=== PATIENT | female | born 1995 | race Caucasian/White ===

== ENCOUNTER 2020-11-20 13:49 | Emergency (ER) | payer MEDICAID, SELFPAY ==
--- NOTE | 2020-11-20 14:00 | ED_ITS ---
HPI - Nausea/Vomiting/Diarrhea General Chief complaint: Nausea/Vomiting/Diarrhea Stated complaint: abd pain, n/v Time Seen by Provider: 11/20/20 13:58 Source: patient and EMS Mode of arrival: EMS Limitations: no limitations History of Present Illness MD elicited complaint: nausea, vomiting and abdominal pain Pertinent past history: cyclical vomiting and other Onset (ago): day(s) (2) Description of vomiting: food contents and watery Associated nausea: Yes Associated abdominal pain: Yes Location of pain: epigastric Radiation: diffuse Pain consistency: constant Severity: mild Quality: cramping and dull Exacerbating factors: eating Relieving factors: none Context: possible food poisoning (started after eating [employer]) Associated symptoms: loss of appetite, malaise and nausea/vomiting Related Data Previous Rx's Medication Instructions Recorded promethazine 25 mg OR Q6H PRN #12 ea 11/20/20 Allergies Allergy/AdvReac Type Severity Reaction Status Date / Time No Known Allergies Allergy Verified 11/20/20 14:50 [No Known Allergies*] Review of Systems Review of Systems: Constitutional : No Weight loss, No Fever, No Chills ENT/Mouth : No sore throat, No Rhinorrhea Eyes: No Swelling, No Redness Cardiovascular : No Chest Pain, No SOB, NoEdema Respiratory : No Cough, No Sputum, No Wheezing Gastrointestinal : Positive Nausea, Positive Vomiting, no Diarrhea, positive abdominal Pain, No Hematochezia, No Melena Genitourinary : No Dysuria, No Urinary Frequency, No Hematuria, No Urgency Musculoskeletal : No joint pain, No Myalgias, No Joint Swelling Skin : No Skin Lesions, No rash Neuro : No Weakness, No Numbness, No Dizziness, No Headache Psych : No Anxiety/Panic, No Depression Heme/Lymph: No Bruising, No Lymphadenopathy Endocrine : No Polyuria, No Polydipsia All other systems reviewed and are negative. Gastrointestinal: Gastrointestinal: Reports nausea PMFSH Past Medical History Attestation statement: The following information was validated with the patient. Medical History (Updated 11/20/20 @ 14:20 by Gissel Daniel DO) Cyclical vomiting Fallot tetralogy No known health problems Surgical History (Updated 11/20/20 @ 14:12 by Gissel Daniel DO) H/O tetralogy of Fallot repair Hx of section Social History Social History (Updated 11/20/20 @ 14:12 by Gissel Daniel DO) Patient Tobacco Use Status: Never used Tobacco Advance Directives: No Advance Directives Information Provided: Yes Patient : No Physical Exam Vital Signs: Vital Signs: Last Vital Signs Temp 99 F 11/20/20 14:06 Pulse 53 11/20/20 14:06 Resp 15 11/20/20 14:06 BP 136/67 11/20/20 14:06 Pulse Ox 97 11/20/20 14:06 Body Mass Index 28.3 Appearance: Alert. Oriented X3. No acute distress. Eyes: Pupils equal, round and reactive to light. ENT: Pharynx mild dry MM Neck: Normal inspection. Neck supple. CVS: Normal heart rate and rhythm. Pulses normal. Respiratory: No respiratory distress. Breath sounds normal. Abdomen: Soft and mild epigastric ttp Skin: Skin warm and dry. Normal skin color. Normal skin turgor. Extremities: No lower extremity edema. No calf ttp Neuro: Oriented X 3. No motor deficit. No sensory deficit. Course Course Course Narrative: signed out to Dr. Beck pending workup and PO challenge MDM - Nausea/Vomiting/Diarrhea MDM Narrative Medical decision making narrative: 25 yo female hx of cyclical vomiting here with n/v and some epigastric discomfort overall the patient's abdomen is benign will need labs, IVF, IV reglan/benadryl, doubt appendicitis or biliary colic at this time, dispo per results and findings as well as PO challenge Lab Data Result diagrams: 11/20/20 15:02 11/20/20 15:02 Labs: Lab Results 11/20/20 11/20/20 Range/Units 15:02 15:02 WBC 12.7 H (4.8-10.8) X10*3/uL RBC 5.39 (4.20-5.50) X10*6/uL Hgb 15.2 (12.0-16.0) g/dl Hct 45.8 (37-47) % MCV 85.0 (80-98) fL MCH 28.2 (27.0-33.0) pg MCHC 33.2 (31.0-35.0) g/dl RDW 13.2 (11.0-16.0) % Plt Count 343 (160-400) X10*3/uL MPV 10.6 (9.4-12.3) fL Immature Gran % (Auto) 0.3 (0.0-0.4) % Neut % (Auto) 86.0 H (45-73) % Lymph % (Auto) 6.7 L (20-40) % [place] % (Auto) 6.9 (2-11) % Eos % (Auto) 0.0 (0-4) % Baso % (Auto) 0.1 (0-2) % Lymph # (Auto) 0.9 L (1.2-4.9) X10*3/uL [place] # (Auto) 0.9 (0.1-1.2) X10*3/uL Eos # (Auto) 0.0 (0.0-0.4) X10*3/uL Baso # (Auto) 0.0 (0.0-0.2) X10*3/uL Abs Immat Gran (auto) 0.04 H (0.00-0.03) X10*3/uL Absolute Neuts (auto) 10.9 H (2.0-8.3) X10*3/uL Absolute Nucleated RBC 0.000 (0.0-0.012) X10*3/uL Nucleated RBC % (auto) 0.0 (0.0-0.2) /100WBC Sodium Cancelled Potassium Cancelled Chloride Cancelled Carbon Dioxide Cancelled Anion Gap Cancelled BUN Cancelled Creatinine Cancelled Estim Creat Clear Calc Cancelled Estimated GFR Cancelled Random Glucose Cancelled Calcium Cancelled Discharge Plan Discharge Clinical Impression: Vomiting Qualifiers: Vomiting type: unspecified Vomiting Intractability: non-intractable Nausea presence: with nausea Qualified Code(s): R11.2 - Nausea with vomiting, unspecified Instructions: Acute Nausea and Vomiting (ED) Additional Instructions: return to ED for any worsening symptoms or concerns Prescriptions: New promethazine 25 mg suppository 25 mg OR Q6H PRN (Reason: nausea and vomiting) Qty: 12 RF: 1 Stand Alone Forms: Work/School Release
[2020-11-20 14:06] VITALS: BP 136/67; PULSE 53; RESP 15; TEMP 37.2; O2SAT 97; BMI 28.3
[2020-11-20] MEDS: diphenhydrAMINE HCL 50 MG/ML VIAL 25 MG IVPUSH (14:57)
[2020-11-20] MEDS: Famotidine/PF 20 MG/2 ML VIAL IVPUSH (14:58)
[2020-11-20] MEDS: Metoclopramide HCl 10 MG/2 ML VIAL IVPUSH (14:58)
[2020-11-20 15:08] LABS: MANUAL DIFF FLAG NO
[2020-11-20 15:10] LABS: Basophils Percent Auto 0.1 % (0-2); Hematocrit 45.8 % (37-47); Hemoglobin 15.2 g/dl (12.0-16.0); Imm Gran Abs Auto 0.04 X10*3/uL (0.00-0.03); Imm Gran Pct Auto 0.3 % (0.0-0.4); Lymphocytes Absolute Auto 0.9 X10*3/uL (1.2-4.9); Lymphocytes Percent Auto 6.7 % (20-40); Mean Corpuscular HGB Conc 33.2 g/dl (31.0-35.0); Mean Corpuscular Hemoglobin 28.2 pg (27.0-33.0); Mean Platelet Volume 10.6 fL (9.4-12.3); Monocytes Absolute Auto 0.9 X10*3/uL (0.1-1.2); Monocytes Percent Auto 6.9 % (2-11); Neutrophils Absolute Auto 10.9 X10*3/uL (2.0-8.3); Platelet Count 343 X10*3/uL (160-400); Red Blood Count 5.39 X10*6/uL (4.20-5.50); Red Cell Distribution Width 13.2 % (11.0-16.0); White Blood Count 12.7 X10*3/uL (4.8-10.8)
[2020-11-20] MEDS: 0.9 % Sodium Chloride 1,000 ML 999 ML IVCONT (15:10)
--- NOTE | 2020-11-20 15:10 | PC.NURSE ---
IV placed, labs obtained, and pt medicated for nausea.
[2020-11-20 16:15] LABS: Alanine Aminotransferase 32 U/L (0-31); Alkaline Phosphatase 78 U/L (39-117); Anion Gap 15 (12-20); Aspartate Amino Transferase 22 U/L (5-31); Bilirubin Direct 0.3 mg/dL (0.0-0.5); Bilirubin Total 0.8 mg/dL (0.0-1.0); Blood Urea Nitrogen 9 mg/dL (9-16); Calcium 10.7 mg/dL (8.4-10.2); Carbon Dioxide 29 mmol/L (22-29); Chloride 101 mmol/L (96-108); Creatinine Clr Calc Pharmacy 92.1; Estimated Glomerular Filt Rate > 60; Glucose Random 106 mg/dL (60-115); Magnesium 2.1 mg/dL (1.6-2.6); Potassium 3.8 mmol/L (3.3-5.1); Sodium 141 mmol/L (135-145); Total Protein 8.6 g/dL (6.5-8.0)
[2020-11-20 16:20] LABS: HCG Quantitative < 2 mIU/mL
[2020-11-20 16:27] LABS: Lipase 229 U/L (8-78)
--- NOTE | 2020-11-20 16:46 | PC.NURSE ---
Pt asked to perform PO challenge and urinate for urine sample. Pt states that she does not have to urinate at this time. IVF continue infusing.
[2020-11-20 16:47] VITALS: BP 146/89; PULSE 60; RESP 16; O2SAT 98
[2020-11-20 19:03] LABS: Glucose Urine UA NEG (NEG); Leukocyte Esterase Urine NEG (NEG); Nitrite Urine NEG (NEG); PH 6.5 (5.0-8.0); Specific Gravity - Urine >= 1.030 (1.005-1.025); Urine Blood NEG (NEG); Urine Ketones 5 MG/DL (NEG); Urine Protein 3+ MG/DL (NEG-TRACE)
--- NOTE | 2020-11-20 19:06 | PC.NURSE ---
After first po challenge pt was nauseated with sips of gingerale and dryheaving. Pt asked for urine sample at that time. Delay in obtaining urine sample. Pt was finally able to provide a sample which was sent to lab. A second po challenge attempted with nausea resulting. aware. Compazine ordered.
[2020-11-20 19:07] LABS: Appearance Urine CLEAR; Color Urine DARK YELLOW
[2020-11-20 19:11] LABS: Bacteria Urine TRACE /LPF; Mucus Urine 2+ /LPF; RBC Urine 0-2 /HPF (0); Squamous Epithelial Cell Urine TRACE /LPF; WBC Urine 0-2 /HPF (0-4)
[2020-11-20] MEDS: Prochlorperazine Edisylate 10 MG/2 ML VIAL IVPUSH (19:19)
[2020-11-20 19:20] VITALS: BP 132/49; PULSE 53; RESP 16; TEMP 37.1; O2SAT 98
--- NOTE | 2020-11-20 19:59 | PC.NURSE ---
Pt tolerating po well.
== END 2020-11-20 20:10 | disposition home or self-care (01) ==
PROVIDERS: Emergency Medicine; Emergency Provider Emergency Medicine; PCP Family Medicine
DX: R11.2 Nausea with vomiting, unspecified (principal); R10.13 Epigastric pain; D72.829 Elevated white blood cell count, unspecified
CPT/HCPCS: 36415; 80048; 80076; 81001; 81003; 83690; 83735; 84702; 85025; 96361; 96374; 96375; 99284; J1200; J2765

== ENCOUNTER 2020-11-22 20:56 | Emergency (ER) | payer MEDICAID, SELFPAY ==
--- NOTE | 2020-11-22 | ECG_ITS ---
Test Reason : CHEST PAIN Blood Pressure : / mmHG Vent. Rate : 085 BPM Atrial Rate : 085 BPM P-R Int : 120 ms QRS Dur : 140 ms QT Int : 426 ms P-R-T Axes : 062 069 079 degrees QTc Int : 506 ms Sinus rhythm with Premature atrial complexes Possible Left atrial enlargement Right bundle branch block Abnormal ECG When compared with ECG of 02-FEB-2020 12:16, Premature atrial complexes are now Present Referred By: Shawn Mendez Electronically Signed By:KAYLAH CALDERON
[2020-11-22 21:01] VITALS: BP 123/91; PULSE 92; RESP 18; TEMP 37.1; O2SAT 93; BMI 28.7
[2020-11-22 21:38] VITALS: BP 135/91; PULSE 70; RESP 16; O2SAT 99
--- NOTE | 2020-11-22 21:51 | ED_ITS ---
HPI - General Adult General Chief complaint: General Medical Stated complaint: vomiting, fever Time Seen by Provider: 11/22/20 21:18 Source: patient Mode of arrival: ambulatory Limitations: no limitations History of Present Illness HPI narrative: patient's history of tetralogy of Fallot with vomiting for last 3 days after eating mac and cheese unable to eat or drink much denies any urinary complaints also noticed for last 24 hours sharp chest pain off and on without any significant shortness of breath. Patient denies any significant abdominal pain no diarrhea no other family member is sick patient just seen here on 11/20 does have a history of cyclical vomiting syndrome for discharge on Phenergan suppository Related Data Previous Rx's Medication Instructions Recorded promethazine 25 mg NE Q6H PRN #12 ea 11/20/20 lorazepam [Ativan] 1 mg PO BID PRN #14 tab 11/22/20 Allergies Allergy/AdvReac Type Severity Reaction Status Date / Time No Known Allergies Allergy Verified 11/22/20 21:01 [No Known Allergies*] Review of Systems Review of Systems: Yes all other systems are reviewed and are negative [facility] Past Medical History Medical History Cyclical vomiting Fallot tetralogy Surgical History H/O tetralogy of Fallot repair Hx of section Social History Social History Patient Tobacco Use Status: Never used Tobacco Advance Directives: No Advance Directives Information Provided: No Patient : No Physical Exam Vital Signs: Vital Signs: Last Vital Signs Temp 98.7 F 11/22/20 21:01 Pulse 70 11/22/20 23:10 Resp 17 11/22/20 23:10 BP 135/97 H 11/22/20 23:10 Pulse Ox 96 11/22/20 23:10 Body Mass Index 28.7 Appearance: Alert. Oriented X3. No acute distress. Eyes: PERRLA, No Nystagmus ENT: Pharynx normal. Oral Mucosa moist Neck: Normal inspection. Neck supple. CVS: Normal heart rate and rhythm. Pulses normal. Respiratory: No respiratory distress. Equal air entry bilateral, no wheezing/rales/rhonchi Abdomen: Soft and nontender. Bowel sounds are present, no mass palpable, no CVA tenderness Skin: Skin warm and dry. Normal skin color. Normal skin turgor. Extremities: No lower extremity edema. No calf tenderness Neuro: Oriented X 3. No motor deficit. No sensory deficit.No cerebellar signs , cranial nerves II-XII intact Medical Decision Making MDM Narrative Medical decision making narrative: patient has cyclic vomiting syndrome improved after Ativan will discharge patient home on Ativan advised to follow with PCP Lab Data Labs: Lab Results 11/22/20 Range/Units 23:13 Urine Color DARK YELLOW Urine Appearance CLEAR Urine pH 7.5 (5.0-8.0) Ur Specific [place] 1.010 (1.005-1.025) Urine Protein 2+ H (NEG-TRACE) MG/DL Urine Glucose (UA) NEG (NEG) MG/DL Urine Ketones 5 (NEG) MG/DL Urine Blood NEG (NEG) Urine Nitrite NEG (NEG) Ur Leukocyte Esterase NEG (NEG) Urine RBC 0 (0) /HPF Urine WBC 0-2 (0-4) /HPF Ur Squamous Epith Cells 2+ /LPF Amorphous Sediment 2+ /LPF Urine Bacteria 2+ /LPF Urine Mucus 3+ /LPF ECG Data Attestation: I personally reviewed and interpreted this ECG as follows: Interpretation: normal sinus rhythm heart rate 85 beats per minute right bundle-branch block no acute ST T wave changes premature atrial complex is present no acute ischemia Discharge Plan Discharge Clinical Impression: Cyclic vomiting syndrome Patient Disposition: Home, Self-Care Instructions: Cyclic Vomiting Syndrome (ED) Additional Instructions: continue medication for vomiting take Medication for anxiety as prescribed Prescriptions: New lorazepam [Ativan] 1 mg tablet 1 mg PO BID PRN (Reason: anxiety) Qty: 14 RF: 0 No Action promethazine 25 mg suppository 25 mg NE Q6H PRN (Reason: nausea and vomiting) Qty: 12 RF: 1 Interventions: ED Discharge Assessment Last Done: 11/22/20 23:53 Discharge Date/Time: 11/23/20 00:08
[2020-11-22] MEDS: Magnesium Hydrox/Alum Hydrox 30 ML ORAL.SUSP PO (22:31)
[2020-11-22] MEDS: LORazepam 1 MG TABLET PO (22:31)
[2020-11-22 23:10] VITALS: BP 135/97; PULSE 70; RESP 17; O2SAT 96
[2020-11-22 23:19] LABS: Glucose Urine UA NEG (NEG); Leukocyte Esterase Urine NEG (NEG); Nitrite Urine NEG (NEG); PH 7.5 (5.0-8.0); Urine Blood NEG (NEG); Urine Ketones 5 MG/DL (NEG); Urine Protein 2+ MG/DL (NEG-TRACE)
[2020-11-22 23:21] LABS: Appearance Urine CLEAR; Color Urine DARK YELLOW
[2020-11-22 23:27] LABS: Bacteria Urine 2+ /LPF; RBC Urine 0 /HPF (0); Squamous Epithelial Cell Urine 2+ /LPF; WBC Urine 0-2 /HPF (0-4)
[2020-11-22 23:28] LABS: Amorphous Sediment Urine 2+ /LPF; Mucus Urine 3+ /LPF
== END 2020-11-23 00:08 | disposition home or self-care (01) ==
PROVIDERS: Emergency Provider Internal Medicine
DX: R11.15 Cyclical vomiting syndrome unrelated to migraine (principal); R07.9 Chest pain, unspecified
CPT/HCPCS: 81001; 93005; 99283; 99284

== ENCOUNTER 2021-04-20 06:42 | Emergency (ER) | payer MEDICAID, SELFPAY ==
[2021-04-20 06:51] VITALS: BP 120/69; PULSE 110; RESP 20; O2SAT 99; BMI 33.2
--- NOTE | 2021-04-20 07:00 | ED.NAVMDI ---
HPI - Nausea/Vomiting/Diarrhea General Chief complaint: Nausea/Vomiting/Diarrhea Stated complaint: nausea and vomiting Time Seen by Provider: 04/20/21 07:00 Source: patient Mode of arrival: ambulatory Limitations: no limitations History of Present Illness HPI Narrative: patient has been vomiting for 3 days, 2 months with no period. Her urine test 2 weeks ago was negative. patient also having diarrhea. Patient has a history of pancreatitis. MD elicited complaint: nausea, vomiting and diarrhea Pertinent past history: pacreatitis Onset (ago): day(s) Associated nausea: Yes Associated abdominal pain: Yes Location of pain: diffuse Severity: mild Associated symptoms: nausea/vomiting and fatigue Related Data Previous Rx's Medication Instructions Recorded promethazine 25 mg rectal 25 mg ID Q6H PRN #12 ea 11/20/20 suppository lorazepam 1 mg tablet (Ativan) 1 mg PO BID PRN #14 tab 11/22/20 prochlorperazine maleate 10 mg 10 mg PO TID PRN #20 tab 04/20/21 tablet (Compazine) Allergies Allergy/AdvReac Type Severity Reaction Status Date / Time No Known Allergies Allergy Verified 11/22/20 21:01 [No Known Allergies*] Review of Systems Constitutional: Constitutional: Reports no additional constitutional complaints Eyes: Eyes: Reports no additional eye complaints ENT: Denies dizziness Cardiovascular: Cardiovascular: Reports no additional cardiovascular complaints Respiratory: Respiratory: Reports as per HPI Gastrointestinal: Gastrointestinal: Reports nausea Genitourinary: Genitourinary: Reports no additional female genitourinary complaints Musculoskeletal: Musculoskeletal: Reports no additional musculoskeletal complaints Integumentary/Breasts: Skin/Breast: Denies rash Neurologic: Reports system reviewed and no additional complaints, except as documented, Denies dizziness and Denies Sensory deficit (Neuro) Psychiatric: Psychiatric: Denies anxiety [facility] Past Medical History Medical History Cyclical vomiting Fallot tetralogy Surgical History H/O tetralogy of Fallot repair Hx of section Social History Social History Patient Tobacco Use Status: Never used Tobacco Advance Directives: No Advance Directives Information Provided: No Physical Exam Vital Signs: Vital Signs: Last Vital Signs Pulse 110 H 04/20/21 06:51 Resp 20 04/20/21 06:51 BP 120/69 04/20/21 06:51 Pulse Ox 99 04/20/21 06:51 BMI result Body Mass Index 33.2 Const: General: healthy appearing Nutritional Appearance: average body habitus Orientation/consciousness: oriented to person and patient oriented x3 Limitations: no limitations HENMT: Head: Yes normal to inspection Ears: external ears normal General nose exam: Normal external nose present Mouth: Normal oral and palatal mucosa present and oropharynx normal Throat: Yes posterior oropharynx normal Eyes: General: appearance normal, both eyes and all related structures Neck: Other: supple Neck: Yes normal visual inspection Chest: Chest palpation & inspection: normal inspection of the chest Resp: Auscultation: clear to auscultation bilaterally Cardio: Other: 3/6 MARK Jugular venous distension: no JVD Rate: regular rate Rhythm: regular rhythm GI: Inspection: Yes normal to inspection Palpation (GI): Soft to palpation, nontender and No hepatosplenomegaly present Auscultation: normal bowel sounds : General: Yes no CVA tenderness Back/Spine/Pelvis: Back: no CVA tenderness Skin: General skin exam: no rashes or lesions noted Neuro: General: oriented to person and patient oriented x3 Cranial nerves: Yes CN's II-XII intact bilaterally Motor exam (neuro): 5/5 motor strength present throughout Sensory Exam: No Sensory deficit (Neuro) Extrem: General: Yes normal to inspection Psych: Appearance: grossly normal Course Reevaluation(s) Reevaluation #1: bedside ultrasound shows IUP with FH. will dc on phenergan Time: 09:24 MDM - Nausea/Vomiting/Diarrhea Lab Data Result diagrams: 04/20/21 07:40 04/20/21 07:40 Labs: Lab Results 04/20/21 04/20/21 Range/Units 07:40 07:40 WBC 18.8 H (4.8-10.8) X10*3/uL RBC 4.54 (4.20-5.50) X10*6/uL Hgb 13.8 (12.0-16.0) g/dl Hct 38.8 (37.0-47.0) % MCV 85.5 (80.0-98.0) fL MCH 30.4 (27.0-33.0) pg MCHC 35.6 H (31.0-35.0) g/dl RDW 11.8 (11.0-16.0) % Plt Count 374 (160-400) X10*3/uL MPV 10.3 (9.4-12.3) fL Immature Gran % (Auto) 0.3 (0.0-0.4) % Neut % (Auto) 88.6 H (45-73) % Lymph % (Auto) 4.8 L (20-40) % [place] % (Auto) 6.2 (2-11) % Eos % (Auto) 0.0 (0-4) % Baso % (Auto) 0.1 (0-2) % Lymph # (Auto) 0.9 L (1.2-4.9) X10*3/uL [place] # (Auto) 1.2 (0.1-1.2) X10*3/uL Eos # (Auto) 0.0 (0.0-0.4) X10*3/uL Baso # (Auto) 0.0 (0.0-0.2) X10*3/uL Abs Immat Gran (auto) 0.06 H (0.00-0.03) X10*3/uL Absolute Neuts (auto) 16.6 H (2.0-8.3) x10*3/uL Absolute Nucleated RBC 0.000 (0.0-0.012) X10*3/uL Nucleated RBC % (auto) 0.0 (0.0-0.2) /100WBC Sodium 138 (135-145) mmol/L Potassium 3.2 L (3.3-5.1) mmol/L Chloride 103 (96-108) mmol/L Carbon Dioxide 20 L (22-29) mmol/L Anion Gap 18 (12-20) BUN 10 (9-16) mg/dL Creatinine 0.71 (0.5-1.4) mg/dL Estim Creat Clear Calc 115.8 Estimated GFR > 60 Random Glucose 128 H (60-115) mg/dL Calcium 10.4 H (8.4-10.2) mg/dL Total Bilirubin 0.5 (0.0-1.0) mg/dL Direct Bilirubin 0.2 (0.0-0.5) mg/dL AST 15 (5-31) U/L ALT 15 (0-31) U/L Alkaline Phosphatase 66 (39-117) U/L Total Protein 8.2 H (6.5-8.0) g/dL Albumin 4.8 (3.5-5.0) g/dL Lipase 215 H (8-78) U/L Beta HCG, Quant [id number] mIU/mL Discharge Plan Discharge Clinical Impression: Qualifiers: Weeks of gestation: 10 weeks Qualified Code(s): Z3A.10 - 10 weeks gestation of Patient Disposition: Home, Self-Care Instructions: (ED) Prescriptions: New prochlorperazine maleate [Compazine] 10 mg tablet 10 mg PO TID PRN (Reason: nausea and vomiting) Qty: 20 RF: 0 No Action promethazine 25 mg suppository 25 mg ID Q6H PRN (Reason: nausea and vomiting) Qty: 12 RF: 1 lorazepam [Ativan] 1 mg tablet 1 mg PO BID PRN (Reason: anxiety) Qty: 14 RF: 0 Referrals: Jamel Livingston MD [Physician] - 1 week
[2021-04-20 07:54] LABS: MANUAL DIFF FLAG NO
[2021-04-20 07:55] LABS: Basophils Percent Auto 0.1 % (0-2); Hematocrit 38.8 % (37.0-47.0); Hemoglobin 13.8 g/dl (12.0-16.0); Imm Gran Abs Auto 0.06 X10*3/uL (0.00-0.03); Imm Gran Pct Auto 0.3 % (0.0-0.4); Lymphocytes Absolute Auto 0.9 X10*3/uL (1.2-4.9); Lymphocytes Percent Auto 4.8 % (20-40); Mean Corpuscular HGB Conc 35.6 g/dl (31.0-35.0); Mean Corpuscular Hemoglobin 30.4 pg (27.0-33.0); Mean Corpuscular Volume 85.5 fL (80.0-98.0); Mean Platelet Volume 10.3 fL (9.4-12.3); Monocytes Absolute Auto 1.2 X10*3/uL (0.1-1.2); Monocytes Percent Auto 6.2 % (2-11); Neutrophils Absolute Auto 16.6 x10*3/uL (2.0-8.3); Neutrophils Percent Auto 88.6 % (45-73); Platelet Count 374 X10*3/uL (160-400); Red Blood Count 4.54 X10*6/uL (4.20-5.50); Red Cell Distribution Width 11.8 % (11.0-16.0); White Blood Count 18.8 X10*3/uL (4.8-10.8)
[2021-04-20 08:10] LABS: Alanine Aminotransferase 15 U/L (0-31); Albumin Level 4.8 g/dL (3.5-5.0); Alkaline Phosphatase 66 U/L (39-117); Anion Gap 18 (12-20); Aspartate Amino Transferase 15 U/L (5-31); Bilirubin Direct 0.2 mg/dL (0.0-0.5); Bilirubin Total 0.5 mg/dL (0.0-1.0); Blood Urea Nitrogen 10 mg/dL (9-16); Calcium 10.4 mg/dL (8.4-10.2); Carbon Dioxide 20 mmol/L (22-29); Chloride 103 mmol/L (96-108); Creatinine Clr Calc Pharmacy 115.8; Estimated Glomerular Filt Rate > 60; Glucose Random 128 mg/dL (60-115); Lipase 215 U/L (8-78); Potassium 3.2 mmol/L (3.3-5.1); Sodium 138 mmol/L (135-145); Total Protein 8.2 g/dL (6.5-8.0)
[2021-04-20] MEDS: 0.9 % Sodium Chloride 1,000 ML 999 ML IVCONT ×2 (09:11)
[2021-04-20] MEDS: Pantoprazole Sodium 40 MG/10 ML VIAL IVPUSH (09:12)
[2021-04-20] MEDS: ondansetron HCL 4 MG/2 ML VIAL IVPUSH (09:12)
[2021-04-20 09:28] VITALS: BP 116/71; PULSE 80; TEMP 37; O2SAT 96
[2021-04-20 10:10] LABS: Appearance Urine HAZY; Color Urine YELLOW; Glucose Urine UA NEG (NEG); Leukocyte Esterase Urine NEG (NEG); Nitrite Urine NEG (NEG); Specific Gravity - Urine >= 1.030 (1.005-1.025); UACC Culture Trigger NO; Urine Blood 1+ (NEG); Urine Ketones >=80 MG/DL (NEG); Urine Protein 2+ MG/DL (NEG-TRACE)
[2021-04-20 10:31] LABS: RBC Urine 0-2 /HPF (0); WBC Urine 0 /HPF (0-4)
[2021-04-20 10:32] LABS: Amorphous Sediment Urine TRACE /LPF; Squamous Epithelial Cell Urine TRACE /LPF
[2021-04-20 13:01] VITALS: BP 140/85; PULSE 88; RESP 17; TEMP 37.1; O2SAT 98
== END 2021-04-20 13:18 | disposition home or self-care (01) ==
PROVIDERS: Emergency Provider Emergency Medicine
DX: O21.9 Vomiting of pregnancy, unspecified (principal); Z3A.10 10 weeks gestation of pregnancy
CPT/HCPCS: 36415; 80048; 80076; 81001; 83690; 84702; 85025; 96361; 96374; 96375; 99284; J2405

== ENCOUNTER 2021-05-15 11:51 | Emergency (ER) | payer MEDICAID, SELFPAY ==
--- NOTE | ~2021-05-15 | US_ITS ---
EXAMINATION: US OBSTETRICAL ULTRASOUND CLINICAL INFORMATION: Fall, trauma. Early . COMPARISON: None. LMP: 02/23/2021. Gestational age by maternal dates is 11 weeks 4 days. Estimated date of delivery by maternal dates is 11/30/2021. TECHNIQUE: Ultrasound of the maternal pelvis is performed using transabdominal transducer. M-mode Doppler is also performed. FINDINGS: There is single intrauterine gestational sac with embryo. No subchorionic hemorrhage or hematoma. HR: 156 beats per minute. CRL (crown rump length): 4.78 cm (11 weeks 4 days +/- 4 days). ROSALIA (estimated date of delivery): 11/30/2021 +/- 4 days. MATERNAL ADNEXA: The right maternal ovary measures 3.5 x 1.8 x 2.8 cm. The left maternal ovary measures 2.3 x 1.7 x 2.6 cm. No maternal adnexal mass. No maternal pelvic ascites. Normal color flow to the adnexa. No adnexal mass. US/US OB <= 14 weeks fetus IMPRESSION: 1. Single intrauterine gestation with ultrasound gestational age of 11 weeks 4 days +/- 4 days. 2. Estimated date of delivery is 11/30/2021 +/- 4 days. 3. No subchorionic hemorrhage or hematoma. No maternal pelvic ascites.
[2021-05-15 12:10] VITALS: BP 132/70; PULSE 72; O2SAT 100
[2021-05-15 13:26] VITALS: BP 124/64; PULSE 79; RESP 18; TEMP 36.6; O2SAT 99; BMI 28.3
== END 2021-05-15 18:19 | disposition left against medical advice (07) ==
PROVIDERS: Emergency Provider Emergency Medicine
DX: O99.891 Other specified diseases and conditions complicating pregnancy (principal); M54.9 Dorsalgia, unspecified; Z3A.00 Weeks of gestation of pregnancy not specified
CPT/HCPCS: 76801; 99282; 99284

== ENCOUNTER 2021-07-05 13:35 | Emergency (ER) | payer MEDICAID, SELFPAY ==
--- NOTE | ~2021-07-05 | US_ITS ---
EXAMINATION: US OB LIMITED CLINICAL INFORMATION: with lower abdominal pain. COMPARISON: OB ultrasound 05/15/2021. TECHNIQUE: Limited transabdominal ultrasound was performed. FINDINGS: A single active fetus with a normal heart rate of 156 bpm is noted. Maxeys-rump length is 4.78 cm which would correspond to an ROSALIA of 11/30/2021, which is exactly the ROSALIA based upon the LMP. The right ovary measures 3.5 x 1.8 x 2.8 cm and appears normal. The left ovary measures 2.3 x 1.7 x 2.6 cm and appears normal. US/US OB limited IMPRESSION: Normal-appearing live fetus with ROSALIA of 11/30/2021.
[2021-07-05 14:04] VITALS: BP 111/59; PULSE 90; RESP 18; TEMP 36.6; O2SAT 98; BMI 34.0
[2021-07-05 15:09] LABS: MANUAL DIFF FLAG NO
[2021-07-05 15:12] LABS: Basophils Percent Auto 0.2 % (0-2); Eosinophils Percent Auto 0.3 % (0-4); Hematocrit 36.3 % (37.0-47.0); Hemoglobin 12.4 g/dl (12.0-16.0); Imm Gran Abs Auto 0.03 X10*3/uL (0.00-0.03); Imm Gran Pct Auto 0.3 % (0.0-0.4); Lymphocytes Absolute Auto 1.5 X10*3/uL (1.2-4.9); Lymphocytes Percent Auto 12.6 % (20-40); Mean Corpuscular HGB Conc 34.2 g/dl (31.0-35.0); Mean Corpuscular Hemoglobin 30.3 pg (27.0-33.0); Mean Corpuscular Volume 88.8 fL (80.0-98.0); Mean Platelet Volume 10.3 fL (9.4-12.3); Monocytes Absolute Auto 0.6 X10*3/uL (0.1-1.2); Monocytes Percent Auto 5.1 % (2-11); Neutrophils Absolute Auto 9.4 x10*3/uL (2.0-8.3); Neutrophils Percent Auto 81.5 % (45-73); Platelet Count 283 X10*3/uL (160-400); Red Blood Count 4.09 X10*6/uL (4.20-5.50); Red Cell Distribution Width 12.3 % (11.0-16.0); White Blood Count 11.5 X10*3/uL (4.8-10.8)
[2021-07-05 15:24] LABS: INTERNATIONAL NORM RATIO 1.1 (0.9-1.1); Prothrombin Time 12.5 SEC (9.9-13.0)
[2021-07-05 15:25] LABS: Alanine Aminotransferase 12 U/L (0-31); Alkaline Phosphatase 56 U/L (39-117); Anion Gap 11 (12-20); Aspartate Amino Transferase 14 U/L (5-31); Bilirubin Total 0.3 mg/dL (0.0-1.0); Blood Urea Nitrogen 8 mg/dL (9-16); Calcium 9.3 mg/dL (8.4-10.2); Carbon Dioxide 22 mmol/L (22-29); Chloride 107 mmol/L (96-108); Creatinine Clr Calc Pharmacy 138.7; Estimated Glomerular Filt Rate > 60; Glucose Random 82 mg/dL (60-115); Potassium 3.7 mmol/L (3.3-5.1); Sodium 136 mmol/L (135-145); Total Protein 7.1 g/dL (6.5-8.0)
[2021-07-05 15:26] LABS: Partial Thromboplastin Time 30.2 SEC (24.1-38.0)
[2021-07-05 15:30] LABS: HCG Quantitative 12762 mIU/mL
[2021-07-05 15:31] VITALS: BP 114/45; PULSE 89; RESP 17; O2SAT 99
--- NOTE | 2021-07-05 16:06 | ED_ITS ---
HPI - Abdominal Pain General Chief Complaint: Abdominal Pain Stated Complaint: Abd pain - 17 weeks preg Time Seen by Provider: 07/05/21 14:13 Source: patient Mode of arrival: ambulatory Limitations: no limitations History of Present Illness HPI narrative: 26-year-old female who presents emergency department for evaluation abdominal cramping. The patient is and she is approximately 17 weeks by madelin es with an ROSALIA of 11/30/2021. The patient states that since yesterday she has been having intermittent lower abdominal cramping sensation. She states that these cramping sensations will last 2-3 minutes and she will get 2-3 of them per day. She states that her [id number] child recently of COVID-19 ( February 2021 ( and she has continues to grieve the loss of her child. She believes that whenever she is sad and is crying, this triggers her abdominal pain /cramping. She denied any vaginal discharge or vaginal bleeding. She denied fever, chills, chest pain, shortness of breath, vomiting or diarrhea. She states she does have nausea. The patient states that her previous was complicated by pre term labor and the baby was delivered at 23 weeks by . Related Data Previous Rx's Medication Instructions Recorded promethazine 25 mg rectal 25 mg ME Q6H PRN #12 ea 11/20/20 suppository lorazepam 1 mg tablet (Ativan) 1 mg PO BID PRN #14 tab 11/22/20 prochlorperazine maleate 10 mg 10 mg PO TID PRN #20 tab 04/20/21 tablet (Compazine) Allergies Allergy/AdvReac Type Severity Reaction Status Date / Time No Known Allergies Allergy Verified 11/22/20 21:01 [No Known Allergies*] Review of Systems Review of Systems Yes all other systems are reviewed and are negative [facility] Past [facility] History [facility] Narrative: social history: She denies tobacco, alcohol and drug use. Medical History Cyclical vomiting Fallot tetralogy Surgical History H/O tetralogy of Fallot repair Hx of section Social History Social History Patient Tobacco Use Status: Never used Tobacco Advance Directives: No Advance Directives Information Provided: No Patient : Yes Physical Exam ED Vital Signs: Vital Signs - 24 hr 07/05/21 14:04 07/05/21 15:31 Temperature 98 F Pulse Rate 90 89 Respiratory Rate 18 17 Blood Pressure 111/59 L 114/45 L Pulse Oximetry 98 99 BMI result Body Mass Index 34.0 Const General: cooperative and no acute distress Orientation/consciousness: oriented to person and oriented to place Limitations: no limitations HENMT Head: Yes normal to inspection, Yes normocephalic and Yes atraumatic Ears: external ears normal General nose exam: Normal external nose present Face and sinus: Yes normal facial exam Mouth: Normal oral and palatal mucosa present Throat: Yes posterior oropharynx normal Eyes General: appearance normal, both eyes and all related structures Pupils: Equal, round and reactive pupils present Neck Neck: Yes normal visual inspection, Yes no lymphadenopathy, Yes trachea midline and Yes supple Chest Chest palpation & inspection: normal inspection of the chest and normal palpation of entire chest wall Resp Effort & Inspection: normal respiratory effort and able to speak in complete sentences Auscultation: clear to auscultation bilaterally Cardio Rate: regular rate Rhythm: regular rhythm Heart sounds: S1 normal heart sound present, S2 normal heart sound present and no murmurs GI Inspection: Yes other ( gravid appearing abdomen) Palpation (GI): Soft to palpation, Tenderness to palpation present (GI) ( Mild suprapubic, left lower and right lower quadrant tenderness) and no guarding Auscultation: normal bowel sounds General: Yes no CVA tenderness Back/Spine/Pelvis Back: no CVA tenderness Skin General skin exam: no rashes or lesions noted Neuro General: oriented to person and oriented to place Cranial nerves: Yes CN's II-XII intact bilaterally and Yes Equal, round and reactive pupils present Cognition (Neuro): normal cognition Motor exam (neuro): 5/5 motor strength present throughout Extrem General: Yes normal to inspection Psych Appearance: grossly normal Speech and movement: Normal speech and movement present Affect: normal affect Attitude: cooperative Thought process: Normal thought process present Thought content: Normal thought content present Course Course Course Narrative: 26-year-old female , 17 weeks with ROSALIA 12/01/2019 to presents emergency department for evaluation of 2 days lower abdominal, intermittent cramping, 2-3 episodes per day lasting 2-3 minutes each. The patient states that she is grieving the loss of her [id number] child who of COVID in of February of 2021. She believes that whenever she cries or feel sad, the seems to trigger her abdominal pain. Vital signs revealed a normal blood pressure of 115/59 otherwise unremarkable. Patient's abdomen is gravid and she did have some mild lower abdominal and suprapubic tenderness. Laboratory evaluation was unremarkable. Quantitative beta HCG was 12,762. ultrasound revealed no acute findings, the patient has a single intrauterine which correlates with her ROSALIA. I did discuss this with the patient. The patient is stable be discharged home. She was advised that contact her OBGYN for follow-up within the next 1-2 days and to return either to this emergency department or to [facility]'s emergency department if her symptoms get worse or if she does any symptoms that are concerning to her. MDM - Abdominal Pain Lab Data Result diagrams: 07/05/21 15:03 07/05/21 15:03 Labs: Lab Results 07/05/21 07/05/21 07/05/21 Range/Units 15:03 15:03 15:03 WBC 11.5 H (4.8-10.8) X10*3/uL RBC 4.09 L (4.20-5.50) X10*6/uL Hgb 12.4 (12.0-16.0) g/dl Hct 36.3 L (37.0-47.0) % MCV 88.8 (80.0-98.0) fL MCH 30.3 (27.0-33.0) pg MCHC 34.2 (31.0-35.0) g/dl RDW 12.3 (11.0-16.0) % Plt Count 283 (160-400) X10*3/uL MPV 10.3 (9.4-12.3) fL Immature Gran % (Auto) 0.3 (0.0-0.4) % Neut % (Auto) 81.5 H (45-73) % Lymph % (Auto) 12.6 L (20-40) % Hale % (Auto) 5.1 (2-11) % Eos % (Auto) 0.3 (0-4) % Baso % (Auto) 0.2 (0-2) % Lymph # (Auto) 1.5 (1.2-4.9) X10*3/uL Hale # (Auto) 0.6 (0.1-1.2) X10*3/uL Eos # (Auto) 0.0 (0.0-0.4) X10*3/uL Baso # (Auto) 0.0 (0.0-0.2) X10*3/uL Abs Immat Gran (auto) 0.03 (0.00-0.03) X10*3/uL Absolute Neuts (auto) 9.4 H (2.0-8.3) x10*3/uL Absolute Nucleated RBC 0.000 (0.0-0.012) X10*3/uL Nucleated RBC % (auto) 0.0 (0.0-0.2) /100WBC PT 12.5 (9.9-13.0) SEC INR 1.1 (0.9-1.1) APTT 30.2 (24.1-38.0) SEC Sodium 136 (135-145) mmol/L Potassium 3.7 (3.3-5.1) mmol/L Chloride 107 (96-108) mmol/L Carbon Dioxide 22 (22-29) mmol/L Anion Gap 11 L (12-20) BUN 8 L (9-16) mg/dL Creatinine 0.60 (0.5-1.4) mg/dL Estim Creat Clear Calc 138.7 Estimated GFR > 60 Random Glucose 82 (60-115) mg/dL Calcium 9.3 D (8.4-10.2) mg/dL Total Bilirubin 0.3 (0.0-1.0) mg/dL AST 14 (5-31) U/L ALT 12 (0-31) U/L Alkaline Phosphatase 56 (39-117) U/L Total Protein 7.1 (6.5-8.0) g/dL Albumin 4.0 (3.5-5.0) g/dL Beta HCG, Quant mIU/mL 07/05/21 Range/Units 15:03 WBC (4.8-10.8) X10*3/uL RBC (4.20-5.50) X10*6/uL Hgb (12.0-16.0) g/dl Hct (37.0-47.0) % MCV (80.0-98.0) fL MCH (27.0-33.0) pg MCHC (31.0-35.0) g/dl RDW (11.0-16.0) % Plt Count (160-400) X10*3/uL MPV (9.4-12.3) fL Immature Gran % (Auto) (0.0-0.4) % Neut % (Auto) (45-73) % Lymph % (Auto) (20-40) % Hale % (Auto) (2-11) % Eos % (Auto) (0-4) % Baso % (Auto) (0-2) % Lymph # (Auto) (1.2-4.9) X10*3/uL Hale # (Auto) (0.1-1.2) X10*3/uL Eos # (Auto) (0.0-0.4) X10*3/uL Baso # (Auto) (0.0-0.2) X10*3/uL Abs Immat Gran (auto) (0.00-0.03) X10*3/uL Absolute Neuts (auto) (2.0-8.3) x10*3/uL Absolute Nucleated RBC (0.0-0.012) X10*3/uL Nucleated RBC % (auto) (0.0-0.2) /100WBC PT (9.9-13.0) SEC INR (0.9-1.1) APTT (24.1-38.0) SEC Sodium (135-145) mmol/L Potassium (3.3-5.1) mmol/L Chloride (96-108) mmol/L Carbon Dioxide (22-29) mmol/L Anion Gap (12-20) BUN (9-16) mg/dL Creatinine (0.5-1.4) mg/dL Estim Creat Clear Calc Estimated GFR Random Glucose (60-115) mg/dL Calcium (8.4-10.2) mg/dL Total Bilirubin (0.0-1.0) mg/dL AST (5-31) U/L ALT (0-31) U/L Alkaline Phosphatase (39-117) U/L Total Protein (6.5-8.0) g/dL Albumin (3.5-5.0) g/dL Beta HCG, Quant 73206 mIU/mL Discharge Plan Discharge Clinical Impression: Abdominal pain affecting Patient Disposition: Home, Self-Care Instructions: Abdominal Pain in (ED) Additional Instructions: Your laboratory evaluation was normal. The ultrasound your abdomen did not reveal any abnormalities which is reassuring. The ultrasound showed that you have 1 baby in the uterus and based on the baby size the estimated delivery date is 11/30/2021. Please follow-up with your OBGYN to discuss the abdominal pain that your having and for further evaluation. If you continue to have these pains you should consider going to [facility] Emergency Department since we do not deliver baby here and if it is greater than 28 and we thought your were in pre term labor we with send you to [facility]. Follow-up with your OBGYN doctor in 2 days. Please return to the emergency department if your symptoms get worse or if you develop any symptoms that are concerning to you. Prescriptions: No Action promethazine 25 mg suppository 25 mg ME Q6H PRN (Reason: nausea and vomiting) Qty: 12 1RF lorazepam [Ativan] 1 mg tablet 1 mg PO BID PRN (Reason: anxiety) Qty: 14 0RF prochlorperazine maleate [Compazine] 10 mg tablet 10 mg PO TID PRN (Reason: nausea and vomiting) Qty: 20 0RF
== END 2021-07-05 18:37 | disposition home or self-care (01) ==
PROVIDERS: Physician Assistant; Emergency Provider Emergency Medicine Emergency Medical Services; PCP Family Medicine
DX: O26.892 Other specified pregnancy related conditions, second trimester (principal); R10.9 Unspecified abdominal pain; Z3A.17 17 weeks gestation of pregnancy
CPT/HCPCS: 36415; 76815; 80053; 84702; 85025; 85610; 85730; 99283; 99284

== ENCOUNTER 2021-09-17 19:13 | Emergency (ER) | payer MEDICAID, SELFPAY ==
--- NOTE | ~2021-09-17 | XR_ITS ---
EXAMINATION: XR ANKLE, RIGHT CLINICAL INFORMATION: Pain. COMPARISON: None TECHNIQUE: AP, lateral, and mortise views of the right ankle. FINDINGS: There is bimalleolar soft tissue swelling. No visible acute fracture, dislocation seen. The ankle mortise and subtalar joints are normal. Tiny calcaneal heel enthesophyte is seen. XR/XR ankle RT min 3V IMPRESSION: No acute fracture or dislocation. Tiny calcaneal heel enthesophyte is noted.
[2021-09-17 22:13] VITALS: BP 115/62; PULSE 92; RESP 16; TEMP 36.7; O2SAT 95; BMI 36.2
--- NOTE | 2021-09-17 23:54 | ED.LOWEXIN ---
HPI - Extremity Injury (Lower) General Chief Complaint: Extremity Injury, Lower Stated Complaint: ankle injury Time Seen by Provider: 09/17/21 23:54 Source: patient Mode of arrival: ambulatory Limitations: no limitations History of Present Illness HPI Narrative: 26 y/o female who is currently 6 months presents to the ER for evaluation of right ankle pain and swelling after she twisted her ankle earlier today. She states she was walking down the stairs when she lost her balance and felt like she was going to fall, she caught herself on the banister and twisted her right ankle to prevent herself from falling. She denies any cramping or vaginal bleeding. She is able to walk on the right foot but with some discomfort and a slight limp. complaint: ankle injury Onset (ago): hour(s) Injury: Right: ankle and foot Type of Injury: inversion Place: home Severity: moderate Severity scale (1-10): 5 Relieving factors: cold therapy, immobilization and rest Exacerbating factors: weight bearing, movement and palpation Context: walking Associated symptoms: swelling and ambulatory Other symptoms: none Related Data Previous Rx's Medication Instructions Recorded promethazine 25 mg rectal 25 mg MS Q6H PRN #12 ea 11/20/20 suppository lorazepam 1 mg tablet (Ativan) 1 mg PO BID PRN #14 tab 11/22/20 prochlorperazine maleate 10 mg 10 mg PO TID PRN #20 tab 04/20/21 tablet (Compazine) Allergies Allergy/AdvReac Type Severity Reaction Status Date / Time No Known Allergies Allergy Verified 11/22/20 21:01 [No Known Allergies*] Review of Systems Review of Systems: Constitutional: No Fever, No Chills Cardiovascular: No Chest Pain, No SOB Gastrointestinal: No Nausea, No Vomiting, No abdominal Pain Musculoskeletal: + joint pain, No Myalgias Skin: No Skin Lesions, No rash Neuro: No Weakness, No Numbness, No Dizziness, No Headache Psych: + Anxiety/Panic Heme/Lymph: No Bruising PMFSH Past Medical History Medical History Cyclical vomiting Fallot tetralogy Surgical History H/O tetralogy of Fallot repair Hx of section Social History Social History Patient Tobacco Use Status: Never used Tobacco Advance Directives: No Physical Exam Vital Signs: Vital Signs: Last Vital Signs Temp 98.1 F 09/17/21 22:13 Pulse 92 09/17/21 22:13 Resp 16 09/17/21 22:13 BP 115/62 09/17/21 22:13 Pulse Ox 95 09/17/21 22:13 BMI result Body Mass Index 36.2 Appearance: Alert. Oriented X3. No acute distress. HEENT: normal inspection CVS: Normal heart rate and rhythm. Pulses normal. Respiratory: No respiratory distress. Skin: Skin warm and dry. Normal skin color. Normal skin turgor. No rashes. Extremities: right lateral ankle with mild swelling distal to the lateral malleolus. normal ROM of the ankle. tenderness below the medial malleolus and proximal metatarsals, no point tenderness. 2+ pulses. Neuro: Oriented X 3. No motor deficit. No sensory deficit. Ambulates with a slight limp Course Course Course Narrative: 26 y/o female presenting with right ankle pain and swelling s/p twisting injury earlier today. Ambulatory with slight limp. XR is negative for acute fracture. LEO wrap applied for compression and support. Declining need for crutches. Stable for d/c home with supportive care. Discharge Plan Discharge Clinical Impression: Ankle sprain and strain Patient Disposition: Home, Self-Care Instructions: Ankle Sprain (DC) Additional Instructions: Your x-ray today was normal. Rest your ankle and elevate your foot when possible. Recommend LEO wrap for support and compression. Use ice several times per day for the next 48 hours. You may bear weight as tolerated. Take Tylenol as needed for pain. Follow up with your doctor as needed. Prescriptions: No Action promethazine 25 mg suppository 25 mg MS Q6H PRN (Reason: nausea and vomiting) Qty: 12 1RF lorazepam [Ativan] 1 mg tablet 1 mg PO BID PRN (Reason: anxiety) Qty: 14 0RF prochlorperazine maleate [Compazine] 10 mg tablet 10 mg PO TID PRN (Reason: nausea and vomiting) Qty: 20 0RF Stand Alone Forms: Work/School Release
== END 2021-09-18 00:50 | disposition home or self-care (01) ==
LOC: HO.ED 23:57
PROVIDERS: Emergency Provider Student in an Organized Health Care Education/Training Program; PCP Family Medicine
DX: O26.92 Pregnancy related conditions, unspecified, second trimester (principal); M25.571 Pain in right ankle and joints of right foot; Z3A.24 24 weeks gestation of pregnancy; Z79.899 Other long term (current) drug therapy
CPT/HCPCS: 73610; 99283

== ENCOUNTER 2022-07-18 08:48 | Emergency (ER) | payer MEDICAID, SELFPAY ==
--- NOTE | ~2022-07-18 | CT_ITS ---
EXAMINATION: CT ABDOMEN AND PELVIS WITH CONTRAST CLINICAL INFORMATION: Right quadrant and epigastric pain. COMPARISON: None TECHNIQUE: Multidetector volumetric images were obtained from the superior aspect of the liver through the pubic symphysis following administration 85 mL of Omnipaque 350 intravenous contrast. Sagittal and coronal reformatted images were obtained on the technologist's workstation. Oral contrast: No This CT examination was performed using dose optimization techniques as appropriate, variously including the following: *Automated exposure control *Adjustment of mA and/or kV according to patient size (this includes techniques or standardized protocols for targeted exams where dose is matched to indication/reason for exam; i.e. extremities or head) *Use of iterative reconstruction technique DLP: 650 mGy-cm FINDINGS: LUNG BASES: The visualized lung bases are unremarkable. LIVER, GALLBLADDER, AND BILIARY TREE: The liver is normal in size, shape, and attenuation. No focal hepatic lesion or biliary ductal dilatation is present. The gallbladder is unremarkable with no evidence of radiopaque gallstones, gallbladder wall thickening, or obvious pericholecystic inflammatory changes. PANCREAS: Unremarkable. SPLEEN: The spleen is unremarkable with an accessory splenule along the inferior posterior tip. ADRENAL GLANDS: Unremarkable. KIDNEYS AND URETERS: The kidneys are normal in size, shape, and attenuation. Evaluation of kidney stone or contrast enhanced CT is limited. However a 8 mm radiopaque calculi mid pole left kidney is suspected. There is no hydronephrosis seen BLADDER: Unremarkable. GASTROINTESTINAL TRACT: There is scattered stool and gas seen in colon without significant distention. The small bowel loops are normal caliber. Appendix is normal caliber. There is no free fluid or free air. ABDOMINAL WALL: There is a small umbilical hernia containing fat.. LYMPH NODES: Normal. VASCULAR: Unremarkable. PELVIC VISCERA: The uterus is anteverted with an IUD in place. No adnexal mass or free fluid seen. OSSEOUS STRUCTURES: No aggressive lytic or sclerotic process seen. CT/CT abdomen pelvis w IV con IMPRESSION: No acute intra-abdominal process seen. Evaluate for renal stone in a contrast-enhanced CT is limited. However there is small radiopaque calculi upper pole left kidney is suspected. No caliectasis or hydronephrosis seen. Fleischner guidelines were followed.
[2022-07-18 09:26] VITALS: BP 138/100; PULSE 98; O2SAT 99
[2022-07-18 09:28] VITALS: BP 130/106; PULSE 94; RESP 16; O2SAT 95; BMI 36.2
[2022-07-18 09:44] LABS: MANUAL DIFF FLAG NO
[2022-07-18 09:48] LABS: Basophils Percent Auto 0.3 % (0-2); Eosinophils Percent Auto 0.2 % (0-4); Hematocrit 51.9 % (37.0-47.0); Hemoglobin 17.9 g/dl (12.0-16.0); Imm Gran Abs Auto 0.04 X10*3/uL (0.00-0.03); Imm Gran Pct Auto 0.3 % (0.0-0.4); Lymphocytes Absolute Auto 1.8 X10*3/uL (1.2-4.9); Lymphocytes Percent Auto 14.5 % (20-40); Mean Corpuscular HGB Conc 34.5 g/dl (31.0-35.0); Mean Corpuscular Hemoglobin 28.9 pg (27.0-33.0); Mean Corpuscular Volume 83.8 fL (80.0-98.0); Mean Platelet Volume 10.4 fL (9.4-12.3); Monocytes Percent Auto 8.4 % (2-11); Neutrophils Absolute Auto 9.4 x10*3/uL (2.0-8.3); Neutrophils Percent Auto 76.3 % (45-73); Platelet Count 350 X10*3/uL (160-400); Red Blood Count 6.19 X10*6/uL (4.20-5.50); Red Cell Distribution Width 11.7 % (11.0-16.0); White Blood Count 12.3 X10*3/uL (4.8-10.8)
[2022-07-18 09:59] LABS: Anion Gap 17 (12-20); Blood Urea Nitrogen 21 mg/dL (9-16); Carbon Dioxide 33 mmol/L (22-29); Chloride 92 mmol/L (96-108); Creatinine Clr Calc Pharmacy 86.3; Estimated Glomerular Filt Rate > 60; Glucose Random 134 mg/dL (60-115); Potassium 3.1 mmol/L (3.3-5.1); Sodium 139 mmol/L (135-145)
[2022-07-18] MEDS: 0.9 % Sodium Chloride 1,000 ML 999 ML IV (16:14)
[2022-07-18] MEDS: ondansetron HCL 4 MG/2 ML VIAL IVPUSH (16:24)
--- NOTE | 2022-07-18 16:35 | PC.NURSE ---
IV inserted to left AC without issue, patient getting fluids and IV zofan through line. Patient denying pain at this time.
--- NOTE | 2022-07-18 16:46 | ED.NAVMDI ---
HPI - Nausea/Vomiting/Diarrhea General Chief complaint: Nausea/Vomiting/Diarrhea Stated complaint: NAUSEA/VOMITING W/ABD PAIN X4 DAYS Time Seen by Provider: 07/18/22 16:04 Source: patient and EMS Mode of arrival: EMS Limitations: no limitations History of Present Illness HPI Narrative: 27-year-old female presents via EMS for 4 days of nausea, vomiting, body aches, unable to tolerate p.o. fluids. She normally uses Phenergan suppositories however they and she discarded them. She is complaining of abdominal pain, that feels much different than her prior presentations for abdominal pain. MD elicited complaint: nausea, vomiting and abdominal pain Onset (ago): day(s) (4) Description of vomiting: watery Associated nausea: Yes Associated abdominal pain: Yes Location of pain: diffuse Pain consistency: constant Severity: moderate Quality: cramping Exacerbating factors: eating Relieving factors: none Context: possible food poisoning Associated symptoms: fever/chills and nausea/vomiting Related Data Previous Rx's Medication Instructions Recorded promethazine 25 mg rectal 25 mg GA Q6H PRN nausea and 11/20/20 suppository vomiting #12 ea lorazepam 1 mg tablet (Ativan) 1 mg PO BID PRN anxiety #14 tabs 11/22/20 prochlorperazine maleate 10 mg 10 mg PO TID PRN nausea and 04/20/21 tablet (Compazine) vomiting #20 tabs ibuprofen 600 mg tablet 600 mg PO Q6H PRN pain #60 tabs 07/18/22 promethazine 25 mg rectal 25 mg GA Q4-6H PRN nausea and 07/18/22 suppository vomiting #12 ea tamsulosin 0.4 mg capsule (Flomax) 0.4 mg PO DAILY 14 days #14 caps 07/18/22 Allergies Allergy/AdvReac Type Severity Reaction Status Date / Time No Known Allergies Allergy Verified 11/22/20 21:01 [No Known Allergies*] Review of Systems Review of Systems: Constitutional: No Fever, No Chills, positive myalgia Cardiovascular: No Chest Pain, No SOB Respiratory: No Cough, No Dyspnea Gastrointestinal: Positive Nausea, positive Vomiting, No Diarrhea, positive abdominal Pain Genitourinary: No Dysuria, No Hematuria Musculoskeletal: No joint pain, No Myalgias, No Joint Swelling Skin: No Skin lacerations, No rash Neuro: No Weakness, No Dizziness, No Headache Yes all other systems are reviewed and are negative Gastrointestinal: Gastrointestinal: Reports nausea PMFSH Past Medical History Attestation statement: The following information was validated with the patient. Source: old records reviewed Medical History Cyclical vomiting Fallot tetralogy Surgical History H/O tetralogy of Fallot repair Hx of section Social History Social History Alcohol intake: never Patient Tobacco Use Status: Never used Tobacco Smoked in Last 30 Days: Yes Use of substances other than those prescribed or required for medical reasons: Yes Substance Use Type: Marijuana Substance Use Frequency: Occasionally Last Used Substance: Weeks (ago) Any prior treatment program specific to substance use: No Advance Directives: No Advance Directives Information Provided: Yes Patient : No Physical Exam Vital Signs: Vital Signs: Last Vital Signs Temp 98.3 F 07/18/22 17:39 Pulse 92 07/18/22 17:39 Resp 18 07/18/22 17:39 BP 132/88 07/18/22 17:39 Pulse Ox 99 07/18/22 17:39 O2 Del Method 07/18/22 17:39 BMI result Body Mass Index 36.2 Appearance: Alert. Oriented X3. Mild distress. Eyes: Pupils equal, round and reactive to light. ENT: Pharynx normal. Dry mucous membranes. Neck: Normal inspection. Neck supple. CVS: Normal heart rate and rhythm. Pulses normal. Respiratory: No respiratory distress. Breath sounds normal. Abdomen: Soft and diffusely tender. No rigidity or rebound. Positive CVA tenderness. Skin: Skin warm and dry. Normal skin color. Normal skin turgor. Extremities: No lower extremity edema. Gait well-balanced well coordinated. Neuro: No motor deficit. No sensory deficit. Cranial nerves 2-12 intact Course Course Course Narrative: 27-year-old female presents via EMS for 4 days of abdominal pain, nausea, vomiting and body aches. Unable to tolerate p.o. fluids. States she normally has nausea and vomiting on a regular basis and uses Phenergan suppositories however she has been out of those medications because they . She used to have cyclic vomiting syndrome when she smoked marijuana but no longer uses. She states that 4 days ago she ate some spicy [place] food, and that she thinks that she could possibly have food poisoning. Patient's abdomen is diffusely tender, with CVA tenderness. Has dry mucous membranes. Will order 2 L of fluid and CT scan of abdomen and pelvis. White count is 12.3, H&H 17.9 or 51.9 consistent with dehydration. Chemistries indicate potassium of 3.1 and a BUN of 21, will replete potassium Klor-Con 40 mEq. Beta quant is 0, no risk for ectopic. COVID influenza RSV are negative. CT scan abdomen pelvis pending. 20:40 CT scan indicates 8 mm renal stone nonobstructing. No indication of hydro or pyelo. No other findings in the abdomen. Will treat with Flomax and ibuprofen. Symptoms are consistent with renal colic as well as dehydration. Patient had some anxiety about her diagnosis, has had significant negative experiences with emergency medicine in the past. All of patient's questions were answered, patient stated that she feels emotionally supported and feels comfortable with her discharge home. Patient verbalized understanding of and agrees to plan of care discharge home. Verbalized understanding of signs and symptoms indicating need for emergent intervention. Medications Administered Discontinued Medications Generic Name Dose Route Start Last Admin Trade Name Angy PRN Reason Stop Dose Admin Sodium Chloride 1,000 mls @ 999 mls/hr 07/18/22 16:00 07/18/22 17:55 Ns IV 07/18/22 17:00 Infused .Q1H1M CHARLEEN Infusion Sodium Chloride 1,000 mls @ 999 mls/hr 07/18/22 16:15 07/18/22 19:02 Ns IVCONT 07/18/22 17:15 Infused .Q1H1M CHARLEEN Infusion Iohexol 100 ml 07/18/22 18:34 07/18/22 18:34 Iohexol 350 Mg/Ml 100 Ml Infus..Btl IV 07/18/22 18:35 85 ml ONCE ONE Administration Morphine Sulfate 2 mg 07/18/22 18:34 07/18/22 18:45 Morphine Sulfate 2 Mg/Ml Cartridge IVPUSH 07/18/22 18:35 2 mg ONCE ONE Administration Protocol Ondansetron HCl 4 mg 07/18/22 15:54 07/18/22 16:24 Ondansetron Hcl 4 Mg/2 Ml Vial IVPUSH 07/18/22 15:55 4 mg ONCE ONE Administration Potassium Chloride 40 meq 07/18/22 18:58 07/18/22 19:33 Potassium Chloride Packet 20 Meq Packet PO 07/18/22 18:59 40 meq ONCE ONE Administration Promethazine HCl 25 mg 07/18/22 09:30 07/18/22 09:52 Promethazine Hcl 25 Mg Supp.Rect GA 07/18/22 09:31 25 mg ONCE ONE Administration Medical Decision Making Differential Diagnosis Differential Diagnoses: The differential diagnosis associated with the presentation includes Colitis, diverticulitis, abdominal abscess, ectopic, cholecystitis, pyelo, nephrolithiasis, dehydration, electrolyte imbalance Admission/Observation Consideration of admission/observation: Escalation of care including admission/observation considered If CT scan positive will consider admission Lab Data MDM Lab Attestation statement: I reviewed the patient's lab results. 07/18/22 09:38 07/18/22 09:38 Labs: Lab Results 07/18/22 07/18/22 07/18/22 Range/Units 09:38 09:38 17:48 WBC 12.3 H (4.8-10.8) X10*3/uL RBC 6.19 H D (4.20-5.50) X10*6/uL Hgb 17.9 H D (12.0-16.0) g/dl Hct 51.9 H D (37.0-47.0) % MCV 83.8 (80.0-98.0) fL MCH 28.9 (27.0-33.0) pg MCHC 34.5 (31.0-35.0) g/dl RDW 11.7 (11.0-16.0) % Plt Count 350 (160-400) X10*3/uL MPV 10.4 (9.4-12.3) fL Immature Gran % (Auto) 0.3 (0.0-0.4) % Neut % (Auto) 76.3 H (45-73) % Lymph % (Auto) 14.5 L (20-40) % [place] % (Auto) 8.4 (2-11) % Eos % (Auto) 0.2 (0-4) % Baso % (Auto) 0.3 (0-2) % Lymph # (Auto) 1.8 (1.2-4.9) X10*3/uL [place] # (Auto) 1.0 (0.1-1.2) X10*3/uL Eos # (Auto) 0.0 (0.0-0.4) X10*3/uL Baso # (Auto) 0.0 (0.0-0.2) X10*3/uL Abs Immat Gran (auto) 0.04 H (0.00-0.03) X10*3/uL Absolute Neuts (auto) 9.4 H (2.0-8.3) x10*3/uL Absolute Nucleated RBC 0.000 (0.0-0.012) X10*3/uL Nucleated RBC % (auto) 0.0 (0.0-0.2) /100WBC Sodium 139 (135-145) mmol/L Potassium 3.1 L (3.3-5.1) mmol/L Chloride 92 L (96-108) mmol/L Carbon Dioxide 33 H (22-29) mmol/L Anion Gap 17 (12-20) BUN 21 H (9-16) mg/dL Creatinine 0.99 (0.5-1.4) mg/dL Estim Creat Clear Calc 86.3 Estimated GFR > 60 Random Glucose 134 H (60-115) mg/dL Calcium 10.0 D (8.4-10.2) mg/dL Beta HCG, Quant < 2 mIU/mL Influenza Type A (PCR) NEGATIVE (Negative) Influenza Type B (PCR) NEGATIVE (Negative) RSV RNA Qual (PCR) NEGATIVE (Negative) SARS-CoV-2 RNA (RT-PCR) NEGATIVE (Negative) Independent Interpretation I performed an independent interpretation of an: CT Scan Radiology Impression Discussion of test interpretation with radiology: I have reviewed the radiologist's reading. Radiologist Impression: FINDINGS: LUNG BASES: The visualized lung bases are unremarkable.? LIVER, GALLBLADDER, AND BILIARY TREE: The liver is normal in size, shape, and attenuation. No focal hepatic lesion or biliary ductal dilatation is present. The gallbladder is unremarkable with no evidence of radiopaque gallstones, gallbladder wall thickening, or obvious pericholecystic inflammatory changes.? PANCREAS: Unremarkable.? SPLEEN: The spleen is unremarkable with an accessory splenule along the inferior posterior tip. ADRENAL GLANDS: Unremarkable.? KIDNEYS AND URETERS: The kidneys are normal in size, shape, and attenuation. Evaluation of kidney stone or contrast enhanced CT is limited. However a 8 mm radiopaque calculi mid pole left kidney is suspected. There is no hydronephrosis seen BLADDER: Unremarkable.? GASTROINTESTINAL TRACT: There is scattered stool and gas seen in colon without significant distention. The small bowel loops are normal caliber. Appendix is normal caliber. There is no free fluid or free air. ABDOMINAL WALL: There is a small umbilical hernia containing fat..? LYMPH NODES: Normal. VASCULAR: Unremarkable. PELVIC VISCERA: The uterus is anteverted with an IUD in place. No adnexal mass or free fluid seen. OSSEOUS STRUCTURES: No aggressive lytic or sclerotic process seen.? CT/CT abdomen pelvis w IV con IMPRESSION: No acute intra-abdominal process seen. ? Evaluate for renal stone in a contrast-enhanced CT is limited. However there is small radiopaque calculi upper pole left kidney is suspected. No caliectasis or hydronephrosis seen. ? Fleischner guidelines were followed. External Record Review External record reviewed: Outpatient record and Prior outpatient labs Discharge Plan Discharge Clinical Impression: Dehydration, Gastroenteritis, Kidney stone, Acute hypokalemia Patient Disposition: Home, Self-Care Instructions: Dehydration (ED), Kidney Stones (ED), Hypokalemia (ED), Gastroenteritis (ED), Acute Nausea and Vomiting (ED) Additional Instructions: You were evaluated for abdominal pain, nausea, and vomiting. CT scan of the abdomen and pelvis indicates a small kidney stone. Please take Flomax daily for the next 14 days. Drink plenty of fluids. If symptoms persist he may consider following up with primary care physician and/or Urology. I have referred you to Dr. Robert. Alternate Tylenol 650 mg every 6 hours and Motrin 600 mg every 6 hours as needed for pain and fever management. Consider taking these medications 3 hours apart so you have pain and fever management every 3 hours. Write down what time you take these medications to prevent accidental overdose. Motrin is the same medication as Advil and ibuprofen. Tylenol is the same medication as acetaminophen. You were dehydrated. We gave the 2 L of fluids. Your dehydration and vomiting caused mild it is hypokalemia, which is a low potassium. We gave you potassium while you were in the emergency department. Please take promethazine suppositories as directed. Thank you for choosing this emergency department for evaluation. Please follow-up with primary care physician as needed. Return to the emergency department for any new, concerning, or worsening symptoms. Prescriptions: New promethazine 25 mg suppository 25 mg GA Q4-6H PRN (Reason: nausea and vomiting) Qty: 12 3RF ibuprofen 600 mg tablet 600 mg PO Q6H PRN (Reason: pain) Qty: 60 0RF tamsulosin [Flomax] 0.4 mg capsule 0.4 mg PO DAILY 14 Days Qty: 14 0RF No Action promethazine 25 mg suppository 25 mg GA Q6H PRN (Reason: nausea and vomiting) Qty: 12 1RF lorazepam [Ativan] 1 mg tablet 1 mg PO BID PRN (Reason: anxiety) Qty: 14 0RF prochlorperazine maleate [Compazine] 10 mg tablet 10 mg PO TID PRN (Reason: nausea and vomiting) Qty: 20 0RF Referrals: Juliano Robert MD [Physician] - 2 weeks (Kidney stone) Stand Alone Forms: Work/School Release Interventions: ED Discharge Assessment Last Done: 07/18/22 21:31 Discharge Date/Time: 07/18/22 21:33
[2022-07-18 17:39] VITALS: BP 132/88; PULSE 92; RESP 18; TEMP 36.8; O2SAT 99
[2022-07-18] MEDS: 0.9 % Sodium Chloride 1,000 ML 999 ML IVCONT (17:54)
[2022-07-18 18:04] LABS: HCG Quantitative < 2 mIU/mL
--- NOTE | 2022-07-18 18:32 | PC.NURSE ---
IV infiltrated in CT, 22G IV placed right AC.
[2022-07-18] MEDS: iohexoL 350 MG/ML 100 ML INFUS..BTL IV (18:34)
[2022-07-18] MEDS: Morphine Sulfate 2 MG/ML CARTRIDGE IVPUSH (18:45)
[2022-07-18 18:56] LABS: Influenza A PCR NEGATIVE (Negative); Influenza B PCR NEGATIVE (Negative); Resp Syncy Virus RNA Qual PCR NEGATIVE (Negative); SARS COV2 PCR INHOUSE NEGATIVE (Negative)
[2022-07-18] MEDS: Potassium Chloride Packet 20 MEQ PACKET 40 MEQ PO (19:33)
--- NOTE | 2022-07-18 19:35 | PC.NURSE ---
pt medicated per provider order, reporting a reduction in pain, medicated per provider order, pt pending CT results.
== END 2022-07-18 21:33 | disposition home or self-care (01) ==
PROVIDERS: Student in an Organized Health Care Education/Training Program; Emergency Provider Emergency Medicine
DX: E86.0 Dehydration (principal); K52.9 Noninfective gastroenteritis and colitis, unspecified; N20.0 Calculus of kidney; E87.6 Hypokalemia; R11.2 Nausea with vomiting, unspecified; R50.9 Fever, unspecified; Z20.822 Contact with and (suspected) exposure to COVID-19; Z20.828 Contact with and (suspected) exposure to other viral communicable diseases; Z79.899 Other long term (current) drug therapy
CPT/HCPCS: 0241U; 36415; 74177; 80048; 84702; 85025; 96361; 96374; 96375; 99284; 99285; J2270; J2405; Q9967

== ENCOUNTER 2022-10-01 13:35 | Emergency (ER) | payer MEDICAID, SELFPAY ==
--- NOTE | ~2022-10-01 | CT_ITS ---
EXAMINATION: CT ABDOMEN AND PELVIS WITHOUT CONTRAST CLINICAL INFORMATION: Right flank pain COMPARISON: 07/18/2022 TECHNIQUE: Multidetector volumetric imaging was performed from the superior aspect of the liver through the pubic symphysis. Sagittal and coronal reformatted images were obtained on the technologist's workstation. This CT examination was performed using dose optimization techniques as appropriate, variously including the following: *Automated exposure control *Adjustment of mA and/or kV according to patient size (this includes techniques or standardized protocols for targeted exams where dose is matched to indication/reason for exam; i.e. extremities or head) *Use of iterative reconstruction technique DLP: 622 mGy-cm FINDINGS: LUNG BASES: The visualized lung bases are unremarkable. LIVER, GALLBLADDER, AND BILIARY TREE: The liver is normal in size, shape, and attenuation. No focal hepatic lesion or biliary ductal dilatation is present. The gallbladder is unremarkable with no evidence of radiopaque gallstones, gallbladder wall thickening, or obvious pericholecystic inflammatory changes. PANCREAS: Unremarkable. SPLEEN: Unremarkable. ADRENAL GLANDS: Unremarkable. KIDNEYS AND URETERS: The kidneys are normal in size, shape, and attenuation. No hydronephrosis, hydroureter, or calculi seen. No perinephric stranding. BLADDER: Unremarkable. GASTROINTESTINAL TRACT: The small and large bowel are unremarkable. The appendix is unremarkable. ABDOMINAL WALL: No significant hernia is appreciated. LYMPH NODES: Normal. VASCULAR: Unremarkable. PELVIC VISCERA: IUD in place without migration. OSSEOUS STRUCTURES: Unremarkable. CT/CT abdomen pelvis wo IV con IMPRESSION: No significant abnormality. Fleischner guidelines were followed.
[2022-10-01 13:49] VITALS: BP 100/67; PULSE 82; O2SAT 97
--- NOTE | 2022-10-01 14:07 | ED_ITS ---
HPI - General Adult General Chief complaint: Nausea/Vomiting/Diarrhea Stated complaint: VOMITING Time Seen by Provider: 10/01/22 16:29 Source: patient Mode of arrival: ambulatory Limitations: no limitations History of Present Illness HPI narrative: Patient comes to the emergency room complaining of nausea and vomiting for about a week. Patient states that initially she started getting better, vomiting. But 2 days ago she started vomiting again. Patient denies diarrhea. Patient admits to using marijuana, states that the vomiting that she has is not secondary to cyclic vomiting because the pain is different. Usually with 2nd vomiting she has upper abdominal pain, this time she has lower abdominal pain. Patient states that about a month ago she was here in the emergency room with similar presentation, CT scan showed a kidney stone 8 mm in the kidney. Related Data Previous Rx's Medication Instructions Recorded promethazine 25 mg rectal 25 mg MS Q6H PRN nausea and 11/20/20 suppository vomiting #12 ea lorazepam 1 mg tablet (Ativan) 1 mg PO BID PRN anxiety #14 tabs 11/22/20 prochlorperazine maleate 10 mg 10 mg PO TID PRN nausea and 04/20/21 tablet (Compazine) vomiting #20 tabs ibuprofen 600 mg tablet 600 mg PO Q6H PRN pain #60 tabs 07/18/22 promethazine 25 mg rectal 25 mg MS Q4-6H PRN nausea and 07/18/22 suppository vomiting #12 ea tamsulosin 0.4 mg capsule (Flomax) 0.4 mg PO DAILY 14 days #14 caps 07/18/22 metoclopramide HCl 5 mg tablet 5 mg PO .T.i.d. PRN nausea and 10/01/22 (Reglan) vomiting #10 tabs Allergies Allergy/AdvReac Type Severity Reaction Status Date / Time No Known Allergies Allergy Verified 11/22/20 21:01 [No Known Allergies*] [facility] Past Medical History Medical History Cyclical vomiting Fallot tetralogy Surgical History H/O tetralogy of Fallot repair Hx of section Social History Social History Alcohol intake: never Patient Tobacco Use Status: Never used Tobacco Substance Use Type: Marijuana Advance Directives: No Advance Directives Information Provided: Yes Physical Exam ED Vital Signs: Vital Signs - 24 hr 10/01/22 14:08 10/01/22 19:16 Temperature 97.8 F 99.7 F Pulse Rate 62 71 Respiratory Rate 20 15 Blood Pressure 107/70 152/85 H Pulse Oximetry 97 97 Oxygen Delivery Method Room Air Room Air BMI result Body Mass Index 35.9 Course Course Course Narrative: This is an RME: Additional HPI, ROS, PE not included below will be deferred to primary provider. 27 y/o F, hx of heart murmur and kidney stones, presenting to the ER via EMS, with complaints of vomiting since yesterday. Admits to having lower abdominal pain. No fevers or chills. No dysuria, ?hematuria unsure if this is her menses. Was seen on 07/18/22 found to have kidney stone, d/c on Flomax and referred to merrill Robert. Did not follow up or take tamsulosin. VSS, pt stable to return to the waiting room until treatment room becomes available. Plan: Labs, UA ordered. Medications Administered Discontinued Medications Generic Name Dose Route Start Last Admin Trade Name Freq PRN Reason Stop Dose Admin Diphenhydramine HCl 25 mg 10/01/22 18:39 10/01/22 19:01 Diphenhydramine Hcl 50 Mg/Ml Vial IVPUSH 10/01/22 18:40 25 mg ONCE ONE Administration Sodium Chloride 1,000 mls @ 999 mls/hr 10/01/22 16:37 10/01/22 19:23 Ns IVCONT 10/01/22 17:37 Infused .Q1H1M ONE Infusion Ketorolac Tromethamine 30 mg 10/01/22 16:37 10/01/22 17:35 Ketorolac Tromethamine 30 Mg/Ml Vial IVPUSH 10/01/22 16:38 30 mg ONCE ONE Administration Metoclopramide HCl 10 mg 10/01/22 18:39 10/01/22 19:01 Metoclopramide Hcl 10 Mg/2 Ml Vial IVPUSH 10/01/22 18:40 10 mg ONCE ONE Administration Ondansetron HCl 4 mg 10/01/22 16:37 10/01/22 17:35 Ondansetron Hcl 4 Mg/2 Ml Vial IVPUSH 10/01/22 16:38 4 mg ONCE ONE Administration Medical Decision Making Medical Decision Making [facility] Narrative: -patient was given IV fluids, ketorolac, IV Zofran, Compazine, Benadryl. Overall patient is feeling better. -white blood cell count elevation likely secondary to reactive leukocytosis -I discussed the CT scan findings with the patient, last time that she was here she had an 8 mm stone in the left kidney. When I reviewed the images, it looks like the last time, the CT scan was done with contrast and it was confused with a stone. Patient does not have any stones -patient ready for discharge -patient not very happy that we discussed cyclical vomiting as a possibility of her symptoms Differential Diagnosis Differential Diagnoses: The differential diagnosis associated with the presentation includes (Gastritis, viral syndrome, cyclical vomiting) Lab Data [facility] Lab Attestation statement: I reviewed the patient's lab results. 10/01/22 14:35 10/01/22 14:35 Labs: Lab Results 10/01/22 10/01/22 10/01/22 Range/Units 14:35 14:35 16:33 WBC 16.6 H (4.8-10.8) X10*3/uL RBC 5.52 H (4.20-5.50) X10*6/uL Hgb 16.4 H (12.0-16.0) g/dl Hct 47.3 H (37.0-47.0) % MCV 85.7 (80.0-98.0) fL MCH 29.7 (27.0-33.0) pg MCHC 34.7 (31.0-35.0) g/dl RDW 12.0 (11.0-16.0) % Plt Count TNP MPV 11.9 (9.4-12.3) fL Immature Gran % (Auto) 0.3 (0.0-0.4) % Neut % (Auto) 82.4 H (45-73) % Lymph % (Auto) 9.2 L (20-40) % [place] % (Auto) 7.9 (2-11) % Eos % (Auto) 0.1 (0-4) % Baso % (Auto) 0.1 (0-2) % Lymph # (Auto) 1.5 (1.2-4.9) X10*3/uL [place] # (Auto) 1.3 H (0.1-1.2) X10*3/uL Eos # (Auto) 0.0 (0.0-0.4) X10*3/uL Baso # (Auto) 0.0 (0.0-0.2) X10*3/uL Abs Immat Gran (auto) 0.05 H (0.00-0.03) X10*3/uL Absolute Neuts (auto) 13.6 H (2.0-8.3) x10*3/uL Absolute Nucleated RBC 0.000 (0.0-0.012) X10*3/uL Nucleated RBC % (auto) 0.0 (0.0-0.2) /100WBC Smear Tech's Comments VERIFIED Sodium 140 (135-145) mmol/L Potassium 3.4 (3.3-5.1) mmol/L Chloride 101 (96-108) mmol/L Carbon Dioxide 24 (22-29) mmol/L Anion Gap 18 (12-20) BUN 10 (9-16) mg/dL Creatinine 0.78 (0.5-1.4) mg/dL Estim Creat Clear Calc 108.9 Estimated GFR > 60 Random Glucose 108 (60-115) mg/dL Calcium 10.2 (8.4-10.2) mg/dL Magnesium 1.9 (1.6-2.6) mg/dL Total Bilirubin 0.6 (0.0-1.0) mg/dL Direct Bilirubin 0.1 (0.0-0.5) mg/dL AST 19 (5-31) U/L ALT 25 (0-31) U/L Alkaline Phosphatase 90 (39-117) U/L Total Protein 8.7 H (6.5-8.0) g/dL Albumin 5.2 H (3.5-5.0) g/dL Lipase 247 H (8-78) U/L Urine Color Dark Yellow Urine Appearance Cloudy Urine pH 6.0 (5.0-9.0) Ur Specific [place] >= 1.030 H (1.005-1.025) Urine Protein 300 (3+) H (Neg-Trace) mg/dL Urine Glucose (UA) Negative (Negative) mg/dL Urine Ketones 15 (Negative) mg/dL Urine Blood Trace H (Negative) Urine Nitrite Negative (Negative) Ur Leukocyte Esterase Negative (Negative) Urine RBC 0-2 (0-2) /HPF Urine WBC 0-5 (0-5) /HPF Ur Squamous Epith Cells 6-10 (0-2) /HPF Urine Bacteria Trace (None Seen) Hyaline Casts 0-2 (0-2) /LPF Urine Test (NEGATIVE) Urine Opiates Screen (Not Detect) Urine Fentanyl Screen (Not Detect) Ur Barbiturates Screen (Not Detect) Ur Phencyclidine Scrn (Not Detect) Ur Amphetamines Screen (Not Detect) U Benzodiazepines Scrn (Not Detect) Urine Cocaine Screen (Not Detect) U Marijuana (THC) Screen (Not Detect) 10/01/22 10/01/22 Range/Units 16:33 16:33 WBC (4.8-10.8) X10*3/uL RBC (4.20-5.50) X10*6/uL Hgb (12.0-16.0) g/dl Hct (37.0-47.0) % MCV (80.0-98.0) fL MCH (27.0-33.0) pg MCHC (31.0-35.0) g/dl RDW (11.0-16.0) % Plt Count MPV (9.4-12.3) fL Immature Gran % (Auto) (0.0-0.4) % Neut % (Auto) (45-73) % Lymph % (Auto) (20-40) % [place] % (Auto) (2-11) % Eos % (Auto) (0-4) % Baso % (Auto) (0-2) % Lymph # (Auto) (1.2-4.9) X10*3/uL [place] # (Auto) (0.1-1.2) X10*3/uL Eos # (Auto) (0.0-0.4) X10*3/uL Baso # (Auto) (0.0-0.2) X10*3/uL Abs Immat Gran (auto) (0.00-0.03) X10*3/uL Absolute Neuts (auto) (2.0-8.3) x10*3/uL Absolute Nucleated RBC (0.0-0.012) X10*3/uL Nucleated RBC % (auto) (0.0-0.2) /100WBC Smear Tech's Comments Sodium (135-145) mmol/L Potassium (3.3-5.1) mmol/L Chloride (96-108) mmol/L Carbon Dioxide (22-29) mmol/L Anion Gap (12-20) BUN (9-16) mg/dL Creatinine (0.5-1.4) mg/dL Estim Creat Clear Calc Estimated GFR Random Glucose (60-115) mg/dL Calcium (8.4-10.2) mg/dL Magnesium (1.6-2.6) mg/dL Total Bilirubin (0.0-1.0) mg/dL Direct Bilirubin (0.0-0.5) mg/dL AST (5-31) U/L ALT (0-31) U/L Alkaline Phosphatase (39-117) U/L Total Protein (6.5-8.0) g/dL Albumin (3.5-5.0) g/dL Lipase (8-78) U/L Urine Color Urine Appearance Urine pH (5.0-9.0) Ur Specific [place] (1.005-1.025) Urine Protein (Neg-Trace) mg/dL Urine Glucose (UA) (Negative) mg/dL Urine Ketones (Negative) mg/dL Urine Blood (Negative) Urine Nitrite (Negative) Ur Leukocyte Esterase (Negative) Urine RBC (0-2) /HPF Urine WBC (0-5) /HPF Ur Squamous Epith Cells (0-2) /HPF Urine Bacteria (None Seen) Hyaline Casts (0-2) /LPF Urine Test NEGATIVE (NEGATIVE) Urine Opiates Screen Not Detected (Not Detect) Urine Fentanyl Screen Not Detected (Not Detect) Ur Barbiturates Screen Not Detected (Not Detect) Ur Phencyclidine Scrn Not Detected (Not Detect) Ur Amphetamines Screen Not Detected (Not Detect) U Benzodiazepines Scrn Not Detected (Not Detect) Urine Cocaine Screen Not Detected (Not Detect) U Marijuana (THC) Screen POSITIVE H (Not Detect) Discharge Plan Discharge Clinical Impression: Nausea & vomiting Patient Disposition: Home, Self-Care Instructions: Acute Nausea and Vomiting (ED) Additional Instructions: Please follow-up with your primary care physician tomorrow. If you have any worsening or new symptoms, please return to the emergency room or call 911 Prescriptions: New metoclopramide HCl [Reglan] 5 mg tablet 5 mg PO .T.i.d. PRN (Reason: nausea and vomiting) Qty: 10 0RF No Action promethazine 25 mg suppository 25 mg MS Q6H PRN (Reason: nausea and vomiting) Qty: 12 1RF lorazepam [Ativan] 1 mg tablet 1 mg PO BID PRN (Reason: anxiety) Qty: 14 0RF prochlorperazine maleate [Compazine] 10 mg tablet 10 mg PO TID PRN (Reason: nausea and vomiting) Qty: 20 0RF promethazine 25 mg suppository 25 mg MS Q4-6H PRN (Reason: nausea and vomiting) Qty: 12 3RF ibuprofen 600 mg tablet 600 mg PO Q6H PRN (Reason: pain) Qty: 60 0RF tamsulosin [Flomax] 0.4 mg capsule 0.4 mg PO DAILY 14 Days Qty: 14 0RF
[2022-10-01 14:08] VITALS: BP 107/70; PULSE 62; RESP 20; TEMP 36.6; O2SAT 97; BMI 35.9
[2022-10-01 14:45] LABS: Basophils Percent Auto 0.1 % (0-2); PLT CLUMP 1; SCAN SMEAR FLAG 1
[2022-10-01 14:47] LABS: Eosinophils Percent Auto 0.1 % (0-4); Hematocrit 47.3 % (37.0-47.0); Hemoglobin 16.4 g/dl (12.0-16.0); Imm Gran Abs Auto 0.05 X10*3/uL (0.00-0.03); Imm Gran Pct Auto 0.3 % (0.0-0.4); Lymphocytes Absolute Auto 1.5 X10*3/uL (1.2-4.9); Lymphocytes Percent Auto 9.2 % (20-40); MANUAL DIFF FLAG SCAN; Mean Corpuscular HGB Conc 34.7 g/dl (31.0-35.0); Mean Corpuscular Hemoglobin 29.7 pg (27.0-33.0); Mean Corpuscular Volume 85.7 fL (80.0-98.0); Mean Platelet Volume 11.9 fL (9.4-12.3); Monocytes Absolute Auto 1.3 X10*3/uL (0.1-1.2); Monocytes Percent Auto 7.9 % (2-11); Neutrophils Absolute Auto 13.6 x10*3/uL (2.0-8.3); Neutrophils Percent Auto 82.4 % (45-73); Red Blood Count 5.52 X10*6/uL (4.20-5.50)
[2022-10-01 15:00] LABS: Alanine Aminotransferase 25 U/L (0-31); Albumin Level 5.2 g/dL (3.5-5.0); Alkaline Phosphatase 90 U/L (39-117); Anion Gap 18 (12-20); Aspartate Amino Transferase 19 U/L (5-31); Bilirubin Direct 0.1 mg/dL (0.0-0.5); Bilirubin Total 0.6 mg/dL (0.0-1.0); Blood Urea Nitrogen 10 mg/dL (9-16); Calcium 10.2 mg/dL (8.4-10.2); Carbon Dioxide 24 mmol/L (22-29); Chloride 101 mmol/L (96-108); Creatinine Clr Calc Pharmacy 108.9; Estimated Glomerular Filt Rate > 60; Glucose Random 108 mg/dL (60-115); Lipase 247 U/L (8-78); Magnesium 1.9 mg/dL (1.6-2.6); Potassium 3.4 mmol/L (3.3-5.1); Sodium 140 mmol/L (135-145); Total Protein 8.7 g/dL (6.5-8.0)
[2022-10-01 15:02] LABS: White Blood Count 16.6 X10*3/uL (4.8-10.8)
[2022-10-01 15:05] LABS: SLIDE REVIEW VERIFIED
[2022-10-01 16:44] LABS: Appearance Urine Cloudy; Color Urine Dark Yellow; Glucose Urine UA Negative (Negative); Leukocyte Esterase Urine Negative (Negative); Nitrite Urine Negative (Negative); Specific Gravity - Urine >= 1.030 (1.005-1.025); UMIC TRIGGER UACC YES; Urine Blood Trace (Negative); Urine Ketones 15 mg/dL (Negative); Urine Protein 300 (3+) mg/dL (Neg-Trace)
[2022-10-01 16:47] LABS: Bacteria Urine Trace (None Seen); Hyaline Casts Urine 0-2 /LPF (0-2); RBC Urine 0-2 /HPF (0-2); WBC Urine 0-5 /HPF (0-5)
[2022-10-01 16:49] LABS: UPreg QC Valid YES; Urine Pregnancy NEGATIVE (NEGATIVE)
[2022-10-01 17:24] LABS: Amphetamine Screen Urine Not Detected (Not Detect); Barbiturates, Urine Not Detected (Not Detect); Benzodiazepines Screen Urine Not Detected (Not Detect); Cannabinoid Screen Urine POSITIVE (Not Detect); Cocaine Screen Urine Not Detected (Not Detect); Fentanyl, urine Not Detected (Not Detect); Opiate Screen Urine Not Detected (Not Detect); Phencyclidine Screen Urine Not Detected (Not Detect)
[2022-10-01] MEDS: 0.9 % Sodium Chloride 1,000 ML 999 ML IVCONT (17:35)
[2022-10-01] MEDS: ondansetron HCL 4 MG/2 ML VIAL IVPUSH (17:35)
[2022-10-01] MEDS: Ketorolac Tromethamine 30 MG/ML VIAL IVPUSH (17:35)
--- OUTSIDE RECORDS SUMMARY | 2022-10-01 17:37 | XMS_ITS | Continuity of Care Document ---
Author Name Unknown Organization [facility] Address [address] [place] [id number]- Care Team Providers Care State Wildlife Officer Name Role Phone Tushar Diallo MD Primary Care Physician Encounter [facility] Date(s): 08/07/20 - 09/06/20 [facility] [address] [place] [id number] Attending Physician: AdmKonstantin galeano Admitting Physician: Admtr, [id number] Referring Physician: Admtr, [id number] Allergies, Adverse Reactions, Alerts Substance Reaction Severity Status NKA Active Immunizations Given and Recorded Vaccine Date Status Refusal Reason tetanus/diphtheria/pertussis, acel(Tdap) 07/11/20 Given tetanus/diphtheria/pertussis, acel(Tdap) 1 06/28/11 Given influenza virus vaccine, inactivated 2 04/12/20 Gi alta influenza virus vaccine, inactivated 05/23/15 Give n influenza virus vaccine, inactivated 03/29/13 Give n pneumococcal 23-valent vaccine 05/23/15 Given Boostrix (Tdap) (oldterm) 06/07/14 Given Fluarix (oldterm) 03/03/14 Given 1Admin Note: VIS 06/11/2011 2Early/Late Reason: Early/Late Reason: New Med Order Medications Colace sodium 100 mg oral capsule 100 mg, 1, capsule, By Mouth, 2 times a day, PRN, # 20 capsule, Refills 0, Tot. Refills 0, Maintenance, for constipation, 08/14/20 10:08:00 EDT, Route to Pharmacy Electronically, [facility]/pharmacy #[id number], Partial fill upon patient request if the prescriptio... Start Date: 08/14/20 Status: Ordered ibuprofen 800 mg oral tablet 800 mg, 1, tablet, By Mouth, Every 8 hours, # 60 tablet, Refills 0, Tot. Refills 0, Maintenance, 08/14/20 10:07:00 EDT, Route to Pharmacy Electronically, [facility]/pharmacy #[id number], Partial fill upon patientrequest if the prescription is for a schedule II op... Start Date: 08/14/20 Status: Ordered oxyCODONE 5 mg oral tablet 5 mg, 1, tablet, By Mouth, Every 6 hours, PRN, # 10 tablet, Refills 0, Tot. Refills 0, Maintenance,for pain, 08/14/20 10:07:00 EDT, Route to Pharmacy Electronically, [facility]/pharmacy #[id number], Partial fillupon patient request, 156, cm, 08/14/20 0:09:00 EDT... Start Date: 08/14/20 Status: Ordered Multivitamins By Mouth, Daily, 0 Refills, Maintenance, 02/18/20 10:15:00 EDT Start Date: 02/18/20 Status: Ordered simethicone 80 mg oral tablet 1 tablet = 80 mg, Chew, 3 times a day after meals and bedtime, PRN for gas, # 60 tablet, 0 Refills,Maintenance, 08/14/20 10:08:00 EDT, Tablet, [facility]/pharmacy #[id number], Partial fill upon patient request if the prescription is for a schedule II opioid drug.... Start Date: 08/14/20 Status: Ordered Tylenol 325 mg oral capsule 2 capsule = 650 mg, By Mouth, Every 6 hours, # 60 capsule, 0 Refills, Maintenance, 08/14/20 10:08:00 EDT, [facility]/pharmacy #[id number], Partial fill upon patient request if the prescription is for a schedule II opioid drug., 156, cm, 08/14/20 0:09:00 EDT, Heigh... Start Date: 08/14/20 Status: Ordered Problem List Condition Effective Dates Status Health Status Inform ant Adenoidal hypertrophy(Confirmed) Active ADHD - Attention deficit dis order with hyperactivity(Confirmed) Active Hepatitis B antibody positive(Confirmed) 1 Active BMI 24.5, pre- - normal(Confirmed) Active Developmental delay(Confirmed) 03/05/11 Active Micrognathia of fetus affect ing management of mother, antepartum(Confirmed) Active History of varicella as a child(Confirmed) Active History of prior w ith short cervix, currently (Confirmed) Active History of tetralogy of Fall ot repair(Confirmed) Active Scoliosis(Confirmed) Active 1per patient hx Social History Social History Type Response Smoking Status Never (less than 100 in lifetime) entered on: 02/18/20 Sex
--- OUTSIDE RECORDS SUMMARY | 2022-10-01 17:37 | XMS_ITS | Continuity of Care Document ---
Author Name Unknown Organization [facility] Address [address] [place] [id number]- Care Team Providers Care Cat Driver Name Role Phone Tushar Diallo MD Primary Care Physician [place] [facility] Date(s): 05/17/20 - 06/16/[facility] [address] [place] [id number] Allergies, Adverse Reactions, Alerts Substance Reaction Severity Status NKA Active Immunizations Given and Recorded Vaccine Date Status Refusal Reason influenza virus vaccine, inactivated 1 04/12/20 Gi alta influenza virus vaccine, inactivated 05/23/15 Give n influenza virus vaccine, inactivated 03/29/13 Give n pneumococcal 23-valent vaccine 05/23/15 Given Boostrix (Tdap) (oldterm) 06/07/14 Given Fluarix (oldterm) 03/03/14 Given tetanus/diphtheria/pertussis, acel(Tdap) 2 06/28/11 Given 1Early/Late Reason: Early/Late Reason: New Med Order 2Admin Note: VIS 06/11/2011 Medications Multivitamins By Mouth, Daily, 0 Refills, Maintenance, 02/18/20 10:15:00 EDT Start Date: 02/18/20 Status: Ordered Prometrium 200 mg oral capsule 1 capsule = 200 mg, Vaginally, Daily at bedtime, # 30 tablet, 6 Refills, Acute 09/13/20 14:53:00 EDT, 08/21/20 11:34:00 EDT, [id number], Partial fill upon patient request, 155.2, cm, 04/12/2010:49:00 EST, Height, 58.96, kg, 02/18/20 17:22:00... Start Date: 08/21/20 Stop Date: 09/13/20 Status: Ordered Problem List Condition Effective Dates [...]
--- OUTSIDE RECORDS SUMMARY | 2022-10-01 17:37 | XMS_ITS | Continuity of Care Document ---
Author Name Unknown Organization [facility] Address [address] [place] [address]- Care Team Providers Care Physical Geographer Name Role Phone Tushar Diallo MD [facility] Phys[id number] Date(s[facility] - 02[facility]11/20 [facility] [address] [place] [address]- [facility] Attending Physician: Myra Kirby CNM Allergies, Adverse Reactions, Alerts Substance Reaction Severity Status NKA Active Immunizations Given and Recorded Vaccine Date Status Refusal Reason pneumococcal 23-valent vaccine 05/23/15 Given influenza virus vaccine, inactivated 05/23/15 Give n influenza virus vaccine, inactivated 03/29/13 Give n Boostrix (Tdap) (oldterm) 06/07/14 Given Fluarix (oldterm) 03/03/14 Given tetanus/diphtheria/pertussis, acel(Tdap) 1 06/28/11 Given 1Admin Note: VIS 06/11/2011 Problem List Condition Effective Dates Status Health Status Inform ant Adenoidal hypertrophy(Confirmed) Active ADHD - Attention deficit dis order with hyperactivity(Confirmed) Active Hepatitis B antibody positive(Confirmed) 1 Active Developmental delay(Confirmed) 03/05/11 Active Scoliosis(Confirmed) Active TOF - Repair of tetralogy of Fallot(Confirmed) Active 1per patient hx Social History Social History Type Response Smoking Status Never smoker entered on: 06/25/14 Sex
--- OUTSIDE RECORDS SUMMARY | 2022-10-01 17:37 | XMS_ITS | Continuity of Care Document ---
Author Name Unknown Organization [facility] Address [address] [place] [phone]- Care Team Providers Care Grinder Tender Name Role Phone Tushar Diallo MD Primary Care Physician [place] [facility] [place]s): 10/09/21 - 11/08/21 [facility] [address] [place] [phone]- Attending Physician: Konstantin Osei Admitting Physician: AdmKonstantin galeano Referring Physician: Admtr, [id number] Allergies, Adverse Reactions, Alerts No Known Allergies Immunizations Given and Recorded Vaccine Date Status Refusal Reason tetanus/diphtheria/pertussis, acel(Tdap) 09/12/21 Recorded tetanus/diphtheria/pertussis, acel(Tdap) 07/11/20 Given tetanus/diphtheria/pertussis, acel(Tdap) 1 06/28/11 Given influenza virus vaccine, inactivated 05/30/21 Give n influenza virus vaccine, inactivated 2 04/12/20 Gi alta influenza virus vaccine, inactivated 05/23/15 Give n influenza virus vaccine, inactivated 03/29/13 Give n SARS-CoV-2 (COVID-19) mRNA-1273 vaccine 05/15/21 R ecorded pneumococcal 23-valent vaccine 05/23/15 Given Boostrix (Tdap) (oldterm) 06/07/14 Given Fluarix (oldterm) 03/03/14 Given 1Admin Note: VIS 06/11/2011 2Early/Late Reason: Early/Late Reason: New Med Order Medications Benadryl 25 mg oral capsule 1 capsule = 25 mg, By Mouth, 4 times a day, PRN Nausea & Vomiting, Take as needed for nausea and vomiting., # 30 capsule, 1 Refills, Maintenance, 05/30/21 15:24:00 EST, Capsule, [id number], Partial fill upon patient request if the prescription... Start Date: 05/30/21 Status: Ordered Colace sodium 100 mg oral capsule 100 mg, 1, capsule, By Mouth, 2 times a day, PRN, # 20 capsule, Refills 0, Tot. Refills 0, Maintenance, for constipation, 08/14/20 10:08:00 EDT, Route to Pharmacy Electronically, [facility]/pharmacy #[id number], Partial fill upon patient request if the prescriptio... Start Date: 08/14/20 Status: Ordered doxylamine 25 mg oral tablet 1 tablet = 25 mg, By Mouth, Daily, Take one tablet before bed., # 30 tablet, 2 Refills, Maintenance, 06/25/21 10:05:00 EST, [facility]/pharmacy #[id number], Partial fill upon patient request if the prescription is for a schedule II opioid drug., 155, cm, 06/25/21... Start Date: 06/25/21 Status: Ordered famotidine 20 mg oral tablet 20 mg, 1, tablet, By Mouth, 2 times a day, PRN, # 60 each, Refills 1, Tot. Refills 1, Maintenance, Nausea & Vomiting, 09/12/21 17:56:00 EDT, Route to Pharmacy Electronically, [facility]/pharmacy #[id number], Partial fill upon patient request if the prescription is... Start Date: 09/12/21 Status: Ordered ondansetron 4 mg oral tablet, disintegrating 1 tablet = 4 mg, By Mouth, Every 8 hours, PRN as needed for nausea/vomiting, Place under tongue andallow tablet to dissolve. Do not use at the same time as phenergan suppository., # 10 tablet, 1 Refills, Maintenance, 05/30/21 15:24:00 EST, DIS Tablet... Start Date: 05/30/21 Status: Ordered Multivitamins with Folic Acid 1 mg oral capsule 1 capsule, By Mouth, Daily, # 30 tablet, 6 Refills, Maintenance, 06/25/21 10:05:00 EST, Capsule, [facility]/pharmacy #[id number], Partial fill upon patient request if the prescription is for a schedule II opioid drug., 1 capsule By Mouth Daily, 155, cm, 06/25/21 9... Start Date: 06/25/21 Status: Ordered promethazine 25 mg rectal suppository 1 supp = 25 mg, Rectally, 2 times a day, Use as needed for nausea and vomiting. Do not take at the same time as ondansetron., # 12 supp, 1 Refills, Maintenance, 05/30/21 15:25:00 EST, Suppository, [facility]/pharmacy #[id number], Partial fill upon patient request... Start Date: 05/30/21 Status: Ordered Prometrium 200 mg oral capsule = 200 mg, Vaginally, Daily at bedtime, # 90 each, 2 Refills, Acute 11/29/21 17:37:00 EDT, 06/07/21 17:35:00 EST, [facility]/pharmacy #[id number], Partial fill upon patient request if the prescription is for a schedule II opioid drug., 155, cm, 06/05/21 13:13:00 ES... Start Date: 06/07/21 Stop Date: 11/29/21 Status: Ordered Vitamin B6 25 mg oral tablet 1 tablet = 25 mg, By Mouth, Daily, Take daily to prevent nausea in , # 100 tablet, 3 Refills, Maintenance, 05/30/21 15:24:00 EST, [facility]/pharmacy #[id number], Partial fill upon patient request if theprescription is for a schedule II opioid drug., 155... Start Date: 05/30/21 Status: Ordered Problem List Condition Effective Dates Status Health Status Inform ant Adenoidal hypertrophy(Confirmed) Active ADHD - Attention deficit dis order with hyperactivity(Confirmed) Active History of anomaly in prior , currently (Confirmed) Active Chronic hepatitis B(Confirmed) Active COVID-19 virus infection(Confirmed) Active Developmental delay(Confirmed) 03/05/11 Active Short interval between pregn ancies affecting , antepartum(Confirmed) Active History of section(Confirmed) Active History of delivery(Confirmed) Active History of tetralogy of Fall ot repair(Confirmed) Active Obese class II(Confirmed) Active Scoliosis(Confirmed) Active Social History Social History Type Response Smoking Status Never (less than 100 in lifetime) entered on: 02/18/20 Sex
--- OUTSIDE RECORDS SUMMARY | 2022-10-01 17:37 | XMS_ITS | Continuity of Care Document ---
Author Name Unknown Organization [facility] Address [address] [place] [address]- Care Team Providers Care Credit Control Manager Name Role Phone Tushar Diallo MD Primary Care Physician Encounter [facility] [place] Date(s): 06/12/21 - 07/18/21 [facility] [address] [place] [id number] Attending Physician: Vibha Guido NP Admitting Physician: Vibha Guido NP Referring Physician: Vibha Guido NP Allergies, Adverse Reactions, Alerts No Known Allergies Immunizations Given and Recorded Vaccine Date Status Refusal Reason influenza virus vaccine, inactivated 05/30/21 Give n influenza virus vaccine, inactivated 1 04/12/20 Gi alta influenza virus vaccine, inactivated 05/23/15 Give n influenza virus vaccine, inactivated 03/29/13 Give n SARS-CoV-2 (COVID-19) mRNA-1273 vaccine 05/15/21 R ecorded tetanus/diphtheria/pertussis, acel(Tdap) 07/11/20 Given tetanus/diphtheria/pertussis, acel(Tdap) 2 06/28/11 Given pneumococcal 23-valent vaccine 05/23/15 Given Boostrix (Tdap) (oldterm) 06/07/14 Given Fluarix (oldterm) 03/03/14 Given 1Early/Late Reason: Early/Late Reason: New Med Order 2Admin Note: VIS 06/11/2011 Medications Benadryl 25 mg oral capsule 1 capsule = 25 mg, By Mouth, 4 times a day, PRN Nausea & Vomiting, Take as needed for nausea and vomiting., # 30 capsule, 1 Refills, Maintenance, 05/30/21 15:24:00 EST, Caps[facility], [id number], Partial fill upon patient request if the prescription... Start Date: 05/30/21 Status: Ordered Colace sodium 100 mg oral capsule 100 mg, 1, capsule, By Mouth, 2 times a day, PRN, # 20 capsule, Refills 0, Tot. Refills 0, Maintenance, for constipation, 08/14/20 10:08:00 EDT, Route to Pharmacy Electronically, [facility]/pharmacy #[id number], Partial fill upon patient request if the prescriptio... Start Date: 08/14/20 Status: Ordered doxylamine 25 mg oral tablet 1 tablet = 25 mg, By Mouth, Daily, Take one tablet before bed., # 30 tablet, 2 Refills, Maintenance, 06/25/21 10:05:00 EST, [facility]/pharmacy #[id number], Partial fill upon patient request if the prescription is for a schedule II opioid drug., 155, cm, 06/25/21... Start Date: 06/25/21 Status: Ordered famotidine 20 mg oral tablet 20 mg, 1, tablet, By Mouth, 2 times a day, PRN, # 60 tablet, Refills 3, Tot. Refills 3, Maintenance, Nausea & Vomiting, 05/30/21 15:25:00 EST, Route to Pharmacy Electronically, [facility]/pharmacy #[id number], Partial fill upon patient request if the prescription... Start Date: 05/30/21 Status: Ordered ondansetron 4 mg oral tablet, [...] 6 Refills, Maintenance, 06/25/21 10:05:00 EST, Capsule, [facility]/pharmacy #[id number], Partial fill upon patient request if [...] 1 Refills, Maintenance, 05/30/21 15:25:00 EST, [facility]ository, [id number], Partial fill upon patient request... Start Date: 05/30/21 Status: Ordered Prometrium 200 mg oral capsule = 200 mg, Vaginally, Daily at bedtime, # 90 each, 2 Refills, Acute 11/29/21 17:37:00 EDT, 06/07/21 17:35:00 EST, [id number], Partial fill upon patient request if the prescription is for a schedule II opioid drug., 155, cm, 06/05/21 13:13:00 ES... Start Date: 06/07/21 Stop Date: 11/29/21 Status: Ordered Vitamin B6 25 mg oral tablet 1 tablet = 25 mg, By Mouth, Daily, Take daily to prevent nausea in , # 100 tablet, 3 Refills, Maintenance, 05/30/21 15:24:00 EST, [id number], Partial fill upon patient request if theprescription is for a schedule II opioid drug., 155... Start Date: 05/30/21 Status: Ordered Problem List Condition Effective Dates Status Health Status Inform ant Adenoidal hypertrophy(Confirmed) Active ADHD - Attention deficit dis order with hyperactivity(Confirmed) Active History of anomaly in prior , currently (Confirmed) Active Hepatitis B antibody positive(Confirmed) 1 Active BMI 24.5, pre- - normal(Confirmed) Active Chronic hepatitis B(Confirmed) Active COVID-19 virus infection(Confirmed) Active Developmental delay(Confirmed) 03/05/11 Active History of varicella as a child(Confirmed) Active History of delivery(Confirmed) Active History of prior w ith short cervix, currently (Confirmed) Active History of tetralogy of Fall ot repair(Confirmed) Active Obese class I(Confirmed) Active Scoliosis(Confirmed) Active 1per patient hx Social History Social History Type Response Smoking Status Never (less than 100 in lifetime) entered on: 02/18/20 Sex
--- OUTSIDE RECORDS SUMMARY | 2022-10-01 17:37 | XMS_ITS | Continuity of Care Document ---
Author Name Unknown Organization [facility] Address [address] [place] [address]- Care Team Providers Care Forming Fixer Name Role Phone Tushar Diallo MD Primary Care Physician [phone] Encounter [facility] [place] Date(s): 06/06/20 - 07/29/20 [facility] [address] [place] [id number] Attending Physician: Pasquale ALONZO, Tabatha Huntley Admitting Physician: Tabatha Giordano MD Referring Physician: Vibha Guido NP Allergies, Adverse Reactions, Alerts Substance Reaction Severity [...] Reason: Early/Late Reason: New Med Order Medications Multivitamins By Mouth, Daily, 0 Refills, Maintenance, 02/18/20 10:15:00 EDT Start Date: 02/18/20 Status: Ordered Prometrium 200 mg oral capsule 1 capsule = 200 mg, Vaginally, Daily at bedtime, # 30 tablet, 6 Refills, Acute 09/13/20 14:53:00 EDT, 08/21/20 11:34:00 EDT, [facility]/pharmacy #[id number], Partial fill upon patient request, 155.2, cm, [...]
--- OUTSIDE RECORDS SUMMARY | 2022-10-01 17:37 | XMS_ITS | Continuity of Care Document ---
Author Name Unknown Organization [facility] Address [address] [place] [phone]- Care Team Providers Care Manhole Stripper Name Role Phone Tushar Diallo MD Primary Care Physician Encounter [facility] [place] Date(s): 04/21/20 - 05/21/20 [facility] [address] [place] [id number] Allergies, Adverse Reactions, Alerts Substance Reaction Severity [...] 09/13/20 14:53:00 EDT, 08/21/20 11:34:00 EDT, [id number], Partial fill upon patient request, 155.2, cm, [...]
--- OUTSIDE RECORDS SUMMARY | 2022-10-01 17:37 | XMS_ITS | Continuity of Care Document ---
Author Name Unknown Organization [facility] Address [address] [place] [address]- Care Team Providers Care Transmission Inspector Name Role Phone Tushar Diallo MD Primary Care Physician [phone] Encounter [facility] [place] Date(s): 07/20/20 - 08/19/20 [facility] [address] [place] [id number] Allergies, Adverse Reactions, Alerts Substance [...] 08/14/20 10:08:00 EDT, Route to Pharmacy Electronically, [facility]/pharmacy #[id number], Partial fill upon patient request if the prescriptio... Start Date: 08/14/20 Status: Ordered ibuprofen 800 mg oral tablet 800 mg, 1, tablet, By Mouth, Every 8 hours, # 60 tablet, Refills 0, Tot. Refills 0, Maintenance, 08/14/20 10:07:00 EDT, Route to Pharmacy Electronically, [facility]/pharmacy #[id number], Partial fill upon patientrequest if the prescription is for a schedule II op... Start Date: 08/14/20 Status: Ordered oxyCODONE 5 mg oral tablet 5 mg, 1, tablet, By Mouth, Every 6 hours, PRN, # 10 tablet, Refills 0, Tot. Refills 0, Maintenance,for pain, 08/14/20 10:07:00 EDT, Route to Pharmacy Electronically, [facility]/pharmacy #[id number], Partial fillupon patient request, 156, daniela, 08/14/20 0:09:00 EDT... Start Date: 08/14/20 Status: Ordered Multivitamins By Mouth, Daily, 0 Refills, Maintenance, 02/18/20 10:15:00 EDT Start Date: 02/18/20 Status: Ordered simethicone 80 mg oral tablet 1 tablet = 80 mg, Chew, 3 times a day after meals and bedtime, PRN for gas, # 60 tablet, 0 Refills,Maintenance, 08/14/20 10:08:00 EDT, Tablet, [facility]/pharmacy #[id number], Partial fill upon patient request if the prescription is for a schedule II opioid drug.... Start Date: 08/14/20 Status: Ordered Tylenol 325 mg oral capsule 2 capsule = 650 mg, By Mouth, Every 6 hours, # 60 capsule, 0 Refills, Maintenance, 08/14/20 10:08:00 EDT, [facility]/pharmacy #[id number], Partial fill upon patient request if [...]
--- OUTSIDE RECORDS SUMMARY | 2022-10-01 17:37 | XMS_ITS | Continuity of Care Document ---
Author Name Unknown Organization [facility] Address [address] [place] [address]- Care Team Providers Care Cytology Teacher Name Role Phone Tushar Diallo MD Primary Care Physician Encounter [facility] Date(s): 05/08/20 - 06/07/20 [facility] [address] [place] [id number] Allergies, Adverse Reactions, Alerts Substance Reaction [...] 09/13/20 14:53:00 EDT, 08/21/20 11:34:00 EDT, [id number], Partial fill upon patient request, 155.2, cm, [...]
--- OUTSIDE RECORDS SUMMARY | 2022-10-01 17:37 | XMS_ITS | Continuity of Care Document ---
Author Name Unknown Organization [facility] Address [address] [place] [address]- Care Team Providers Care Chiseler Head Name Role Phone Tushar Diallo MD Primary Care Physician Encounter [facility] Date(s): 03/28/20 - 04/27/20 [facility] [address] [place] [address]- Allergies, Adverse Reactions, Alerts Substance Reaction Severity [...] capsule 1 capsule = 200 mg, Vaginally, Daily, # 30 tablet, 6 Refills, Acute 08/21/20 11:34:00 EDT, 04/03/2013:59:00 EST, [facility], Partial fill upon patient request, 155.2, cm, 02/18/20 10:14:00 EDT, Height, 58.96, kg, 02/18/20 17:22:00 EDT,... Start Date: 04/03/20 Stop Date: 08/21/20 Status: Ordered Problem List Condition Effective Dates Status Health Status Inform ant Adenoidal hypertrophy(Confirmed) Active ADHD - Attention deficit dis order with hyperactivity(Confirmed) Active Hepatitis B antibody positive(Confirmed) 1 Active BMI 24.5, pre- - normal(Confirmed) Active Developmental delay(Confirmed) 03/05/11 Active History of varicella as a child(Confirmed) Active History of prior w ith short cervix, currently (Confirmed) Active History of tetralogy of Fall ot repair(Confirmed) Active Scoliosis(Confirmed) Active 1per patient hx Social History Social History Type Response Smoking Status Never (less than 100 in lifetime) entered on: 02/18/20 Sex
--- OUTSIDE RECORDS SUMMARY | 2022-10-01 17:37 | XMS_ITS | Continuity of Care Document ---
Author Name Unknown Organization [facility] Address [address] [place] [phone]- Care Team Providers Care Screen Tender Helper Name Role Phone Tushar Diallo MD Primary Care Physician Encounter [facility] [place] Date(s): 12/05/20 - 01/04/21 [facility] [address] [place] [address]- [place] Allergies, Adverse Reactions, Alerts Substance Reaction Severity [...] 08/14/20 10:08:00 EDT, Route to Pharmacy Electronically, [facility]/pharmacy #[id number], Partial fill upon patient request if the prescriptio... Start Date: 08/14/20 Status: Ordered ibuprofen 800 mg oral tablet 800 mg, 1, tablet, By Mouth, Every 8 hours, PRN, # 30 tablet, Refills 1, Tot. Refills 1, Maintenance, Pain , Mild, 09/14/20 9:24:00 EDT, Route to Pharmacy Electronically, [facility]/pharmacy #[id number], Partial fill upon patient request if the prescription is for... Start Date: 09/14/20 Status: Ordered Liletta 52 mg intrauterine device 1 each = 52 mg, Once, Placed by Dr. Graves on 09/14/20, 0 Refills, Maintenance, 09/14/20 15:59:00 EDT, Partial fill upon patient request if the prescription is for a schedule II opioid drug. Start Date: 09/14/20 Status: Ordered oxyCODONE 5 mg oral tablet 5 mg, 1, tablet, By Mouth, Every 6 hours, PRN, # 10 tablet, Refills 0, Tot. Refills 0, Maintenance,for pain, 08/14/20 10:07:00 EDT, Route to Pharmacy Electronically, [facility]/pharmacy #[id number], Partial fillupon patient request, 156, daniela, 08/14/20 0:09:00 EDT... Start Date: 08/14/20 Status: Ordered Multivitamins By Mouth, Daily, 0 Refills, Maintenance, 02/18/20 10:15:00 EDT Start Date: 02/18/20 Status: Ordered simethicone 80 mg oral tablet 1 tablet = 80 mg, Chew, 3 times a day after meals and bedtime, PRN for gas, # 60 tablet, 0 Refills,Maintenance, 08/14/20 10:08:00 EDT, Tablet, [facility]/pharmacy #[id number], Partial fill upon patient request if the prescription is for a schedule II opioid drug.... Start Date: 08/14/20 Status: Ordered Tylenol 325 mg oral capsule 2 capsule = 650 mg, By Mouth, Every 6 hours, # 60 capsule, 0 Refills, Maintenance, 08/14/20 10:08:00 EDT, [facility]/pharmacy #[id number], Partial fill upon patient request if the prescription is for a schedule II opioid drug., 156, cm, 08/14/20 0:09:00 EDT, Khadijah... Start Date: 08/14/20 Status: Ordered Problem List [...]
--- OUTSIDE RECORDS SUMMARY | 2022-10-01 17:37 | XMS_ITS | Continuity of Care Document ---
Author Name Unknown Organization [facility] Address [address] [place] [address]- Care Team Providers Care Heel Seam Rubber Name Role Phone Tushar Diallo MD Primary Care Physician [phone] Encounter [facility] [place] Date(s): 09/01/20 - 10/26/20 [facility] [address] [place] [id number] Attending Physician: Varinder Valdez MD Admitting Physician: Varinder Valdez MD Referring Physician: Tushar Diallo MD Allergies, Adverse Reactions, Alerts Substance Reaction Severity [...] 08/14/20 10:08:00 EDT, Route to Pharmacy Electronically, [facility]/pharmacy #[id number], Partial fill upon patient request if the prescriptio... Start Date: 08/14/20 Status: Ordered ibuprofen 800 mg oral tablet 800 mg, 1, tablet, By Mouth, Every 8 hours, PRN, # 30 tablet, Refills 1, Tot. Refills 1, Maintenance, Pain , Mild, 09/14/20 9:24:00 EDT, Route to Pharmacy Electronically, [facility]/pharmacy #[id number], Partial fill upon patient request if [...] 08/14/20 10:07:00 EDT, Route to Pharmacy Electronically, [facility]/pharmacy #[id number], Partial fillupon patient request, 156daniela, 08/14/20 0:09:00 EDT... Start Date: 08/14/20 Status: Ordered Multivitamins By Mouth, Daily, 0 Refills, Maintenance, 02/18/20 10:15:00 EDT Start Date: 02/18/20 Status: Ordered simethicone 80 mg oral tablet 1 tablet = 80 mg, Chew, 3 times a day after meals and bedtime, PRN for gas, # 60 tablet, 0 Refills,Maintenance, 08/14/20 10:08:00 EDT, Tablet, [facility]/pharmacy #[id number], Partial fill upon patient request if the prescription is for a schedule II opioid drug.... Start Date: 08/14/20 Status: Ordered Tylenol 325 mg oral capsule 2 capsule = 650 mg, By Mouth, Every 6 hours, # 60 capsule, 0 Refills, Maintenance, 08/14/20 10:08:00 EDT, [id number], Partial fill upon patient request [...]
--- OUTSIDE RECORDS SUMMARY | 2022-10-01 17:37 | XMS_ITS | Continuity of Care Document ---
Author Name Unknown Organization [facility] Address [address] [address]- Care Team Providers Care Rig Superintendent Name Role Phone Yoel ALONZO, Tushar Primary Care Physician Encounter [facility] Date(s): 01/25/20 - 02/24/20 [facility] [address] [address]- [facility] Allergies, Adverse Reactions, Alerts Substance Reaction Severity Status NKA Active Immunizations Given and Recorded Vaccine Date Status Refusal Reason pneumococcal 23-valent vaccine 05/23/15 Given influenza virus vaccine, inactivated 05/23/15 Give n influenza virus vaccine, inactivated 03/29/13 Give n Boostrix (Tdap) (oldterm) 06/07/14 Given Fluarix (oldterm) 03/03/14 Given tetanus/diphtheria/pertussis, acel(Tdap) 1 06/28/11 Given 1Admin Note: VIS 06/11/2011 Medications Multivitamins By Mouth, Daily, 0 Refills, Maintenance, 02/18/20 10:15:00 EDT Start Date: 02/18/20 Status: Ordered Problem List Condition Effective Dates Status Health Status Inform ant Adenoidal hypertrophy(Confirmed) Active ADHD - Attention deficit dis order with hyperactivity(Confirmed) Active Hepatitis B antibody positive(Confirmed) 1 Active BMI 24.5, pre- - normal(Confirmed) Active Developmental delay(Confirmed) 03/05/11 Active History of varicella as a child(Confirmed) Active History of prior w ith short cervix, currently (Confirmed) Active Scoliosis(Confirmed) Active TOF - Repair of tetralogy of Fallot(Confirmed) Active 1per patient hx Social History Social History Type Response Smoking Status Never (less than 100 in lifetime) entered on: 02/18/20 Sex
--- OUTSIDE RECORDS SUMMARY | 2022-10-01 17:37 | XMS_ITS | Continuity of Care Document ---
Author Name Unknown Organization [facility] Address [address] [place] [address]- Care Team Providers Care Cardroom Hand Name Role Phone Tushar Diallo MD Primary Care Physician [phone] Encounter [facility] [place] Date(s): 05/23/21 - 06/28/21 [facility] [address] [place] [id number] Attending Physician: Nanci Karimi MD Admitting Physician: Nanci Karimi MD Referring Physician: Nanci Karimi MD Allergies, Adverse Reactions, Alerts No Known Allergies [...] Refills, Maintenance, 05/30/21 15:24:00 EST, [facility], [id number], Partial fill upon patient request if the prescription... Start Date: 05/30/21 Status: Ordered Colace sodium 100 mg oral capsule 100 mg, 1, capsule, By Mouth, 2 times a day, PRN, # 20 capsule, Refills 0, Tot. Refills 0, Maintenance, for constipation, 08/14/20 10:08:00 EDT, Route to Pharmacy Electronically, [facility]/pharmacy #[id number], Partial fill upon patient request if the prescriptio... Start Date: 08/14/20 Status: Ordered doxylamine 25 mg oral tablet 1 tablet = 25 mg, By Mouth, Daily, Take one tablet before bed., # 30 tablet, 2 Refills, Maintenance, 06/25/21 10:05:00 EST, [facility]/pharmacy #[id number], Partial fill upon patient request if the prescription is for a schedule II opioid drug., 155, cm, 06/25/21... Start Date: 06/25/21 Status: Ordered famotidine 20 mg oral tablet 20 mg, 1, tablet, By Mouth, 2 times a day, PRN, # 60 tablet, Refills 3, Tot. Refills 3, Maintenance, Nausea & Vomiting, 05/30/21 15:25:00 EST, Route to Pharmacy Electronically, [facility]/pharmacy #[id number], Partial fill upon patient request [...] 6 Refills, Maintenance, 06/25/21 10:05:00 EST, Capsule, [facility]/pharmacy #[id number], Partial fill upon patient request [...]
--- OUTSIDE RECORDS SUMMARY | 2022-10-01 17:37 | XMS_ITS | Continuity of Care Document ---
Author Name Unknown Organization [facility] Address [address] [address]- Care Team Providers Care City Collector Name Role Phone Yoel ALONZO, Tushar Primary Care Physician Encounter [facility] Date(s): 01/27/20 - 02/26/20 [facility] [address] [address]- [facility] Allergies, Adverse Reactions, Alerts Substance Reaction Severity [...]
--- OUTSIDE RECORDS SUMMARY | 2022-10-01 17:37 | XMS_ITS | Continuity of Care Document ---
Author Name Unknown Organization [facility] Address [address] [place] [address]- Care Team Providers Care Coil Taper Name Role Phone Tushar Diallo MD Primary Care Physician [phone] Encounter [facility] Date(s): 03/31/20 - 04/30/20 [facility] [address] [place] [id number] Allergies, Adverse Reactions, Alerts Substance Reaction [...] Refills, Acute 08/21/20 11:34:00 EDT, 04/03/2013:59:00 EST, [facility], Partial fill upon patient request, [...]
--- OUTSIDE RECORDS SUMMARY | 2022-10-01 17:37 | XMS_ITS | Continuity of Care Document ---
Author Name Unknown Organization [facility] Address [address] [place] [address]- Care Team Providers Care Quebracho Tanner Name Role Phone Tushar Diallo MD Primary Care Physician [phone] Encounter [facility] [place] Date(s): 07/11/20 - 08/19/20 [facility] [address] [place] [id number] Attending Physician: Nanci Karimi MD Admitting Physician: Nanci Karimi MD Referring Physician: Vibha Guido NP Allergies, [...] 10:08:00 EDT, Route to Pharmacy Electronically, [facility]/pharmacy #[id number], Partial fill upon patient request if the prescriptio... Start Date: 08/14/20 Status: Ordered ibuprofen 800 mg oral tablet 800 mg, 1, tablet, By Mouth, Every 8 hours, # 60 tablet, Refills 0, Tot. Refills 0, Maintenance, 08/14/20 10:07:00 EDT, Route to Pharmacy Electronically, [facility]/pharmacy #[id number], Partial fill upon patientrequest if the prescription is for a schedule II op... Start Date: 08/14/20 Status: Ordered oxyCODONE 5 mg oral tablet 5 mg, 1, tablet, By Mouth, Every 6 hours, PRN, # 10 tablet, Refills 0, Tot. Refills 0, Maintenance,for pain, 08/14/20 10:07:00 EDT, Route to Pharmacy Electronically, [facility]/pharmacy #[id number], Partial fillupon patient request, 156, cm, 08/14/20 0:09:00 EDT... Start Date: 08/14/20 Status: Ordered Multivitamins By Mouth, Daily, 0 Refills, Maintenance, 02/18/20 10:15:00 EDT Start Date: 02/18/20 Status: Ordered simethicone 80 mg oral tablet 1 tablet = 80 mg, Chew, 3 times a day after meals and bedtime, PRN for gas, # 60 tablet, 0 Refills,Maintenance, 08/14/20 10:08:00 EDT, Tablet, [facility]/pharmacy #[id number], Partial fill upon patient request if the prescription is for a schedule II opioid drug.... Start Date: 08/14/20 Status: Ordered Tylenol 325 mg oral capsule 2 capsule = 650 mg, By Mouth, Every 6 hours, # 60 capsule, 0 Refills, Maintenance, 08/14/20 10:08:00 EDT, [facility]/pharmacy #[id number], Partial fill upon patient request if [...]
--- OUTSIDE RECORDS SUMMARY | 2022-10-01 17:37 | XMS_ITS | Continuity of Care Document ---
Author Name Unknown Organization [facility] Address [address] [place] [address]- Care Team Providers Care Crystal Lapper Name Role Phone Tushar Diallo MD Primary Care Physician Encounter [id number] Date(s): 01/02/21 - 02/01/21 [facility] [address] [place] [address]- Attending Physician: Konstantin Osei Admitting Physician: Admtr, [id number] Referring Physician: Admtr, [...] 08/14/20 10:08:00 EDT, Route to Pharmacy Electronically, [facility]/pharmacy #[id number], Partial fill upon patient request if the prescriptio... Start Date: 08/14/20 Status: Ordered ibuprofen 800 mg oral tablet 800 mg, 1, tablet, By Mouth, Every 8 hours, PRN, # 30 tablet, Refills 1, Tot. Refills 1, Maintenance, Pain , Mild, 09/14/20 9:24:00 EDT, [facility], [id number], Partial fill upon patient request [...] 08/14/20 10:07:00 EDT, Route to Pharmacy Electronically, [facility]/pharmacy #[id number], Partial fillupon patient request, 156, cm, 08/14/20 0:09:00 EDT... Start Date: 08/14/20 Status: Ordered Multivitamins By Mouth, Daily, 0 Refills, Maintenance, 02/18/20 10:15:00 EDT Start Date: 02/18/20 Status: Ordered simethicone 80 mg oral tablet 1 tablet = 80 mg, Chew, 3 times a day after meals and bedtime, PRN for gas, # 60 tablet, 0 Refills,Maintenance, 08/14/20 10:08:00 EDT, Tablet, [facility]/pharmacy #[id number], Partial fill upon patient [...]
--- OUTSIDE RECORDS SUMMARY | 2022-10-01 17:37 | XMS_ITS | Continuity of Care Document ---
Author Name Unknown Organization [facility] Address [address] [facility] [address] [place] [address]- Care Team Providers Care Last Inserter Name Role Phone Tushar Diallo MD Primary Care Physician [facility] Date[facility]): 07[facility]20 - 08/10/20 [facility] [address] [place] [address]- Attending Physician: Konstantin Osei Admitting Physician: AdmtrKonstantin Referring Physician: Admtr, Ar8 Allergies, Adverse Reactions, [...] Acute 09/13/20 14:53:00 EDT, 08/21/20 11:34:00 EDT, [facility]/pharmacy #[id number], Partial fill upon patient request, 155.2, cm, [...]
--- OUTSIDE RECORDS SUMMARY | 2022-10-01 17:37 | XMS_ITS | Continuity of Care Document ---
Author Name Unknown Organization [facility] [place] [facility] Address [address] [place] [address]- Care Team Providers Care Cloth Finishing Range Back Tender Name Role Phone Yoel ALONZO, Tushar Primary Care Physician [phone] Encounter [facility] Date(s): 03/09/20 - 05/06/[address] [address]- Attending Physician: Shayy Carlton DO Admitting Physician: Shayy Carlton DO Referring Physician: Not on Staff, Referring MD Allergies, Adverse Reactions, Alerts Substance Reaction [...] Refills, Acute 08/21/20 11:34:00 EDT, 04/03/2013:59:00 EST, [facility], Partial fill upon patient [...]
--- OUTSIDE RECORDS SUMMARY | 2022-10-01 17:37 | XMS_ITS | Continuity of Care Document ---
Author Name Unknown Organization [facility] Address [address] [place] [address]- Care Team Providers Care J2Ee Android Developer Name Role Phone Tushar Diallo MD Primary Care Physician [phone] Encounter [facility] Date(s): 05/24/20 - 06/23/20 [facility] [address] [place] [address] Allergies, Adverse Reactions, Alerts Substance [...] 09/13/20 14:53:00 EDT, 08/21/20 11:34:00 EDT, [id number], Partial fill upon patient request, 155.2, cm, [...]
--- OUTSIDE RECORDS SUMMARY | 2022-10-01 17:37 | XMS_ITS | Continuity of Care Document ---
Author Name Unknown Organization [facility] Address [address] [place] [address]- Care Team Providers Care Elementary Summer School Teacher Name Role Phone Yoel ALONZO, Tushar Primary Care Physician Encounter [facility] Date(s): 10/22/21 - 11/21/[address] [address]- Allergies, Adverse Reactions, Alerts No Known Allergies Immunizations Given and Recorded Vaccine Date Status Refusal Reason SARS-CoV-2 (COVID-19) mRNA-1273 vaccine 11/21/21 G iven SARS-CoV-2 (COVID-19) mRNA-1273 vaccine 05/15/21 R ecorded tetanus/diphtheria/pertussis, acel(Tdap) 09/12/21 Recorded tetanus/diphtheria/pertussis, acel(Tdap) 07/11/20 Given tetanus/diphtheria/pertussis, acel(Tdap) 1 06/28/11 Given tetanus/diphtheria/pertussis, acel(Tdap) 01/18/09 Recorded influenza virus vaccine, inactivated 05/30/21 Give n influenza virus vaccine, inactivated 2 04/12/20 Gi alta influenza virus vaccine, inactivated 03/19/17 Alex rded influenza virus vaccine, inactivated 02/16/16 Alex rded influenza virus vaccine, inactivated 05/23/15 Give n influenza virus vaccine, inactivated 03/29/13 Give n influenza virus vaccine, inactivated 01/10/10 Alex rded tetanus-diphtheria toxoids (Td) 11/13/17 Recorded Hepatitis A Adult Vaccine 10/19/15 Recorded pneumococcal 23-valent vaccine 05/23/15 Given Boostrix (Tdap) (oldterm) 06/07/14 Given Fluarix (oldterm) 03/03/14 Given Meningococcal Conjugate Vaccine 01/18/09 Recorded Human Papillomavirus Vaccine 01/18/09 Recorded Measles/Mumps/Rubella Virus Vaccine 04/08/01 Recor ded Measles/Mumps/Rubella Virus Vaccine 06/14/97 Recor ded diphtheria/tetanus/pertussis, acel(DTaP) 04/08/01 Recorded Diphth/pertussis,acel/tetanus/polio 09/15/97 Recor ded Diphth/pertussis,acel/tetanus/polio 01/04/97 Recor ded Diphth/pertussis,acel/tetanus/polio 96 Recor ded Diphth/pertussis,acel/tetanus/polio 96 Recor ded hepatitis B adult vaccine 96 Recorded hepatitis B adult vaccine 96 Recorded haemophilus b conjugate (PRP-T) vaccine 96 R ecorded hepatitis B pediatric vaccine 96 Recorded 1Admin Note: VIS 06/11/2011 2Early/Late Reason: Early/Late Reason: New Med Order Medications Benadryl 25 mg oral capsule 1 capsule = 25 mg, By Mouth, 4 times a day, PRN Nausea & Vomiting, Take as needed for nausea and vomiting., # 30 capsule, 1 Refills, Maintenance, 05/30/21 15:24:00 EST, Capsule, [facility]/pharmacy #[id number], Partial fill upon patient request if the prescription... Start Date: 05/30/21 Status: Ordered Colace sodium 100 mg oral capsule 100 mg, 1, capsule, By Mouth, 2 times a day, PRN, # 20 capsule, Refills 0, Tot. Refills 0, Maintenance, for constipation, 08/14/20 10:08:00 EDT, Route to Pharmacy Electronically, [facility]/pharmacy #[id number], Partial fill upon patient request if the prescriptio... Start Date: 08/14/20 Status: Ordered doxylamine 25 mg oral tablet 1 tablet = 25 mg, By Mouth, Daily, Take one tablet before bed., # 30 tablet, 2 Refills, Maintenance, 06/25/21 10:05:00 EST, [facility]/pharmacy #[id number], Partial fill upon patient request if the prescription is for a schedule II opioid drug., 155, cm, 06/25/21... Start Date: 06/25/21 Status: Ordered famotidine 20 mg oral tablet 20 mg, 1, tablet, By Mouth, 2 times a day, PRN, # 60 each, Refills 1, Tot. Refills 1, Maintenance, Nausea & Vomiting, 09/12/21 17:56:00 EDT, [id number] Partial fill upon patient request if [...] 6 Refills, Maintenance, 06/25/21 10:05:00 EST, [id number] Partial fill upon patient request if [...] 1 Refills, Maintenance, 05/30/21 15:25:00 EST, Suppository, [facility]/pharmacy #[id number], Partial fill upon patient request... Start Date: 05/30/21 Status: Ordered Prometrium 200 mg oral capsule = 200 mg, Vaginally, Daily at bedtime, # 90 each, 2 Refills, Acute 11/29/21 17:37:00 EDT, 06/07/21 17:35:00 EST, [facility]/pharmacy #[id number], Partial fill upon patient request if the prescription is for a schedule II opioid drug., 155, cm, 06/05/21 13:13:00 ES... Start Date: 06/07/21 Stop Date: 11/29/21 Status: Ordered Vitamin B6 25 mg oral tablet 1 tablet = 25 mg, By Mouth, Daily, Take daily to prevent nausea in , # 100 tablet, 3 Refills, Maintenance, 05/30/21 15:24:00 EST, [facility]/pharmacy #[id number], Partial fill upon patient request if theprescription [...]
--- OUTSIDE RECORDS SUMMARY | 2022-10-01 17:38 | XMS_ITS | Continuity of Care Document ---
Author Name Unknown Organization [facility] Address [address] [place] [address]- Care Team Providers Care Loan Collector Name Role Phone Tushar Diallo MD Primary Care Physician [phone] [facility]counter [facility] Date[facility]s): 06/26/20 - 07/26/20 [facility] [address] [place] [address] Allergies, Adverse Reactions, Alerts Substance [...] 09/13/20 14:53:00 EDT, 08/21/20 11:34:00 EDT, [id number], Partial fill upon patient request, 155.2, cm, 04/12/2010:49:00 EST, Height, 58.96, kg, 10/02/20 17:22:00... Start Date: 08/21/20 Stop Date: 09/13/20 [...]
--- OUTSIDE RECORDS SUMMARY | 2022-10-01 17:38 | XMS_ITS | Continuity of Care Document ---
Author Name Unknown Organization [facility] [employer] Address [address] [facility], [address] [place] [address]- Care Team Providers Care Health Director Name Role Phone Yoel ALONZO, Tushar Primary Care Physician Encounter [facility] Date(s): 01/27/20 - 03/01/20 [facility] [address], [address] [place] [address]- [facility] Attending Physician: Myra Kirby CNM Allergies, Adverse [...]
--- OUTSIDE RECORDS SUMMARY | 2022-10-01 17:38 | XMS_ITS | Continuity of Care Document ---
Author Name Unknown Organization [facility] Address [address] [place] [address]- Care Team Providers Care Tow Operator Name Role Phone Tushar Diallo MD Primary Care Physician Encounter [facility] Date(s): 07/26/21 - 10/11/21 [facility] [address] [place] [address]- Attending Physician: Minda Amor Admitting Physician: Minda Amor Allergies, Adverse Reactions, Alerts No Known Allergies [...] Refills, Maintenance, 05/30/21 15:24:00 EST, [facility]aps[facility], [id number], Partial fill upon patient request if the prescription... Start Date: 05/30/21 Status: Ordered Colace sodium 100 mg oral capsule 100 mg, 1, capsule, By Mouth, 2 times a day, PRN, # 20 capsule, Refills 0, Tot. Refills 0, Maintenance, for constipation, 08/14/20 10:08:00 EDT, Route to Pharmacy Electronically, [facility]/pharmacy #[id number], Partial fill upon patient request if the prescriptio... Start Date: 08/14/20 Status: Ordered doxylamine 25 mg oral tablet 1 tablet = 25 mg, By Mouth, Daily, Take one tablet before bed., # 30 tablet, 2 Refills, Maintenance, 06/25/21 10:05:00 EST, [facility]/pharmacy #[id number], Partial fill upon patient request if the prescription is for a schedule II opioid drug., 155, cm, 06/25/21... Start Date: 06/25/21 Status: Ordered famotidine 20 mg oral tablet 20 mg, 1, tablet, By Mouth, 2 times a day, PRN, # 60 each, Refills 1, Tot. Refills 1, Maintenance, Nausea & Vomiting, 09/12/21 17:56:00 EDT, Route to Pharmacy Electronically, [facility]/pharmacy #[id number], Partial fill upon patient request [...] 6 Refills, Maintenance, 06/25/21 10:05:00 EST, Capsule, [facility]/pharmacy #[id number], Partial fill upon patient request [...] 1 Refills, Maintenance, 05/30/21 15:25:00 EST, Suppository, [facility]/pharmacy #[id number], Partial fill upon patient request... Start Date: 05/30/21 Status: Ordered Prometrium 200 mg oral capsule = 200 mg, Vaginally, Daily at bedtime, # 90 each, 2 Refills, Acute 11/29/21 17:37:00 EDT, 06/07/21 17:35:00 EST, [facility]/pharmacy #[id number], Partial fill upon patient request if the prescription is for a schedule II opioid drug., 155, cm, 06/05/21 13:13:00 ES... Start Date: 06/07/21 Stop Date: 11/29/21 Status: Ordered Vitamin B6 25 mg oral tablet 1 tablet = 25 mg, By Mouth, Daily, Take daily to prevent nausea in , # 100 tablet, 3 Refills, Maintenance, 05/30/21 15:24:00 EST, [facility]/pharmacy #[id number], Partial fill upon patient request [...] Active Developmental delay(Confirmed) 03/05/11 Active History of section(Confirmed) Active History of delivery(Confirmed) Active History of tetralogy of Fall ot repair(Confirmed) Active Obese class II(Confirmed) Active Scoliosis(Confirmed) Active Social History Social History Type Response Smoking Status Never (less than 100 in lifetime) entered on: 02/18/20 Sex
--- OUTSIDE RECORDS SUMMARY | 2022-10-01 17:38 | XMS_ITS | Continuity of Care Document ---
Author Name Unknown Organization [facility] Address [address] [place] [address]- Care Team Providers Care Accountant Supervisor Name Role Phone Yoel ALONZO, Tushar Primary Care Physician Encounter [facility] Date(s): 09/26/20 - 10/26/20 [facility] [address] [place] [id number] Attending Physician: AdmKonstantin galeano Admitting Physician: AdmtrKonstantin Referring Physician: Admtr, Ar8 [...] 08/14/20 10:08:00 EDT, Route to Pharmacy Electronically, [facility]/pharmacy #[id number], Partial fill upon patient request if the [...] 08/14/20 10:07:00 EDT, Route to Pharmacy Electronically, [facility]/pharmacy #[id number], Partial fillupon patient request, 156, daniela, 08/14/20 0:09:00 EDT... Start Date: 08/14/20 Status: Ordered Multivitamins By Mouth, Daily, 0 Refills, Maintenance, 02/18/20 10:15:00 EDT Start Date: 02/18/20 Status: Ordered simethicone 80 mg oral tablet 1 tablet = 80 mg, Chew, 3 times a day after meals and bedtime, PRN for gas, # 60 tablet, 0 Refills,Maintenance, 08/14/20 10:08:00 EDT, Tablet, [facility]/pharmacy #[id number], Partial fill upon patient request [...]
--- OUTSIDE RECORDS SUMMARY | 2022-10-01 17:38 | XMS_ITS | Continuity of Care Document ---
Author Name Unknown Organization [facility] Address [address] [place] [address]- Care Team Providers Care Geodetic Computator Name Role Phone Tushar Diallo MD Primary Care Physician Encounter [facility] Date(s): 03/01/20 - 04/27/20 [facility] [address] [place] [address]- Attending Physician: Varinder Valdez MD Admitting Physician: [...] Refills, Acute 08/21/20 11:34:00 EDT, 04/03/2013:59:00 EST, [facility], Partial fill upon patient request, [...]
--- OUTSIDE RECORDS SUMMARY | 2022-10-01 17:38 | XMS_ITS | Continuity of Care Document ---
Author Name Unknown Organization [facility] Address [address] [place] [address]- Care Team Providers Care Airplane Tester Name Role Phone Yoel ALONZO, Tushar Primary Care Physician [phone] Encounter [facility] Date(s): 08/20/21 - 09/19/21 [facility] [address] [place] [address]- Attending Physician: Konstantin Osei Admitting Physician: Konstantin Osei Referring Physician: AdmtrKonstantin Allergies, Adverse Reactions, Alerts No Known Allergies [...] Refills, Maintenance, 05/30/21 15:24:00 EST, [facility], [id number], Partial fill upon patient request if the prescription... Start Date: 05/30/21 Status: Ordered Colace sodium 100 mg oral capsule 100 mg, 1, capsule, By Mouth, 2 times a day, PRN, # 20 capsule, Refills 0, Tot. Refills 0, Maintenance, for constipation, 08/14/20 10:08:00 EDT, Route to Pharmacy Electronically, [facility]/pharmacy #[id number], Partial fill upon patient request if the prescriptio... Start Date: 08/14/20 Status: Ordered doxylamine 25 mg oral tablet 1 tablet = 25 mg, By Mouth, Daily, Take one tablet before bed., # 30 tablet, 2 Refills, Maintenance, 06/25/21 10:05:00 EST, [facility]/pharmacy #[id number], Partial fill upon patient request if the prescription is for a schedule II opioid drug., 155, cm, 06/25/21... Start Date: 06/25/21 Status: Ordered famotidine 20 mg oral tablet 20 mg, 1, tablet, By Mouth, 2 times a day, PRN, # 60 each, Refills 1, Tot. Refills 1, Maintenance, Nausea & Vomiting, 09/12/21 17:56:00 EDT, Route to Pharmacy Electronically, [facility]/pharmacy #[id number], Partial fill upon patient request [...] 6 Refills, Maintenance, 06/25/21 10:05:00 EST, Capsule, [facility]/pharmacy #[id number], Partial fill upon patient request [...] 1 Refills, Maintenance, 05/30/21 15:25:00 EST, Suppository, [facility]/pharmacy #[id number], Partial fill upon patient request... Start Date: 05/30/21 Status: Ordered Prometrium 200 mg oral capsule = 200 mg, Vaginally, Daily at bedtime, # 90 each, 2 Refills, Acute 11/29/21 17:37:00 EDT, 06/07/21 17:35:00 EST, [facility]/pharmacy #[id number], Partial fill upon patient request if the prescription is for a schedule II opioid drug., 155, cm, 06/05/21 13:13:00 ES... Start Date: 06/07/21 Stop Date: 11/29/21 Status: Ordered Vitamin B6 25 mg oral tablet 1 tablet = 25 mg, By Mouth, Daily, Take daily to prevent nausea in , # 100 tablet, 3 Refills, Maintenance, 05/30/21 15:24:00 EST, [facility]/pharmacy #[id number], Partial fill upon patient request [...]
--- OUTSIDE RECORDS SUMMARY | 2022-10-01 17:38 | XMS_ITS | Continuity of Care Document ---
Author Name Unknown Organization [facility] Address [address] [place] [address]- Care Team Providers Care Balloon Maker Name Role Phone Yoel ALONZO, Tushar Primary Care Physician Encounter [facility] Date(s): 10/24/21 - 12/14/21 [facility] [address] [place] [id number] Attending Physician: Jeronimo Luna MD Admitting Physician: Jeronimo Luna MD Referring Physician: Vibha Guido NP Allergies, [...] Reason: Early/Late Reason: New Med Order Medications acetaminophen 325 mg oral tablet 650 mg, By Mouth, Every 4 hours, (1-3), may give 325mg per patient preference and re-dose with 325mg within 4 hours if needed. Patient should only receive a total of 650mg of Acetaminophen every 4 hours., # 50 tablet, Refills 0, Tot. Refills 0, Main... Start Date: 11/24/21 Status: Ordered Colace sodium 100 mg oral capsule 100 mg, 1, capsule, By Mouth, 2 times a day, PRN, # 30 capsule, Refills 0, Tot. Refills 0, Maintenance, for constipation, 11/24/21 11:41:00 EDT, Route to Pharmacy Electronically, [facility]/pharmacy #[id number], Partial fill upon patient request if the prescriptio... Start Date: 11/24/21 Status: Ordered famotidine 20 mg oral tablet 20 mg, 1, tablet, By Mouth, 2 times a day, PRN, # 60 each, Refills 1, Tot. Refills 1, Maintenance, Nausea & Vomiting, 09/12/21 17:56:00 EDT, Route to Pharmacy Electronically, [facility]/pharmacy #[id number], Partial fill upon patient request if the prescription is... Start Date: 09/12/21 Status: Ordered ibuprofen 800 mg oral tablet 800 mg, 1, tablet, By Mouth, Every 8 hours, (4-6), may give 400mg per patient preference and re-dose with 400mg within 8 hours if needed. Patient should only receive a total of 800mg of Ibuprofen every 8 hours., # 30 tablet, Refills 0, Tot. Refills... Start Date: 11/24/21 Status: Ordered ondansetron 4 mg oral tablet, disintegrating 1 tablet = 4 mg, By Mouth, Every 8 hours, PRN as needed for nausea/vomiting, Place under tongue andallow tablet to dissolve. Do not use at the same time as phenergan suppository., # 10 tablet, 1 Refills, Maintenance, 05/30/21 15:24:00 EST, [facility] Tablet... Start Date: 05/30/21 Status: Ordered oxyCODONE 5 mg oral tablet 5 mg, 1, tablet, By Mouth, Every 3 hours, PRN, (7-10), # 10 tablet, Refills 0, Tot. Refills 0, Maintenance, Pain , Severe, 11/24/21 11:41:00 EDT, Route to Pharmacy Electronically, [facility]/pharmacy #[id number],Partial fill upon patient request if the prescripti... Start Date: 11/24/21 Status: Ordered Multivitamins with Folic Acid 1 mg oral capsule 1 capsule, By Mouth, Daily, # 30 tablet, 6 Refills, Maintenance, 06/25/21 10:05:00 EST, Capsule, [facility]/pharmacy #[id number], Partial fill upon patient request if the prescription is for a schedule II opioid drug., 1 capsule By Mouth Daily, 155, cm, 06/25/21 9... Start Date: 06/25/21 Status: Ordered simethicone 80 mg oral tablet, chewable 80 mg, Chew, 3 times a day, PRN, # 30 tablet, Refills 0, Tot. Refills 0, Maintenance, Gas, 11/24/2210:42:00 EDT, Route to Pharmacy Electronically, [facility]/pharmacy #[id number], Partial fill upon patient request if the prescription is for a schedule II opioid d... Start Date: 11/24/21 Status: Ordered Problem List Condition Effective Dates [...]
--- OUTSIDE RECORDS SUMMARY | 2022-10-01 17:38 | XMS_ITS | Continuity of Care Document ---
Author Name Unknown Organization [facility] Address [address] [place] [address]- Care Team Providers Care Duck Farmer Name Role Phone Tushar Diallo MD Primary Care Physician [phone] Encounter [facility] Date(s): 11/02/21 - 11/02/[address] [address]- Discharge Disposition: A-D/C Home Attending Physician: Jeronimo Luna MD Admitting Physician: Jeronimo Luna MD Referring Physician: Jeronimo Luna MD Allergies, Adverse Reactions, Alerts No Known [...] 1 Refills, Maintenance, 05/30/21 15:24:00 EST, Capsule, [facility]/pharmacy #[id number], Partial fill upon patient request if the prescription... Start Date: 05/30/21 Status: Ordered Colace sodium 100 mg oral capsule 100 mg, 1, capsule, By Mouth, 2 times a day, PRN, # 20 capsule, Refills 0, Tot. Refills 0, Maintenance, for constipation, 08/14/20 10:08:00 EDT, Route to Pharmacy Electronically, [facility]/pharmacy #[id number], Partial fill upon patient request if the prescriptio... Start Date: 08/14/20 Status: Ordered doxylamine 25 mg oral tablet 1 tablet = 25 mg, By Mouth, Daily, Take one tablet before bed., # 30 tablet, 2 Refills, Maintenance, 06/25/21 10:05:00 EST, [facility]/pharmacy #[id number], Partial fill upon patient request if the prescription is for a schedule II opioid drug., 155, cm, 06/25/21... Start Date: 06/25/21 Status: Ordered famotidine 20 mg oral tablet 20 mg, 1, tablet, By Mouth, 2 times a day, PRN, # 60 each, Refills 1, Tot. Refills 1, Maintenance, Nausea & Vomiting, 09/12/21 17:56:00 EDT, Route to Pharmacy Electronically, [facility]/pharmacy #[id number], Partial fill upon patient request [...] Maintenance, 06/25/21 10:05:00 EST, Capsule, [facility]/pharmacy #[id number], Partial fill upon patient request [...] Date: 06/07/21 Stop Date: 11/29/21 Status: Ordered Tylenol 325 mg oral tablet 975 mg, Tablet, By Mouth, Every 6 hours, PRN for Pain , Moderate, Routine, 11/02/21 13:41:00 EDT Start Date: 11/02/21 Stop Date: 11/03/21 Status: Discontinued Vitamin B6 25 mg oral tablet 1 [...] Active Obese class II(Confirmed) Active Scoliosis(Confirmed) Active Vital Signs Most recent to oldest [Reference Range]: 1 2 Weight 91.9 kg (11/02/21 11:17 AM) Oxygen Saturation [94-100 %] 96 % (11/02/21 11:39 AM) Blood Pressure [90-138/55-84 mm Hg] 116/ 69mm Hg (11/02/21 11:39 AM) Respiratory Rate [16-30 br/min] 18 br/mi n (11/02/21 3:08 PM) 18 br/min (11/02/21 11:39 AM) Temperature [96.8-100.4 DegF] 98.3 DegF (11/02/21 11:17 AM) Blood pressure sites Arm, left (11/02/21 11:39 AM) Temperature Route Oral (11/02/21 11:17 AM) Dry Weight 91.9 kg (11/02/21 11:17 AM) Social History Social History Type Response Smoking Status Never (less than 100 in lifetime) entered on: 02/18/20 Sex
--- OUTSIDE RECORDS SUMMARY | 2022-10-01 17:38 | XMS_ITS | Continuity of Care Document ---
Author Name Unknown Organization [facility] ter Address [address] [place] [address]- Care Team Providers Care Knotter Name Role Phone Tushar Diallo MD Primary Care Physician [phone] Encounter [facility] Date(s): 05/18/20 - 05/18/[address] [address] Discharge Disposition: A-D/C Home Attending Physician: Luiz Nolan MD Admitting Physician: Luiz Nolan MD Referring Physician: Luiz Nolan MD Allergies, Adverse Reactions, Alerts Substance Reaction [...] 09/13/20 14:53:00 EDT, 08/21/20 11:34:00 EDT, [id number], Partial fill upon patient request, 155.2, cm, [...] repair(Confirmed) Active Scoliosis(Confirmed) Active 1per patient hx Vital Signs Most recent to oldest [Reference Range]: 1 Height 156 cm (05/18/20 3:46 AM) Weight 71.2 kg (05/18/20 3:29 AM) Blood Pressure [90-138/55-84 mm Hg] 114/ 71mm Hg (05/18/20 3:46 AM) Respiratory Rate [16-30 br/min] 18 br/mi n (05/18/20 3:46 AM) Temperature [96.8-100.4 DegF] 97.9 DegF (05/18/20 3:46 AM) Mode of Delivery (Oxygen) Room air (05/18/20 3:46 AM) Blood pressure sites Arm, right (05/18/20 3:46 AM) Temperature Route Oral (05/18/20 3:46 AM) Dry Weight 71.2 kg (05/18/20 3:29 AM) Weight Obtained Via Standing scale (05/18/20 3:29 AM) Social History Social History Type Response Smoking Status Never (less than 100 in lifetime) entered on: 02/18/20 Sex
--- OUTSIDE RECORDS SUMMARY | 2022-10-01 17:38 | XMS_ITS | Continuity of Care Document ---
Author Name Unknown Organization [facility] Address [address] [place] [address]- Care Team Providers Care Cream Gatherer Name Role Phone Tushar Diallo MD Primary Care Physician Encounter [facility] Date(s): 06/07/21 - 07/18/[facility] [address] [place] [id number] Attending Physician: Luiz Nolan MD Admitting Physician: Luiz Nolan MD Referring Physician: Luiz Nolan MD Allergies, Adverse Reactions, Alerts No Known [...] Refills, Maintenance, 05/30/21 15:24:00 EST, C[facility], [id number], Partial fill upon patient request if the prescription... Start Date: 05/30/21 Status: Ordered Colace sodium 100 mg oral capsule 100 mg, 1, capsule, By Mouth, 2 times a day, PRN, # 20 capsule, Refills 0, Tot. Refills 0, Maintenance, for constipation, 08/14/20 10:08:00 EDT, Route to Pharmacy Electronically, [facility]/pharmacy #[id number], Partial fill upon patient request if the prescriptio... Start Date: 08/14/20 Status: Ordered doxylamine 25 mg oral tablet 1 tablet = 25 mg, By Mouth, Daily, Take one tablet before bed., # 30 tablet, 2 Refills, Maintenance, 06/25/21 10:05:00 EST, [facility]/pharmacy #[id number], Partial fill upon patient request if the prescription is for a schedule II opioid drug., 155, cm, 06/25/21... Start Date: 06/25/21 Status: Ordered famotidine 20 mg oral tablet 20 mg, 1, tablet, By Mouth, 2 times a day, PRN, # 60 tablet, Refills 3, Tot. Refills 3, Maintenance, Nausea & Vomiting, 05/30/21 15:25:00 EST, Route to Pharmacy Electronically, [facility]/pharmacy #[id number], Partial fill upon patient [...] 6 Refills, Maintenance, 06/25/21 10:05:00 EST, Capsule, [facility]/pharmacy #[id number], Partial fill upon patient [...]
--- OUTSIDE RECORDS SUMMARY | 2022-10-01 17:38 | XMS_ITS | Continuity of Care Document ---
Author Name Unknown Organization [facility] Address [address] [place] [address]- Care Team Providers Care Oil Burner Servicer And Installer Name Role Phone Tushar Diallo MD Primary Care Physician Encounter [facility] [place] Date(s): 06/28/20 - 08/03/20 [facility] [address] [place] [id number] Attending Physician: Vibha Guido NP Admitting Physician: [...] Acute 09/13/20 14:53:00 EDT, 08/21/20 11:34:00 EDT, [facility]/pharmacy #[id number], Partial fill upon patient request, 155.2, cm, [...]
--- OUTSIDE RECORDS SUMMARY | 2022-10-01 17:38 | XMS_ITS | Continuity of Care Document ---
Author Name Unknown Organization [facility] Address [address] [address]- Care Team Providers Care Single Spindle Screw Machine Operator Name Role Phone Yoel ALONZO, Tushar Primary Care Physician [place] [facility] Date(s): 02/18/20 - 03/19/20 [facility] [address] [address]- [facility] Attending Physician: Konstantin Osei Admitting Physician: Konstantin Osei Referring Physician: Konstantin Osei Allergies, Adverse Reactions, Alerts Substance Reaction Severity [...]
--- OUTSIDE RECORDS SUMMARY | 2022-10-01 17:38 | XMS_ITS | Continuity of Care Document ---
Author Name Unknown Organization [facility] Address [address] [place] [address]- Care Team Providers Care Music Theory Professor Name Role Phone Yoel ALONZO, Tushar Primary Care Physician [place] [facility] [place]s): 10/24/21 - 12/21/21 [facility] [address] [place] [address] Attending Physician: Jeronimo Luna MD Admitting Physician: [...] 2Early/Late Reason: Early/Late Reason: New Med Order Problem List Condition Effective Dates Status Health [...] Active Obese class I(Confirmed) Active Scoliosis(Confirmed) Active Social History Social History Type Response Smoking Status Never (less than 100 in lifetime) entered on: 02/18/20 Sex
--- OUTSIDE RECORDS SUMMARY | 2022-10-01 17:38 | XMS_ITS | Continuity of Care Document ---
Author Name Unknown Organization [facility] Address [address] [place] [address]- Care Team Providers Care Pattern Wheel Maker Name Role Phone Yoel ALONZO, Tushar Primary Care Physician [place] [facility] [place](s): 02/25/20 - 03/26/20 [facility] [address] [address] Allergies, Adverse Reactions, Alerts Substance [...]
--- OUTSIDE RECORDS SUMMARY | 2022-10-01 17:38 | XMS_ITS | Continuity of Care Document ---
Author Name Unknown Organization [facility] Address [address] [place] [address]- Care Team Providers Care Hydrographical Technical Officer Name Role Phone Yoel ALONZO, Tushar Primary Care Physician Encounter [facility] Date(s): 05/17/21 - 07/01/[address] [address]- Attending Physician: Not on Staff, Attending MD Allergies, Adverse Reactions, Alerts No Known Allergies Immunizations Given and Recorded Vaccine Date Status Refusal Reason influenza virus vaccine, inactivated 05/30/21 Give n influenza virus vaccine, inactivated 1 04/12/20 Gi alta influenza virus vaccine, inactivated 05/23/15 Give n influenza virus vaccine, inactivated 03/29/13 Give n SARS-CoV-2 (COVID-19) mRNA-0353 vaccine 05/15/21 R ecorded tetanus/diphtheria/pertussis, acel(Tdap) 07/11/20 [...] Refills, Maintenance, 05/30/21 15:24:00 EST, [facility], [id number], Partial fill upon patient request if the prescription... Start Date: 05/30/21 Status: Ordered Colace sodium 100 mg oral capsule 100 mg, 1, capsule, By Mouth, 2 times a day, PRN, # 20 capsule, Refills 0, Tot. Refills 0, Maintenance, for constipation, 08/14/20 10:08:00 EDT, Route to Pharmacy Electronically, [facility]/pharmacy #[id number], Partial fill upon patient request if the prescriptio... Start Date: 08/14/20 Status: Ordered doxylamine 25 mg oral tablet 1 tablet = 25 mg, By Mouth, Daily, Take one tablet before bed., # 30 tablet, 2 Refills, Maintenance, 06/25/21 10:05:00 EST, [facility]/pharmacy #[id number], Partial fill upon patient request if the prescription is for a schedule II opioid drug., 155, cm, 06/25/21... Start Date: 06/25/21 Status: Ordered famotidine 20 mg oral tablet 20 mg, 1, tablet, By Mouth, 2 times a day, PRN, # 60 tablet, Refills 3, Tot. Refills 3, Maintenance, Nausea & Vomiting, 05/30/21 15:25:00 EST, Route to Pharmacy Electronically, [facility]/pharmacy #[id number], Partial fill upon patient request if [...] 6 Refills, Maintenance, 06/25/21 10:05:00 EST, Capsule, [facility]/pharmacy #[id number], Partial fill upon patient request if [...] 1 Refills, Maintenance, 05/30/21 15:25:00 EST, Suppository, [facility]/pharmacy #[id number], Partial fill upon patient request... Start Date: 05/30/21 Status: Ordered Prometrium 200 mg oral capsule = 200 mg, Vaginally, Daily at bedtime, # 90 each, 2 Refills, Acute 11/29/21 17:37:00 EDT, 06/07/21 17:35:00 EST, [facility]/pharmacy #[id number], Partial fill upon patient request if the prescription is for a schedule II opioid drug., 155, cm, 06/05/21 13:13:00 ES... Start Date: 06/07/21 Stop Date: 11/29/21 Status: Ordered Vitamin B6 25 mg oral tablet 1 tablet = 25 mg, By Mouth, Daily, Take daily to prevent nausea in , # 100 tablet, 3 Refills, Maintenance, 05/30/21 15:24:00 EST, [facility]/pharmacy #[id number], Partial fill upon patient request if [...]
--- OUTSIDE RECORDS SUMMARY | 2022-10-01 17:38 | XMS_ITS | Continuity of Care Document ---
Author Name Unknown Organization [facility] Address [address] [place] [address]- Care Team Providers Care Fisher Mussel Name Role Phone Tushar Diallo MD Primary Care Physician [place] [facility] [place](s): 04/11/20 - 05/11/20 [facility] [address] [place] [address]- Attending Physician: Konstantin Osei Admitting Physician: Admtr, [id number] Referring Physician: Admtr, [id number] Allergies, Adverse Reactions, [...] 09/13/20 14:53:00 EDT, 08/21/20 11:34:00 EDT, [id number], Partial fill upon patient request, 155.2, cm, [...]
--- OUTSIDE RECORDS SUMMARY | 2022-10-01 17:38 | XMS_ITS | Continuity of Care Document ---
Author Name Unknown Organization [facility] Address [address] [place] [address]- Care Team Providers Care Field Service Technician Name Role Phone Tushar Diallo MD Primary Care Physician [phone] Encounter [facility] [place] Date(s): 05/27/21 - 05/28/[address] [address]- Discharge Disposition: Transferred [facility]term general hospit Attending Physician: Quang Harrell MD Admitting Physician: Quang Harrell MD Referring Physician: Not on Staff, Referring MD [...] 08/14/20 10:08:00 EDT, Route to Pharmacy Electronically, [facility]/pharmacy #[id number], Partial fill upon patient request if the prescriptio... Start Date: 08/14/20 Status: Ordered doxylamine 25 mg oral tablet 1 tablet = 25 mg, By Mouth, Daily, Take one tablet before bed. May take additional tablet in the morning if nausea still persistent, # 60 tablet, 8 Refills, Maintenance, 04/23/21 14:35:00 EST, [facility]/pharmacy #[id number], Partial fill upon patient request if t... Start Date: 04/23/21 Status: Ordered famotidine 20 mg oral tablet 20 mg, 1, tablet, By Mouth, 2 times a day, # 180 tablet, Refills 0, Tot. Refills 0, Maintenance, 04/23/21 14:35:00 EST, Route to Pharmacy Electronically, [facility]/pharmacy #[id number], Partial fill upon patientrequest if the prescription is for a schedule II op... Start Date: 04/23/21 Status: Ordered ibuprofen 800 mg oral tablet 800 mg, 1, tablet, By Mouth, Every 8 hours, PRN, # 30 tablet, Refills 1, Tot. Refills 1, Maintenance, Pain , Mild, 09/14/20 9:24:00 EDT, Route to Pharmacy Electronically, [facility]/pharmacy #[id number], Partial fill upon patient request [...] 08/14/20 10:07:00 EDT, Route to Pharmacy Electronically, [facility]/pharmacy #[id number], Partial fillupon patient request, 156, cm, 08/14/20 0:09:00 EDT... Start Date: 08/14/20 Status: Ordered Multivitamins By Mouth, Daily, 0 Refills, Maintenance, 02/18/20 10:15:00 EDT Start Date: 02/18/20 Status: Ordered Multivitamins with Folic Acid 1 mg oral capsule 1 capsule, By Mouth, Daily, # 100 capsule, 3 Refills, Maintenance, 05/21/21 12:40:00 EST, Capsule, [facility]/pharmacy #[id number], Partial fill upon patient request if the prescription is for a schedule II opioid drug., 1 capsule By Mouth Daily, [id number], 01/02/21... Start Date: 05/21/21 Status: Ordered progesterone 25 mg vaginal suppository 1 supp = 25 mg, Vaginally, Daily, 0 Refills, Maintenance, 04/23/21 8:09:00 EST, Partial fill upon patient request if the prescription is for a schedule II opioid drug. Start Date: 04/23/21 Status: Ordered promethazine 12.5 mg rectal suppository 1 supp = 12.5 mg, Rectally, Every 4 hours, PRN for nausea/vomiting, # 12 supp, 0 Refills, Maintenance, 04/23/21 14:35:00 EST, Suppository, [facility]/pharmacy #[id number], Partial fill upon patient request if theprescription is for a schedule II opioid drug., 156... Start Date: 04/23/21 Status: Ordered pyridoxine 25 mg oral tablet 1 tablet = 25 mg, By Mouth, 3 times a day, PRN Nausea & Vomiting, # 100 tablet, 8 Refills, Maintenance, 04/23/21 14:35:00 EST, [facility]/pharmacy #[id number], Partial fill upon patient request if the prescription is for a schedule II opioid drug., [id number], ... Start Date: 04/23/21 Status: Ordered simethicone 80 mg oral tablet 1 tablet = 80 mg, Chew, 3 times a day after meals and bedtime, PRN for gas, # 60 tablet, 0 Refills,Maintenance, 08/14/20 10:08:00 EDT, Tablet, [id number], Partial fill upon patient request if the prescription is for a schedule II opioid drug.... Start Date: 08/14/20 Status: Ordered Tylenol 325 mg oral capsule 2 capsule = 650 mg, By Mouth, Every 6 hours, # 60 capsule, 0 Refills, Maintenance, 08/14/20 10:08:00 EDT, [facility]/pharmacy #[id number], Partial fill upon patient request if the prescription is for a schedule II opioid drug., [id number], 08/14/20 0:09:00 Mary SAHU Start Date: 08/14/20 Status: Ordered Problem List [...] I(Confirmed) Active Scoliosis(Confirmed) Active 1per patient hx Vital Signs Most recent to oldest [Reference Range]: 1 2 Oxygen Saturation [94-100 %] 98 % (05/28/21 1:59 AM) 99 % (05/28/21 12:03 AM) Pulse Rate [55-90 bpm] 94 bpm *H* (05/28/21 1:59 AM) 79 bpm (05/28/21 12:03 AM) Blood Pressure [90-138/55-84 mm Hg] 125/ 82mm Hg (05/28/21 1:59 AM) 130/88mm Hg (05/28/21 12:03 AM) Respiratory Rate [16-30 br/min] 16 br/mi n (05/28/21 12:03 AM) Temperature [96.8-100.4 DegF] 97.4 DegF (05/28/21 1:59 AM) 97.5 DegF (05/28/21 12:03 AM) Mode of Delivery (Oxygen) Room air (05/28/21 1:59 AM) Room air (05/28/21 12:03 AM) Blood pressure sites Arm, left (05/28/21 1:59 AM) Arm, left (05/28/21 12:03 AM) Temperature Route Oral (05/28/21 1:59 AM) Oral (05/28/21 12:03 AM) Social History Social History Type Response Smoking Status Never (less than 100 in lifetime) entered on: 02/18/20 Sex
--- OUTSIDE RECORDS SUMMARY | 2022-10-01 17:38 | XMS_ITS | Continuity of Care Document ---
Author Name Unknown Organization [facility] Address [address] [place] [address]- Care Team Providers Care Paper And Pulp Mill Operator Name Role Phone Tushar Diallo MD Primary Care Physician Encounter [facility] [place] Date(s): 08/09/20 - 08/14/[address] [address] Discharge Disposition: A-D/C Home Attending Physician: Carmen Barber MD Admitting Physician: Carmen Barber MD Referring Physician: Carmen Barber MD Allergies, Adverse Reactions, Alerts Substance Reaction [...] Reason: Early/Late Reason: New Med Order Medications Acetaminophen Tablet 650 mg, Tablet, By Mouth, (1-3), may give 325mg per patient preference and re- dose with 325mg within 4 hours if needed. Patient should only receive a total of 650mg of Acetaminophen every 4 hours., 08/14/20 6:00:00 EDT Start Date: 08/14/20 Stop Date: 08/14/20 Status: Completed Colace sodium 100 mg oral capsule 100 mg, 1, capsule, By Mouth, 2 times a day, PRN, # 20 capsule, Refills 0, Tot. Refills 0, Maintenance, for constipation, 08/14/20 10:08:00 EDT, Route to Pharmacy Electronically, [facility]/pharmacy #[id number], Partial fill upon patient request if the prescriptio... Start Date: 08/14/20 Status: Ordered ibuprofen 800 mg oral tablet 800 mg, 1, tablet, By Mouth, Every 8 hours, # 60 tablet, Refills 0, Tot. Refills 0, Maintenance, 08/14/20 10:07:00 EDT, Route to Pharmacy Electronically, [facility]/pharmacy #[id number], Partial fill upon patientrequest if the prescription is for a schedule II op... Start Date: 08/14/20 Status: Ordered Ibuprofen Tablet 800 mg, Tablet, By Mouth, (4-6), may give 400mg per patient preference and re- dose with 400mg within 8 hours if needed. Patient should only receive a total of 800mg of Ibuprofen every 8 hours., 08/12/20 8:00:00 EDT Start Date: 08/12/20 Stop Date: 08/12/20 Status: Completed oxyCODONE 5 mg oral tablet 5 mg, 1, tablet, By Mouth, Every 6 hours, PRN, # 10 tablet, Refills 0, Tot. Refills 0, Maintenance,for pain, 08/14/20 10:07:00 EDT, Route to Pharmacy Electronically, [facility]/pharmacy #[id number], Partial fillupon patient request, 156, cm, 08/14/20 0:09:00 EDT... Start Date: 08/14/20 Status: Ordered OxyCODONE IR Tablet 5 mg, Tablet, By Mouth, Every 3 hours, PRN for Pain , Severe, (7-10), Routine, 08/11/20 9:50:00 EDT Start Date: 08/11/20 Stop Date: 08/18/20 Status: Ordered Multivitamins By Mouth, Daily, 0 [...] repair(Confirmed) Active Scoliosis(Confirmed) Active 1per patient hx Procedures Procedure Date Related Diagnosis Body Site Status delivery only; 08/10/20 C ompleted Vital Signs Most recent to oldest [Reference Range]: 1 2 3 Height 156 cm (08/14/20 8:45 AM) 156 cm (08/14/20 12:09 AM) 156 cm (08/13/20 5:04 PM) Weight 82 kg (08/10/20 6:42 AM) 82 kg (08/09/20 9:45 PM) Oxygen Saturation [94-100 %] 99 % (08/14/20 8:45 AM) 100 % (08/14/20 12:09 AM) 97 % (08/13/20 5:00 PM) Pulse Rate [55-90 bpm] 96 bpm *H* (08/14/20 8:45 AM) 74 bpm (08/14/20 12:09 AM) 83 bpm (08/13/20 5:04 PM) Body Mass Index [18.5-24.99] 33.69 *>HHI* (08/10/20 6:42 AM) 33.69 *>HHI* (08/09/20 9:45 PM) Blood Pressure [90-138/55-84 mm Hg] 125/75mm Hg (08/14/20 8:45 AM) 118/62mm Hg (08/14/20 12:09 AM) 111/66mm Hg (08/13/20 5:04 PM) Respiratory Rate [16-30 br/min] 18 br/min (08/14/20 2:46 PM) 18 br/min (08/14/20 10:00 AM) 18 br/min (08/14/20 10:00 AM) Temperature [96.8-100.4 DegF] 98.3 DegF (08/14/20 8:45 AM) 98.1 DegF (08/14/20 12:09 AM) 98 DegF (08/13/20 5:04 PM) Liters per Minute 3 L/min (08/10/20 10:30 AM) 3 L/min (08/10/20 10:15 AM) Mode of Delivery (Oxygen) Room air (08/14/20 8:45 AM) Room air (08/14/20 12:09 AM) Room air (08/13/20 12:00 AM) Blood pressure sites Arm, right (08/14/20 8:45 AM) Arm, right (08/14/20 12:09 AM) Arm, right (08/13/20 12:00 AM) Temperature Route Oral (08/14/20 8:45 AM) Oral (08/14/20 12:09 AM) Oral (08/13/20 5:04 PM) Dry Weight 82 kg (08/09/20 9:45 PM) Social History Social History Type Response Smoking Status Never (less than 100 in lifetime) entered on: 02/18/20 Sex
--- OUTSIDE RECORDS SUMMARY | 2022-10-01 17:38 | XMS_ITS | Continuity of Care Document ---
Author Name Unknown Organization [facility] Address [address] [place] [address]- Care Team Providers Care Western Tack Assembly Line Worker Name Role Phone Yoel ALONZO, Tushar Primary Care Physician Encounter [facility] [place] Date(s): 04/06/20 - 05/06/[address] [address] Attending Physician: Konstantin Osei Admitting Physician: AdmKonstantin galeano Referring Physician: AdmtrKonstantin Allergies, Adverse Reactions, Alerts Substance Reaction Severity [...] Refills, Acute 08/21/20 11:34:00 EDT, 04/03/2013:59:00 EST, [facility], Partial fill upon [...]
--- OUTSIDE RECORDS SUMMARY | 2022-10-01 17:38 | XMS_ITS | Continuity of Care Document ---
Author Name Unknown Organization [facility] Address [address] [place] [address]- Care Team Providers Care Press Tender Incendiary Grenade Name Role Phone Tushar Diallo MD Primary Care Physician Encounter [facility] Date(s): 11/14/21 - 12/14/21 [facility] [address] [place] [id number] Allergies, Adverse Reactions, Alerts No Known Allergies [...] 11/24/21 11:41:00 EDT, Route to Pharmacy Electronically, [facility]/pharmacy #[id number], Partial fill upon patient request if the prescriptio... Start Date: 11/24/21 Status: Ordered famotidine 20 mg oral tablet 20 mg, 1, tablet, By Mouth, 2 times a day, PRN, # 60 each, Refills 1, Tot. Refills 1, Maintenance, Nausea & Vomiting, 09/12/21 17:56:00 EDT, Route to Pharmacy Electronically, [facility]/pharmacy #[id number], Partial fill upon patient request [...] 11/24/21 11:41:00 EDT, Route to Pharmacy Electronically, [facility]/pharmacy #[id number],Partial fill upon patient request if the prescripti... Start Date: 11/24/21 Status: Ordered Multivitamins with Folic Acid 1 mg oral capsule 1 capsule, By Mouth, Daily, # 30 tablet, 6 Refills, Maintenance, 06/25/21 10:05:00 EST, Capsule, [facility]/pharmacy #[id number], Partial fill upon patient request if the prescription is for a schedule II opioid drug., 1 capsule By Mouth Daily, 155, cm, 06/25/21 9... Start Date: 06/25/21 Status: Ordered simethicone 80 mg oral tablet, chewable 80 mg, Chew, 3 times a day, PRN, # 30 tablet, Refills 0, Tot. Refills 0, Maintenance, Gas, 11/24/2210:42:00 EDT, Route to Pharmacy Electronically, [facility]/pharmacy #[id number], Partial fill upon patient request [...]
--- OUTSIDE RECORDS SUMMARY | 2022-10-01 17:39 | XMS_ITS | Continuity of Care Document ---
Author Name Unknown Organization [facility] Address [address] [place] [address]- Care Team Providers Care Line Cook Name Role Phone Yoel ALONZO, Tushar Primary Care Physician Encounter [facility] [place] Date(s): 08/28/20 - 10/25/20 [facility] [address] [place] [id number] Attending Physician: Jeronimo Luna MD Admitting Physician: Jeremy ALONZO, Jeronimo Referring Physician: Keyona Porter MD Allergies, Adverse Reactions, Alerts Substance Reaction [...] 08/14/20 10:08:00 EDT, Route to Pharmacy Electronically, [facility]/pharmacy #[id number], Partial fill upon patient request if the [...] 08/14/20 10:07:00 EDT, Route to Pharmacy Electronically, [facility]/pharmacy #[id number], Partial fillupon patient request, 156, cm, 08/14/20 0:09:00 EDT... Start Date: 08/14/20 Status: Ordered Multivitamins By Mouth, Daily, 0 Refills, Maintenance, 02/18/20 10:15:00 EDT Start Date: 02/18/20 Status: Ordered simethicone 80 mg oral tablet 1 tablet = 80 mg, Chew, 3 times a day after meals and bedtime, PRN for gas, # 60 tablet, 0 Refills,Maintenance, 08/14/20 10:08:00 EDT, Tablet, [facility]/pharmacy #[id number], Partial fill upon patient request [...]
--- OUTSIDE RECORDS SUMMARY | 2022-10-01 17:39 | XMS_ITS | Continuity of Care Document ---
Author Name Unknown Organization [facility] Address [address] [place] [address]- Care Team Providers Care Field Pipelines Supervisor Name Role Phone Tushar Diallo MD Primary Care Physician Encounter [facility] Date(s): 06/21/20 - 07/21/20 [facility] [address] [place] [id number] Allergies, Adverse Reactions, Alerts Substance Reaction Severity [...] 09/13/20 14:53:00 EDT, 08/21/20 11:34:00 EDT, [id number], Partial fill upon patient request, 155.2, cm, [...]
--- OUTSIDE RECORDS SUMMARY | 2022-10-01 17:39 | XMS_ITS | Continuity of Care Document ---
Author Name Unknown Organization [facility] Address [address] [place] [address]- Care Team Providers Care Traffic Chief Name Role Phone Tushar Diallo MD Primary Care Physician [phone] Encounter [facility] Date(s): 09/27/21 - 10/27/21 [facility] [address] [place] [address] Allergies, Adverse Reactions, Alerts No Known Allergies [...] Refills, Maintenance, 05/30/21 15:24:00 EST, Capsule, [id number], Partial fill upon patient request if the prescription... Start Date: 05/30/21 Status: Ordered Colace sodium 100 mg oral capsule 100 mg, 1, capsule, By Mouth, 2 times a day, PRN, # 20 capsule, Refills 0, Tot. Refills 0, Maintenance, for constipation, 08/14/20 10:08:00 EDT, Route to Pharmacy Electronically, [facility]/pharmacy #[id number], Partial fill upon patient request if the prescriptio... Start Date: 08/14/20 Status: Ordered doxylamine 25 mg oral tablet 1 tablet = 25 mg, By Mouth, Daily, Take one tablet before bed., # 30 tablet, 2 Refills, Maintenance, 06/25/21 10:05:00 EST, [facility]/pharmacy #[id number], Partial fill upon patient request if the prescription is for a schedule II opioid drug., 155, cm, 06/25/21... Start Date: 06/25/21 Status: Ordered famotidine 20 mg oral tablet 20 mg, 1, tablet, By Mouth, 2 times a day, PRN, # 60 each, Refills 1, Tot. Refills 1, Maintenance, Nausea & Vomiting, 09/12/21 17:56:00 EDT, Route to Pharmacy Electronically, [facility]/pharmacy #[id number], Partial fill upon patient request [...] 6 Refills, Maintenance, 06/25/21 10:05:00 EST, Capsule, [facility]/pharmacy #[id number], Partial fill upon patient request [...] 1 Refills, Maintenance, 05/30/21 15:25:00 EST, Suppository, [facility]/pharmacy #[id number], Partial fill upon patient request... Start Date: 05/30/21 Status: Ordered Prometrium 200 mg oral capsule = 200 mg, Vaginally, Daily at bedtime, # 90 each, 2 Refills, Acute 11/29/21 17:37:00 EDT, 06/07/21 17:35:00 EST, [facility]/pharmacy #[id number], Partial fill upon patient request if the prescription is for a schedule II opioid drug., 155, cm, 06/05/21 13:13:00 ES... Start Date: 06/07/21 Stop Date: 11/29/21 Status: Ordered Vitamin B6 25 mg oral tablet 1 tablet = 25 mg, By Mouth, Daily, Take daily to prevent nausea in , # 100 tablet, 3 Refills, Maintenance, 05/30/21 15:24:00 EST, [facility]/pharmacy #[id number], Partial fill upon patient request [...]
--- OUTSIDE RECORDS SUMMARY | 2022-10-01 17:39 | XMS_ITS | Continuity of Care Document ---
Author Name Unknown Organization [facility] ter Address [address] [place] [address]- Care Team Providers Care Light Rail Train Operator Name Role Phone Tushar Diallo MD Primary Care Physician [phone] Encounter [facility] [place] Date(s): 07/14/20 - 07/14/[address] [address] Discharge Disposition: A-D/C Home Attending Physician: Carmen [...] Acute 09/13/20 14:53:00 EDT, 08/21/20 11:34:00 EDT, [facility]/pharmacy #[id number], Partial fill upon patient request, 155.2, cm, [...] recent to oldest [Reference Range]: 1 2 Height 156 cm (07/14/20 11:57 AM) Oxygen Saturation [94-100 %] 100 % (07/14/20 3:00 PM) Pulse Rate [55-90 bpm] 86 bpm (07/14/20 3:00 PM) 92 bpm *H* (07/14/20 11:57 AM) Blood Pressure [90-138/55-84 mm Hg] 103/ 54mm Hg (07/14/20 3:00 PM) 114/66mm Hg (07/14/20 11:57 AM) Respiratory Rate [16-30 br/min] 18 br/mi n (07/14/20 3:00 PM) 16 br/min (07/14/20 11:57 AM) Temperature [96.8-100.4 DegF] 98 DegF (07/14/20 3:00 PM) 98.7 DegF (07/14/20 11:57 AM) Blood pressure sites Arm, right (07/14/20 11:57 AM) Temperature Route Oral (07/14/20 11:57 AM) Social History Social History Type Response Smoking Status Never (less than 100 in lifetime) entered on: 02/18/20 Sex
--- OUTSIDE RECORDS SUMMARY | 2022-10-01 17:39 | XMS_ITS | Continuity of Care Document ---
Author Name Unknown Organization [facility] ter Address [address] [place] [address]- Care Team Providers Care Php Mysql Web Developer Name Role Phone Tushar Diallo MD Primary Care Physician [phone] [place] [facility] [place] - 11/24/[address] [id number] Discharge Disposition: A-D/C Home Attending Physician: Jeronimo [...] 11/24/21 11:41:00 EDT, Route to Pharmacy Electronically, [facility]/pharmacy #[id number], Partial fill upon patient request if the prescriptio... Start Date: 11/24/21 Status: Ordered famotidine 20 mg oral tablet 20 mg, 1, tablet, By Mouth, 2 times a day, PRN, # 60 each, Refills 1, Tot. Refills 1, Maintenance, Nausea & Vomiting, 09/12/21 17:56:00 EDT, Route to Pharmacy Electronically, [facility]/pharmacy #[id number], Partial fill upon patient request [...] 11/24/21 11:41:00 EDT, Route to Pharmacy Electronically, [facility]/pharmacy #[id number],Partial fill upon patient request if the prescripti... Start Date: 11/24/21 Status: Ordered OxyCODONE IR Tablet 5 mg, Tablet, By Mouth, Every 3 hours, PRN for Pain , Severe, (7-10), Routine, 11/22/21 9:51:00 EDT Start Date: 11/22/21 Stop Date: 11/25/21 Status: Discontinued Multivitamins with Folic Acid 1 mg oral capsule 1 capsule, By Mouth, Daily, # 30 tablet, 6 Refills, Maintenance, 06/25/21 10:05:00 EST, Capsule, [facility]/pharmacy #[id number], Partial fill upon patient request if the prescription is for a schedule II opioid drug., 1 capsule By Mouth Daily, 155, cm, 06/25/21 9... Start Date: 06/25/21 Status: Ordered simethicone 80 mg oral tablet, chewable 80 mg, Chew, 3 times a day, PRN, # 30 tablet, Refills 0, Tot. Refills 0, Maintenance, Gas, 11/24/2210:42:00 EDT, Route to Pharmacy Electronically, [facility]/pharmacy #[id number], Partial fill upon patient request if the [...] Active Obese class II(Confirmed) Active Scoliosis(Confirmed) Active Procedures Procedure Date Related Diagnosis Body Site Status delivery only; 11/21/21 C ompleted Vital Signs Most recent to oldest [Reference Range]: 1 2 3 Height 156 cm (11/24/21 8:00 AM) 156 cm (11/24/21 12:00 AM) 156 cm (11/23/21 5:00 PM) Weight 87 kg (11/21/21 6:35 AM) Oxygen Saturation [94-100 %] 96 % (11/24/21 8:00 AM) 97 % (11/24/21 12:00 AM) 95 % (11/23/21 5:00 PM) Pulse Rate [55-90 bpm] 83 bpm (11/24/21 8:00 AM) 75 bpm (11/24/21 12:00 AM) 20 bpm *L* (11/23/21 5:00 PM) Body Mass Index [18.5-24.99] 35.75 *>HHI* (11/21/21 6:35 AM) Blood Pressure [90-138/55-84 mm Hg] 116/61mm Hg (11/24/21 8:00 AM) 127/51mm Hg (11/24/21 12:00 AM) 123/71mm Hg (11/23/21 5:00 PM) Respiratory Rate [16-30 br/min] 18 br/min (11/24/21 9:19 AM) 18 br/min (11/24/21 8:00 AM) 18 br/min (11/24/21 7:31 AM) Temperature [96.8-100.4 DegF] 98.6 DegF (11/24/21 8:00 AM) 98.5 DegF (11/24/21 12:00 AM) 98 DegF (11/23/21 5:00 PM) Mode of Delivery (Oxygen) Room air (11/24/21 8:00 AM) Room air (11/24/21 12:00 AM) Room air (11/23/21 12:00 AM) Blood pressure sites Arm, right (11/24/21 8:00 AM) Arm, right (11/24/21 12:00 AM) Arm, right (11/23/21 12:00 AM) Temperature Route Oral (11/24/21 8:00 AM) Oral (11/24/21 12:00 AM) Oral (11/23/21 5:00 PM) Dry Weight 87 kg (11/21/21 6:35 AM) Weight Obtained Via Standing scale (11/21/21 6:35 AM) Dry Weight Obtained Via Standing scale (11/21/21 6:35 AM) Social History Social History Type Response Smoking Status Never (less than 100 in lifetime) entered on: 02/18/20 Sex
--- OUTSIDE RECORDS SUMMARY | 2022-10-01 17:39 | XMS_ITS | Continuity of Care Document ---
Author Name Unknown Organization [facility] Address [address] [place] [address]- Care Team Providers Care Fast Food Shift Supervisor Name Role Phone Tushar Diallo MD Primary Care Physician [phone] Encounter [facility] Date(s): 11/21/21 - 01/10/22 [facility] [address] [place] [id number] Attending Physician: Carmen Barber MD Admitting Physician: Carmen Barber MD Referring Physician: Carmen Barber MD Allergies, Adverse Reactions, Alerts No Known [...] 100 in lifetime) entered on: 02/18/20 Sex Care Team Personnel Name: Tushar Diallo MD Address: [address] [place] [address]
--- OUTSIDE RECORDS SUMMARY | 2022-10-01 17:39 | XMS_ITS | Continuity of Care Document ---
Author Name Unknown Organization [facility] Address [address] [place] [address]- Care Team Providers Care Carpet Installation Specialist Name Role Phone Tushar Diallo MD Primary Care Physician Encounter [facility] Date(s): 07/07/20 - 08/06/20 [facility] [address] [place] [id number] Allergies, Adverse Reactions, Alerts Substance Reaction [...] 09/13/20 14:53:00 EDT, 08/21/20 11:34:00 EDT, [id number], Partial fill upon patient request, 155.2, cm, [...]
--- OUTSIDE RECORDS SUMMARY | 2022-10-01 17:39 | XMS_ITS | Continuity of Care Document ---
Author Name Unknown Organization [facility] ter Address [address] [place] [address]- Care Team Providers Care Dragline Operator Name Role Phone Tushar Diallo MD Primary Care Physician [place] [facility] [place] Date(s): 05/28/21 - 05/30/[address] [address]- Discharge Disposition: A-D/C Home Attending Physician: Yamilet Tolbert MD Admitting Physician: Yamilet Tolbert MD Referring Physician: Yamilet Tolbert MD Allergies, Adverse Reactions, Alerts Substance Reaction [...] 08/14/20 10:08:00 EDT, Route to Pharmacy Electronically, [facility]/pharmacy #[id number], Partial fill upon patient request if the prescriptio... Start Date: 08/14/20 Status: Ordered doxylamine 25 mg oral tablet 1 tablet = 25 mg, By Mouth, Daily, Take one tablet before bed. May take additional tablet in the morning if nausea still persistent, # 60 tablet, 8 Refills, Maintenance, 04/23/21 14:35:00 EST, [facility]/pharmacy #[id number], Partial fill upon patient request if t... Start Date: 04/23/21 Status: Ordered famotidine 20 mg oral tablet 20 mg, 1, tablet, By Mouth, 2 times a day, PRN, # 60 tablet, Refills 3, Tot. Refills 3, Maintenance, Nausea & Vomiting, 05/30/21 15:25:00 EST, Route to Pharmacy Electronically, [facility]/pharmacy #[id number], Partial fill upon patient request if [...] 3 Refills, Maintenance, 05/21/21 12:40:00 EST, Capsule, [facility]/pharmacy #[id number], Partial fill upon patient request if the prescription is for a schedule II opioid drug., 1 capsule By Mouth Daily, 156, cm, 01/02/21... Start Date: 05/21/21 Status: Ordered promethazine 25 mg rectal suppository 1 supp = 25 mg, Rectally, 2 times a day, Use as needed for nausea and vomiting. Do not take at the same time as ondansetron., # 12 supp, 1 Refills, Maintenance, 05/30/21 15:25:00 EST, Suppository, [facility]/pharmacy #[id number], Partial fill upon patient request... Start Date: 05/30/21 Status: Ordered Tylenol 325 mg oral tablet 975 mg, Tablet, By Mouth, Every 6 hours, PRN for Pain , Moderate, Routine, 05/28/21 9:49:00 EST Start Date: 05/28/21 Stop Date: 05/31/21 Status: Discontinued Vitamin B6 25 mg oral tablet 1 tablet = 25 mg, By Mouth, Daily, Take daily to prevent nausea in , # 100 tablet, 3 Refills, Maintenance, 05/30/21 15:24:00 EST, [facility]/pharmacy #[id number], Partial fill upon patient request if [...] oldest [Reference Range]: 1 2 3 Height 155 cm (05/30/21 2:09 AM) 155 cm (05/29/21 8:02 PM) 155 cm (05/29/21 4:00 PM) Weight 68 kg (05/30/21 9:00 AM) 76.34 kg (05/29/21 2:10 PM) 76.34 kg (05/29/21 12:00 PM) Oxygen Saturation [94-100 %] 100 % (05/30/21 2:09 AM) 100 % (05/29/21 8:02 PM) 99 % (05/29/21 4:00 PM) Pulse Rate [55-90 bpm] 72 bpm (05/30/21 2:09 AM) 78 bpm (05/29/21 8:02 PM) 92 bpm *H* (05/29/21 4:00 PM) Body Mass Index [18.5-24.99] 31.78 *>HHI* (05/29/21 12:00 PM) 30.34 *>HHI* (05/28/21 10:03 PM) Blood Pressure [90-138/55-84 mm Hg] 118/81mm Hg (05/30/21 2:09 AM) 130/87mm Hg (05/29/21 8:02 PM) 136/84mm Hg (05/29/21 4:00 PM) Respiratory Rate [16-30 br/min] 20 br/min (05/30/21 9:00 AM) 20 br/min (05/30/21 2:09 AM) 20 br/min (05/29/21 8:02 PM) Temperature [96.8-100.4 DegF] 98.1 DegF (05/30/21 2:09 AM) 99.3 DegF (05/29/21 8:02 PM) 98 DegF (05/29/21 4:00 PM) Mode of Delivery (Oxygen) Room air (05/30/21 2:09 AM) Room air (05/29/21 8:02 PM) Room air (05/29/21 4:00 PM) Blood pressure sites Arm, left (05/29/21 4:00 AM) Arm, right (05/28/21 10:03 PM) Arm, right (05/28/21 5:00 PM) Temperature Route Axillary (05/30/21 2:09 AM) Oral (05/29/21 8:02 PM) Oral (05/29/21 4:00 PM) Dry Weight 72.9 kg (05/28/21 10:03 PM) Weight Obtained Via Bed scale (05/28/21 10:03 PM) Bed scale (05/28/21 10:00 PM) Dry Weight Obtained Via Bed scale (05/28/21 10:03 PM) Social History Social History Type Response Smoking Status Never (less than 100 in lifetime) entered on: 02/18/20 Sex
--- OUTSIDE RECORDS SUMMARY | 2022-10-01 17:39 | XMS_ITS | Continuity of Care Document ---
Author Name Unknown Organization [facility] Address [address] [place] [address]- Care Team Providers Care Help Desk Supervisor Name Role Phone Yoel ALONZO, Tushar Primary Care Physician Encounter [facility] Date(s): 10/24/21 - 12/28/21 [facility] [address] [place] [id number] Attending Physician: Vibha Guido NP Admitting [...]
--- OUTSIDE RECORDS SUMMARY | 2022-10-01 17:39 | XMS_ITS | Continuity of Care Document ---
Author Name Unknown Organization [facility] ter Address [address] [place] [address]- Care Team Providers Care Senior Director Marketing Name Role Phone Yoel ALONZO, Tushar Primary Care Physician Encounter [place] Date(s): 07/21/20 - 09/10/[address] [address] Attending Physician: Geovani Gracia MD Admitting Physician: Basil ALONZO, Geovani Corbin Allergies, Adverse Reactions, Alerts Substance Reaction Severity [...] Route to Pharmacy Electronically, [facility]/pharmacy #[id number], Partial fill upon patient request if the prescriptio... Start Date: 08/14/20 Status: Ordered ibuprofen 800 mg oral tablet 800 mg, 1, tablet, By Mouth, Every 8 hours, # 60 tablet, Refills 0, Tot. Refills 0, Maintenance, 08/14/20 10:07:00 EDT, Route to Pharmacy Electronically, [facility]/pharmacy #[id number], Partial fill upon patientrequest if [...] capsule, 0 Refills, Maintenance, 08/14/20 10:08:00 EDT, [facility]/pharmacy #[id number], Partial fill upon [...]
--- OUTSIDE RECORDS SUMMARY | 2022-10-01 17:39 | XMS_ITS | Continuity of Care Document ---
Author Name Unknown Organization [facility] Address [address] [place] [address]- Care Team Providers Care Recorder Helper Seismograph Name Role Phone Tushar Diallo MD Primary Care Physician Encounter [facility] [place] Date(s): 10/08/21 - 11/08/21 [facility] [address] [place] [address]- Attending Physician: Minda Amor Admitting Physician: Minda [...] Refills, Maintenance, 05/30/21 15:24:00 EST, [id number], Partial fill upon patient request if the [...] tablet, 2 Refills, Maintenance, 06/25/21 10:05:00 EST, [facility]/pharmacy #[id number], [...] 09/12/21 17:56:00 EDT, Route to Pharmacy Electronically, [facility] [...] 6 Refills, Maintenance, 06/25/21 10:05:00 EST, Capsule, [facility]/pharmacy #[id number], [...] 1 Refills, Maintenance, 05/30/21 15:25:00 EST, Suppository, [facility]/pharmacy #[id number], Partial fill upon patient request... Start Date: 05/30/21 Status: Ordered Prometrium 200 mg oral capsule = 200 mg, Vaginally, Daily at bedtime, # 90 each, 2 Refills, Acute 11/29/21 17:37:00 EDT, 06/07/21 17:35:00 EST, [facility]/pharmacy #[id number], [...] tablet, 3 Refills, Maintenance, 05/30/21 15:24:00 EST, [facility]/pharmacy #[id number], [...]
--- OUTSIDE RECORDS SUMMARY | 2022-10-01 17:39 | XMS_ITS | Continuity of Care Document ---
Author Name Unknown Organization [facility] Address [address] [place] [address]- Care Team Providers Care Head Of Product Name Role Phone Yoel ALONZO, Tushar Primary Care Physician [phone] Encounter [facility] [place] Date(s): 05/15/20 - 07/15/20 [facility] [address] [place] [id number] Attending Physician: Jeronimo Luna MD Admitting Physician: [...] 09/13/20 14:53:00 EDT, 08/21/20 11:34:00 EDT, [id number], Partial fill upon patient request, 155.2, cm, [...]
--- OUTSIDE RECORDS SUMMARY | 2022-10-01 17:39 | XMS_ITS | Continuity of Care Document ---
Author Name Unknown Organization [facility] Address [address] [place] [address]- Care Team Providers Care Console Operator Name Role Phone Tushar Diallo MD Primary Care Physician [phone] [place] [facility] [place] 07/12/20 - 08/17/20 [facility] [address] [place] [id number] Attending Physician: Vibha Guido NP Admitting [...] 08/14/20 10:08:00 EDT, Route to Pharmacy Electronically, [facility]/pharmacy #[id number], Partial fill upon patient request if the prescriptio... Start Date: 08/14/20 Status: Ordered ibuprofen 800 mg oral tablet 800 mg, 1, tablet, By Mouth, Every 8 hours, # 60 tablet, Refills 0, Tot. Refills 0, Maintenance, 08/14/20 10:07:00 EDT, Route to Pharmacy Electronically, [facility]/pharmacy #[id number], Partial fill upon patientrequest if the prescription is for a schedule II op... Start Date: 08/14/20 Status: Ordered oxyCODONE 5 mg oral tablet 5 mg, 1, tablet, By Mouth, Every 6 hours, PRN, # 10 tablet, Refills 0, Tot. Refills 0, Maintenance,for pain, 08/14/20 10:07:00 EDT, Route to Pharmacy Electronically, [facility]/pharmacy #[id number], Partial fillupon patient request, 156, cm, 08/14/20 0:09:00 EDT... Start Date: 08/14/20 Status: Ordered Multivitamins By Mouth, Daily, 0 Refills, Maintenance, 02/18/20 10:15:00 EDT Start Date: 02/18/20 Status: Ordered simethicone 80 mg oral tablet 1 tablet = 80 mg, Chew, 3 times a day after meals and bedtime, PRN for gas, # 60 tablet, 0 Refills,Maintenance, 08/14/20 10:08:00 EDT, Tablet, [facility]/pharmacy #[id number], Partial fill upon patient request if the prescription is for a schedule II opioid drug.... Start Date: 08/14/20 Status: Ordered Tylenol 325 mg oral capsule 2 capsule = 650 mg, By Mouth, Every 6 hours, # 60 capsule, 0 Refills, Maintenance, 08/14/20 10:08:00 EDT, [facility]/pharmacy #[id number], Partial fill upon patient [...]
--- OUTSIDE RECORDS SUMMARY | 2022-10-01 17:39 | XMS_ITS | Continuity of Care Document ---
Author Name Unknown Organization [facility] Address [address] [place] [address]- Care Team Providers Care Flexo Press Operator Name Role Phone Tushar Diallo MD Primary Care Physician [place] [facility] [place] 10/30/21 - 02/27/22 [facility] [address] [place] [address]- Attending Physician: Tabatha Giordano MD Admitting Physician: Tabatha Giordano MD Referring Physician: Tushar Diallo MD Allergies, Adverse Reactions, Alerts No Known [...] Reason: New Med Order Problem List Condition Confirmation Course Effective Dates Status H ealth Status Informant Adenoidal hypertrophy Confirmed Active ADHD - Attention deficit disorder with hyperactivity Confirmed Active History of anomaly in prior , currently Confirmed Active Chronic hepatitis B Confirmed Active COVID-19 virus infection Confirmed Active Developmental delay Confirmed 03/05/11 Active Short interval between pregnancies affecting , antepartum Confirmed Active History of section Confirmed Active History of delivery Confirmed Active History of tetralogy of Fallot repair Confirmed Active Obese class I Confirmed Active Scoliosis Confirmed Active Social History Social History Type Response Smoking Status Never (less than 100 in lifetime) entered on: 02/18/20 Sex Patient Care team information Personnel Name: Tushar Diallo MD Address: Address: [address] [place] [id number]
--- OUTSIDE RECORDS SUMMARY | 2022-10-01 17:39 | XMS_ITS | Continuity of Care Document ---
Author Name Unknown Organization [facility] Address [address] [place] [address]- Care Team Providers Care Electron Beam Photo Mask Technician Name Role Phone Yoel ALONZO, Tushar Primary Care Physician Encounter [facility] Date(s): 05/21/21 - 07/07/21 [facility] [address] [place] [id number] Attending Physician: Nanci Karimi MD Admitting [...] 08/14/20 10:08:00 EDT, Route to Pharmacy Electronically, [facility]/pharmacy #[id number], Partial fill upon patient request if the prescriptio... Start Date: 08/14/20 Status: Ordered doxylamine 25 mg oral tablet 1 tablet = 25 mg, By Mouth, Daily, Take one tablet before bed., # 30 tablet, 2 Refills, Maintenance, 06/25/21 10:05:00 EST, [facility]/pharmacy #[id number], Partial fill upon patient request if the prescription is for a schedule II opioid drug., 155, cm, 06/25/21... Start Date: 06/25/21 Status: Ordered famotidine 20 mg oral tablet 20 mg, 1, tablet, By Mouth, 2 times a day, PRN, # 60 tablet, Refills 3, Tot. Refills 3, Maintenance, Nausea & Vomiting, 05/30/21 15:25:00 EST, Route to Pharmacy Electronically, [facility]/pharmacy #[id number], Partial fill upon patient request [...] 6 Refills, Maintenance, 06/25/21 10:05:00 EST, Capsule, [facility]/pharmacy #[id number], Partial fill upon patient request [...]
--- OUTSIDE RECORDS SUMMARY | 2022-10-01 17:39 | XMS_ITS | Continuity of Care Document ---
Author Name Unknown Organization [facility] Address [address] [place] [address]- Care Team Providers Care Cardiology Clinical Consultant Name Role Phone Tushar Diallo MD Primary Care Physician Encounter [facility] Date(s): 06/18/21 - 07/18/21 [facility] [address] [place] [id number] Allergies, Adverse Reactions, Alerts No Known [...] Refills, Maintenance, 05/30/21 15:24:00 EST, [facility], [id number], Partial fill upon patient request if the prescription... Start Date: 05/30/21 Status: Ordered Colace sodium 100 mg oral capsule 100 mg, 1, capsule, By Mouth, 2 times a day, PRN, # 20 capsule, Refills 0, Tot. Refills 0, Maintenance, for constipation, 08/14/20 10:08:00 EDT, Route to Pharmacy Electronically, [facility]/pharmacy #[id number], Partial fill upon patient request if the prescriptio... Start Date: 08/14/20 Status: Ordered doxylamine 25 mg oral tablet 1 tablet = 25 mg, By Mouth, Daily, Take one tablet before bed., # 30 tablet, 2 Refills, Maintenance, 06/25/21 10:05:00 EST, [facility]/pharmacy #[id number], Partial fill upon patient request if the prescription is for a schedule II opioid drug., 155, cm, 06/25/21... Start Date: 06/25/21 Status: Ordered famotidine 20 mg oral tablet 20 mg, 1, tablet, By Mouth, 2 times a day, PRN, # 60 tablet, Refills 3, Tot. Refills 3, Maintenance, Nausea & Vomiting, 05/30/21 15:25:00 EST, Route to Pharmacy Electronically, [facility]/pharmacy #[id number], Partial fill upon patient request if [...] 6 Refills, Maintenance, 06/25/21 10:05:00 EST, Capsule, [facility]/pharmacy #[id number], Partial fill upon patient request if [...]
--- OUTSIDE RECORDS SUMMARY | 2022-10-01 17:39 | XMS_ITS | Continuity of Care Document ---
Author Name Unknown Organization [facility] Address [address] [place] [phone]- Care Team Providers Care Computer Aided Drafter Name Role Phone Tushar Diallo MD Primary Care Physician [place] [facility] [place] - 08/17/20 [facility] [address] [place] [id number] Allergies, Adverse Reactions, Alerts Substance Reaction [...] 10:08:00 EDT, Route to Pharmacy Electronically, [facility]/pharmacy #[id number], Partial fill upon patient request if the prescriptio... Start Date: 08/14/20 Status: Ordered ibuprofen 800 mg oral tablet 800 mg, 1, tablet, By Mouth, Every 8 hours, # 60 tablet, Refills 0, Tot. Refills 0, Maintenance, 08/14/20 10:07:00 EDT, Route to Pharmacy Electronically, [facility]/pharmacy #[id number], Partial fill upon patientrequest if the prescription is for a schedule II op... Start Date: 08/14/20 Status: Ordered oxyCODONE 5 mg oral tablet 5 mg, 1, tablet, By Mouth, Every 6 hours, PRN, # 10 tablet, Refills 0, Tot. Refills 0, Maintenance,for pain, 08/14/20 10:07:00 EDT, Route to Pharmacy Electronically, [facility]/pharmacy #[id number], Partial fillupon patient request, 156, daniela, 08/14/20 0:09:00 EDT... Start Date: 08/14/20 Status: Ordered Multivitamins By Mouth, Daily, 0 Refills, Maintenance, 02/18/20 10:15:00 EDT Start Date: 02/18/20 Status: Ordered simethicone 80 mg oral tablet 1 tablet = 80 mg, Chew, 3 times a day after meals and bedtime, PRN for gas, # 60 tablet, 0 Refills,Maintenance, 08/14/20 10:08:00 EDT, Tablet, [facility]/pharmacy #[id number], Partial fill upon patient request if the prescription is for a schedule II opioid drug.... Start Date: 08/14/20 Status: Ordered Tylenol 325 mg oral capsule 2 capsule = 650 mg, By Mouth, Every 6 hours, # 60 capsule, 0 Refills, Maintenance, 08/14/20 10:08:00 EDT, [facility]/pharmacy #[id number], Partial fill upon patient request [...]
--- OUTSIDE RECORDS SUMMARY | 2022-10-01 17:39 | XMS_ITS | Continuity of Care Document ---
Author Name Unknown Organization [facility] Address [address] [place] [address]- Care Team Providers Care Information Security Consultant Name Role Phone Tushar Diallo MD Primary Care Physician Encounter [facility] [place] Date(s): 08/09/20 - 09/08/20 [facility] [address] [place] [id number] Allergies, Adverse Reactions, Alerts Substance Reaction [...] 08/14/20 10:08:00 EDT, Route to Pharmacy Electronically, [facility]/pharmacy #[id number], Partial fill upon patient request if the prescriptio... Start Date: 08/14/20 Status: Ordered ibuprofen 800 mg oral tablet 800 mg, 1, tablet, By Mouth, Every 8 hours, # 60 tablet, Refills 0, Tot. Refills 0, Maintenance, 08/14/20 10:07:00 EDT, Route to Pharmacy Electronically, [facility]/pharmacy #[id number], Partial fill upon patientrequest if the prescription is for a schedule II op... Start Date: 08/14/20 Status: Ordered oxyCODONE 5 mg oral tablet 5 mg, 1, tablet, By Mouth, Every 6 hours, PRN, # 10 tablet, Refills 0, Tot. Refills 0, Maintenance,for pain, 08/14/20 10:07:00 EDT, Route to Pharmacy Electronically, [facility]/pharmacy #[id number], Partial fillupon patient request, 156, daniela, 08/14/20 0:09:00 EDT... Start Date: 08/14/20 Status: Ordered Multivitamins By Mouth, Daily, 0 Refills, Maintenance, 02/18/20 10:15:00 EDT Start Date: 02/18/20 Status: Ordered simethicone 80 mg oral tablet 1 tablet = 80 mg, Chew, 3 times a day after meals and bedtime, PRN for gas, # 60 tablet, 0 Refills,Maintenance, 08/14/20 10:08:00 EDT, Tablet, [facility]/pharmacy #[id number], Partial fill upon patient request if the prescription is for a schedule II opioid drug.... Start Date: 08/14/20 Status: Ordered Tylenol 325 mg oral capsule 2 capsule = 650 mg, By Mouth, Every 6 hours, # 60 capsule, 0 Refills, Maintenance, 08/14/20 10:08:00 EDT, [facility]/pharmacy #[id number], Partial fill upon patient [...]
--- OUTSIDE RECORDS SUMMARY | 2022-10-01 17:40 | XMS_ITS | Continuity of Care Document ---
Author Name Unknown Organization [facility] Address [address] [place] [phone]- Care Team Providers Care Sash Repairer Name Role Phone Yoel ALONZO, Tushar Primary Care Physician [place] [facility] [place]14[place] 10/25/20 [facility] [address] [place] [id number] Attending Physician: Jeronimo Luna MD Admitting Physician: Jeremy ALONZO, Jeronimo Referring Physician: Vibha Guido NP Allergies, Adverse [...] 10:08:00 EDT, Route to Pharmacy Electronically, [facility]/pharmacy #[id number], Partial fill upon patient request if the prescriptio... Start Date: 08/14/20 Status: Ordered ibuprofen 800 mg oral tablet 800 mg, 1, tablet, By Mouth, Every 8 hours, PRN, # 30 tablet, Refills 1, Tot. Refills 1, Maintenance, Pain , Mild, 09/14/20 9:24:00 EDT, Route to Pharmacy Electronically, [facility]/pharmacy #[id number], Partial fill upon patient [...] 10:07:00 EDT, Route to Pharmacy Electronically, [facility]/pharmacy #[id number], Partial fillupon patient request, 156, daniela, 08/14/20 0:09:00 EDT... Start Date: 08/14/20 Status: Ordered Multivitamins By Mouth, Daily, 0 Refills, Maintenance, 02/18/20 10:15:00 EDT Start Date: 02/18/20 Status: Ordered simethicone 80 mg oral tablet 1 tablet = 80 mg, Chew, 3 times a day after meals and bedtime, PRN for gas, # 60 tablet, 0 Refills,Maintenance, 08/14/20 10:08:00 EDT, Tablet, [facility]/pharmacy #[id number], Partial fill upon patient request if the prescription is for a schedule II opioid drug.... Start Date: 08/14/20 Status: Ordered Tylenol 325 mg oral capsule 2 capsule = 650 mg, By Mouth, Every 6 hours, # 60 capsule, 0 Refills, Maintenance, 08/14/20 10:08:00 EDT, [facility]/pharmacy #[id number], Partial fill upon patient [...]
--- OUTSIDE RECORDS SUMMARY | 2022-10-01 17:40 | XMS_ITS | Continuity of Care Document ---
Author Name Unknown Organization [facility] Address [address] [place] [phone]- Care Team Providers Care Buck Swamper Name Role Phone Tushar Diallo MD Primary Care Physician Encounter [facility] Date(s): 05/03/20 - 06/02/20 [facility] [address] [place] [id number] Allergies, Adverse Reactions, Alerts Substance Reaction Severity [...] 09/13/20 14:53:00 EDT, 08/21/20 11:34:00 EDT, [facility]acy #[id number], Partial fill upon patient request, 155.2, cm, [...]
--- OUTSIDE RECORDS SUMMARY | 2022-10-01 17:40 | XMS_ITS | Continuity of Care Document ---
Author Name Unknown Organization [facility] Address [address] [place] [phone]- Care Team Providers Care Catalyst Supervisor Name Role Phone Tushar Diallo MD Primary Care Physician [place] [facility] [place](s): 07/25/20 - 08/24/20 [facility] [address] [place] [id number] Attending Physician: Admtr, [id number] Admitting Physician: Admtr, [id number] Referring Physician: Admtr, [...] 08/14/20 10:08:00 EDT, Route to Pharmacy Electronically, [facility]/pharmacy #[id number], Partial fill upon patient request if the prescriptio... Start Date: 08/14/20 Status: Ordered ibuprofen 800 mg oral tablet 800 mg, 1, tablet, By Mouth, Every 8 hours, # 60 tablet, Refills 0, Tot. Refills 0, Maintenance, 08/14/20 10:07:00 EDT, Route to Pharmacy Electronically, [facility]/pharmacy #[id number], Partial fill upon patientrequest if the prescription is for a schedule II op... Start Date: 08/14/20 Status: Ordered oxyCODONE 5 mg oral tablet 5 mg, 1, tablet, By Mouth, Every 6 hours, PRN, # 10 tablet, Refills 0, Tot. Refills 0, Maintenance,for pain, 08/14/20 10:07:00 EDT, Route to Pharmacy Electronically, [facility]/pharmacy #[id number], Partial fillupon patient request, 156, cm, 08/14/20 0:09:00 EDT... Start Date: 08/14/20 Status: Ordered Multivitamins By Mouth, Daily, 0 Refills, Maintenance, 02/18/20 10:15:00 EDT Start Date: 02/18/20 Status: Ordered simethicone 80 mg oral tablet 1 tablet = 80 mg, Chew, 3 times a day after meals and bedtime, PRN for gas, # 60 tablet, 0 Refills,Maintenance, 08/14/20 10:08:00 EDT, Tablet, [facility]/pharmacy #[id number], Partial fill upon patient request if the prescription is for a schedule II opioid drug.... Start Date: 08/14/20 Status: Ordered Tylenol 325 mg oral capsule 2 capsule = 650 mg, By Mouth, Every 6 hours, # 60 capsule, 0 Refills, Maintenance, 08/14/20 10:08:00 EDT, [facility]/pharmacy #[id number], Partial fill upon patient request if [...]
--- OUTSIDE RECORDS SUMMARY | 2022-10-01 17:40 | XMS_ITS | Continuity of Care Document ---
Author Name Unknown Organization [facility] Address [address] [place] [id number]- Care Team Providers Care Filleter Name Role Phone Yoel ALONZO, Tushar Primary Care Physician [phone] Encounter [facility] Date(s): 07/06/21 - 08/05/[address] [address]- Attending Physician: Konstantin Osei Admitting Physician: Konstantin [...] 08/14/20 10:08:00 EDT, Route to Pharmacy Electronically, [facility]/pharmacy #[id number], Partial fill upon patient request if the prescriptio... Start Date: 08/14/20 Status: Ordered doxylamine 25 mg oral tablet 1 tablet = 25 mg, By Mouth, Daily, Take one tablet before bed., # 30 tablet, 2 Refills, Maintenance, 06/25/21 10:05:00 EST, [facility]/pharmacy #[id number], Partial fill upon patient request if the prescription is for a schedule II opioid drug., 155, cm, 06/25/21... Start Date: 06/25/21 Status: Ordered famotidine 20 mg oral tablet 20 mg, 1, tablet, By Mouth, 2 times a day, PRN, # 60 tablet, Refills 3, Tot. Refills 3, Maintenance, Nausea & Vomiting, 05/30/21 15:25:00 EST, Route to Pharmacy Electronically, [facility]/pharmacy #[id number], Partial fill upon patient [...] 6 Refills, Maintenance, 06/25/21 10:05:00 EST, Capsule, [facility]/pharmacy #[id number], Partial fill upon patient [...] anomaly in prior , currently (Confirmed) Active BMI 24.5, pre- - normal(Confirmed) Active Chronic hepatitis B(Confirmed) Active COVID-19 virus infection(Confirmed) Active Developmental delay(Confirmed) 03/05/11 Active History of delivery(Confirmed) Active History of tetralogy of Fall ot repair(Confirmed) Active Obese class I(Confirmed) Active Scoliosis(Confirmed) Active Social History Social History Type Response Smoking Status Never (less than 100 in lifetime) entered on: 02/18/20 Sex
--- OUTSIDE RECORDS SUMMARY | 2022-10-01 17:40 | XMS_ITS | Continuity of Care Document ---
Author Name Unknown Organization [facility] Address [address] [place] [address]- Care Team Providers Care Electronic Systems Technician Name Role Phone Yoel ALONZO, Tushar Primary Care Physician Encounter [facility] Date(s): 10/26/21 - 12/26/[address] [id number] Attending Physician: Luiz Nolan MD Referring Physician: Vibha Guido NP Allergies, [...]
--- OUTSIDE RECORDS SUMMARY | 2022-10-01 17:40 | XMS_ITS | Continuity of Care Document ---
Author Name Unknown Organization [facility] Address [address] [place] [address]- Care Team Providers Care Technical Planner Name Role Phone Yoel ALONZO, Tushar Primary Care Physician Encounter [facility] [place] Date(s): 11/15/21 - 12/21/21 [facility] [address] [place] [id number] Attending Physician: Vibha Guido NP [...]
--- OUTSIDE RECORDS SUMMARY | 2022-10-01 17:40 | XMS_ITS | Continuity of Care Document ---
Author Name Unknown Organization [facility] [employer] Address [address], [address] [place] [address]- Care Team Providers Care Fruit Peeler Name Role Phone Yoel ALONZO, Tushar Primary Care Physician [phone] [place] [facility] [place] 02/04/20 - 03/05/20 [facility] [address], [address] [place] [address]- [facility] Attending Physician: Konstantin Osei Admitting Physician: [...]
--- OUTSIDE RECORDS SUMMARY | 2022-10-01 17:40 | XMS_ITS | Continuity of Care Document ---
Author Name Unknown Organization [facility] Address [address] [place] [address]- Care Team Providers Care Mechanical Project Engineer Name Role Phone Tushar Diallo MD Primary Care Physician Encounter [facility] Date(s): 12/19/21 - 01/18/22 [facility] [address] [place] [id number] Attending Physician: Konstantin Osei Admitting Physician: AdmtrKonstantin [...] Give n influenza virus vaccine, inactivated 01/10/10 Alxe rded tetanus-diphtheria toxoids (Td) 11/13/17 Recorded Hepatitis A Adult Vaccine 10/19/15 Recorded pneumococcal 23-valent vaccine 1/5/16 Given Boostrix (Tdap) (oldterm) 06/07/14 Given Fluarix [...] Team Personnel Name: Tushar Diallo MD Address: [address] [place] [id number]
--- OUTSIDE RECORDS SUMMARY | 2022-10-01 17:40 | XMS_ITS | Continuity of Care Document ---
Author Name Unknown Organization [facility] Address [address] [place] [address]- Care Team Providers Care Fabrication Inspector Name Role Phone Tushar Diallo MD Primary Care Physician [phone] Encounter [facility] Date(s): 05/31/20 - 06/30/20 Maternal [facility] [address] [place] [id number] Allergies, Adverse Reactions, Alerts Substance Reaction [...] 09/13/20 14:53:00 EDT, 08/21/20 11:34:00 EDT, [id number], Partial fill upon patient request, 155.2, cm, [...]
--- OUTSIDE RECORDS SUMMARY | 2022-10-01 17:40 | XMS_ITS | Continuity of Care Document ---
Author Name Unknown Organization [facility] Address [address] [place] [address]- Care Team Providers Care Amortization Schedule Clerk Name Role Phone Yoel ALONZO, Tushar Primary Care Physician [phone] Encounter [facility] Date(s): 05/08/21 - 06/07/[address] [address] Allergies, Adverse Reactions, Alerts No Known Allergies Immunizations Given and Recorded Vaccine Date Status Refusal Reason influenza virus vaccine, inactivated 05/30/21 Give n influenza virus vaccine, inactivated 1 04/12/20 Gi alta influenza virus vaccine, inactivated 05/23/15 Give n influenza virus vaccine, inactivated 03/29/13 Give n SARS-CoV-2 (COVID-19) [id number] vaccine 05/15/21 R ecorded tetanus/diphtheria/pertussis, acel(Tdap) 07/11/20 [...] Refills, Maintenance, 05/30/21 15:24:00 EST, Capsule, [id number], Partial fill upon patient request if the prescription... Start Date: 05/30/21 Status: Ordered Colace sodium 100 mg oral capsule 100 mg, 1, capsule, By Mouth, 2 times a day, PRN, # 20 capsule, Refills 0, Tot. Refills 0, Maintenance, for constipation, 08/14/20 10:08:00 EDT, Route to Pharmacy Electronically, [facility]/pharmacy #[id number], Partial fill upon patient request if the prescriptio... Start Date: 08/14/20 Status: Ordered doxylamine 25 mg oral tablet 1 tablet = 25 mg, By Mouth, Daily, Take one tablet before bed. May take additional tablet in the morning if nausea still persistent, # 60 tablet, 8 Refills, Maintenance, 04/23/21 14:35:00 EST, [facility]/pharmacy #[id number], Partial fill upon patient request if t... Start Date: 04/23/21 Status: Ordered famotidine 20 mg oral tablet 20 mg, 1, tablet, By Mouth, 2 times a day, PRN, # 60 tablet, Refills 3, Tot. Refills 3, Maintenance, Nausea & Vomiting, 05/30/21 15:25:00 EST, Route to Pharmacy Electronically, [facility]/pharmacy #[id number], Partial fill upon patient request if [...] 3 Refills, Maintenance, 05/21/21 12:40:00 EST, Capsule, [facility]/pharmacy #[id number], Partial fill upon patient request if [...] 1 Refills, Maintenance, 05/30/21 15:25:00 EST, Suppository, [facility]/pharmacy #[id number], Partial fill upon patient request... Start Date: 05/30/21 Status: Ordered Prometrium 200 mg oral capsule = 200 mg, Vaginally, Daily at bedtime, # 90 each, 2 Refills, Acute 11/29/21 17:37:00 EDT, 06/07/21 17:35:00 EST, [facility]/pharmacy #[id number], Partial fill upon patient request if the prescription is for a schedule II opioid drug., 155, cm, 06/05/21 13:13:00 ES... Start Date: 06/07/21 Stop Date: 11/29/21 Status: Ordered Vitamin B6 25 mg oral tablet 1 tablet = 25 mg, By Mouth, Daily, Take daily to prevent nausea in , # 100 tablet, 3 Refills, Maintenance, 05/30/21 15:24:00 EST, [facility]/pharmacy #[id number], Partial fill upon patient request if [...]
--- OUTSIDE RECORDS SUMMARY | 2022-10-01 17:40 | XMS_ITS | Continuity of Care Document ---
Author Name Unknown Organization [facility] Address [address] [place] [phone]- Care Team Providers Care Stock Saw Operator Name Role Phone Tushar Diallo MD Primary Care Physician Encounter [facility] Date(s): 09/25/21 - 10/25/21 [facility] [address] [place] [id number] Allergies, Adverse Reactions, Alerts No Known Allergies [...] Refills, Maintenance, 05/30/21 15:24:00 EST, Capsule, [id number], Partial fill upon patient request if the prescription... Start Date: 05/30/21 Status: Ordered Colace sodium 100 mg oral capsule 100 mg, 1, capsule, By Mouth, 2 times a day, PRN, # 20 capsule, Refills 0, Tot. Refills 0, Maintenance, for constipation, 08/14/20 10:08:00 EDT, Route to Pharmacy Electronically, [facility]/pharmacy #[id number], Partial fill upon patient request if the prescriptio... Start Date: 08/14/20 Status: Ordered doxylamine 25 mg oral tablet 1 tablet = 25 mg, By Mouth, Daily, Take one tablet before bed., # 30 tablet, 2 Refills, Maintenance, 06/25/21 10:05:00 EST, [facility]/pharmacy #[id number], Partial fill upon patient request if the prescription is for a schedule II opioid drug., 155, cm, 06/25/21... Start Date: 06/25/21 Status: Ordered famotidine 20 mg oral tablet 20 mg, 1, tablet, By Mouth, 2 times a day, PRN, # 60 each, Refills 1, Tot. Refills 1, Maintenance, Nausea & Vomiting, 09/12/21 17:56:00 EDT, Route to Pharmacy Electronically, [facility]/pharmacy #[id number], Partial fill upon patient request if [...] Refills, Maintenance, 06/25/21 10:05:00 EST, Capsule, [facility]/pharmacy #[id number], Partial fill upon patient request if [...] Refills, Maintenance, 05/30/21 15:25:00 EST, Suppository, [facility]/pharmacy #[id number], Partial fill upon patient request... Start Date: 05/30/21 Status: Ordered Prometrium 200 mg oral capsule = 200 mg, Vaginally, Daily at bedtime, # 90 each, 2 Refills, Acute 11/29/21 17:37:00 EDT, 06/07/21 17:35:00 EST, [facility]/pharmacy #[id number], Partial fill upon patient request if the prescription is for a schedule II opioid drug., 155, cm, 06/05/21 13:13:00 ES... Start Date: 06/07/21 Stop Date: 11/29/21 Status: Ordered Vitamin B6 25 mg oral tablet 1 tablet = 25 mg, By Mouth, Daily, Take daily to prevent nausea in , # 100 tablet, 3 Refills, Maintenance, 05/30/21 15:24:00 EST, [facility]/pharmacy #[id number], Partial fill upon patient request if [...]
--- OUTSIDE RECORDS SUMMARY | 2022-10-01 17:40 | XMS_ITS | Continuity of Care Document ---
Author Name Unknown Organization [facility] Address [address] [place] [address]- Care Team Providers Care Prenatal Genetic Counselor Name Role Phone Yoel ALONZO, Tushar Primary Care Physician Encounter [facility] Date(s): 07/04/21 - 08/05/[address] [id number]- Attending Physician: Not on Staff, Attending MD Allergies, Adverse Reactions, Alerts No Known Allergies Immunizations Given and Recorded Vaccine Date Status Refusal Reason influenza virus vaccine, inactivated 05/30/21 Give n influenza virus vaccine, inactivated 1 04/12/20 Gi alta influenza virus vaccine, inactivated 05/23/15 Give n influenza virus vaccine, inactivated 03/29/13 Give n SARS-CoV-2 (COVID-19) [id number] vaccine 05/15/21 R ecorded tetanus/diphtheria/pertussis, acel(Tdap) 07/11/20 [...] Refills, Maintenance, 05/30/21 15:24:00 EST, Capsule, [id number], Partial fill upon patient request if the prescription... Start Date: 05/30/21 Status: Ordered Colace sodium 100 mg oral capsule 100 mg, 1, capsule, By Mouth, 2 times a day, PRN, # 20 capsule, Refills 0, Tot. Refills 0, Maintenance, for constipation, 08/14/20 10:08:00 EDT, Route to Pharmacy Electronically, [facility]/pharmacy #[id number], Partial fill upon patient request if the prescriptio... Start Date: 08/14/20 Status: Ordered doxylamine 25 mg oral tablet 1 tablet = 25 mg, By Mouth, Daily, Take one tablet before bed., # 30 tablet, 2 Refills, Maintenance, 06/25/21 10:05:00 EST, [facility]/pharmacy #[id number], Partial fill upon patient request if the prescription is for a schedule II opioid drug., 155, cm, 06/25/21... Start Date: 06/25/21 Status: Ordered famotidine 20 mg oral tablet 20 mg, 1, tablet, By Mouth, 2 times a day, PRN, # 60 tablet, Refills 3, Tot. Refills 3, Maintenance, Nausea & Vomiting, 05/30/21 15:25:00 EST, Route to Pharmacy Electronically, [facility]/pharmacy #[id number], Partial fill upon patient [...] 6 Refills, Maintenance, 06/25/21 10:05:00 EST, Capsule, [facility]/pharmacy #[id number], Partial fill upon patient [...] 1 Refills, Maintenance, 05/30/21 15:25:00 EST, Suppository, [facility]/pharmacy #[id number], Partial fill upon patient request... Start Date: 05/30/21 Status: Ordered Prometrium 200 mg oral capsule = 200 mg, Vaginally, Daily at bedtime, # 90 each, 2 Refills, Acute 11/29/21 17:37:00 EDT, 06/07/21 17:35:00 EST, [facility]/pharmacy #[id number], Partial fill upon patient request if the prescription is for a schedule II opioid drug., 155, cm, 06/05/21 13:13:00 ES... Start Date: 06/07/21 Stop Date: 11/29/21 Status: Ordered Vitamin B6 25 mg oral tablet 1 tablet = 25 mg, By Mouth, Daily, Take daily to prevent nausea in , # 100 tablet, 3 Refills, Maintenance, 05/30/21 15:24:00 EST, [facility]/pharmacy #[id number], Partial fill upon patient [...]
--- OUTSIDE RECORDS SUMMARY | 2022-10-01 17:40 | XMS_ITS | Continuity of Care Document ---
Author Name Unknown Organization [facility] ter Address [address] [place] [id number] Care Team Providers Care Copping Machine Operator Name Role Phone Tushar Diallo MD Primary Care Physician En[place] [facility] [place](s): 04/23/21 - 04/23/[address] [id number] Discharge Disposition: A-D/C Home Attending Physician: Harinder Snow MD Admitting Physician: Harinder Snow MD Referring Physician: Harinder Snow MD Allergies, Adverse Reactions, Alerts Substance Reaction [...] 10:08:00 EDT, Route to Pharmacy Electronically, [facility]/pharmacy #[id number], Partial fill upon patient request if the prescriptio... Start Date: 08/14/20 Status: Ordered doxylamine 25 mg oral tablet 1 tablet = 25 mg, By Mouth, Daily, Take one tablet before bed. May take additional tablet in the morning if nausea still persistent, # 60 tablet, 8 Refills, Maintenance, 04/23/21 14:35:00 EST, [facility]/pharmacy #[id number], Partial fill upon patient request if t... Start Date: 04/23/21 Status: Ordered famotidine 20 mg oral tablet 20 mg, 1, tablet, By Mouth, 2 times a day, # 180 tablet, Refills 0, Tot. Refills 0, Maintenance, 04/23/21 14:35:00 EST, Route to Pharmacy Electronically, [facility]/pharmacy #[id number], Partial fill upon patientrequest if the prescription is for a schedule II op... Start Date: 04/23/21 Status: Ordered ibuprofen 800 mg oral tablet 800 mg, 1, tablet, By Mouth, Every 8 hours, PRN, # 30 tablet, Refills 1, Tot. Refills 1, Maintenance, Pain , Mild, 09/14/20 9:24:00 EDT, Route to Pharmacy Electronically, [facility]/pharmacy #[id number], Partial fill upon patient [...] 10:07:00 EDT, Route to Pharmacy Electronically, [facility]/pharmacy #[id number], Partial fillupon patient request, 156, cm, 08/14/20 0:09:00 EDT... Start Date: 08/14/20 Status: Ordered Multivitamins By Mouth, Daily, 0 Refills, Maintenance, 02/18/20 10:15:00 EDT Start Date: 02/18/20 Status: Ordered progesterone 25 mg vaginal suppository [...] 0 Refills, Maintenance, 04/23/21 14:35:00 EST, Suppository, [facility]/pharmacy #[id number], Partial fill upon patient request if theprescription is for a schedule II opioid drug., 156... Start Date: 04/23/21 Status: Ordered pyridoxine 25 mg oral tablet 1 tablet = 25 mg, By Mouth, 3 times a day, PRN Nausea & Vomiting, # 100 tablet, 8 Refills, Maintenance, 04/23/21 14:35:00 EST, [facility]/pharmacy #[id number], Partial fill upon patient request if the prescription is for a schedule II opioid drug., 156, cm, ... Start Date: 04/23/21 Status: Ordered simethicone 80 mg oral tablet 1 tablet = 80 mg, Chew, 3 times a day after meals and bedtime, PRN for gas, # 60 tablet, 0 Refills,Maintenance, 08/14/20 10:08:00 EDT, Tablet, [facility]/pharmacy #[id number], Partial fill upon patient request if the prescription is for a schedule II opioid drug.... Start Date: 08/14/20 Status: Ordered Tylenol 325 mg oral capsule 2 capsule = 650 mg, By Mouth, Every 6 hours, # 60 capsule, 0 Refills, Maintenance, 08/14/20 10:08:00 EDT, [facility]/pharmacy #[id number], Partial fill upon patient [...] Most recent to oldest [Reference Range]: 1 Weight 71.8 kg (04/23/21 7:53 AM) Oxygen Saturation [94-100 %] 100 % (04/23/21 7:53 AM) Pulse Rate [55-90 bpm] 95 bpm *H* (04/23/21 7:53 AM) Blood Pressure [90-138/55-84 mm Hg] 127/ 88mm Hg (04/23/21 7:53 AM) Respiratory Rate [16-30 br/min] 20 br/mi n (04/23/21 7:53 AM) Temperature [96.8-100.4 DegF] 97.9 DegF (04/23/21 7:53 AM) Mode of Delivery (Oxygen) Room air (04/23/21 7:53 AM) Blood pressure sites Arm, left 1 (04/23/21 7:53 AM) Temperature Route Oral (04/23/21 7:53 AM) Dry Weight 71.8 kg (04/23/21 7:53 AM) Weight Obtained Via Standing scale (04/23/21 7:53 AM) Dry Weight Obtained Via Standing scale (04/23/21 7:53 AM) 1Result Comment: let arm measured at 31cm Social History Social History Type Response Smoking Status Never (less than 100 in lifetime) entered on: 02/18/20 Sex
[2022-10-01] MEDS: Metoclopramide HCl 10 MG/2 ML VIAL IVPUSH (19:01)
[2022-10-01] MEDS: diphenhydrAMINE HCL 50 MG/ML VIAL 25 MG IVPUSH (19:01)
--- NOTE | 2022-10-01 19:05 | PC.NURSE ---
assumed care of patient t 1900 - pt resting comfortably on stretcher. iv fluids running. given reglan and brandryl iv for nausea/vomiting. call méndez within reach. will CTM
[2022-10-01 19:16] VITALS: BP 152/85; PULSE 71; RESP 15; TEMP 37.6; O2SAT 97
[2022-10-01] MEDS: Prochlorperazine Edisylate 10 MG/2 ML VIAL IVPUSH (20:28)
== END 2022-10-01 20:47 | disposition home or self-care (01) ==
PROVIDERS: Physician Assistant Medical; Emergency Provider Emergency Medicine
DX: R11.2 Nausea with vomiting, unspecified (principal); F12.90 Cannabis use, unspecified, uncomplicated; Z79.899 Other long term (current) drug therapy
CPT/HCPCS: 36415; 74176; 80048; 80076; 80307; 81001; 81025; 83690; 83735; 85025; 96361; 96374; 96375; 99284; J1200; J1885; J2405; J2765

== ENCOUNTER 2022-12-13 22:21 | Observation (INO) | payer MEDICAID, SELFPAY ==
[2022-12-13 22:40] VITALS: BP 140/94; BP 144/86; PULSE 41; PULSE 50; RESP 18; TEMP 36.7; O2SAT 95; O2SAT 97; BMI 33.7
--- NOTE | 2022-12-13 22:42 | ED_ITS ---
HPI - General Adult General Chief complaint: Abdominal Pain Stated complaint: nausea, vomiting, abdominal pain x 1day Time Seen by Provider: 12/14/22 02:42 Source: patient Mode of arrival: ambulatory Limitations: no limitations History of Present Illness HPI narrative: Patient comes to the emergency room complaining of nausea and vomiting and diffuse abdominal cramping. Patient states that she started feeling worse at work where she works at [employer] because he was way too hot. Patient is known to use marijuana and have cyclical vomiting. Patient denies hematuria or dysuria, no flank pain Related Data Home Medications Medication Instructions Recorded Confirmed No Known Home Meds 12/14/22 12/14/22 Allergies Allergy/AdvReac Type Severity Reaction Status Date / Time No Known Allergies Allergy Verified 12/13/22 22:46 [No Known Allergies*] Review of Systems Review of Systems: Constitutional : No Weight loss, No Fever, No Chills, No Night Sweats, No Fatigue, No Malaise ENT/Mouth : No Hearing loss, No Ear Pain, No Nasal Congestion, No Sinus Pain, No Hoarseness, No sore throat, No Rhinorrhea, No Swallowing Difficulty Eyes: No Eye Pain, No Swelling, No Redness, No Foreign Body, No Discharge, No Vision Changes Cardiovascular : No Chest Pain, No SOB, No Dyspnea on Exertion, No Orthopnea, No Edema, No Palpitations Respiratory : No Cough, No Sputum, No Wheezing, No Smoke Exposure, No Dyspnea Gastrointestinal : Planning of nausea and vomiting, No Diarrhea, No Constipation, complaining of diffuse abdominal cramping Genitourinary : no irregular bleeding, No Dysuria, No Urinary Frequency, No Hematuria, No Urinary Incontinence, No Urgency, No Flank Pain, No Urinary Flow Changes, No Hesitancy Musculoskeletal : No joint pain, No Myalgias, No Joint Swelling Skin : No Skin Lesions, No rash Neuro : No Weakness, No Numbness, No Paresthesias, No Loss of Consciousness, No Dizziness, No Headache Psych : No Anxiety/Panic, No Depression, No SI/HI/AH/VH, No Social Issues, Heme/Lymph: No Bruising, No Bleeding,No Lymphadenopathy Endocrine : No Polyuria, No Polydipsia, No Temperature Intolerance PMFSH Past Medical History Medical History Cyclical vomiting Fallot tetralogy Surgical History H/O tetralogy of Fallot repair Hx of section Social History Social History Alcohol intake: never Patient Tobacco Use Status: Never used Tobacco Smoked in Last 30 Days: No Use of substances other than those prescribed or required for medical reasons: Yes Substance Use Type: Marijuana Advance Directives: No Advance Directives Information Provided: Yes Patient : No Physical Exam ED Vital Signs: Vital Signs - 24 hr 12/13/22 22:40 12/14/22 00:41 12/14/22 03:22 Temperature 98.1 F 97.8 F 98.5 F Pulse Rate 41 L 48 L 45 L Respiratory Rate 18 17 17 Blood Pressure 144/86 H 133/81 140/78 H Pulse Oximetry 97 99 98 Oxygen Delivery Method Room Air Room Air Room Air 12/14/22 05:54 Temperature 98.4 F Pulse Rate 52 Respiratory Rate 15 Blood Pressure 135/84 Pulse Oximetry 99 Oxygen Delivery Method Room Air BMI result Body Mass Index 33.7 Const Other: Appearance: Alert. Oriented X3. Patient seems nauseous Eyes: Pupils equal, round and reactive to light. ENT: Pharynx normal. Neck: Normal inspection. Neck supple. No lymph nodes noted. No crepitus CVS: Normal heart rate and rhythm. Pulses normal. Normal S1 and S2 Respiratory: No respiratory distress. Breath sounds normal. No Wheezing. No r ales Abdomen: Soft and nontender. No rigidity. No distention. Skin: Skin warm and dry. Normal skin color. Normal skin turgor. Extremities: No lower extremity edema. No Lacerations. No Rash Neuro: Oriented X 3. No motor deficit. No sensory deficit. Moving all extremities. No slurred speech. CN 2 through 12 grossly intact Psych: calm, cooperative, normal affect Course Course Course Narrative: This is a rapid medical exam: Additional HPI, ROS, PE not included below will be deferred to primary provider. Patient is a 27-year-old female presenting to the ED with complaint of generalized abdominal pain, nausea, and vomiting since yesterday. Reports diarrhea which began an hour ago. Has been unable to tolerate fluids without vomiting. Denies fevers. Denies sick contacts. States symptoms are from the heat at work, states she works at [employer]. Patient bradycardic in triage, EKG ordered. Plan: EKG, labs, UA Medications Administered Generic Name Dose Route Start Last Admin Trade Name Freq PRN Reason Stop Dose Admin Lactated Ringer's 1,000 mls @ 150 mls/hr 12/14/22 07:45 12/14/22 08:13 Lr IVCONT 150 mls/hr .Q6H40M CHARLEEN Administration Sodium Chloride 3 ml 12/14/22 08:00 12/14/22 08:13 0.9 % Sodium Chloride Flush 3 Ml Syringe IVFLUSH 3 ml QSHIFT CHARLEEN Administration Discontinued Medications Generic Name Dose Route Start Last Admin Trade Name Freq PRN Reason Stop Dose Admin Diphenhydramine HCl 50 mg 12/14/22 02:18 12/14/22 02:51 Diphenhydramine Hcl 50 Mg/Ml Vial IVPUSH 12/14/22 02:19 50 mg ONCE ONE Administration Sodium Chloride 1,000 mls @ 999 mls/hr 12/14/22 02:30 12/14/22 06:43 Ns IV 12/14/22 03:30 Infused .Q1H1M CHARLEEN Infusion Sodium Chloride 1,000 mls @ 999 mls/hr 12/14/22 06:28 12/14/22 07:44 Ns IVCONT 12/14/22 07:28 Infused .Q1H1M ONE Infusion Ondansetron HCl 4 mg 12/14/22 02:18 12/14/22 02:51 Ondansetron Hcl 4 Mg/2 Ml Vial IVPUSH 12/14/22 02:19 4 mg ONCE ONE Administration Prochlorperazine Edisylate 10 mg 12/14/22 06:28 12/14/22 06:43 Prochlorperazine Edisylate 10 Mg/2 Ml Vial IVPUSH 12/14/22 06:29 10 mg ONCE ONE Administration Medical Decision Making Medical Decision Making MDM Narrative: -patient getting IV fluids, IV Zofran and diphenhydramine -patient was p.o. challenged, patient started vomiting immediately. -we gave the patient more fluids, Compazine. Patient was p.o. challenged again and failed again, started vomiting again. -patient failed p.o. challenge twice, discussed the patient with Dr. Son, pt being admitted Differential Diagnosis Differential Diagnoses: The differential diagnosis associated with the presentation includes (Gastroenteritis, cyclical vomiting, dehydration) Admission/Observation Consideration of admission/observation: Escalation of care including admission/observation considered Consult Healthcare Provider Management of the patient was discussed with: Hospitalist Lab Data MDM Lab Attestation statement: I reviewed the patient's lab results. (Chronic leukocytosis) 12/13/22 23:35 12/13/22 23:35 Labs: Lab Results 12/13/22 12/13/22 12/13/22 Range/Units 23:35 23:35 23:35 WBC 11.2 H (4.8-10.8) X10*3/uL RBC 4.94 (4.20-5.50) X10*6/uL Hgb 14.8 (12.0-16.0) g/dl Hct 43.1 (37.0-47.0) % MCV 87.2 (80.0-98.0) fL MCH 30.0 (27.0-33.0) pg MCHC 34.3 (31.0-35.0) g/dl RDW 11.8 (11.0-16.0) % Plt Count 272 (160-400) X10*3/uL MPV 11.1 (9.4-12.3) fL Immature Gran % (Auto) 0.4 (0.0-0.4) % Neut % (Auto) 91.9 H (45-73) % Lymph % (Auto) 5.5 L (20-40) % [place] % (Auto) 1.9 L (2-11) % Eos % (Auto) 0.0 (0-4) % Baso % (Auto) 0.3 (0-2) % Lymph # (Auto) 0.6 L (1.2-4.9) X10*3/uL [place] # (Auto) 0.2 (0.1-1.2) X10*3/uL Eos # (Auto) 0.0 (0.0-0.4) X10*3/uL Baso # (Auto) 0.0 (0.0-0.2) X10*3/uL Abs Immat Gran (auto) 0.05 H (0.00-0.03) X10*3/uL Absolute Neuts (auto) 10.3 H (2.0-8.3) x10*3/uL Absolute Nucleated RBC 0.000 (0.0-0.012) X10*3/uL Nucleated RBC % (auto) 0.0 (0.0-0.2) /100WBC Smear Tech's Comments VERIFIED Sodium 141 (135-145) mmol/L Potassium 3.4 (3.3-5.1) mmol/L Chloride 107 (96-108) mmol/L Carbon Dioxide 18 L (22-29) mmol/L Anion Gap 19 (12-20) BUN 8 L (9-16) mg/dL Creatinine 0.65 (0.5-1.4) mg/dL Estim Creat Clear Calc 126.2 Estimated GFR > 60 Random Glucose 162 H (60-115) mg/dL Estimat Average Glucose mg/dL Hemoglobin A1c % % Calcium 9.9 (8.4-10.2) mg/dL Magnesium 1.8 (1.6-2.6) mg/dL Total Bilirubin 0.4 (0.0-1.0) mg/dL AST 17 (5-31) U/L ALT 24 (0-31) U/L Alkaline Phosphatase 84 (39-117) U/L Troponin I High Sens (<3.5-17.0) ng/L Total Protein 7.9 (6.5-8.0) g/dL Albumin 4.6 (3.5-5.0) g/dL Lipase 18 (8-78) U/L Beta HCG, Quant < 2 mIU/mL Urine Color Urine Appearance Urine pH (5.0-9.0) Ur Specific [place] (1.005-1.025) Urine Protein (Neg-Trace) mg/dL Urine Glucose (UA) (Negative) mg/dL Urine Ketones (Negative) mg/dL Urine Blood (Negative) Urine Nitrite (Negative) Ur Leukocyte Esterase (Negative) Urine RBC (0-2) /HPF Urine WBC (0-5) /HPF Ur Squamous Epith Cells (0-2) /HPF Urine Bacteria (None Seen) Hyaline Casts (0-2) /LPF Urine Test (NEGATIVE) Urine Opiates Screen (Not Detect) Urine Fentanyl Screen (Not Detect) Ur Barbiturates Screen (Not Detect) Ur Phencyclidine Scrn (Not Detect) Ur Amphetamines Screen (Not Detect) U Benzodiazepines Scrn (Not Detect) Urine Cocaine Screen (Not Detect) U Marijuana (THC) Screen (Not Detect) 12/13/22 12/13/22 12/14/22 Range/Units 23:35 23:35 00:44 WBC (4.8-10.8) X10*3/uL RBC (4.20-5.50) X10*6/uL Hgb (12.0-16.0) g/dl Hct (37.0-47.0) % MCV (80.0-98.0) fL MCH (27.0-33.0) pg MCHC (31.0-35.0) g/dl RDW (11.0-16.0) % Plt Count (160-400) X10*3/uL MPV (9.4-12.3) fL Immature Gran % (Auto) (0.0-0.4) % Neut % (Auto) (45-73) % Lymph % (Auto) (20-40) % [place] % (Auto) (2-11) % Eos % (Auto) (0-4) % Baso % (Auto) (0-2) % Lymph # (Auto) (1.2-4.9) X10*3/uL [place] # (Auto) (0.1-1.2) X10*3/uL Eos # (Auto) (0.0-0.4) X10*3/uL Baso # (Auto) (0.0-0.2) X10*3/uL Abs Immat Gran (auto) (0.00-0.03) X10*3/uL Absolute Neuts (auto) (2.0-8.3) x10*3/uL Absolute Nucleated RBC (0.0-0.012) X10*3/uL Nucleated RBC % (auto) (0.0-0.2) /100WBC Smear Tech's Comments Sodium (135-145) mmol/L Potassium (3.3-5.1) mmol/L Chloride (96-108) mmol/L Carbon Dioxide (22-29) mmol/L Anion Gap (12-20) BUN (9-16) mg/dL Creatinine (0.5-1.4) mg/dL Estim Creat Clear Calc Estimated GFR Random Glucose (60-115) mg/dL Estimat Average Glucose 94 mg/dL Hemoglobin A1c % 4.9 % Calcium (8.4-10.2) mg/dL Magnesium (1.6-2.6) mg/dL Total Bilirubin (0.0-1.0) mg/dL AST (5-31) U/L ALT (0-31) U/L Alkaline Phosphatase (39-117) U/L Troponin I High Sens 3.1 (<3.5-17.0) ng/L Total Protein (6.5-8.0) g/dL Albumin (3.5-5.0) g/dL Lipase (8-78) U/L Beta HCG, Quant mIU/mL Urine Color Yellow Urine Appearance Clear Urine pH 6.0 (5.0-9.0) Ur Specific [place] >= 1.030 H (1.005-1.025) Urine Protein 30 (1+) H (Neg-Trace) mg/dL Urine Glucose (UA) 500 H (Negative) mg/dL Urine Ketones >=160 (Negative) mg/dL Urine Blood Negative (Negative) Urine Nitrite Negative (Negative) Ur Leukocyte Esterase Negative (Negative) Urine RBC 0-2 (0-2) /HPF Urine WBC 0-5 (0-5) /HPF Ur Squamous Epith Cells 0-2 (0-2) /HPF Urine Bacteria None Seen (None Seen) Hyaline Casts 0-2 (0-2) /LPF Urine Test (NEGATIVE) Urine Opiates Screen (Not Detect) Urine Fentanyl Screen (Not Detect) Ur Barbiturates Screen (Not Detect) Ur Phencyclidine Scrn (Not Detect) Ur Amphetamines Screen (Not Detect) U Benzodiazepines Scrn (Not Detect) Urine Cocaine Screen (Not Detect) U Marijuana (THC) Screen (Not Detect) 12/14/22 12/14/22 Range/Units 00:44 00:47 WBC (4.8-10.8) X10*3/uL RBC (4.20-5.50) X10*6/uL Hgb (12.0-16.0) g/dl Hct (37.0-47.0) % MCV (80.0-98.0) fL MCH (27.0-33.0) pg MCHC (31.0-35.0) g/dl RDW (11.0-16.0) % Plt Count (160-400) X10*3/uL MPV (9.4-12.3) fL Immature Gran % (Auto) (0.0-0.4) % Neut % (Auto) (45-73) % Lymph % (Auto) (20-40) % [place] % (Auto) (2-11) % Eos % (Auto) (0-4) % Baso % (Auto) (0-2) % Lymph # (Auto) (1.2-4.9) X10*3/uL [place] # (Auto) (0.1-1.2) X10*3/uL Eos # (Auto) (0.0-0.4) X10*3/uL Baso # (Auto) (0.0-0.2) X10*3/uL Abs Immat Gran (auto) (0.00-0.03) X10*3/uL Absolute Neuts (auto) (2.0-8.3) x10*3/uL Absolute Nucleated RBC (0.0-0.012) X10*3/uL Nucleated RBC % (auto) (0.0-0.2) /100WBC Smear Tech's Comments Sodium (135-145) mmol/L Potassium (3.3-5.1) mmol/L Chloride (96-108) mmol/L Carbon Dioxide (22-29) mmol/L Anion Gap (12-20) BUN (9-16) mg/dL Creatinine (0.5-1.4) mg/dL Estim Creat Clear Calc Estimated GFR Random Glucose (60-115) mg/dL Estimat Average Glucose mg/dL Hemoglobin A1c % % Calcium (8.4-10.2) mg/dL Magnesium (1.6-2.6) mg/dL Total Bilirubin (0.0-1.0) mg/dL AST (5-31) U/L ALT (0-31) U/L Alkaline Phosphatase (39-117) U/L Troponin I High Sens (<3.5-17.0) ng/L Total Protein (6.5-8.0) g/dL Albumin (3.5-5.0) g/dL Lipase (8-78) U/L Beta HCG, Quant mIU/mL Urine Color Urine Appearance Urine pH (5.0-9.0) Ur Specific [place] (1.005-1.025) Urine Protein (Neg-Trace) mg/dL Urine Glucose (UA) (Negative) mg/dL Urine Ketones (Negative) mg/dL Urine Blood (Negative) Urine Nitrite (Negative) Ur Leukocyte Esterase (Negative) Urine RBC (0-2) /HPF Urine WBC (0-5) /HPF Ur Squamous Epith Cells (0-2) /HPF Urine Bacteria (None Seen) Hyaline Casts (0-2) /LPF Urine Test NEGATIVE (NEGATIVE) Urine Opiates Screen Not Detected (Not Detect) Urine Fentanyl Screen Not Detected (Not Detect) Ur Barbiturates Screen Not Detected (Not Detect) Ur Phencyclidine Scrn Not Detected (Not Detect) Ur Amphetamines Screen Not Detected (Not Detect) U Benzodiazepines Scrn Not Detected (Not Detect) Urine Cocaine Screen Not Detected (Not Detect) U Marijuana (THC) Screen POSITIVE H (Not Detect) Critical Care Time Critical Care Time Critical Care Time: Yes Total Critical Care Time: 60 Attestation: I have personally provided critical care time. Time includes review of lab data, radiology results, discussion with consultants, and monitoring for potential decompensation. Intervention performed as documented. Discharge Plan Discharge Clinical Impression: Cyclical vomiting Patient Disposition: Admitted As Inpatient
--- NOTE | 2022-12-13 22:45 | ECG_ITS ---
Test Reason : NAUSEA/VOMITING Blood Pressure : / mmHG Vent. Rate : 047 BPM Atrial Rate : 047 BPM P-R Int : 140 ms QRS Dur : 142 ms QT Int : 538 ms P-R-T Axes : 012 064 073 degrees QTc Int : 476 ms Sinus bradycardia with Premature atrial complexes Right bundle branch block Abnormal ECG When compared with ECG of 22-NOV-2020 21:17, Vent. rate has decreased BY 38 BPM Referred By: Gwen Youngblood Electronically Signed By:KRUNAL BECKER MD
[2022-12-13 23:57] LABS: Basophils Percent Auto 0.3 % (0-2); Hematocrit 43.1 % (37.0-47.0); Hemoglobin 14.8 g/dl (12.0-16.0); Imm Gran Abs Auto 0.05 X10*3/uL (0.00-0.03); Imm Gran Pct Auto 0.4 % (0.0-0.4); Lymphocytes Absolute Auto 0.6 X10*3/uL (1.2-4.9); Lymphocytes Percent Auto 5.5 % (20-40); MANUAL DIFF FLAG SCAN; Mean Corpuscular HGB Conc 34.3 g/dl (31.0-35.0); Mean Corpuscular Volume 87.2 fL (80.0-98.0); Mean Platelet Volume 11.1 fL (9.4-12.3); Monocytes Absolute Auto 0.2 X10*3/uL (0.1-1.2); Monocytes Percent Auto 1.9 % (2-11); Neutrophils Absolute Auto 10.3 x10*3/uL (2.0-8.3); Neutrophils Percent Auto 91.9 % (45-73); Platelet Count 272 X10*3/uL (160-400); Red Blood Count 4.94 X10*6/uL (4.20-5.50); Red Cell Distribution Width 11.8 % (11.0-16.0); SCAN SMEAR FLAG 1; White Blood Count 11.2 X10*3/uL (4.8-10.8)
[2022-12-13 23:58] LABS: Alanine Aminotransferase 24 U/L (0-31); Albumin Level 4.6 g/dL (3.5-5.0); Alkaline Phosphatase 84 U/L (39-117); Anion Gap 19 (12-20); Aspartate Amino Transferase 17 U/L (5-31); Bilirubin Total 0.4 mg/dL (0.0-1.0); Blood Urea Nitrogen 8 mg/dL (9-16); Calcium 9.9 mg/dL (8.4-10.2); Carbon Dioxide 18 mmol/L (22-29); Chloride 107 mmol/L (96-108); Creatinine Clr Calc Pharmacy 126.2; Estimated Glomerular Filt Rate > 60; Glucose Random 162 mg/dL (60-115); Lipase 18 U/L (8-78); Magnesium 1.8 mg/dL (1.6-2.6); Potassium 3.4 mmol/L (3.3-5.1); Sodium 141 mmol/L (135-145); Total Protein 7.9 g/dL (6.5-8.0)
[2022-12-14] VITALS (7 sets, daily range): BP systolic 116–141; BP diastolic 69–90; PULSE 45–81; RESP 14–18; TEMP 36.6–37.3; O2SAT 97–99; BMI 34.5
[2022-12-14 00:02] LABS: HCG Quantitative < 2 mIU/mL; Troponin-I High Sensitivity 3.1 ng/L (<3.5-17.0)
[2022-12-14 00:29] LABS: SLIDE REVIEW VERIFIED
[2022-12-14 00:53] LABS: Appearance Urine Clear; Color Urine Yellow; Glucose Urine UA 500 mg/dL (Negative); Leukocyte Esterase Urine Negative (Negative); Nitrite Urine Negative (Negative); Specific Gravity - Urine >= 1.030 (1.005-1.025); UMIC TRIGGER UACC YES; Urine Blood Negative (Negative); Urine Ketones >=160 mg/dL (Negative); Urine Protein 30 (1+) mg/dL (Neg-Trace)
[2022-12-14 00:55] LABS: Bacteria Urine None Seen (None Seen); Hyaline Casts Urine 0-2 /LPF (0-2); RBC Urine 0-2 /HPF (0-2); Squamous Epithelial Cell Urine 0-2 /HPF (0-2); WBC Urine 0-5 /HPF (0-5)
--- NOTE | 2022-12-14 01:00 | PC.NURSE ---
this rn assumed care of pt @ 0041 from waiting room. pt placed on phototypesetting equipment monitor due to bradycardia 40-50s. gas charger made dr campa aware of HR. pt ambulatory
[2022-12-14] MEDS: 0.9 % Sodium Chloride 1,000 ML 999 ML IV (02:50)
[2022-12-14] MEDS: diphenhydrAMINE HCL 50 MG/ML VIAL IVPUSH (02:51)
[2022-12-14] MEDS: ondansetron HCL 4 MG/2 ML VIAL IVPUSH (02:51)
--- NOTE | 2022-12-14 03:00 | PC.NURSE ---
20g IV placed in R AC. pt tolerated well. pt medicated according to aravind. dr campa at bedside
[2022-12-14 03:18] LABS: Amphetamine Screen Urine Not Detected (Not Detect); Barbiturates, Urine Not Detected (Not Detect); Benzodiazepines Screen Urine Not Detected (Not Detect); Cannabinoid Screen Urine POSITIVE (Not Detect); Cocaine Screen Urine Not Detected (Not Detect); Fentanyl, urine Not Detected (Not Detect); Opiate Screen Urine Not Detected (Not Detect); Phencyclidine Screen Urine Not Detected (Not Detect)
--- NOTE | 2022-12-14 05:11 | PC.NURSE ---
pt incontinent of urine, ambulatory to restroom with standby assist of this rn. pt repositioned in bed. per dr campa. po challenge with water. pt unable to keep liquids down. this rn made dr campa aware
--- NOTE | 2022-12-14 06:04 | PC.NURSE ---
Addendum entered by Cassia Hurley 12/14/22 06:05: dr campa made aware Original Note: pt iv infiltrated. iv replaced with 22g in R wrist. IVF continue infusing at this time
[2022-12-14] MEDS: Prochlorperazine Edisylate 10 MG/2 ML VIAL IVPUSH (06:43)
[2022-12-14] MEDS: 0.9 % Sodium Chloride 1,000 ML 999 ML IVCONT (06:43)
--- NOTE | 2022-12-14 07:37 | PHA.MEDREC ---
Pharmacy Consult ? Medication Reconciliation Pharmacy has completed the medication reconciliation. Spoke to patient to confirm meds.
--- NOTE | 2022-12-14 07:44 | PM.IMHP ---
History of Present Illness Date of Service: 12/14/22 Chief Complaint: Intractable vomiting 27-year-old female with no significant past medical history presents to the emergency room after 1 day of intractable nausea and vomiting. She states she has had cyclic vomiting from marijuana he was previously however this does not feel similar. She states she has been working at [employer] at the [employer] and had very limited p.o. intake and did not eat. She stated the vomiting continued a when she went home prohibiting her from replacing her fluids orally. She denies abdominal pain other than that associated with retching diarrhea fever chills Review of Systems Review of Systems: Denies chest pain Denies shortness of breath Admits nausea and vomiting Denies diarrhea Denies fever chills PMFSH Medical History Cyclical vomiting Fallot tetralogy Surgical History H/O tetralogy of Fallot repair Hx of section Social History Alcohol intake: never Patient Tobacco Use Status: Never used Tobacco Smoked in Last 30 Days: No Use of substances other than those prescribed or required for medical reasons: Yes Substance Use Type: Marijuana Advance Directives: No Advance Directives Information Provided: Yes Patient : No Meds Allergies Allergy/AdvReac Type Severity Reaction Status Date / Time No Known Allergies Allergy Verified 12/13/22 22:46 [No Known Allergies*] Active Medications: Current Medications Lactated Ringer's (Lr) 1,000 mls @ 150 mls/hr IVCONT .Q6H40M [facility] Ondansetron HCl (Ondansetron Hcl 4 Mg/2 Ml Vial) 8 mg IVPUSH Q8H PRN PRN Reason: Nausea and Vomiting Sodium Chloride (0.9 % Sodium Chloride Flush 3 Ml Syringe) [address] [facility] Home Medications Medication Instructions Recorded Confirmed Last Taken Type No Known Home Meds 12/14/22 12/14/22 Unknown History Physical Exam Vital Signs and Narrative: Vital Signs: Last Vital Signs Temp 98.4 F 12/14/22 05:54 Pulse 52 12/14/22 05:54 Resp 15 12/14/22 05:54 BP 135/84 12/14/22 05:54 Pulse Ox 99 12/14/22 05:54 O2 Del Method Room Air 12/14/22 05:54 BMI result Body Mass Index 33.7 Const: Other: Awake alert resting quietly in bed Resp: Other: Clear to auscultation bilaterally. No rales rhonchi or wheezes Cardio: Other: No S4; positive S1-S2; no S3 murmurs rubs gallops GI: Other: Soft nontender nondistended with normoactive bowel sounds. There are no acute peritoneal signs Neuro: Other: Cranial nerves 2-12 grossly intact as tested. Motor is 5/5 all extremities sensation is intact. Cognition appropriate Extrem: Other: No edema bilaterally Results Labs 12/13/22 23:35 12/13/22 23:35 Labs: Laboratory Results - last 24 hr 12/13/22 12/13/22 12/13/22 23:35 23:35 23:35 MCV 87.2 MCH 30.0 MCHC 34.3 RDW 11.8 Plt Count 272 MPV 11.1 Immature Gran % (Auto) 0.4 Neut % (Auto) 91.9 H Lymph % (Auto) 5.5 L Williams % (Auto) 1.9 L Eos % (Auto) 0.0 Baso % (Auto) 0.3 Lymph # (Auto) 0.6 L Williams # (Auto) 0.2 Eos # (Auto) 0.0 Baso # (Auto) 0.0 Abs Immat Gran (auto) 0.05 H Absolute Neuts (auto) 10.3 H Absolute Nucleated RBC 0.000 Nucleated RBC % (auto) 0.0 Smear Tech's Comments VERIFIED Anion Gap 19 Estim Creat Clear Calc 126.2 Estimated GFR > 60 Random Glucose 162 H Calcium 9.9 Magnesium 1.8 Total Bilirubin 0.4 AST 17 ALT 24 Alkaline Phosphatase 84 Total Protein 7.9 Albumin 4.6 Lipase 18 Beta HCG, Quant < 2 Urine Color Urine Appearance Urine pH Ur Specific [place] Urine Protein Urine Glucose (UA) Urine Ketones Urine Blood Urine Nitrite Ur Leukocyte Esterase Urine RBC Urine WBC Ur Squamous Epith Cells Urine Bacteria Hyaline Casts Urine Opiates Screen Urine Fentanyl Screen Ur Barbiturates Screen Ur Phencyclidine Scrn Ur Amphetamines Screen U Benzodiazepines Scrn Urine Cocaine Screen U Marijuana (THC) Screen 12/14/22 12/14/22 00:44 00:44 MCV MCH MCHC RDW Plt Count MPV Immature Gran % (Auto) Neut % (Auto) Lymph % (Auto) Williams % (Auto) Eos % (Auto) Baso % (Auto) Lymph # (Auto) Williams # (Auto) Eos # (Auto) Baso # (Auto) Abs Immat Gran (auto) Absolute Neuts (auto) Absolute Nucleated RBC Nucleated RBC % (auto) Smear Tech's Comments Anion Gap Estim Creat Clear Calc Estimated GFR Random Glucose Calcium Magnesium Total Bilirubin AST ALT Alkaline Phosphatase Total Protein Albumin Lipase Beta HCG, Quant Urine Color Yellow Urine Appearance Clear Urine pH 6.0 Ur Specific [place] >= 1.030 H Urine Protein 30 (1+) H Urine Glucose (UA) 500 H Urine Ketones >=160 Urine Blood Negative Urine Nitrite Negative Ur Leukocyte Esterase Negative Urine RBC 0-2 Urine WBC 0-5 Ur Squamous Epith Cells 0-2 Urine Bacteria None Seen Hyaline Casts 0-2 Urine Opiates Screen Not Detected Urine Fentanyl Screen Not Detected Ur Barbiturates Screen Not Detected Ur Phencyclidine Scrn Not Detected Ur Amphetamines Screen Not Detected U Benzodiazepines Scrn Not Detected Urine Cocaine Screen Not Detected U Marijuana (THC) Screen POSITIVE H Assessment and Plan (1) Intractable vomiting with nausea: Status: Acute (2) Hyperglycemia: Status: Acute Plan 27-year-old female presents with 1 day of intractable vomiting with nausea which she attributes to a hot work environment and poor p.o. intake. She states this is dissimilar to her past episodes of cyclic vomiting secondary to marijuana; she states she does not smoke marijuana daily at this point. 1. Intractable vomiting -question secondary to cannabis verses heat exhaustion -Zofran q.8 p.r.n. -lactated Ringer's 150/hour -check urine test 2. Hyperglycemia (with glucosuria) -add on hemoglobin A1c Full code Ambulation Patient will require 1 midnight inpatient stay to treat intractable vomiting with IV Zofran volume repletion. This cannot be achieved a lesser acute setting Time Spent With Patient Time: Total time managing care of this patient today ____ minutes. Quality Stroke Does the patient have a stroke diagnosis?: No VTE Prior VTE?: No VTE Risk Level:: Medical - low VTE Device Contraindication: Treatment Not Indicated VTE Drug Contraindication: Treatment Not Indicated
[2022-12-14] MEDS: 0.9 % Sodium Chloride Flush 3 ML SYRINGE IVFLUSH (08:13)
[2022-12-14] MEDS: Lactated Ringers 1,000 ML 150 ML IVCONT ×3 (08:13→22:54)
[2022-12-14 08:22] LABS: UPreg QC Valid YES; Urine Pregnancy NEGATIVE (NEGATIVE)
[2022-12-14 08:41] LABS: Estimated Average Glucose 94 mg/dL; Hemoglobin A1c % 4.9 %
--- NOTE | 2022-12-14 09:51 | PC.NURSE ---
reports heartburn - HOB elevated. vss. occasional pac's- pt's primary ed provider made aware. denies dizziness/sob. aox4. calm, cooperative. no resp distress. nausea. no vomiting present. fluids infusing
--- NOTE | 2022-12-14 12:45 | PC.NURSE ---
md poon messaged possible tele arrythmia-? of pac's .she is not dizzy/sob. no changes otherwise. hr will sometimes go down to upper 50s rhwn 70s. bp stable
--- NOTE | 2022-12-14 13:26 | PC.NURSE ---
md poon notified hr went to 44 now when she is resting. just took a new bp 132/69. reports firm chest pain different than the stabbing / heartburn chest pain she reports she had earlier in her ed stay. 08/26.
[2022-12-14] MEDS: ondansetron HCL 4 MG/2 ML VIAL 8 MG IVPUSH ×2 (13:31→19:46)
--- NOTE | 2022-12-14 13:31 | PC.NURSE ---
given zofran for nausea
--- NOTE | 2022-12-14 13:59 | PC.NURSE ---
md poon aware pt requesting ice chips/apple juice- ok'd to have to rn- given to pt
--- NOTE | 2022-12-14 14:11 | PC.NURSE ---
called for report for amanda to floor
[2022-12-14] MEDS: Prochlorperazine Edisylate 10 MG/2 ML VIAL 5 MG IVPUSH (22:13)
--- NOTE | 2022-12-14 22:20 | PC.NURSE ---
Patient still vomiting despite zofran, one dose of compazine IV given per Dr Cavazos. Patient states it helped, takes showers frequently.
[2022-12-15 03:15] VITALS: BP 148/81; PULSE 61; RESP 17; TEMP 37.5; O2SAT 99
[2022-12-15] MEDS: Lactated Ringers 1,000 ML 150 ML IVCONT ×2 (05:00→10:36)
[2022-12-15] MEDS: ondansetron HCL 4 MG/2 ML VIAL 8 MG IVPUSH (05:00)
[2022-12-15] MEDS: Prochlorperazine Edisylate 10 MG/2 ML VIAL 5 MG IVPUSH ×2 (05:52→10:04)
[2022-12-15 06:56] VITALS: BP 140/82; PULSE 67; RESP 16; TEMP 36.6; O2SAT 98
--- NOTE | 2022-12-15 09:50 | MHC.CM.PN ---
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
[2022-12-15] MEDS: Magnesium Hydrox/Alum Hydrox 30 ML ORAL.SUSP PO (10:04)
--- NOTE | 2022-12-15 13:26 | PM.DS ---
DS: Providers Provider Date of Service: 12/15/22 Date of admission: 12/14/22 07:40 Date of discharge: 12/15/22 Primary care physician: [facility] DS: Diagnosis Discharge Diagnosis (1) Intractable vomiting with nausea: Status: Acute (2) Hyperglycemia: Status: Acute DS: Summary Hospital Course Hospital Course: 27-year-old female with no significant past medical history presents to the emergency room after 1 day of intractable nausea and vomiting.? She states she has had cyclic vomiting from marijuana he was previously however this does not feel similar.? She states she has been working at [employer] at [employer] and had very limited p.o. intake and did not eat.? She stated the vomiting continued a when she went home prohibiting her from replacing her fluids orally.? She denies abdominal pain other than that associated with retching diarrhea fever chills Hospital Course Admitted to general medical floor and volume repleted. Over the next 24 hours she will eyes small amounts of Compazine and the day of discharge was tolerating diet wishing to go home. At this point time she is medically acceptable for discharge can follow-up with PCP Time Spent with Patient Time attestation: Total time managing care of this patient today ____ minutes. Discharge coordination time: Greater than 30 minutes Quality: Safe Use of Opioids Does Pt have an Active Cancer Diagnosis on the Problem List?: No Quality: Stroke Does the patient have a stroke diagnosis?: No Physical Exam Vital Signs: Vital Signs: Last Vital Signs Temp 98 F 12/15/22 06:56 Pulse 67 12/15/22 06:56 Resp 16 12/15/22 06:56 BP 140/82 H 12/15/22 06:56 Pulse Ox 98 12/15/22 06:56 O2 Del Method Room Air 12/15/22 06:56 BMI result Body Mass Index 34.5 Const: Other: Awake alert resting quietly in bed Resp: Other: Clear to auscultation bilaterally. No rales rhonchi or wheezes Cardio: Other: No S4; positive S1-S2; no S3 murmurs rubs gallops GI: Other: Soft nontender nondistended with normoactive bowel sounds. There are no acute peritoneal signs Neuro: Other: Cranial nerves 2-12 grossly intact as tested. Motor is 5/5 all extremities sensation is intact. Cognition appropriate Extrem: Other: No edema bilaterally Discharge Plan Discharge Anticipated Discharge Date/Time: 12/15/22 13:23 Patient Disposition: Home, Self-Care Discharge Diagnosis: Intractable vomiting Referrals: [facility] [Primary Care Provider] - 1 Week Discharge Medications: New prochlorperazine [Compazine] 25 mg suppository 25 mg [place] BID PRN (Reason: nausea and vomiting) Qty: 12 0RF Discharge Orders: Discharge Order (Routine); Ordered 12/15/22 Ordered By: Geovani Kyle Diet: Advance to usual diet Activity on Discharge: As tolerated Stand Alone Forms: Patient Portal Discharge page Care Plan Goals: Utilize Compazine suppositories as needed for nausea Health Concerns: Attempt to decrease her cannabis use as this will lessen your nausea and vomiting Plan of Treatment: Follow-up with PCP as scheduled Assessment: See discharge summary
== END 2022-12-15 14:57 | disposition home or self-care (01) ==
LOC: HO.ED 12-14 06:30 → HO.EDOVER 12-14 07:48 → HO.S3 12-14 13:24
PROVIDERS: Registered Nurse Emergency; Admitting Provider Hospitalist; Emergency Provider Emergency Medicine; Visit Provider Hospitalist
DX: R11.10 Vomiting, unspecified (principal); R73.9 Hyperglycemia, unspecified; R10.9 Unspecified abdominal pain; R00.1 Bradycardia, unspecified; I45.10 Unspecified right bundle-branch block; R94.31 Abnormal electrocardiogram [ECG] [EKG]
CPT/HCPCS: 36415; 80053; 80307; 81001; 81025; 83036; 83690; 83735; 84484; 84702; 85025; 93005; 96361; 96374; 96375; 96376; 99221; 99285; J1200; J2405

== ENCOUNTER → 2022-12-13 22:45 | Outpatient (BNV) | payer MEDICAID, SELFPAY | PROVIDERS: Admitting Provider Hospitalist; Emergency Provider Emergency Medicine; Visit Provider Internal Medicine Cardiovascular Disease | DX: R94.31 Abnormal electrocardiogram [ECG] [EKG] (principal) | CPT/HCPCS: 93010 ==

== ENCOUNTER → 2022-12-14 07:40 | Outpatient (BNV) | payer MEDICAID, SELFPAY | PROVIDERS: Admitting Provider Hospitalist; Emergency Provider Emergency Medicine; Visit Provider Hospitalist | DX: R11.2 Nausea with vomiting, unspecified (principal); R73.9 Hyperglycemia, unspecified | CPT/HCPCS: 99222; 99239 ==

== ENCOUNTER 2023-06-24 11:21 | Emergency (ER) | payer MEDICAID, SELFPAY ==
--- NOTE | ~2023-06-24 | XR_ITS ---
EXAMINATION: XR ANKLE, LEFT XR FOOT, LEFT CLINICAL INFORMATION: Pain. COMPARISON: None. TECHNIQUE: AP, oblique, and lateral views of the left ankle and foot. FINDINGS: No acute fracture or dislocation. Ankle mortise is maintained. No joint space narrowing or marginal osteophytes. No talar osteochondral lesion. Tiny plantar calcaneal enthesophyte. Prominent circumferential soft tissue swelling. XR/XR foot LT 2V IMPRESSION: 1. Prominent circumferential soft tissue swelling without acute osseous abnormality. 2. Tiny plantar calcaneal spur.
--- NOTE | ~2023-06-24 | XR_ITS ---
EXAMINATION: XR ANKLE, LEFT XR FOOT, LEFT CLINICAL INFORMATION: Pain. COMPARISON: None. TECHNIQUE: AP, oblique, and lateral views of the left ankle and foot. FINDINGS: No acute fracture or dislocation. Ankle mortise is maintained. No joint space narrowing or marginal osteophytes. No talar osteochondral lesion. Tiny plantar calcaneal enthesophyte. Prominent circumferential soft tissue swelling. XR/XR ankle LT 2V IMPRESSION: 1. Prominent circumferential soft tissue swelling without acute osseous abnormality. 2. Tiny plantar calcaneal spur.
--- NOTE | 2023-06-24 11:48 | ED.LOWEXIN ---
HPI - Extremity Injury (Lower) General Chief Complaint: Extremity Injury, Lower Stated Complaint: L Ankle Injury 06/23/23 Time Seen by Provider: 06/24/23 13:10 Source: patient Mode of arrival: ambulatory Limitations: no limitations History of Present Illness HPI Narrative: 28 yo female with history of heart murmur, scoliosis here with complaints of left ankle/foot pain after eversion injury yesterday at work. No numbness, tingling of the extremity. Related Data Previous Rx's Medication Instructions Recorded prochlorperazine 25 mg rectal 25 mg [place] BID PRN nausea and 12/15/22 suppository (Compazine) vomiting #12 ea Allergies Allergy/AdvReac Type Severity Reaction Status Date / Time No Known Allergies Allergy Verified 06/24/23 11:52 [No Known Allergies*] Review of Systems Review of Systems: Yes all other systems are reviewed and are negative Constitutional: Constitutional: Reports no additional constitutional complaints, Denies body ache(s), Denies chills, Denies fever(s), Denies headache(s) and Denies weakness Eyes: Eyes: Reports no additional eye complaints and Denies change in vision ENT: Reports system reviewed and no additional complaints, except as documented, Denies dizziness, Denies headache(s), Denies nasal congestion, Denies nasal discharge and Denies neck pain Cardiovascular: Cardiovascular: Reports no additional cardiovascular complaints, Denies chest pain, Denies leg edema and Denies dyspnea Respiratory: Respiratory: Reports no additional respiratory complaints, Denies cough and Denies dyspnea Gastrointestinal: Gastrointestinal: Reports no additional gastrointestinal complaints, Denies abdominal pain, Denies diarrhea, Denies nausea and Denies vomiting Genitourinary: Genitourinary: Reports no additional female genitourinary complaints and Denies urinary incontinence Musculoskeletal: Musculoskeletal: Reports no additional musculoskeletal complaints, Denies back pain, Reports arthralgias, Reports joint swelling, Denies limited range of motion, Denies neck pain, Denies numbness and Denies tingling Integumentary/Breasts: Skin/Breast: Reports system reviewed and no additional complaints, except as docu and Denies rash Neurologic: Reports system reviewed and no additional complaints, except as documented, Denies Abnormal speech present, Denies dizziness, Denies headache(s), Denies numbness, Denies tingling and Denies weakness PMFSH Past Medical History Attestation statement: The following information was validated with the patient. Source: old records reviewed and nursing notes reviewed Medical History Cyclical vomiting Fallot tetralogy Cyclical vomiting Surgical History H/O tetralogy of Fallot repair Hx of section Social History Social History Household Members: Family Housing: Apartment Do you presently have visiting nurse or other home services: No Alcohol intake: never Patient Tobacco Use Status: Never used Tobacco Second Hand Smoke Exposure: No Substance Use Type: Marijuana Advance Directives: No service: No Physical Exam Vital Signs: Vital Signs: Last Vital Signs Temp 97.9 F 06/24/23 11:49 Pulse 71 06/24/23 11:49 Resp 20 06/24/23 11:49 BP 105/58 L 06/24/23 11:49 Pulse Ox 98 06/24/23 11:49 O2 Del Method Room Air 06/24/23 11:49 BMI result Body Mass Index 30.3 Const: General: cooperative, healthy appearing, comfortable and no acute distress Orientation/consciousness: patient oriented x3 Limitations: no limitations HEENT: Head: Yes normal to inspection Ears: hearing grossly normal bilaterally General nose exam: Normal external nose present Face and sinus: Yes normal facial exam Mouth: Normal oral and palatal mucosa present Throat: Yes posterior oropharynx normal Eyes: General: appearance normal, both eyes and all related structures Pupils: Equal, round and reactive pupils present Neck: Neck: Yes normal visual inspection Chest: Chest palpation & inspection: normal inspection of the chest Resp: Effort & Inspection: normal respiratory effort Auscultation: clear to auscultation bilaterally Cardio: Rate: regular rate Rhythm: regular rhythm Peripheral pulses: Peripheral pulses 2+ throughout GI: Inspection: Yes normal to inspection Palpation (GI): Soft to palpation and nontender Auscultation: normal bowel sounds Back/Spine/Pelvis: Thoracic/Lumbar Spine: thoracic and lumbar spine normal to inspection Skin: General skin exam: no rashes or lesions noted Neuro: General: patient oriented x3, no focal motor deficits and normal sensation to monofilament Cranial nerves: Yes Equal, round and reactive pupils present Cognition (Neuro): normal cognition Speech: No Abnormal speech present Gait exam (Neuro): Normal gait present Motor exam (neuro): 5/5 motor strength present throughout Extrem: Other: There is pain on palpation to the medial and lateral left ankle with mild swelling. There is no posterior ankle pain. No foot pain on palpation. Negative Walters test. Normal sensation. Normal DP and PT pulses. General: Yes normal to inspection Course Course Course Narrative: This is a rapid medical exam. Deferred additional HPI, ROS, PE to primary provider. 28 yo female with history of heart murmur, scoliosis here with complaints of left ankle/foot pain after twisting injury yesterday at work. Will obtain x-rays VSS Reevaluation(s) Reevaluation #1: X-ray show no acute fracture. Likely sprain. Patient placed in Kumar wrap and given crutches for home. Reviewed rice. Reviewed worrisome signs and symptoms when to return to the emergency room. Comfortable plan for discharge home. Medical Decision Making Medical Decision Making MDM Narrative: 28 yo female with history of heart murmur, scoliosis here with complaints of left ankle/foot pain after eversion injury yesterday at work. No numbness, tingling of the extremity. there is pain on palpation to the medial and lateral left ankle with mild swelling. There is no posterior ankle pain. No foot pain on palpation. Negative Walters test. Normal sensation. Normal DP and PT pulses. Differential Diagnosis Differential Diagnoses: The differential diagnosis associated with the presentation includes Ankle sprain, ankle strain Low concern for fracture, dislocation, vascular injury, Achilles tendon rupture Admission/Observation Consideration of admission/observation: Escalation of care including admission/observation considered Low concern for complex fracture, dislocation, vascular injury, Achilles tendon rupture requiring advanced imaging, orthopedic consultation urgently Independent Interpretation I performed an independent interpretation of an: Plain X-Ray Interpretation: I independently reviewed the x-ray and agree with the radiology report Radiology Impression Discussion of test interpretation with radiology: I have reviewed the radiologist's reading. Radiologist Impression: [address] [id number] XRay Report Signed Patient: Brandi Doss MR#: [id number] : 1995 Acct:[id number] Age/Sex: 28 / F ADM Date: 02/06/24 Loc: HO.ED Attending Dr: Ordering Physician: Analilia Naik NP Date of Service: 06/24/23 Procedure(s): XR foot LT 2V Accession Number(s): [id number] cc: [facility]; Analilia Naik NP~ EXAMINATION: XR ANKLE, LEFT XR FOOT, LEFT CLINICAL INFORMATION: Pain. COMPARISON: None. TECHNIQUE: AP, oblique, and lateral views of the left ankle and foot. FINDINGS: No acute fracture or dislocation. Ankle mortise is maintained. No joint space narrowing or marginal osteophytes. No talar osteochondral lesion. Tiny plantar calcaneal enthesophyte. Prominent circumferential soft tissue swelling. XR/XR foot LT 2V IMPRESSION: 1. Prominent circumferential soft tissue swelling without acute osseous abnormality. 2. Tiny plantar calcaneal spur. Tests considered The following testing was considered but not selected: Low concern for complex fracture, dislocation, vascular injury, Achilles tendon rupture requiring advanced imaging Prescription Management I considered prescription management with: Pain Medication Procedures Orthopedic Splinting/Casting Injury #1: Side: left Lower Extremity Injury Location: ankle Lower Extremity Immobilizer: Kumar wrap Other Orthopedic Equipment: crutches Discharge Plan Discharge Clinical Impression: Ankle sprain and strain Patient Disposition: Home, Self-Care Instructions: Ankle Sprain (ED), Crutch Instructions (ED) Additional Instructions: Let your employer know that you had a work-related injury. Please follow-up with were connection at [phone] Rest, ice, elevate Take Motrin or Tylenol for pain as needed if able Prescriptions: No Action prochlorperazine [Compazine] 25 mg suppository 25 mg [place] BID PRN (Reason: nausea and vomiting) Qty: 12 0RF Stand Alone Forms: Work/School Release Interventions: ED Discharge Assessment Last Done: 06/24/23 13:23 Discharge Date/Time: 06/24/23 13:24
[2023-06-24 11:49] VITALS: BP 105/58; PULSE 71; RESP 20; TEMP 36.6; O2SAT 98; BMI 30.3
== END 2023-06-24 13:24 | disposition home or self-care (01) ==
PROVIDERS: Emergency Provider Emergency Medicine
DX: S93.402A Sprain of unspecified ligament of left ankle, initial encounter (principal); S96.912A Strain of unspecified muscle and tendon at ankle and foot level, left foot, initial encounter; Y93.89 Activity, other specified; Y92.9 Unspecified place or not applicable; Y99.0 Civilian activity done for income or pay; M79.672 Pain in left foot
CPT/HCPCS: 73600; 73620; 99282; 99283

== ENCOUNTER 2023-12-10 06:59 | Emergency (ER) | payer SELFPAY ==
[2023-12-10 07:28] VITALS: BP 133/82; PULSE 52; RESP 18; TEMP 36.8; O2SAT 100; BMI 26.4
--- NOTE | 2023-12-10 07:33 | ED.NAVMDI ---
HPI - Nausea/Vomiting/Diarrhea General Chief complaint: Abdominal Pain Stated complaint: n/v Time Seen by Provider: 12/10/23 07:29 Source: patient Mode of arrival: ambulatory Limitations: no limitations History of Present Illness ED Provider: Christina Swanson PA-C HPI Narrative: 28-year-old female with a history of recurrent nausea and vomiting since the age of 16, history of pancreatitis, history of cyclical vomiting and marijuana use who presents to the ER for evaluation of recurrent nausea and vomiting for the last 3 days. She reports her symptoms started after drinking a coffee with cream in it. She thinks she is lactose intolerant. She states she has had several episodes of vomiting since then. She states her last bowel movement was before she drank the coffee. She has a history of constipation and only has a bowel movement every few days. She states she has been seen in multiple ERs for vomiting throughout her life. She states she last saw a GI doctor a couple of years ago. She thinks she is lactose intolerant but continues to eat a lot of dairy. She denies any abdominal pain, she reported some soreness in her upper abdomen that she thought was her pancreas being swollen, so she applied ice. She denies any urinary symptoms, denies chance of , no fevers, chest pain or shortness of breath. MD elicited complaint: nausea, vomiting and other (Constipation) Onset (ago): day(s) Description of vomiting: food contents and watery Associated nausea: Yes Associated abdominal pain: No Exacerbating factors: eating Relieving factors: none Context: alcohol abuse (Intermittent, last drink was a couple of weeks ago) and marijuana use Associated symptoms: loss of appetite, nausea/vomiting and other (Constipation) Related Data Previous Rx's ?Medication ?Instructions ?Recorded prochlorperazine 25 mg rectal 25 mg MI BID PRN nausea and 12/15/22 suppository (Compazine) vomiting #12 ea docusate sodium 100 mg capsule 100 mg PO BID #30 caps 12/10/23 (Stool Softener) ondansetron 4 mg disintegrating 4 mg PO Q8H PRN nausea and 12/10/23 tablet vomiting #7 tabs polyethylene glycol 3350 17 gram 17 g PO DAILY PRN constipation #30 12/10/23 oral powder packet (Miralax) ea Allergies Allergy/AdvReac Type Severity Reaction Status Date / Time No Known Allergies Allergy Verified 12/10/23 07:29 [No Known Allergies*] Review of Systems Review of Systems: Yes all other systems are reviewed and are negative Gastrointestinal: Gastrointestinal: Reports nausea PMFSH Past Medical History Medical History Cyclical vomiting Fallot tetralogy Cyclical vomiting Surgical History H/O tetralogy of Fallot repair Hx of section Social History Social History Household Members: Family Housing: Apartment Do you presently have visiting nurse or other home services: No Alcohol intake: current Alcohol intake frequency: holidays/special occasions only Patient Tobacco Use Status: Never used Tobacco Smoked in Last 30 Days: No Second Hand Smoke Exposure: No Use of substances other than those prescribed or required for medical reasons: Yes Substance Use Type: Marijuana Advance Directives: No Advance Directives Information Provided: No Do you have a plan to hurt others: No Plan Patient : No service: No Physical Exam Vital Signs: Vital Signs: Last Vital Signs Temp 98.3 F 12/10/23 08:47 Pulse 61 12/10/23 08:47 Resp 20 12/10/23 08:47 BP 138/62 12/10/23 08:47 Pulse Ox 95 12/10/23 08:47 O2 Del Method Room Air 12/10/23 08:47 BMI result Body Mass Index 26.4 Appearance: Alert. Oriented X3. No acute distress. Head: normocephalic, atraumatic. Eyes: Pupils equal, round and reactive to light. ENT: Pharynx normal. No tonsillar swelling or exudate. Neck: Normal inspection. Neck supple. CVS: Normal heart rate and rhythm. Pulses normal. Respiratory: No respiratory distress. Breath sounds normal. Abdomen: Soft and nontender. +BS x4 Skin: Skin warm and dry. Normal skin color. Normal skin turgor. No rashes. Extremities: No lower extremity edema. No joint swelling. Neuro/psych: Oriented X 3. No motor deficit. No sensory deficit. CN II-XII intact. Normal speech and cognition. Medications Administered Discontinued Medications Generic Name Dose Route Start Last Admin Trade Name Freq PRN Reason Stop Dose Admin Sodium Chloride 1,000 mls @ 999 mls/hr 12/10/23 07:45 12/10/23 08:01 Ns IVCONT 12/10/23 08:45 999 mls/hr .Q1H1M CHARLEEN Administration Ondansetron HCl 4 mg 12/10/23 07:38 12/10/23 08:01 Ondansetron Hcl 4 Mg/2 Ml Vial IVPUSH 12/10/23 07:39 4 mg ONCE ONE Administration Medical Decision Making Medical Decision Making [facility] Narrative: 28 yo female with history of cyclical vomiting, ongoing marijuana use, history of intermittent alcohol abuse, who presents to the ER for evaluation of nausea, vomiting, constipation for the last 4 days. Her abdomen is soft and nontender, she has normal bowel sounds, low clinical suspicion for small-bowel obstruction or ileus. He endorses ongoing marijuana use but does not think she has a history of cyclical vomiting. She attributes her symptoms to lactose ingestion and being lactose intolerant. She continues to eat dairy. On arrival to the ER patient's vital signs are stable. Her physical exam is reassuring. Her lab workup today showed a mild leukocytosis of 13,000 which is likely reactive due to vomiting. Low clinical suspicion for infection. She has a nonsurgical abdomen, there is low clinical suspicion for appendicitis, colitis, cholecystitis, pancreatitis. Her lipase today is normal. LFTs are normal. Renal function is normal. No signs of dehydration. IV was established she was given IV fluids, Zofran. She is asking for p.o.. She is tolerating daniella karuna well. At this time patient is stable for discharge home with cessation of marijuana use, diet modifications and GI referral. P.r.n. Zofran was sent to her pharmacy. Stable for discharge home. Return precautions were discussed and all questions were answered. Differential Diagnosis Differential Diagnoses: The differential diagnosis associated with the presentation includes Cyclical vomiting, lactose intolerance, IBS, constipation, pancreatitis, , cholecystitis, appendicitis, colitis, Katheryn's Admission/Observation Consideration of admission/observation: Escalation of care including admission/observation considered intractable n/v Lab Data [facility] Lab Attestation statement: I reviewed the patient's lab results. Mild leukocytosis consistent with vomiting, no evidence of infection 12/10/23 07:56 07/24/24 07:56 Labs: Lab Results 12/10/23 Range/Units 07:56 WBC 13.0 H (4.8-10.8) X10*3/uL RBC 4.52 (4.20-5.50) X10*6/uL Hgb 14.1 (12.0-16.0) g/dl Hct 39.1 (37.0-47.0) % MCV 86.5 (80.0-98.0) fL MCH 31.2 (27.0-33.0) pg MCHC 36.1 H (31.0-35.0) g/dl RDW 11.6 (11.0-16.0) % Plt Count 292 (160-400) X10*3/uL MPV 10.4 (9.4-12.3) fL Immature Gran % (Auto) 0.4 (0.0-0.4) % Neut % (Auto) 89.0 H (45-73) % Lymph % (Auto) 5.8 L (20-40) % Simpson % (Auto) 4.5 (2-11) % Eos % (Auto) 0.1 (0-4) % Baso % (Auto) 0.2 (0-2) % Lymph # (Auto) 0.8 L (1.2-4.9) X10*3/uL Simpson # (Auto) 0.6 (0.1-1.2) X10*3/uL Eos # (Auto) 0.0 (0.0-0.4) X10*3/uL Baso # (Auto) 0.0 (0.0-0.2) X10*3/uL Abs Immat Gran (auto) 0.05 H (0.00-0.03) X10*3/uL Absolute Neuts (auto) 11.6 H (2.0-8.3) x10*3/uL Absolute Nucleated RBC 0.000 (0.0-0.012) X10*3/uL Nucleated RBC % (auto) 0.0 (0.0-0.2) /100WBC Sodium 140 (135-145) mmol/L Potassium 3.4 (3.3-5.1) mmol/L Chloride 104 (96-108) mmol/L Carbon Dioxide 24 (22-29) mmol/L Anion Gap 15 (12-20) BUN 12 (9-16) mg/dL Creatinine 0.70 (0.5-1.4) mg/dL Estim Creat Clear Calc 103.0 Estimated GFR > 60 Random Glucose 132 H (60-115) mg/dL Calcium 10.2 (8.4-10.2) mg/dL Magnesium 1.8 (1.6-2.6) mg/dL Total Bilirubin 0.6 (0.0-1.0) mg/dL Direct Bilirubin 0.2 (0.0-0.5) mg/dL AST 16 (5-31) U/L ALT 15 (0-31) U/L Alkaline Phosphatase 59 (39-117) U/L Total Protein 8.4 H (6.5-8.0) g/dL Albumin 5.1 H (3.5-5.0) g/dL Lipase 30 (8-78) U/L External Record Review External record reviewed: Inpatient record, Outpatient record and Prior outpatient labs Tests considered The following testing was considered but not selected: CT scan of her abdomen was considered to rule out obstruction however this is low on the differential given her normoactive bowel sounds and soft abdomen without any distention Prescription Management I considered prescription management with: Other (Antiemetic) Chronic Conditions Patient?s care impacted by: Other (Cyclical vomiting) Critical Care Time Critical Care Time Critical Care Time: No Discharge Plan Discharge Clinical Impression: Nausea & vomiting Qualifiers: Vomiting type: unspecified Qualified Code(s): R11.2 - Nausea with vomiting, unspecified Patient Disposition: Home, Self-Care Instructions: Acute Nausea and Vomiting (ED) Additional Instructions: Your lab workup today was reassuring, normal electrolytes, normal kidney and liver function. Your pancreas enzyme was normal. Recommend staying away from all lactose containing foods. If you are going to eat lactose containing foods, take Lactaid prior to. Take the prescribed nausea medication as needed. Follow-up with GI for further evaluation and treatment. Recommend not smoking marijuana as this can cause persistent nausea and vomiting as well. If you develop new or worsening symptoms call 911 or come back to the ER for further evaluation. Prescriptions: New ondansetron 4 mg tablet,disintegrating 4 mg PO Q8H PRN (Reason: nausea and vomiting) Qty: 7 0RF docusate sodium [Stool Softener] 100 mg capsule 100 mg PO BID Qty: 30 0RF polyethylene glycol 3350 [Miralax] 17 gram powder in packet 17 g PO DAILY PRN (Reason: constipation) Qty: 30 0RF No Action prochlorperazine [Compazine] 25 mg suppository 25 mg MI BID PRN (Reason: nausea and vomiting) Qty: 12 0RF Referrals: [facility] [Provider Group] (Recurrent vomiting, possible lactose intolerance) Print Language: Namibian
[2023-12-10] MEDS: 0.9 % Sodium Chloride 1,000 ML 999 ML IVCONT (08:01)
[2023-12-10] MEDS: ondansetron HCL 4 MG/2 ML VIAL IVPUSH (08:01)
[2023-12-10 08:02] LABS: MANUAL DIFF FLAG NO
[2023-12-10 08:03] LABS: Basophils Percent Auto 0.2 % (0-2); Eosinophils Percent Auto 0.1 % (0-4); Hematocrit 39.1 % (37.0-47.0); Hemoglobin 14.1 g/dl (12.0-16.0); Imm Gran Abs Auto 0.05 X10*3/uL (0.00-0.03); Imm Gran Pct Auto 0.4 % (0.0-0.4); Lymphocytes Absolute Auto 0.8 X10*3/uL (1.2-4.9); Lymphocytes Percent Auto 5.8 % (20-40); Mean Corpuscular HGB Conc 36.1 g/dl (31.0-35.0); Mean Corpuscular Hemoglobin 31.2 pg (27.0-33.0); Mean Corpuscular Volume 86.5 fL (80.0-98.0); Mean Platelet Volume 10.4 fL (9.4-12.3); Monocytes Absolute Auto 0.6 X10*3/uL (0.1-1.2); Monocytes Percent Auto 4.5 % (2-11); Neutrophils Absolute Auto 11.6 x10*3/uL (2.0-8.3); Platelet Count 292 X10*3/uL (160-400); Red Blood Count 4.52 X10*6/uL (4.20-5.50); Red Cell Distribution Width 11.6 % (11.0-16.0)
[2023-12-10 08:17] LABS: Alanine Aminotransferase 15 U/L (0-31); Albumin Level 5.1 g/dL (3.5-5.0); Alkaline Phosphatase 59 U/L (39-117); Anion Gap 15 (12-20); Aspartate Amino Transferase 16 U/L (5-31); Bilirubin Direct 0.2 mg/dL (0.0-0.5); Bilirubin Total 0.6 mg/dL (0.0-1.0); Blood Urea Nitrogen 12 mg/dL (9-16); Calcium 10.2 mg/dL (8.4-10.2); Carbon Dioxide 24 mmol/L (22-29); Chloride 104 mmol/L (96-108); Estimated Glomerular Filt Rate > 60; Glucose Random 132 mg/dL (60-115); Lipase 30 U/L (8-78); Magnesium 1.8 mg/dL (1.6-2.6); Potassium 3.4 mmol/L (3.3-5.1); Sodium 140 mmol/L (135-145); Total Protein 8.4 g/dL (6.5-8.0)
[2023-12-10 08:47] VITALS: BP 138/62; PULSE 61; RESP 20; TEMP 36.8; O2SAT 95
--- NOTE | 2023-12-10 09:45 | PC.NURSE ---
Patient asking for popsicle, given daniella karuna and ice chips per PA
[2023-12-10 10:09] VITALS: BP 138/62; PULSE 61; RESP 20; TEMP 36.8; O2SAT 95
[2023-12-10] MEDS: droPERidol 5 MG/2 ML VIAL 1.25 MG IVPUSH (10:24)
--- NOTE | 2023-12-10 10:30 | PC.NURSE ---
Patient vomiting at discharge, PA notified, medicated as ordered
== END 2023-12-10 15:18 | disposition home or self-care (01) ==
PROVIDERS: Physician Assistant; Emergency Provider Emergency Medicine Emergency Medical Services
DX: R11.2 Nausea with vomiting, unspecified (principal); R11.15 Cyclical vomiting syndrome unrelated to migraine; F12.90 Cannabis use, unspecified, uncomplicated; Z79.899 Other long term (current) drug therapy
CPT/HCPCS: 36415; 80048; 80076; 83690; 83735; 85025; 96361; 96374; 96375; 99285; J1790; J2405

== ENCOUNTER 2023-12-22 20:28 | Emergency (ER) | payer SELFPAY ==
--- NOTE | ~2023-12-22 | XR_ITS ---
EXAMINATION: XR FOOT, LEFT CLINICAL INFORMATION: Pain and swelling after fall COMPARISON: Left foot 06/24/2023 TECHNIQUE: AP, lateral, and oblique views of the left foot. FINDINGS: There is a transverse fracture through the base of the fifth metatarsal. The bones and soft tissues are otherwise normal. No other fracture. Alignment is anatomic. Joint spaces are maintained. XR/XR foot LT min 3V IMPRESSION: Transverse fracture through the base of the fifth metatarsal.
[2023-12-22 21:11] VITALS: BP 140/51; PULSE 69; RESP 16; TEMP 36.1; O2SAT 98; BMI 24.6
[2023-12-22] MEDS: Ibuprofen 600 MG TABLET PO (21:17)
[2023-12-23 01:46] VITALS: BP 119/64; PULSE 66; RESP 16; O2SAT 100
--- NOTE | 2023-12-23 01:46 | ED_ITS ---
HPI - Extremity Injury (Lower) General Chief Complaint: Extremity Injury, Lower Stated Complaint: lt ankle inj/fall down stairs Time Seen by Provider: 12/23/23 01:32 Source: patient Mode of arrival: ambulatory Limitations: no limitations History of Present Illness ED Provider: nancy ST Narrative: Patient apparently fell about 4 steps earlier today complaining of pain in the left lateral aspect of the foot with slight swelling no other injuries Related Data Previous Rx's ?Medication ?Instructions ?Recorded prochlorperazine 25 mg rectal 25 mg [place] BID PRN nausea and 12/15/22 suppository (Compazine) vomiting #12 ea docusate sodium 100 mg capsule 100 mg PO BID #30 caps 12/10/23 (Stool Softener) ondansetron 4 mg disintegrating 4 mg PO Q8H PRN nausea and 12/10/23 tablet vomiting #7 tabs polyethylene glycol 3350 17 gram 17 g PO DAILY PRN constipation #30 12/10/23 oral powder packet (Miralax) ea ibuprofen 600 mg tablet 600 mg PO Q6H PRN fever or pain 12/23/23 #30 tabs Allergies Allergy/AdvReac Type Severity Reaction Status Date / Time No Known Allergies Allergy Verified 12/22/23 21:14 [No Known Allergies*] Review of Systems 2 Review of Systems: Yes all other systems are reviewed and are negative PMFSH Past Medical History Medical History Cyclical vomiting Fallot tetralogy Cyclical vomiting Surgical History H/O tetralogy of Fallot repair Hx of section Social History Social History Household Members: Family Housing: Apartment Do you presently have visiting nurse or other home services: No Alcohol intake: current Alcohol intake frequency: holidays/special occasions only Patient Tobacco Use Status: Never used Tobacco Smoked in Last 30 Days: No Second Hand Smoke Exposure: No Use of substances other than those prescribed or required for medical reasons: No Substance Use Type: Marijuana Advance Directives: No Advance Directives Information Provided: Yes service: No Physical Exam 2 Vital Signs: Vital Signs: Last Vital Signs Temp 97.0 F 12/23/23 02:06 Pulse 66 08/06/24 02:06 Resp 16 12/23/23 02:06 BP 119/64 12/23/23 02:06 Pulse Ox 100 12/23/23 02:06 O2 Del Method Room Air 12/23/23 02:06 BMI result Body Mass Index 24.6 Extrem: Ankle/foot/toe images: 1. Swelling and tenderness Medications Administered Discontinued Medications Generic Name Dose Route Start Last Admin Trade Name Freq PRN Reason Stop Dose Admin Ibuprofen 600 mg 12/22/23 21:14 12/22/23 21:17 Ibuprofen 600 Mg Tablet PO 12/22/23 21:15 600 mg ONCE ONE Administration Medical Decision Making Medical Decision Making MDM Narrative: Patient with nondisplaced left 5th metatarsal base fracture walking boot was given Independent Interpretation I performed an independent interpretation of an: Plain X-Ray Radiology Impression Discussion of test interpretation with radiology: I have reviewed the radiologist's reading. Discharge Plan Discharge Clinical Impression: Fracture of fifth metatarsal bone of right foot Patient Disposition: Home, Self-Care Instructions: Foot Fracture in Adults (ED) Additional Instructions: Wear the walking boot for support for 4-6 weeks for complete healing Ibuprofen for pain Prescriptions: New ibuprofen 600 mg tablet 600 mg PO Q6H PRN (Reason: fever or pain) Qty: 30 0RF No Action prochlorperazine [Compazine] 25 mg suppository 25 mg MN BID PRN (Reason: nausea and vomiting) Qty: 12 0RF ondansetron 4 mg tablet,disintegrating 4 mg PO Q8H PRN (Reason: nausea and vomiting) Qty: 7 0RF docusate sodium [Stool Softener] 100 mg capsule 100 mg PO BID Qty: 30 0RF polyethylene glycol 3350 [Miralax] 17 gram powder in packet 17 g PO DAILY PRN (Reason: constipation) Qty: 30 0RF Stand Alone Forms: Work/School Release Interventions: ED Discharge Assessment Last Done: 12/23/23 02:06 Discharge Date/Time: 12/23/23 02:09 Print Language: French
[2023-12-23 02:06] VITALS: BP 119/64; PULSE 66; RESP 16; TEMP 36.1; O2SAT 100
== END 2023-12-23 02:09 | disposition home or self-care (01) ==
PROVIDERS: Emergency Provider Internal Medicine
DX: S92.351A Displaced fracture of fifth metatarsal bone, right foot, initial encounter for closed fracture (principal); W19.XXXA Unspecified fall, initial encounter; Y93.9 Activity, unspecified; Y92.9 Unspecified place or not applicable; Y99.9 Unspecified external cause status; M79.672 Pain in left foot
CPT/HCPCS: 73630; 99283; 99284

== ENCOUNTER 2024-02-15 03:31 | Observation (INO) | payer MEDICAID, SELFPAY ==
--- NOTE | ~2024-02-15 | US_ITS ---
EXAMINATION: US ABDOMEN LIMITED CLINICAL INFORMATION: Right upper quadrant pain. COMPARISON: CT scan abdomen and pelvis 10/01/2022 TECHNIQUE: Real-time imaging of the right upper quadrant abdominal viscera. FINDINGS: PANCREAS: Normal head and body, the tail is obscured by bowel gas. LIVER: Normal. The liver is normal in size. The liver contour is normal. Parenchymal echogenicity is normal. No focal hepatic lesion. There is no intrahepatic biliary duct dilatation seen. GALLBLADDER: The gallbladder is physiologically distended without evidence of stones, sludge, wall thickening or pericholecystic fluid. 0.4 x 0.3 x 0.4 cm polyp is seen along the anterior wall. COMMON BILE DUCT: Normal in caliber measuring 0.2 cm in diameter. RIGHT KIDNEY: Normal. No hydronephrosis. No renal calculi or focal parenchymal lesions. The kidney measures 11.1 cm in maximum dimension. FREE FLUID: None. US/US abdomen limited IMPRESSION: 0.4 cm gallbladder polyp. No other significant finding. Electronically signed by: Naomy Moore MD 02/16/2024 02:31 PM EDT
--- NOTE | ~2024-02-15 | XR_ITS ---
EXAMINATION: XR ABDOMEN KUB CLINICAL INDICATION: Constipation nausea vomiting COMPARISON: Abdominal x-ray March 2013. CT abdomen and pelvis September 2022. TECHNIQUE: AP view of the abdomen. FINDINGS: The bowel gas pattern is normal with no evidence of ileus or obstruction. No unusual soft tissue calcifications are noted. Mild convex right curvature of the lumbar spine unchanged. Intrauterine device noted. XR/XR KUB IMPRESSION: Unremarkable examination. Electronically signed by: Anderson eGe MD 02/15/2024 03:44 PM EDT
[2024-02-15 03:39] VITALS: BP 126/66; BP 131/83; PULSE 46; PULSE 67; RESP 20; TEMP 36.4; O2SAT 100; O2SAT 98; BMI 26.8
[2024-02-15 04:04] LABS: Basophils Percent Auto 0.1 % (0-2); Hematocrit 39.7 % (37.0-47.0); Hemoglobin 14.2 g/dl (12.0-16.0); Imm Gran Abs Auto 0.07 X10*3/uL (0.00-0.03); Imm Gran Pct Auto 0.5 % (0.0-0.4); Lymphocytes Absolute Auto 0.5 X10*3/uL (1.2-4.9); Lymphocytes Percent Auto 3.6 % (20-40); MANUAL DIFF FLAG SCAN; Mean Corpuscular HGB Conc 35.8 g/dl (31.0-35.0); Mean Corpuscular Hemoglobin 31.2 pg (27.0-33.0); Mean Corpuscular Volume 87.3 fL (80.0-98.0); Mean Platelet Volume 10.2 fL (9.4-12.3); Monocytes Absolute Auto 0.2 X10*3/uL (0.1-1.2); Monocytes Percent Auto 1.6 % (2-11); Neutrophils Absolute Auto 12.8 x10*3/uL (2.0-8.3); Neutrophils Percent Auto 94.2 % (45-73); Platelet Count 303 X10*3/uL (160-400); Red Blood Count 4.55 X10*6/uL (4.20-5.50); Red Cell Distribution Width 11.5 % (11.0-16.0); SCAN SMEAR FLAG 1; White Blood Count 13.6 X10*3/uL (4.8-10.8)
[2024-02-15 04:14] LABS: Alanine Aminotransferase 19 U/L (0-31); Albumin Level 4.9 g/dL (3.5-5.0); Alkaline Phosphatase 60 U/L (39-117); Anion Gap 16 (12-20); Aspartate Amino Transferase 17 U/L (5-31); Bilirubin Total 0.5 mg/dL (0.0-1.0); Blood Urea Nitrogen 9 mg/dL (9-16); Calcium 10.2 mg/dL (8.4-10.2); Carbon Dioxide 22 mmol/L (22-29); Chloride 106 mmol/L (96-108); Creatinine Clr Calc Pharmacy 105.2; Estimated Glomerular Filt Rate > 60; Glucose Random 158 mg/dL (60-115); Potassium 3.7 mmol/L (3.3-5.1); Sodium 140 mmol/L (135-145); Total Protein 8.1 g/dL (6.5-8.0)
[2024-02-15] MEDS: ondansetron HCL 4 MG/2 ML VIAL IVPUSH ×2 (04:16→18:56)
[2024-02-15] MEDS: 0.9 % Sodium Chloride 1,000 ML 999 ML IV (04:18)
[2024-02-15 04:22] LABS: SLIDE REVIEW VERIFIED
--- NOTE | 2024-02-15 04:51 | PC.NURSE ---
pt po challenge at this time.
[2024-02-15 04:52] LABS: Appearance Urine Clear; Color Urine Yellow; Glucose Urine UA 250 mg/dL (Negative); Leukocyte Esterase Urine Negative (Negative); Nitrite Urine Negative (Negative); Specific Gravity - Urine >= 1.030 (1.005-1.025); UMIC TRIGGER UACC YES; Urine Blood Negative (Negative); Urine Ketones >=160 mg/dL (Negative); Urine Protein 100 (2+) mg/dL (Neg-Trace)
[2024-02-15 04:54] LABS: Bacteria Urine None Seen (None Seen); Hyaline Casts Urine 0-2 /LPF (0-2); RBC Urine 0-2 /HPF (0-2); Squamous Epithelial Cell Urine 0-2 /HPF (0-2); WBC Urine 0-5 /HPF (0-5)
[2024-02-15 05:11] LABS: UPreg QC Valid YES; Urine Pregnancy NEGATIVE (NEGATIVE)
--- NOTE | 2024-02-15 05:31 | ED_ITS ---
HPI - General Adult General Chief complaint: Abdominal Pain Stated complaint: N/V x 3 days Time Seen by Provider: 02/15/24 05:31 History of Present Illness ED Provider: Anish ST narrative: The patient is a 28-year-old female with a history of multiple ER visits for nausea and vomiting. She seems to have been variously labeled as having cyclic vomiting or possibly cannabis hyperemesis. She says that she has had 3 days of nausea and vomiting and this is brought her back to the emergency room. She was hospitalized for persistent nausea and vomiting in November of 2022. She was last in the emergency room for significant vomiting in November of 2023. No fever, sweats, chills. Related Data Previous Rx's ?Medication ?Instructions ?Recorded prochlorperazine 25 mg rectal 25 mg CA BID PRN nausea and 12/15/22 suppository (Compazine) vomiting #12 ea docusate sodium 100 mg capsule 100 mg PO BID #30 caps 12/10/23 (Stool Softener) ondansetron 4 mg disintegrating 4 mg PO Q8H PRN nausea and 12/10/23 tablet vomiting #7 tabs polyethylene glycol 3350 17 gram 17 g PO DAILY PRN constipation #30 12/10/23 oral powder packet (Miralax) ea ibuprofen 600 mg tablet 600 mg PO Q6H PRN fever or pain 12/23/23 #30 tabs Allergies Allergy/AdvReac Type Severity Reaction Status Date / Time No Known Allergies Allergy Verified 02/15/24 03:43 [No Known Allergies*] Review of Systems 2 Review of Systems: Yes all other systems are reviewed and are negative PMFSH Past Medical History Medical History Cyclical vomiting Fallot tetralogy Cyclical vomiting Surgical History H/O tetralogy of Fallot repair Hx of section Social History Social History Household Members: Family Housing: Apartment Do you presently have visiting nurse or other home services: No Alcohol intake: current Alcohol intake frequency: holidays/special occasions only Patient Tobacco Use Status: Never used Tobacco Second Hand Smoke Exposure: No Substance Use Type: Marijuana Advance Directives: No Advance Directives Information Provided: No Do you have a plan to hurt others: No Plan service: No Physical Exam ED Vital Signs: Vital Signs - 24 hr 02/15/24 03:39 02/15/24 06:00 Temperature 97.6 F Pulse Rate 67 75 Respiratory Rate 20 16 Blood Pressure 131/83 135/97 H Pulse Oximetry 98 100 Oxygen Delivery Method Room Air Room Air BMI result Body Mass Index 26.8 Const Other: The patient is awake and alert but looks fatigued. She looked as if she felt somewhat unwell but not acutely toxic. HENMT Other: Face is symmetrical. Mucous membranes not obviously dry. Eyes General: appearance normal, both eyes and all related structures Neck Neck: Yes no JVD Resp Effort & Inspection: normal respiratory effort Auscultation: clear to auscultation bilaterally Cardio Rate: regular rate Rhythm: regular rhythm Heart sounds: S1 normal heart sound present and S2 normal heart sound present GI Other: The abdomen is soft. She reports diffuse tenderness but has no focal tenderness or guarding. Skin Other: Skin is pale and dry Neuro Other: The patient is awake and alert with a normal mental status. Cranial nerves are grossly intact. She moves her extremities normally. Extrem Other: No peripheral edema Medications Administered Generic Name Dose Route Start Last Admin Trade Name Freq PRN Reason Stop Dose Admin Lactated Ringer's 1,000 mls @ 999 mls/hr 02/15/24 08:00 02/15/24 08:05 Lr IV 02/15/24 09:00 999 mls/hr .Q1H1M CHARLEEN Administration Discontinued Medications Generic Name Dose Route Start Last Admin Trade Name Freq PRN Reason Stop Dose Admin Droperidol 2.5 mg 02/15/24 05:58 02/15/24 06:22 Droperidol 5 Mg/2 Ml Vial IVPUSH 02/15/24 05:59 2.5 mg ONCE ONE Administration Sodium Chloride 1,000 mls @ 999 mls/hr 02/15/24 03:45 02/15/24 06:26 Ns IV 02/15/24 04:45 Infused .Q1H1M CHARLEEN Infusion Lactated Ringer's 1,000 mls @ 999 mls/hr 02/15/24 06:00 02/15/24 07:26 Lr IV 02/15/24 07:00 Infused .Q1H1M CHARLEEN Infusion Ondansetron HCl 4 mg 02/15/24 03:44 02/15/24 04:16 Ondansetron Hcl 4 Mg/2 Ml Vial IVPUSH 02/15/24 03:45 4 mg ONCE ONE Administration Medical Decision Making Medical Decision Making [facility] Narrative: The patient is a 28-year-old female who presents with 3 days of nausea and vomiting. She has a history of similar ER presentations in the past and has been felt to have either cyclic vomiting or cannabis hyperemesis. She has a white count of 13.6, hemoglobin 14.2, platelet count 303. Her C-reactive protein is undetectable. Basic metabolic panel and LFTs are unremarkable. Urinalysis shows a high specific gravity and ketones consistent with dehydration and starvation. The patient was given IV fluids and droperidol. She will be signed out to the oncoming emergency physician pending response to these interventions and a trial of oral intake. Lab Data 02/15/24 03:56 02/15/24 03:56 Labs: Lab Results 02/15/24 02/15/24 02/15/24 Range/Units 03:56 04:43 05:04 WBC 13.6 H (4.8-10.8) X10*3/uL RBC 4.55 (4.20-5.50) X10*6/uL Hgb 14.2 (12.0-16.0) g/dl Hct 39.7 (37.0-47.0) % MCV 87.3 (80.0-98.0) fL MCH 31.2 (27.0-33.0) pg MCHC 35.8 H (31.0-35.0) g/dl RDW 11.5 (11.0-16.0) % Plt Count 303 (160-400) X10*3/uL MPV 10.2 (9.4-12.3) fL Immature Gran % (Auto) 0.5 H (0.0-0.4) % Neut % (Auto) 94.2 H (45-73) % Lymph % (Auto) 3.6 L (20-40) % Falls % (Auto) 1.6 L (2-11) % Eos % (Auto) 0.0 (0-4) % Baso % (Auto) 0.1 (0-2) % Lymph # (Auto) 0.5 L (1.2-4.9) X10*3/uL Falls # (Auto) 0.2 (0.1-1.2) X10*3/uL Eos # (Auto) 0.0 (0.0-0.4) X10*3/uL Baso # (Auto) 0.0 (0.0-0.2) X10*3/uL Abs Immat Gran (auto) 0.07 H (0.00-0.03) X10*3/uL Absolute Neuts (auto) 12.8 H (2.0-8.3) x10*3/uL Absolute Nucleated RBC 0.000 (0.0-0.012) X10*3/uL Nucleated RBC % (auto) 0.0 (0.0-0.2) /100WBC Smear Tech's Comments VERIFIED Sodium 140 (135-145) mmol/L Potassium 3.7 (3.3-5.1) mmol/L Chloride 106 (96-108) mmol/L Carbon Dioxide 22 (22-29) mmol/L Anion Gap 16 (12-20) BUN 9 (9-16) mg/dL Creatinine 0.69 (0.5-1.4) mg/dL Estim Creat Clear Calc 105.2 Estimated GFR > 60 Random Glucose 158 H (60-115) mg/dL Calcium 10.2 (8.4-10.2) mg/dL Total Bilirubin 0.5 (0.0-1.0) mg/dL AST 17 (5-31) U/L ALT 19 (0-31) U/L Alkaline Phosphatase 60 (39-117) U/L C-Reactive Protein < 0.04 (< or = 0.50) mg/dL Total Protein 8.1 H (6.5-8.0) g/dL Albumin 4.9 (3.5-5.0) g/dL Urine Color Yellow Urine Appearance Clear Urine pH 8.0 (5.0-9.0) Ur Specific [place] >= 1.030 H (1.005-1.025) Urine Protein 100 (2+) H (Neg-Trace) mg/dL Urine Glucose (UA) 250 H (Negative) mg/dL Urine Ketones >=160 (Negative) mg/dL Urine Blood Negative (Negative) Urine Nitrite Negative (Negative) Ur Leukocyte Esterase Negative (Negative) Urine RBC 0-2 (0-2) /HPF Urine WBC 0-5 (0-5) /HPF Ur Squamous Epith Cells 0-2 (0-2) /HPF Urine Bacteria None Seen (None Seen) Hyaline Casts 0-2 (0-2) /LPF Urine Test NEGATIVE (NEGATIVE) Urine Opiates Screen Not Detected (Not Detect) Ur Buprenorphine Scrn Not Detected (Not Detect) ng/mL Ur Oxycodone Screen Not Detected (Not Detect) ng/mL Urine Methadone Screen Not Detected (Not Detect) ng/mL Urine Fentanyl Screen Not Detected (Not Detect) Ur Barbiturates Screen Not Detected (Not Detect) Ur Phencyclidine Scrn Not Detected (Not Detect) Ur Amphetamines Screen Not Detected (Not Detect) U Benzodiazepines Scrn Not Detected (Not Detect) Urine Cocaine Screen Not Detected (Not Detect) U Marijuana (THC) Screen POSITIVE H (Not Detect) Discharge Plan Discharge Clinical Impression: Nausea & vomiting Patient Disposition: Still a Patient Prescriptions: No Action ibuprofen 600 mg tablet 600 mg PO Q6H PRN (Reason: fever or pain) Qty: 30 0RF prochlorperazine [Compazine] 25 mg suppository 25 mg CA BID PRN (Reason: nausea and vomiting) Qty: 12 0RF ondansetron 4 mg tablet,disintegrating 4 mg PO Q8H PRN (Reason: nausea and vomiting) Qty: 7 0RF docusate sodium [Stool Softener] 100 mg capsule 100 mg PO BID Qty: 30 0RF polyethylene glycol 3350 [Miralax] 17 gram powder in packet 17 g PO DAILY PRN (Reason: constipation) Qty: 30 0RF Print Language: Upper Sorbian
[2024-02-15 06:00] VITALS: BP 135/97; PULSE 75; RESP 16; O2SAT 100
[2024-02-15 06:07] LABS: Amphetamine Screen Urine Not Detected (Not Detect); Barbiturates, Urine Not Detected (Not Detect); Benzodiazepines Screen Urine Not Detected (Not Detect); Buprenorphine Scr Not Detected (Not Detect); Cannabinoid Screen Urine POSITIVE (Not Detect); Cocaine Screen Urine Not Detected (Not Detect); Fentanyl, urine Not Detected (Not Detect); Methadone Screen, Urine Not Detected (Not Detect); Opiate Screen Urine Not Detected (Not Detect); Oxycodone Screen Urine Not Detected (Not Detect); Phencyclidine Screen Urine Not Detected (Not Detect)
[2024-02-15 06:10] LABS: C Reactive Protein < 0.04 mg/dL (< or = 0.50)
[2024-02-15] MEDS: droPERidol 5 MG/2 ML VIAL 2.5 MG IVPUSH (06:22)
[2024-02-15] MEDS: Lactated Ringers 1,000 ML 999 ML IV ×2 (06:22→08:05)
--- NOTE | 2024-02-15 06:26 | PC.NURSE ---
medicated per mar.
[2024-02-15 11:04] VITALS: BP 114/77; PULSE 72; RESP 16; TEMP 37.1; O2SAT 99
[2024-02-15] MEDS: diphenhydrAMINE HCL 50 MG/ML VIAL IVPUSH (11:05)
[2024-02-15] MEDS: Metoclopramide HCl 10 MG/2 ML VIAL IVPUSH (11:05)
--- NOTE | 2024-02-15 13:39 | PC.NURSE ---
pt was unable to tolerate PO - informed MD nogueira that pt began vomiting again - plan to admit
--- NOTE | 2024-02-15 13:45 | PHA.MEDREC ---
Pharmacy Consult ? Medication Reconciliation Pharmacy has completed the medication reconciliation. Patient reports taking no home medications
--- NOTE | 2024-02-15 14:10 | PM.IMHP ---
History of Present Illness Date of Service: 02/15/24 Attending physician on admission: Kirit Vergara Chief Complaint: n/v 28-year-old female with history of tetralogy of Fallot s/p repair and chronic hepatitis-B presented to the ED earlier today for evaluation of intractable nausea and vomiting ongoing for 3 days. The patient reports she eats a lot of fast food and is unsure if she consumed any bad foods. She does smoke marijuana about twice weekly. Also reports chronic constipation and has not moved her bowels in 3 days and reports last bowel movement was hard and difficult to move. She has also had intermittent diarrhea but no fevers or chills. She has been unable to tolerate much p.o.. No one sick at home. Since arrival, vitals are stable. She has a leukocytosis of 13.6. Renal function electrolyte levels are normal. Glucose 158. Urinalysis with elevated specific gravity, 2+ protein, glucosuria and significant ketonuria. Urine tox screen positive for THC. In the ED has received multiple doses of antiemetics, 3 L IVF, and has been unable to tolerate p.o. trials. Review of Systems Review of Systems: Yes all other systems are reviewed and are negative [facility] Medical History (Updated 02/15/24 @ 14:20 by NIA Hurst) Chronic hepatitis B Cyclical vomiting Fallot tetralogy Cyclical vomiting Surgical History H/O tetralogy of Fallot repair Hx of section Social History Household Members: Family Housing: Apartment Do you presently have visiting nurse or other home services: No Alcohol intake: current Alcohol intake frequency: holidays/special occasions only Patient Tobacco Use Status: Never used Tobacco Second Hand Smoke Exposure: No Substance Use Type: Marijuana Advance Directives: No Advance Directives Information Provided: No Do you have a plan to hurt others: No Plan service: No Meds Allergies Allergy/AdvReac Type Severity Reaction Status Date / Time No Known Allergies Allergy Verified 02/15/24 03:43 [No Known Allergies*] Active Medications: Current Medications Acetaminophen (Acetaminophen 325 Mg Tablet) 650 mg PO Q6H PRN PRN Reason: Pain, Mild (Pain Scale 1-3), fever or headache Calcium Carbonate (Calcium Carbonate 750 Mg Tab.Chew) 750 mg PO Q4H PRN PRN Reason: Heartburn Lactated Ringer's (Lr) 1,000 mls @ 100 mls/hr IVCONT .Q10H [facility]LEEN Magnesium Hydroxide (Milk Of Magnesia 30 Ml Oral.Susp) 30 ml PO DAILY PRN PRN Reason: Constipation Melatonin (Melatonin 3 Mg Tablet) 6 mg PO BEDTIME PRN PRN Reason: Insomnia Ondansetron HCl (Ondansetron Hcl 4 Mg/2 Ml Vial) 4 mg IVPUSH Q8H PRN PRN Reason: Nausea and Vomiting Sodium Chloride (0.9 % Sodium Chloride Flush 3 Ml Syringe) 3 ml IVFLUSH QSHIFT CHARLEEN Home Medications ?Medication ?Instructions ?Recorded ?Confirmed ?Last Taken ?Type No Known Home Meds 02/15/24 02/15/24 Unknown History Physical Exam Vital Signs and Narrative: Vital Signs: Last Vital Signs Temp 98.7 F 02/15/24 11:04 Pulse 72 02/15/24 11:04 Resp 16 02/15/24 11:04 BP 114/77 02/15/24 11:04 Pulse Ox 99 02/15/24 11:04 O2 Del Method Room Air 02/15/24 11:04 BMI result Body Mass Index 26.8 Constitutional - Awake and Alert, No apparent distress Eyes - PERRLA, EOMI Cardiovascular - S1S2, RRR, No edema Respiratory - Normal lung expansion, Normal respiratory effort, No respiratory distress, CTA bilaterally Gastrointestinal - NT / ND; +BS; No rebound or guarding Extremities - no calf tenderness bilaterally, no swelling Skin - Warm/Dry Neurological - Alert & oriented x3 Psychological - Appropriate affect Results Labs 02/15/24 03:56 02/15/24 03:56 Labs: Laboratory Results - last 24 hr 02/15/24 02/15/24 02/15/24 03:56 04:43 05:04 MCV 87.3 MCH 31.2 MCHC 35.8 H RDW 11.5 Plt Count 303 MPV 10.2 Immature Gran % (Auto) 0.5 H Neut % (Auto) 94.2 H Lymph % (Auto) 3.6 L [place] % (Auto) 1.6 L Eos % (Auto) 0.0 Baso % (Auto) 0.1 Lymph # (Auto) 0.5 L [place] # (Auto) 0.2 Eos # (Auto) 0.0 Baso # (Auto) 0.0 Abs Immat Gran (auto) 0.07 H Absolute Neuts (auto) 12.8 H Absolute Nucleated RBC 0.000 Nucleated RBC % (auto) 0.0 Smear Tech's Comments VERIFIED Anion Gap 16 Estim Creat Clear Calc 105.2 Estimated GFR > 60 Random Glucose 158 H Calcium 10.2 Total Bilirubin 0.5 AST 17 ALT 19 Alkaline Phosphatase 60 C-Reactive Protein < 0.04 Total Protein 8.1 H Albumin 4.9 Urine Color Yellow Urine Appearance Clear Urine pH 8.0 Ur Specific [place] >= 1.030 H Urine Protein 100 (2+) H Urine Glucose (UA) 250 H Urine Ketones >=160 Urine Blood Negative Urine Nitrite Negative Ur Leukocyte Esterase Negative Urine RBC 0-2 Urine WBC 0-5 Ur Squamous Epith Cells 0-2 Urine Bacteria None Seen Hyaline Casts 0-2 Urine Test NEGATIVE Urine Opiates Screen Not Detected Ur Buprenorphine Scrn Not Detected Ur Oxycodone Screen Not Detected Urine Methadone Screen Not Detected Urine Fentanyl Screen Not Detected Ur Barbiturates Screen Not Detected Ur Phencyclidine Scrn Not Detected Ur Amphetamines Screen Not Detected U Benzodiazepines Scrn Not Detected Urine Cocaine Screen Not Detected U Marijuana (THC) Screen POSITIVE H Assessment and Plan (1) Cyclical vomiting, intractable: Status: Acute Plan 28-year-old female with history of tetralogy of Fallot s/p repair and chronic hepatitis-B to be observed for intractable nausea and vomiting #Intractable nausea and vomiting -etiology unclear. ?r/t constipation vs MJ use -Continue IVF with LR -antiemetics prn -low suspicion for obstruction, but check KUB given constipation -Follow bmp #Starvation ketosis/dehydration -IVF as above -no acidosis #Acute leukocytosis -due to dehydration -0no evidence of acute infection #Chronic constipation -initiate miralax #Tetralogy of fallot -s/p repair, outpt follow up #Chronic hep b -lfts wnl, outpt follow up dvt prophylaxis- scps, early ambulation full code Quality Stroke Does the patient have a stroke diagnosis?: No VTE Prior VTE?: No VTE Risk Level:: Medical - moderate - high VTE Device Contraindication: N/A - Device Ordered VTE Drug Contraindication: Treatment Not Indicated
[2024-02-15 16:20] VITALS: BP 131/93; PULSE 69; RESP 18; TEMP 37.2; O2SAT 100
[2024-02-15] MEDS: Lactated Ringers 1,000 ML 100 ML IVCONT (16:24)
[2024-02-15] MEDS: Calcium Carbonate 750 MG TAB.CHEW PO ×2 (16:26→22:48)
[2024-02-15] MEDS: Milk of Magnesia 30 ML ORAL.SUSP PO (18:56)
--- NOTE | 2024-02-15 19:00 | MHC.EDTECH ---
Addendum entered by Nadine Gauthier 02/16/24 00:48: rounds and vitals completed,patient was given multiple ice packs,patient ambulated to the bathroom with a steady gait,call méndez in reach Original Note: Late Entry,this tech took over care of patient at 1900 on
[2024-02-15 20:00] VITALS: BP 132/86; PULSE 66; RESP 18; TEMP 37.2; O2SAT 98
[2024-02-16] VITALS: BP 138/92; PULSE 60; RESP 16; TEMP 37; O2SAT 100
--- NOTE | 2024-02-16 00:50 | MHC.EDTECH ---
Hourly rounds and vitals completed,patient rang call méndez for more ice packs patient was given multiple ice packs to help with pain,call méndez in reach
[2024-02-16 01:45] VITALS: BP 136/85; PULSE 62; RESP 18; TEMP 37; O2SAT 98
--- NOTE | 2024-02-16 01:46 | MHC.EDTECH ---
Hourly rounds and vitals completed,patient asked this tech for something to help her sleep.RN was made aware
[2024-02-16] MEDS: Melatonin 3 MG TABLET 6 MG PO (01:56)
[2024-02-16] MEDS: Lactated Ringers 1,000 ML 100 ML IVCONT ×2 (01:58→12:30)
[2024-02-16 04:42] VITALS: BP 141/89; PULSE 62; RESP 16; TEMP 36.9; O2SAT 100
[2024-02-16] MEDS: ondansetron HCL 4 MG/2 ML VIAL IVPUSH (04:44)
[2024-02-16 05:24] LABS: MANUAL DIFF FLAG NO
[2024-02-16 05:28] LABS: Basophils Percent Auto 0.2 % (0-2); Eosinophils Percent Auto 0.1 % (0-4); Hematocrit 37.9 % (37.0-47.0); Hemoglobin 13.5 g/dl (12.0-16.0); Imm Gran Abs Auto 0.06 X10*3/uL (0.00-0.03); Imm Gran Pct Auto 0.5 % (0.0-0.4); Lymphocytes Absolute Auto 1.3 X10*3/uL (1.2-4.9); Lymphocytes Percent Auto 10.9 % (20-40); Mean Corpuscular HGB Conc 35.6 g/dl (31.0-35.0); Mean Corpuscular Hemoglobin 31.7 pg (27.0-33.0); Mean Platelet Volume 10.3 fL (9.4-12.3); Monocytes Absolute Auto 0.7 X10*3/uL (0.1-1.2); Monocytes Percent Auto 5.9 % (2-11); Neutrophils Absolute Auto 9.9 x10*3/uL (2.0-8.3); Neutrophils Percent Auto 82.4 % (45-73); Platelet Count 285 X10*3/uL (160-400); Red Blood Count 4.26 X10*6/uL (4.20-5.50); Red Cell Distribution Width 11.6 % (11.0-16.0)
[2024-02-16 05:50] LABS: Anion Gap 12 (12-20); Blood Urea Nitrogen 5 mg/dL (9-16); Calcium 9.4 mg/dL (8.4-10.2); Carbon Dioxide 24 mmol/L (22-29); Chloride 103 mmol/L (96-108); Creatinine Clr Calc Pharmacy 106.8; Estimated Glomerular Filt Rate > 60; Glucose Random 103 mg/dL (60-115); Potassium 3.2 mmol/L (3.3-5.1); Sodium 136 mmol/L (135-145)
[2024-02-16 06:05] VITALS: BMI 27.4
[2024-02-16 06:15] VITALS: BP 136/87; PULSE 59; RESP 20; TEMP 36.9; O2SAT 100
[2024-02-16] MEDS: Calcium Carbonate 750 MG TAB.CHEW PO (06:24)
[2024-02-16 07:13] VITALS: BP 144/87; PULSE 60; RESP 16; TEMP 36.3; O2SAT 100
--- NOTE | 2024-02-16 07:33 | P.PNIM_ITS ---
Subjective Subjective Date of Service: 02/16/24 Physical Exam 2 Vital Signs: Vital Signs: Last Vital Signs Temp 97.3 F 02/16/24 07:13 Pulse 60 02/16/24 07:13 Resp 16 02/16/24 07:13 BP 144/87 H 02/16/24 07:13 Pulse Ox 100 02/16/24 07:13 O2 Del Method Room Air 02/16/24 07:13 BMI result Body Mass Index 27.4 Objective Data Active Medications Acetaminophen (Acetaminophen 325 Mg Tablet) 650 mg PO Q6H PRN PRN Reason: Pain, Mild (Pain Scale 1-3), fever or headache Calcium Carbonate (Calcium Carbonate 750 Mg Tab.Chew) 750 mg PO Q4H PRN PRN Reason: Heartburn Last Admin: 02/16/24 06:24 Dose: 750 mg Documented By: ALLISON Lactated Ringer's (Lr) 1,000 mls @ 100 mls/hr IVCONT .Q10H [facility] Last Admin: 02/16/24 01:58 Dose: 100 mls/hr Documented By: IGOR Magnesium Hydroxide (Milk Of Magnesia 30 Ml Oral.Susp) 30 ml PO DAILY PRN PRN Reason: Constipation Last Admin: 02/15/24 18:56 Dose: 30 ml Documented By: TERESA Melatonin (Melatonin 3 Mg Tablet) 6 mg PO BEDTIME PRN PRN Reason: Insomnia Last Admin: 02/16/24 01:56 Dose: 6 mg Documented By: IGOR Ondansetron HCl (Ondansetron Hcl 4 Mg/2 Ml Vial) 4 mg IVPUSH Q8H PRN PRN Reason: Nausea and Vomiting Last Admin: 02/16/24 04:44 Dose: 4 mg Documented By: IGOR Polyethylene Glycol (Polyethylene Glycol 3350 17 Gm Powd.Pack) 17 gm PO DAILY [facility] Last Admin: 02/15/24 16:20 Dose: Not Given Documented By: TERESA Non-Admin Reason: Nausea Sodium Chloride (0.9 % Sodium Chloride Flush 3 Ml Syringe) 3 ml IVFLUSH QSHIFT [facility] Last Admin: 02/16/24 07:30 Dose: Not Given Documented By: ENRIQUE Non-Admin Reason: IV Running Labs 02/16/24 05:10 02/16/24 05:10 Labs: Laboratory Results - last 24 hr 02/16/24 05:10 MCV 89.0 MCH 31.7 MCHC 35.6 H RDW 11.6 Plt Count 285 MPV 10.3 Immature Gran % (Auto) 0.5 H Neut % (Auto) 82.4 H Lymph % (Auto) 10.9 L [place] % (Auto) 5.9 Eos % (Auto) 0.1 Baso % (Auto) 0.2 Lymph # (Auto) 1.3 [place] # (Auto) 0.7 Eos # (Auto) 0.0 Baso # (Auto) 0.0 Abs Immat Gran (auto) 0.06 H Absolute Neuts (auto) 9.9 H Absolute Nucleated RBC 0.000 Nucleated RBC % (auto) 0.0 Anion Gap 12 Estim Creat Clear Calc 106.8 Estimated GFR > 60 Random Glucose 103 Calcium 9.4 D Quality Stroke Does the patient have a stroke diagnosis?: No VTE Prior VTE?: No VTE Risk Level:: Medical - moderate - high VTE Device Contraindication: N/A - Device Ordered VTE Drug Contraindication: Treatment Not Indicated
[2024-02-16] MEDS: Potassium Chloride Packet 20 MEQ PACKET 40 MEQ PO (08:58)
[2024-02-16] MEDS: polyethylene glycoL 3350 17 GM POWD.PACK PO (08:59)
--- NOTE | 2024-02-16 09:39 | MHC.CLN ---
NUTRITION REVIEW OF WEIGHT HX SHOWS LARGE WEIGHT DISCREPANCIES. WEIGHT LOSS X 6 MONTHS=-9.6%. WEIGHT GAIN X APPROX 7 WEEKS=+11.5%. DIET=CLEAR LIQUIDS. RD TO FOLLOW UP WEEKLY FOR DIET ADVANCEMENT AND PO INTAKE.
--- NOTE | 2024-02-16 11:01 | P.DS_ITS ---
DS: Providers Provider Date of Service: 02/16/24 Date of admission: 02/15/24 14:02 Date of discharge: 02/16/24 Primary care physician: [facility] Admitting clinician: April Ordoñez Attending physician on admission: Kirit Vergara Attending physician on discharge: Geovani Kyle Discharging clinician: April Ordoñez DS: Diagnosis Discharge Diagnosis (1) Cyclical vomiting, intractable: Status: Acute DS: Summary Hospital Course Hospital Course: HPI on admission by this provider 02.14: Chief Complaint: n/v 28-year-old female with history of tetralogy of Fallot s/p repair and chronic hepatitis-B presented to the ED earlier today for evaluation of intractable nausea and vomiting ongoing for 3 days. The patient reports she eats a lot of fast food and is unsure if she consumed any bad foods. She does smoke marijuana about twice weekly. Also reports chronic constipation and has not moved her bowels in 3 days and reports last bowel movement was hard and difficult to move. She has also had intermittent diarrhea but no fevers or chills. She has been unable to tolerate much p.o.. No one sick at home. Since arrival, vitals are stable. She has a leukocytosis of 13.6. Renal function electrolyte levels are normal. Glucose 158. Urinalysis with elevated specific gravity, 2+ protein, glucosuria and significant ketonuria. Urine tox screen positive for THC. In the ED has received multiple doses of antiemetics, 3 L IVF, and has been unable to tolerate p.o. trials. Hospital course: Hospital course uneventful. Pt admitted with intractable nausea and vomiting thought to be related to ongoing cannabis use versus constipation. He did show some stool burden, but no obstruction. She was admitted with clear liquid diet and diet was successfully advanced with good tolerance. IV fluids were discontinued and patient was started on MiraLax with positive bowel movement. Leukocytosis present on admission likely reactive due to vomiting, trended down. Renal function normal. Mild hypokalemia repleted with 40 mEq potassium chloride. No further nausea or vomiting. We did discuss cessation of marijuana and also discussed management of constipation. She will be discharged with 20 mEq of potassium chloride x1 week as well as MiraLax which she is advised to take daily until bowel movements are regular and then to use as needed. Once diet was advanced, she did complain of some postprandial right upper quadrant tenderness to palpation without recurrence of nausea and vomiting. There was no guarding or rebound tenderness. Ultrasound of the right upper quadrant did reveal a 0.4 cm gallbladder polyp. However on re-examination, the patient reports after palpation of the abdomen, she felt the urge to move her bowels and symptoms resolved. She can follow-up with PCP and possibly general surgery if symptoms persist. Check BMP in 1 week. Status at Discharge Functional status at discharge: independent ambulation Overall status at discharge: patient is progressing back to baseline Time Attestation Discharge Coordination Time (in mins): 32 Quality: Safe Use of Opioids Does Pt have an Active Cancer Diagnosis on the Problem List?: No Quality: Stroke Does the patient have a stroke diagnosis?: No Physical Exam Vital Signs: Vital Signs: Last Vital Signs Temp 97.3 F 02/16/24 07:13 Pulse 60 02/16/24 07:13 Resp 16 02/16/24 07:13 BP 144/87 H 02/16/24 07:13 Pulse Ox 100 02/16/24 07:13 O2 Del Method Room Air 02/16/24 07:13 BMI result Body Mass Index 27.4 Constitutional - Awake and Alert, No apparent distress Eyes - PERRLA, EOMI Cardiovascular - S1S2, RRR, No edema Respiratory - Normal lung expansion, Normal respiratory effort, No respiratory distress, CTA bilaterally Gastrointestinal - NT / ND; +BS; No rebound or guarding Extremities - no calf tenderness bilaterally, no swelling Skin - Warm/Dry Neurological - Alert & oriented x3 DS: Data Data Completed and Pending Labs on day of discharge: Laboratory Results - last 24 hr 02/16/24 05:10 WBC 12.0 H RBC 4.26 Hgb 13.5 Hct 37.9 MCV 89.0 MCH 31.7 MCHC 35.6 H RDW 11.6 Plt Count 285 MPV 10.3 Immature Gran % (Auto) 0.5 H Neut % (Auto) 82.4 H Lymph % (Auto) 10.9 L [place] % (Auto) 5.9 Eos % (Auto) 0.1 Baso % (Auto) 0.2 Lymph # (Auto) 1.3 [place] # (Auto) 0.7 Eos # (Auto) 0.0 Baso # (Auto) 0.0 Abs Immat Gran (auto) 0.06 H Absolute Neuts (auto) 9.9 H Absolute Nucleated RBC 0.000 Nucleated RBC % (auto) 0.0 Sodium 136 Potassium 3.2 L Chloride 103 Carbon Dioxide 24 Anion Gap 12 BUN 5 L Creatinine 0.68 Estim Creat Clear Calc 106.8 Estimated GFR > 60 Random Glucose 103 Calcium 9.4 D Discharge Plan Discharge Anticipated Discharge Date/Time: 02/16/24 13:14 Patient Disposition: Home, Self-Care Referrals: [facility] [Primary Care Provider] - 1 Week Discharge Medications: New polyethylene glycol 3350 17 gram Powder In Packet 17 g PO DAILY Qty: 238 0RF potassium chloride 20 mEq tablet extended release 20 meq PO DAILY Qty: 7 0RF prochlorperazine 25 mg suppository 25 mg [place] Q12H PRN (Reason: nausea and vomiting) Qty: 12 0RF Discharge Orders: Discharge Order (Routine); Ordered 02/16/24 Ordered By: April Ordoñez Diet: Advance to usual diet Activity on Discharge: As tolerated Stand Alone Forms: Patient Portal Discharge page Print Language: Lao Other Ambulatory Orders: Basic Metabolic Panel (Routine) Timeframe: 1 Week Facility: [facility] - Location: Laboratory Ordered By: April Ordoñez Care Plan Goals: Prevent nausea/vomiting Prevent constipation Health Concerns: Cyclic vomiting syndrome Constipation Marijuana use Plan of Treatment: Intractable nausea and vomiting -possibly related to constipation though only moderate stool burden on KUB, no obstruction. Also possibly related to marijuana use -recommend discontinuation of marijuana entirely -manage constipation with MiraLax daily until bowel movements are regular, then as needed. Recommend high-fiber diet, avoidance of straining Low potassium -likely related to gastrointestinal losses -recommend taking 20 mEq potassium chloride on a daily basis x7 days then repeat metabolic profile at the lab in 1 week Gallbladder polyp -small, 0.4cm. Unlikely to be related to symptoms. Follow up with PCP and if symptoms recur, can consider general surgery referral Assessment: See above, see discharge summary Patient Instructions: Constipation (DC)
--- NOTE | 2024-02-16 12:07 | MHC.CM.PN ---
Addendum entered by Tash Reina 02/16/24 14:12: Per provider Patient is planned for an U.S. this afternoon. She plans to discharge once the U.S. is complete. Original Note: MILLIE 02/16/24 DX cyclic vomiting. Patient lives with her S.O. She is independent with all functional mobility. The pt does not know the name of her new PCP. [place] [facility] [place] was given to the patient. She was instructed to call to schedule an appointment with primary care. The OBS notice was delivered verbally because the patient was not feeling well. A HCP has been documented and scanned into the EMR. DP home self care. She will arrange for transportation home.
[2024-02-16] MEDS: Milk of Magnesia 30 ML ORAL.SUSP PO (14:21)
[2024-02-16 15:16] VITALS: BP 116/76; PULSE 69; RESP 16; TEMP 36.9; O2SAT 100
--- NOTE | 2024-02-16 15:29 | MHC.CM.PN ---
Patient is discharged to home self-care. She will arrange for a ride home.
== END 2024-02-16 17:06 | disposition home or self-care (01) ==
LOC: HO.ED 13:26 → HO.EDOVER 14:12 → HO.S3 02-16 05:08
PROVIDERS: Emergency Medicine; Admitting Provider Physician Assistant; Emergency Provider Emergency Medicine Emergency Medical Services; Visit Provider Physician Assistant
DX: R11.15 Cyclical vomiting syndrome unrelated to migraine (principal); E87.6 Hypokalemia; K82.4 Cholesterolosis of gallbladder; R11.2 Nausea with vomiting, unspecified; Q21.3 Tetralogy of Fallot; B19.10 Unspecified viral hepatitis B without hepatic coma; D72.829 Elevated white blood cell count, unspecified; E86.0 Dehydration; E88.89 Other specified metabolic disorders
CPT/HCPCS: 36415; 74018; 76705; 80048; 80053; 80307; 81001; 81025; 85025; 86140; 96361; 96374; 96375; 96376; 99221; 99285; J1200; J1790; J2405; J2765; J7120

== ENCOUNTER → 2024-02-15 14:02 | Outpatient (BNV) | payer MEDICAID, SELFPAY | PROVIDERS: Admitting Provider Physician Assistant; Emergency Provider Emergency Medicine Emergency Medical Services; Visit Provider Physician Assistant | DX: R11.15 Cyclical vomiting syndrome unrelated to migraine (principal) | CPT/HCPCS: 99222; 99239 ==

== ENCOUNTER 2024-07-22 16:33 | Emergency (ER) | payer MEDICAID, SELFPAY ==
--- NOTE | ~2024-07-22 | XR_ITS ---
CLINICAL HISTORY: constipation 1 view abdomen Comparison: None Findings: Normal bowel gas pattern. Normal stool quantity. No abnormal calcifications. No obvious pneumoperitoneum or pneumatosis. No acute fractures Impression: Normal bowel gas pattern This document has been electronically signed by: Gautam Collazo MD on 07/22/2024 18:51:49
[2024-07-22 16:44] VITALS: BP 140/88; PULSE 41; O2SAT 99
[2024-07-22 17:10] VITALS: BP 153/66; PULSE 52; RESP 20; TEMP 36.1; O2SAT 98; BMI 24.6
--- NOTE | 2024-07-22 17:13 | ED_ITS ---
HPI - Nausea/Vomiting/Diarrhea General Chief complaint: Nausea/Vomiting/Diarrhea Stated complaint: VOMITING Time Seen by Provider: 07/22/24 21:28 Source: patient Mode of arrival: ambulatory Limitations: no limitations History of Present Illness ED Provider: ho guerra np HPI Narrative: Patient is a 21-year-old female who presents emergency department for evaluation of vomiting that started this morning. Reports over the past 3-4 days she has felt constipated, reports that she has a history of IBS. She states that when she does not take her laxatives in time, she begins to vomit. She had to strain to have a bowel movement yesterday. Actively vomiting. Actively smokes marijuana, states she has been told in the past that you had vomiting due to marijuana usage but she does not believe that this is the reason she is currently vomiting she thinks it was due to her constipation. She endorses mild epigastric pain onset after excessive vomiting otherwise without abdominal pain. She denies hematochezia or melena. No hematemesis. Denies urogenital symptoms. LMP 1 week ago denies possibility for . Denies fevers or chills. Related Data Previous Rx's ?Medication ?Instructions ?Recorded polyethylene glycol 3350 17 gram 17 g PO DAILY #238 grams 02/16/24 oral powder packet potassium chloride 20 mEq 20 meq PO DAILY #7 tabs 02/16/24 tablet,extended release prochlorperazine 25 mg rectal 25 mg RI Q12H PRN nausea and 02/16/24 suppository vomiting #12 ea Allergies Allergy/AdvReac Type Severity Reaction Status Date / Time No Known Allergies Allergy Verified 07/22/24 17:15 [No Known Allergies*] Review of Systems 2 Review of Systems: Yes all other systems are reviewed and are negative PMFSH Past Medical History Attestation statement: The following information was validated with the patient. Source: old records reviewed Medical History Chronic hepatitis B Cyclical vomiting Fallot tetralogy Cyclical vomiting Surgical History H/O tetralogy of Fallot repair Hx of section Social History Social History Household Members: Significant Other Housing: Apartment Do you presently have visiting nurse or other home services: No Alcohol intake: current Alcohol intake frequency: holidays/special occasions only Patient Tobacco Use Status: Never used Tobacco Second Hand Smoke Exposure: No Substance Use Type: Marijuana Advance Directives: No Advance Directives Information Provided: No service: No Physical Exam 2 Vital Signs: Vital Signs: Last Vital Signs Temp 98.9 F 07/23/24 05:31 Pulse 53 07/23/24 05:31 Resp 13 07/23/24 05:31 BP 124/62 07/23/24 05:31 Pulse Ox 98 07/23/24 05:31 O2 Del Method Room Air 07/23/24 05:31 BMI result Body Mass Index 24.6 Appearance: Alert.?Oriented to person, place and time. No acute distress.?Normal affect. Eyes: Pupils equal, round and reactive to light.? ENT: Pharynx normal.?? Neck: Normal inspection.? Neck supple.?? CVS: Heart sounds normal. Normal heart rate and rhythm.? Pulses normal.?? Respiratory: No respiratory distress.? Lung sounds clear to auscultation bilaterally?? Abdomen: Soft Mild epigastric tenderness upon palpation. Negative Swan sign. Bilateral upper and lower quadrants without tenderness. No CVA tenderness. Normoactive bowel sounds. Skin: Skin warm and dry.? Normal skin color.? Extremities: No lower extremity edema.? Neuro: Moves all extremities spontaneously. Sensation intact bilaterally. Ambulates with normal steady gait. Course Course Course Narrative: This is an RME: Additional HPI, ROS, PE not included below will be deferred to primary provider. RME assessment and note performed by: Pema Allison PA-C This is a 29-year-old female, with a history of cyclical vomiting syndrome, who presents emergency department with complaints of nausea,. She states that she has severe constipation, last moved her bowels yesterday however states that she really had to strain. Pain patient vomiting in triage. History of marijuana use. No alcohol use. No chance of . Reports sxs are not due to marijuana use, rather from constipation. Plan: Labs, KUB xray Reevaluation(s) Reevaluation #1: patient has been resting comfortably on the stretcher for awhile, reporting decrease in pain, minimal nausea. Amenable to p.o. trial with water. Seconds later she began vomiting again. will trial ondansetron at this time. patient signed out to Marilin Beck MD pending re-evaluation and disposition Time: :26 Medications Administered Discontinued Medications Generic Name Dose Route Start Last Admin Trade Name Freq PRN Reason Stop Dose Admin Diphenhydramine HCl 50 mg 07/23/24 04:13 07/23/24 05:33 Diphenhydramine Hcl 50 Mg/Ml Vial IVPUSH 07/23/24 04:14 50 mg ONCE ONE Administration Droperidol 1.25 mg 07/22/24 22:14 07/22/24 22:30 Droperidol 5 Mg/2 Ml Vial IVPUSH 07/22/24 22:15 1.25 mg ONCE ONE Administration Famotidine 20 mg 07/23/24 04:13 07/23/24 05:35 Famotidine/Pf 20 Mg/2 Ml Vial IVPUSH 07/23/24 04:14 20 mg ONCE ONE Administration Haloperidol Lactate 2.5 mg 07/23/24 04:13 07/23/24 05:34 Haloperidol Lactate 5 Mg/Ml Vial IM 07/23/24 04:14 2.5 mg STAT STA Administration Lactated Ringer's 1,000 mls @ 999 mls/hr 07/22/24 22:14 07/23/24 02:18 Lr IV 07/22/24 23:14 Infused .Q1H1M ONE Infusion Lorazepam 1 mg 07/23/24 04:13 07/23/24 05:34 Lorazepam 2 Mg/Ml Vial IVPUSH 07/23/24 04:14 1 mg ONCE ONE Administration Ondansetron HCl 4 mg 07/22/24 17:15 07/22/24 17:17 Ondansetron Odt 4 Mg Tab.Rapdis TRANSLINGU 07/22/24 17:16 4 mg ONCE ONE Administration Ondansetron HCl 4 mg 07/23/24 01:28 07/23/24 01:57 Ondansetron Hcl 4 Mg/2 Ml Vial IVPUSH 07/23/24 01:29 4 mg ONCE ONE Administration Medical Decision Making Medical Decision Making MDM Narrative: Patient is a 21-year-old female with past medical history of tetralogy of Fallot s/p repair, chronic hepatitis-B, cyclical vomiting who presents emergency department for evaluation of vomiting with onset today by her account is in the setting constipation is chronic, reports significant draining for a bowel movement yesterday but still feels as though she is constipated. She has not been eating much over the past few days due to the nausea and feeling constipated. Her abdominal examination overall is relatively benign she has some mild tenderness over the epigastrium with onset after her vomiting began, has been, KUB was obtained prior to my assumption of care without evidence of notable stool burden. He has a mild leukocytosis 11,700 likely reactive from vomiting, no anemia or thrombocytopenia. No electrolyte derangement. No ELISHA. LFTs unremarkable. HCG is negative. Favoring cyclical vomiting at this time will treat with 1L LR and droperidol. Patient was p.o. challenged a 2nd time. However, patient started vomiting again. Patient receiving IV Ativan, Benadryl, Pepcid and IM Haldol. Patient not able to tolerate p.o.. Patient being admitted for cyclical vomiting I discussed the patient with Dr. Garcia Differential Diagnosis Differential Diagnoses: The differential diagnosis associated with the presentation includes ( See narrative above) Admission/Observation Consideration of admission/observation: Escalation of care including admission/observation considered Lab Data MDM Lab Attestation statement: I reviewed the patient's lab results. ( see narrative above) 07/22/24 17:27 07/22/24 17:27 Labs: Lab Results 07/22/24 07/23/24 Range/Units 17:27 00:43 WBC 11.7 H (4.8-10.8) X10*3/uL RBC 4.53 (4.20-5.50) X10*6/uL Hgb 14.0 (12.0-16.0) g/dl Hct 39.4 (37.0-47.0) % MCV 87.0 (80.0-98.0) fL MCH 30.9 (27.0-33.0) pg MCHC 35.5 H (31.0-35.0) g/dl RDW 11.2 (11.0-16.0) % Plt Count 248 (160-400) X10*3/uL MPV 10.3 (9.4-12.3) fL Immature Gran % (Auto) 0.3 (0.0-0.4) % Neut % (Auto) 90.4 H (45-73) % Lymph % (Auto) 7.1 L (20-40) % [place] % (Auto) 2.0 (2-11) % Eos % (Auto) 0.0 (0-4) % Baso % (Auto) 0.2 (0-2) % Lymph # (Auto) 0.8 L (1.2-4.9) X10*3/uL [place] # (Auto) 0.2 (0.1-1.2) X10*3/uL Eos # (Auto) 0.0 (0.0-0.4) X10*3/uL Baso # (Auto) 0.0 (0.0-0.2) X10*3/uL Abs Immat Gran (auto) 0.04 H (0.00-0.03) X10*3/uL Absolute Neuts (auto) 10.5 H (2.0-8.3) x10*3/uL Absolute Nucleated RBC 0.000 (0.0-0.012) X10*3/uL Nucleated RBC % (auto) 0.0 (0.0-0.2) /100WBC Smear Tech's Comments VERIFIED Sodium 138 (135-145) mmol/L Potassium 3.7 (3.3-5.1) mmol/L Chloride 108 (96-108) mmol/L Carbon Dioxide 21 L (22-29) mmol/L Anion Gap 13 (12-20) BUN 13 (9-16) mg/dL Creatinine 0.66 (0.5-1.4) mg/dL Estim Creat Clear Calc 104.6 Estimated GFR > 60 Random Glucose 152 H (60-115) mg/dL Calcium 9.4 (8.4-10.2) mg/dL Magnesium 1.6 (1.6-2.6) mg/dL Total Bilirubin 0.3 (0.0-1.0) mg/dL Direct Bilirubin 0.1 (0.0-0.5) mg/dL AST 24 (5-31) U/L ALT 21 (0-31) U/L Alkaline Phosphatase 56 (39-117) U/L Total Protein 8.0 (6.5-8.0) g/dL Albumin 4.6 (3.5-5.0) g/dL Beta HCG, Quant < 2 mIU/mL Urine Color Yellow Urine Appearance Clear Urine pH 7.0 (5.0-9.0) Ur Specific [place] 1.025 (1.005-1.025) Urine Protein 30 (1+) H (Neg-Trace) mg/dL Urine Glucose (UA) 250 H (Negative) mg/dL Urine Ketones 40 (Negative) mg/dL Urine Blood Negative (Negative) Urine Nitrite Negative (Negative) Ur Leukocyte Esterase Negative (Negative) Urine RBC 0-2 (0-2) /HPF Urine WBC 0-5 (0-5) /HPF Ur Squamous Epith Cells 0-2 (0-2) /HPF Urine Bacteria Trace (None Seen) Hyaline Casts 0-2 (0-2) /LPF Urine Opiates Screen Not Detected (Not Detect) Ur Buprenorphine Scrn Not Detected (Not Detect) ng/mL Ur Oxycodone Screen Not Detected (Not Detect) ng/mL Urine Methadone Screen Not Detected (Not Detect) ng/mL Urine Fentanyl Screen Not Detected (Not Detect) Ur Barbiturates Screen Not Detected (Not Detect) Ur Phencyclidine Scrn Not Detected (Not Detect) Ur Amphetamines Screen Not Detected (Not Detect) U Benzodiazepines Scrn Not Detected (Not Detect) Urine Cocaine Screen Not Detected (Not Detect) U Marijuana (THC) Screen POSITIVE H (Not Detect) Independent Interpretation I performed an independent interpretation of an: EKG ( EKG revealing a sinus bradycardia, RBBB, ventricular rate of 56, QTC 457, T-wave inversion in lead V1 - V2 as seen on prior in 2022) and Plain X-Ray ( no overt constipation) Radiology Impression Discussion of test interpretation with radiology: I have reviewed the radiologist's reading. Radiologist Impression: 1 view abdomen Comparison: None Findings: Normal bowel gas pattern. Normal stool quantity. No abnormal calcifications. No obvious pneumoperitoneum or pneumatosis. No acute fractures Impression: Normal bowel gas pattern External Record Review External record reviewed: Inpatient record and Outpatient record Chronic Conditions Patient?s care impacted by: Other ( see narrative above) Discharge Plan Discharge Clinical Impression: Cyclical vomiting, intractable Patient Disposition: Admitted As Inpatient Prescriptions: No Action polyethylene glycol 3350 17 gram Powder In Packet 17 g PO DAILY Qty: 238 0RF potassium chloride 20 mEq tablet extended release 20 meq PO DAILY Qty: 7 0RF prochlorperazine 25 mg suppository 25 mg RI Q12H PRN (Reason: nausea and vomiting) Qty: 12 0RF Print Language: Tanzanian
[2024-07-22] MEDS: Ondansetron ODT 4 MG TAB.RAPDIS TRANSLINGU (17:17)
[2024-07-22 17:42] LABS: Basophils Percent Auto 0.2 % (0-2); Hematocrit 39.4 % (37.0-47.0); Imm Gran Abs Auto 0.04 X10*3/uL (0.00-0.03); Imm Gran Pct Auto 0.3 % (0.0-0.4); Lymphocytes Absolute Auto 0.8 X10*3/uL (1.2-4.9); Lymphocytes Percent Auto 7.1 % (20-40); MANUAL DIFF FLAG SCAN; Mean Corpuscular HGB Conc 35.5 g/dl (31.0-35.0); Mean Corpuscular Hemoglobin 30.9 pg (27.0-33.0); Mean Platelet Volume 10.3 fL (9.4-12.3); Monocytes Absolute Auto 0.2 X10*3/uL (0.1-1.2); Neutrophils Absolute Auto 10.5 x10*3/uL (2.0-8.3); Neutrophils Percent Auto 90.4 % (45-73); Platelet Count 248 X10*3/uL (160-400); Red Blood Count 4.53 X10*6/uL (4.20-5.50); Red Cell Distribution Width 11.2 % (11.0-16.0); SCAN SMEAR FLAG 1; White Blood Count 11.7 X10*3/uL (4.8-10.8)
[2024-07-22 18:02] LABS: Alanine Aminotransferase 21 U/L (0-31); Albumin Level 4.6 g/dL (3.5-5.0); Alkaline Phosphatase 56 U/L (39-117); Anion Gap 13 (12-20); Aspartate Amino Transferase 24 U/L (5-31); Bilirubin Direct 0.1 mg/dL (0.0-0.5); Bilirubin Total 0.3 mg/dL (0.0-1.0); Blood Urea Nitrogen 13 mg/dL (9-16); Calcium 9.4 mg/dL (8.4-10.2); Carbon Dioxide 21 mmol/L (22-29); Chloride 108 mmol/L (96-108); Creatinine Clr Calc Pharmacy 104.6; Estimated Glomerular Filt Rate > 60; Glucose Random 152 mg/dL (60-115); Magnesium 1.6 mg/dL (1.6-2.6); Potassium 3.7 mmol/L (3.3-5.1); Sodium 138 mmol/L (135-145)
[2024-07-22 18:03] LABS: SLIDE REVIEW VERIFIED
[2024-07-22 18:07] LABS: HCG Quantitative < 2 mIU/mL
[2024-07-22 21:50] VITALS: BP 135/64; PULSE 48; RESP 16; TEMP 36.7; O2SAT 97
[2024-07-22] MEDS: droPERidol 5 MG/2 ML VIAL 1.25 MG IVPUSH (22:30)
[2024-07-22] MEDS: Lactated Ringers 1,000 ML 999 ML IV (22:32)
--- NOTE | 2024-07-22 22:45 | PC.NURSE ---
PT brought in from triage. c/c nausea and vomiting. unable to keep anything down. similar to other episodes. IV line placed in LAC. pt medicated as per JUL. safety precautions in place. plan of care ongoing
[2024-07-23 00:38] VITALS: BP 126/72; PULSE 56; RESP 16; TEMP 37.4; O2SAT 100
[2024-07-23 00:55] LABS: Appearance Urine Clear; Color Urine Yellow; Glucose Urine UA 250 mg/dL (Negative); Leukocyte Esterase Urine Negative (Negative); Nitrite Urine Negative (Negative); Specific Gravity - Urine 1.025 (1.005-1.025); UMIC TRIGGER UACC YES; Urine Blood Negative (Negative); Urine Ketones 40 mg/dL (Negative); Urine Protein 30 (1+) mg/dL (Neg-Trace)
[2024-07-23 01:00] LABS: Bacteria Urine Trace (None Seen); Hyaline Casts Urine 0-2 /LPF (0-2); RBC Urine 0-2 /HPF (0-2); Squamous Epithelial Cell Urine 0-2 /HPF (0-2); WBC Urine 0-5 /HPF (0-5)
[2024-07-23 01:02] LABS: Amphetamine Screen Urine Not Detected (Not Detect); Barbiturates, Urine Not Detected (Not Detect); Benzodiazepines Screen Urine Not Detected (Not Detect); Buprenorphine Scr Not Detected (Not Detect); Cannabinoid Screen Urine POSITIVE (Not Detect); Cocaine Screen Urine Not Detected (Not Detect); Fentanyl, urine Not Detected (Not Detect); Methadone Screen, Urine Not Detected (Not Detect); Opiate Screen Urine Not Detected (Not Detect); Oxycodone Screen Urine Not Detected (Not Detect); Phencyclidine Screen Urine Not Detected (Not Detect)
--- NOTE | 2024-07-23 01:11 | PC.NURSE ---
PT assisted to bathroom. Urine sample obtained and sent down to lab for processing. IV infusion continuing, pt is sleeping on her side delaying infusion. PT reports she is still nauseous however she is no longer vomiting. VSS. Plan of care going
--- NOTE | 2024-07-23 01:27 | ECG_ITS ---
Test Reason : CHECK QTC Blood Pressure : */* mmHG Vent. Rate : 56 BPM Atrial Rate : 56 BPM P-R Int : 146 ms QRS Dur : 138 ms QT Int : 474 ms P-R-T Axes : 73 65 68 degrees QTcB Int : 457 ms Sinus bradycardia Right bundle branch block Cannot rule out Inferior infarct , age undetermined Abnormal ECG When compared with ECG of 13-Dec-2022 23:03, Premature atrial complexes are no longer Present Referred By: Hailee Hill Electronically Signed By: KRUNAL BECKER MD
[2024-07-23] MEDS: ondansetron HCL 4 MG/2 ML VIAL IVPUSH (01:57)
[2024-07-23 02:01] VITALS: BP 119/60; PULSE 53; RESP 12; TEMP 37.4; O2SAT 99
--- NOTE | 2024-07-23 03:45 | PC.NURSE ---
pt reports she is no longer nauseous. Provider notified/aware.
[2024-07-23 05:31] VITALS: BP 124/62; PULSE 53; RESP 13; TEMP 37.2; O2SAT 98
[2024-07-23] MEDS: diphenhydrAMINE HCL 50 MG/ML VIAL IVPUSH (05:33)
[2024-07-23] MEDS: Haloperidol Lactate 5 MG/ML VIAL 2.5 MG IM (05:34)
[2024-07-23] MEDS: LORazepam 2 MG/ML VIAL 1 MG IVPUSH (05:34)
[2024-07-23] MEDS: Famotidine/PF 20 MG/2 ML VIAL IVPUSH (05:35)
[2024-07-23 08:52] VITALS: BP 134/79; PULSE 61; RESP 18; TEMP 37.4; O2SAT 98
--- NOTE | 2024-07-23 09:39 | PHA.MEDREC ---
Addendum entered by Machelle España RPh 07/23/24 09:42: reviewed by [facility]. Original Note: Pharmacy Consult ? Medication Reconciliation Pharmacy has completed the medication reconciliation. Spoke to patient to confirm med list.
[2024-07-23 11:25] VITALS: BP 94/50; PULSE 75; RESP 18; TEMP 36.8; O2SAT 97
[2024-07-23 11:38] VITALS: BP 94/50; PULSE 75; RESP 18; TEMP 36.8; O2SAT 97
== END 2024-07-23 11:38 | disposition home or self-care (01) ==
PROVIDERS: Nurse Practitioner Family; Physician Assistant Medical; Emergency Provider Emergency Medicine
DX: R11.15 Cyclical vomiting syndrome unrelated to migraine (principal); R11.2 Nausea with vomiting, unspecified; K59.00 Constipation, unspecified; F12.90 Cannabis use, unspecified, uncomplicated; I45.10 Unspecified right bundle-branch block; R94.31 Abnormal electrocardiogram [ECG] [EKG]; R10.13 Epigastric pain; Z51.81 Encounter for therapeutic drug level monitoring; Z79.899 Other long term (current) drug therapy
CPT/HCPCS: 36415; 74018; 80048; 80076; 80307; 81001; 83735; 84702; 85025; 93005; 96361; 96372; 96374; 96375; 99285; J1200; J1630; J1790; J2060; J2405; J7120

== ENCOUNTER → 2024-07-22 17:15 | Outpatient (BNV) | payer MEDICAID, SELFPAY | PROVIDERS: Visit Provider Radiology Diagnostic Radiology | DX: K59.00 Constipation, unspecified (principal) | CPT/HCPCS: 74018 ==

== ENCOUNTER → 2024-07-23 01:27 | Outpatient (BNV) | payer MEDICAID, SELFPAY | PROVIDERS: Emergency Provider Emergency Medicine; Visit Provider Internal Medicine Cardiovascular Disease | DX: I45.10 Unspecified right bundle-branch block (principal); R00.1 Bradycardia, unspecified | CPT/HCPCS: 93010 ==

== ENCOUNTER 2024-08-30 02:23 | Emergency (ER) | payer MEDICAID, SELFPAY ==
--- NOTE | ~2024-08-30 | XR_ITS ---
CLINICAL HISTORY: pain infection 3 views right foot Comparison: None Findings: There is no radiographic evidence of osteomyelitis or subcutaneous gas. There is no fracture or dislocation. Joint spaces appear normal. There is no radiopaque foreign body. Impression: Unremarkable right foot radiographs. This document has been electronically signed by: Javier Walters MD on 08/30/2024 03:42:27
[2024-08-30 02:29] VITALS: BP 106/56; PULSE 82; RESP 16; TEMP 36.8; O2SAT 97; BMI 29.5
--- OUTSIDE RECORDS SUMMARY | 2024-08-30 02:42 | XMS_ITS | Encounter Summary ---
Author Organization [facility] Address [address] [place] [phone] Phone Care Team Providers Care Vice President Risk Management Name Role Phone Maty Hoffmann NP Primary Care Provider Magnolia hussein Encounter Details Date Type Department Care Team (Late st Contact Info) Description 01/26/2013 Documentation [facility] [place] Family Medicine [address] [place] [address] Family Medicine, Physician [address] [place] [address] Social History Tobacco Use Types Packs/Day Years Used Date Smoking Tobacco: Never Assessed Comments Unknown Sex and Gender Information Value Date Recorded Sex Assigned at Not on file Legal Sex Female 5:07 PM EDT Gender Identity Not on file Sexual Orientation Not on file documented as of this encounter Plan of Treatment Not on file documented as of this encounter Visit Diagnoses Not on filedocumented in this encounter Care Teams Vice President Risk Management Relationship Specialty Start Date End Date Maty Hoffmann NP PCP - General 12/27/16 10/17/22 documented as of this encounter
--- OUTSIDE RECORDS SUMMARY | 2024-08-30 02:42 | XMS_ITS | Encounter Summary ---
Author Organization [facility] Address [address] [place] [phone] Phone Care Team Providers Care Process Improvement Analyst Name Role Phone Maty Hoffmann NP Primary Care Provider Magnolia hussein Encounter Details Date Type Department Care Team (Late st Contact Info) Description 04/05/2013 Documentation [facility] [place] Family Medicine [address] [place] [address] Family Medicine, Physician [address] [place] [address] Social History Tobacco Use Types Packs/Day Years [...] on filedocumented in this encounter Care Teams Process Improvement Analyst Relationship Specialty Start Date End Date Maty Hoffmann NP PCP - General 12/27/16 10/17/22 documented as of this encounter
--- OUTSIDE RECORDS SUMMARY | 2024-08-30 02:42 | XMS_ITS | Encounter Summary ---
Author Organization [facility] Address [address] [place] [phone] Phone Care Team Providers Care Reworker Name Role Phone Maty Hoffmann NP Primary Care Provider Magnolia hussein Encounter Details Date Type Department Care Team (Late st Contact Info) Description 09/18/2012 Documentation [facility] Family Medicine [address] [place] [address] Family Medicine, Physician [address] [place] [address] Social History Tobacco Use Types Packs/Day Years [...] on filedocumented in this encounter Care Teams Reworker Relationship Specialty Start Date End Date Maty Hoffmann NP PCP - General 12/27/16 10/17/22 documented as of this encounter
--- OUTSIDE RECORDS SUMMARY | 2024-08-30 02:42 | XMS_ITS | Encounter Summary ---
Author Organization [facility] Address [address] [place] [phone] Phone Care Team Providers Care Adolescent Counselor Name Role Phone Maty Hoffmann NP Primary Care Provider Magnolia hussein Encounter Details Date Type Department Care Team (Late st Contact Info) Description 04/01/2013 Documentation [facility] [place] [address] [place] [address] Family Medicine, Physician [address] [place] [address] Social History Tobacco Use Types Packs/Day Years [...] on filedocumented in this encounter Care Teams Adolescent Counselor Relationship Specialty Start Date End Date Maty Hoffmann NP PCP - General 12/27/16 10/17/22 documented as of this encounter
--- OUTSIDE RECORDS SUMMARY | 2024-08-30 02:42 | XMS_ITS | Encounter Summary ---
Author Organization [facility] Address [address] [place] [phone] Phone Care Team Providers Care Scalp Treatment Operator Name Role Phone Maty Hoffmann NP Primary Care Provider Magnolia hussein Encounter Details Date Type Department Care Team (Late st Contact Info) Description 09/18/2012 Documentation [facility] [address] [place] [address] Family Medicine, Physician [address] [place] [address] Social History Tobacco Use Types Packs/Day Years [...] on filedocumented in this encounter Care Teams Scalp Treatment Operator Relationship Specialty Start Date End Date Maty Hoffmann NP PCP - General 12/27/16 10/17/22 documented as of this encounter
--- OUTSIDE RECORDS SUMMARY | 2024-08-30 02:42 | XMS_ITS | Encounter Summary ---
Author Organization [facility] Address [address] [place] [phone] Phone Care Team Providers Care Cone Trucker Name Role Phone Maty Hoffmann NP Primary Care Provider Magnolia hussein Encounter Details Date Type Department Care Team (Late st Contact Info) Description 10/25/2012 Documentation [facility] Medicine [address] [place] [address] Family Medicine, Physician [address] [place] [address] Social History Tobacco Use Types Packs/Day Years [...] on filedocumented in this encounter Care Teams Cone Trucker Relationship Specialty Start Date End Date Maty Hoffmann NP PCP - General 12/27/16 10/17/22 documented as of this encounter
--- OUTSIDE RECORDS SUMMARY | 2024-08-30 02:42 | XMS_ITS | Clinical Summary ---
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 [address] [place] [id number] Provider, Population Health Generic 07/22/2024 Orders Only GENERIC EXTERNAL DATA DEPARTMENT Provider, Generic External Data from Last 3 Months Social History Tobacco Use Types Packs/Day Years Used Date Smoking Tobacco: Never Smokeless Tobacco: Never Tobacco Cessation:Counseling Given: Not Answered Alcohol Use Standard Drinks/Week Comments Never 0 (1 standard drink = 0.6 oz pur e alcohol) Comments Unknown Sex and Gender Information Value Date Recorded Sex Assigned at Female 03/18/2022 10:15 AM EDT Legal Sex Female 10:15 AM EDT Gender Identity Female 03/18/2022 10:15 AM EDT Sexual Orientation Don't know 03/18/2022 10 :15 AM EDT Last Filed Vital Signs Vital Sign Reading Time Taken Comments Blood Pressure 114/63 06/17/2023 3:33 PM EST Pulse 65 06/17/2023 3:33 PM EST Temperature 37.2 ??C (98.9 ??F) 06/17/2023 3:33 PM ES T Respiratory Rate 20 06/17/2023 3:33 PM EST Oxygen Saturation 99% 06/17/2023 3:33 PM EST Inhaled Oxygen Concentration - - Weight 75.9 kg (167 lb 6.4 oz) 06/17/2023 3:33 P M EST Height 154.9 cm (5' 1 ) 09/25/2022 2:46 PM EDT Body Mass Index 31.63 09/25/2022 2:46 PM EDT Plan of Treatment Health Maintenance Due Date Last Done Comments Depression Screening 1996 HIV Screening 1996 SDOH Screening 1996 Alcohol/Substance Use Screening 2008 Family Planning (PISQ) 2011 Hepatitis C Screening 2014 Hepatitis A Vaccines (2 of 2 - Risk 2-dose series) 04/19/2016 10/19/2015 Pneumococcal Vaccine: Pediatrics (0 to 5 Years) and At-Risk Patients (6 to 49) Years) (2 of 2 - PCV) 05/23/2016 05/23/2015 COVID-19 Vaccine (3 - season) 2024 11/21/2021, 05/15/2021 Influenza Vaccine (#1) 2024 , 04/12/2020, 04/12/2020, Additional history exists Tobacco Screening 06/17/2024 06/17/2023 Pap Smear 06/25/2026 06/25/2021 DTaP/Tdap/Td Vaccines (13 - Td or Tdap) 09/13/2031 09/12/2021, 07/11/2020, 11/13/2017, Additional history exists Zoster Vaccines (1 of 2) 2046 RSV Patients and Patients Aged 60 years or older (1 - 1-dose 75+ series) 2071 Hepatitis B Vaccines Completed 1996, 1996, 1996, Additional history exists HIB Vaccines Completed 06/14/1997, 12/17, 1996, Additional history exists IPV Vaccines Completed 04/08/2001, 08/19, 01/04/1997, Additional history exists Meningococcal Vaccine Aged Out 01/18/2009, 009 No longer eligible based on patient's age to complete this topic HPV Vaccines Completed 01/10/2010, 12/18, 03/21/2009, Additional history exists RSV under 20 months Aged Out No longe r eligible based on patient's age to complete this topic Rotavirus Vaccines Aged Out No longer eligible based on patient's age to complete this topic Procedures Procedure Name Priority Date/Time Associated Diagnosis Comments HCG, TOTAL, QN Routine 07/22/2024 5:27 PM EST SLIDE REVIEW Routine 07/22/2024 5:27 PM EST MAGNESIUM Routine 07/22/2024 5:27 PM EST BASIC METABOLIC PANEL Routine 07/22/2024 5:27 PM EST HEPATIC FUNCTION PANEL Routine 07/22/2024 5:27 PM EST CBC WITH AUTO DIFFERENTIAL Routine 07/22/2024 5:27 PM EST HM PAP/HPV Routine 06/25/2021 from Last 3 Months or Most Recently Relevant to Health Maintenance Results * Slide Review (07/22/2024 5:27 PM EST) Slide Review VERIFIED [facility] 07/22/2024 5:27 PM EST 07/22/2024 5:38 PM EST us Generic External Data Provider LAB BLOOD ORDERAB LES Final Result [facility] [address] [place] [phone] * (ABNORMAL) CBC auto differential (07/22/2024 5:27 PM EST) White Blood Count 11.7(H) 4.8 - 10.8 X10*3/uL [facility] Red Blood Count 4.53 4.20 - 5.50 X10*6/uL [facility] Hemoglobin 14.0 12.0 - 16.0 g/dl [facility] Hematocrit 39.4 37.0 - 47.0 % [facility] Mean Corpuscular Volume 87.0 80.0 - 98.0 fL [facility] Mean Corpuscular Hemoglobin 30.9 27.0 - 33.0 pg [facility] Mean Corpuscular HGB Conc 35.5(H) 31.0 - 35.0 g/dl [facility] Red Cell Distribution Width 11.2 11.0 - 16.0 % [facility] Platelet Count 248 160 - 400 X10*3/uL [facility] Mean Platelet Volume 10.3 9.4 - 12.3 fL [facility] Neutrophils Percent Auto 90.4(H) 45 - 73 % [facility] Imm Gran Pct Auto 0.3 0.0 - 0.4 % [facility] Lymphocytes Percent Auto 7.1(L) 20 - 40 % [facility] Monocytes Percent Auto 2.0 2 - 11 % [facility] Eosinophils Percent Auto 0.0 0 - 4 % [facility] Basophils Percent Auto 0.2 0 - 2 % [facility] NRBC Pct Auto 0.0 0.0 - 0.2 /100WBC [facility] Neutrophils Absolute Auto 10.5(H) 2.0 - 8.3 x10*3/uL [facility] Imm Gran Abs Auto 0.04(H) 0.00 - 0.03 X10*3/uL [facility] Lymphocytes Absolute Auto 0.8(L) 1.2 - 4.9 X10*3/uL [facility] Monocytes Absolute Auto 0.2 0.1 - 1.2 X10*3/uL [facility] Eosinophils Absolute Auto 0.0 0.0 - 0.4 X10*3/uL [facility] Basophils Absolute Auto 0.0 0.0 - 0.2 X10*3/uL [facility] NRBC Abs Auto 0.000 0.0 - 0.012 X10*3/uL [facility] 07/22/2024 5:27 PM EST 07/22/2024 5:38 PM EST Generic External Data Provider LAB BLOOD ORDERAB LES Edited Result - Final Performing Organization Address City/[facility]/ZIP Co de Phone Number [facility] [address] [place] [address] [phone] * hCG, Total, Quantitative (07/22/2024 5:27 PM EST) HCG Quantitative <2 mIU/mL [facility] Comment:Weeks post LMP Appro ximate hCG(Last Menstrual Period) Range (mIU/ml)3 - 4 weeks 9 - 1304 - 5 weeks 75 - 2,6005 - 6 weeks 850 - 20,8006 - 7 weeks 4000 - 100,2007 - 12 weeks 11,500 - 289,39675 - 16 weeks 18,300 - 137,31254 - 29 weeks (2nd trimester) 1,400 - 53,81294 - 41 weeks (3rd trimester) 940 - 60,000The De Jesus B- hCG assay is used for the early detection ofpregnancy; it cannot be used to diagnose any conditionunrelated to . If a B-hCG level is not supportedby the clinical evidence, results should be confirmed by analternative method (qualitative urine hCG, for example). 07/22/2024 5:27 PM EST 07/22/2024 5:38 PM EST us Generic External Data Provider LAB BLOOD ORDERAB LES Final Result [facility] [address] [place] [phone] [phone] * Magnesium (07/22/2024 5:27 PM EST) Magnesium 1.6 1.6 - 2.6 mg/dL [facility] 07/22/2024 5:27 PM EST 07/22/2024 5:38 PM EST us Generic External Data Provider LAB BLOOD ORDERAB LES Final Result Performing Organization Address [facility] Co de Phone Number [facility] [address] [place] [phone] * Hepatic Function Panel (07/22/2024 5:27 PM EST) Bilirubin, Total 0.3 0.0 - 1.0 mg/dL [facility] Bilirubin, Direct 0.1 0.0 - 0.5 mg/dL [facility] Aspartate Amino Transferase 24 5 - 31 U/L [facility] Alanine Aminotransferase 21 0 - 31 U/L [facility] Total Protein 8.0 6.5 - 8.0 g/dL [facility] Albumin Level 4.6 3.5 - 5.0 g/dL [facility] Alkaline Phosphatase 56 39 - 117 U/L [facility] 07/22/2024 5:27 PM EST 07/22/2024 5:38 PM EST [employer] External Data Provider LAB BLOOD ORDERAB LES Final Result Performing Organization Address [facility] de Phone Number [facility] [address] [place] [phone] * (ABNORMAL) Basic Metabolic Panel (07/22/2024 5:27 PM EST) Pathologist [facility] Sodium 138 135 - 145 mmol/L [facility] Potassium 3.7 3.3 - 5.1 mmol/L [facility] Chloride 108 96 - 108 mmol/L [facility] Carbon Dioxide 21(L) 22 - 29 mmol/L [facility] Anion Gap 13 12 - 20 [facility] Urea Nitrogen (BUN) 13 9 - 16 mg/dL [facility] Creatinine, Serum 0.66 0.5 - 1.4 mg/dL [facility] Creatinine Clr Calc Pharmacy 104.6 [facility] Comment:Provided height and weight: 154.94 cm,58.967 kg.eGFR (calculated from the MDRD study equation) and eCrCl(calculated from the Cockcroft-Gault equation) are based ondifferent parameters and may not yield comparable results.If eCrCl result is absurd, please check patient'sheight/weight. Estimated Glomerular Filt Rate >60 [facility] Comment:Chronic Kidney Disea se: Estimated GFR < 60 mL/min/1.47u1Mjhgyg Kidney Disease: Estimated GFR < 15 mL/min/1.73m2 Glucose 152(H) 60 - 115 mg/dL [facility] Calcium 9.4 8.4 - 10.2 mg/dL [facility] 07/22/2024 5:27 PM EST 07/22/2024 5:38 PM EST Generic External Data Provider LAB BLOOD ORDERAB LES Final Result [facility] [address] [place] [phone] * Pap Smear (06/25/2021) Pap Negative for intraephithelial lesion or malignancy Negative for intraephithelial lesion or malignancy, Other HPV Undetected Undetected, Indeterminate, Quantitative, Not Detected Historical Provider HEALTH MAINTENANCE Final Result from Last 3 Months or Most Recently Relevant to Health Maintenance Insurance [facility] C3
--- OUTSIDE RECORDS SUMMARY | 2024-08-30 02:42 | XMS_ITS | Encounter Summary ---
Author Organization [facility] Address [address] [place] [phone] Phone Care Team Providers Care Groover And Striper Operator Name Role Phone Maty Hoffmann NP Primary Care Provider Magnolia hussein Encounter Details Date Type Department Care Team (Late st Contact Info) Description 03/31/2013 Documentation [facility] [place] [address] [place] [address] Family Medicine, Physician [address] [place] [address] Social History Tobacco Use Types Packs/Day Years [...] on filedocumented in this encounter Care Teams Groover And Striper Operator Relationship Specialty Start Date End Date Maty Hoffmann NP PCP - General 12/27/16 10/17/22 documented as of this encounter
--- OUTSIDE RECORDS SUMMARY | 2024-08-30 02:42 | XMS_ITS | Encounter Summary ---
Author Organization [facility] Address [address] [place] [phone] Phone Care Team Providers Care Sample Hand Name Role Phone Maty Hoffmann NP Primary Care Provider Magnolia hussein Encounter Details Date Type Department Care Team (Late st Contact Info) Description 04/07/2013 Documentation [facility] Family Medicine [address] [place] [address] Family Medicine, Physician [address] [place] [address] Social History Tobacco Use Types Packs/Day Years [...] on filedocumented in this encounter Care Teams Sample Hand Relationship Specialty Start Date End Date Maty Hoffmann NP PCP - General 12/27/16 10/17/22 documented as of this encounter
--- OUTSIDE RECORDS SUMMARY | 2024-08-30 02:43 | XMS_ITS | Encounter Summary ---
Author Organization [facility] Address [address] [place] [phone] Phone Care Team Providers Care Information Technology Program Manager Name Role Phone Maty Hoffmann NP Primary Care Provider Magnolia hussein Encounter Details Date Type Department Care Team (Late st Contact Info) Description 12/21/2013 Documentation [facility] [address] [place] [address] Family Medicine, Physician [address] [place] [address] Social History Tobacco Use Types Packs/Day Years [...] on filedocumented in this encounter Care Teams Information Technology Program Manager Relationship Specialty Start Date End Date Maty Hoffmann NP PCP - General 12/27/16 10/17/22 documented as of this encounter
--- OUTSIDE RECORDS SUMMARY | 2024-08-30 02:43 | XMS_ITS | Encounter Summary ---
Author Organization [facility] Address [address] [place] [phone] Phone Care Team Providers Care Track Dresser Name Role Phone Maty Hoffmann NP Primary Care Provider Magnolia hussein Encounter Details Date Type Department Care Team (Late st Contact Info) Description 10/25/2015 Documentation [facility] [address] [place] [address] Family Medicine, Physician [address] [place] [address] Social History Tobacco Use Types Packs/Day Years [...] on filedocumented in this encounter Care Teams Track Dresser Relationship Specialty Start Date End Date Maty Hoffmann NP PCP - General 12/27/16 10/17/22 documented as of this encounter
--- OUTSIDE RECORDS SUMMARY | 2024-08-30 02:43 | XMS_ITS | Encounter Summary ---
Author Organization [facility] Address [address] [place] [phone] Phone Care Team Providers Care Websphere Message Broker Developer Name Role Phone Maty Hoffmann NP Primary Care Provider Magnolia hussein Encounter Details Date Type Department Care Team (Late st Contact Info) Description 11/27/2015 Documentation [facility] [address] [place] [address] Family Medicine, Physician [address] [place] [address] Social History Tobacco Use Types Packs/Day Years [...] on filedocumented in this encounter Care Teams Websphere Message Broker Developer Relationship Specialty Start Date End Date Maty Hoffmann NP PCP - General 12/27/16 10/17/22 documented as of this encounter
--- OUTSIDE RECORDS SUMMARY | 2024-08-30 02:43 | XMS_ITS | Encounter Summary ---
Author Organization [facility] Address [address] [place] [phone] Phone Care Team Providers Care Earth Sciences Professor Name Role Phone Maty Hoffmann NP Primary Care Provider Magnolia hussein Encounter Details Date Type Department Care Team (Late st Contact Info) Description 07/12/2015 Documentation [facility] [address] [place] [address] Family Medicine, Physician [address] [place] [address] Social History Tobacco Use Types Packs/Day Years [...] on filedocumented in this encounter Care Teams Earth Sciences Professor Relationship Specialty Start Date End Date Maty Hoffmann NP PCP - General 12/27/16 10/17/22 documented as of this encounter
--- OUTSIDE RECORDS SUMMARY | 2024-08-30 02:43 | XMS_ITS | Encounter Summary ---
Author Organization [facility] Address [address] [place] [address] Phone Care Team Providers Care National Sales Executive Name Role Phone Maty Hoffmann NP Primary Care Provider Magnolia hussein Encounter Details Date Type Department Care Team (Late st Contact Info) Description 01/02/2017 Conversion Encounter [facility] - [address] [phone] Social History Tobacco Use Types Packs/Day Years [...] on filedocumented in this encounter Care Teams National Sales Executive Relationship Specialty Start Date End Date Maty Hoffmann NP PCP - General 12/27/16 10/17/22 documented as of this encounter
--- OUTSIDE RECORDS SUMMARY | 2024-08-30 02:43 | XMS_ITS | Encounter Summary ---
Author Organization [facility] Address [address] [place] [phone] Phone Care Team Providers Care Air Turning Machine Feeder Name Role Phone Maty Hoffmann NP Primary Care Provider Magnolia hussein Encounter Details Date Type Department Care Team (Late st Contact Info) Description 04/13/2013 Documentation [facility] [place] [address] [place] [address] Family Medicine, Physician [address] [place] [address] Social History Tobacco Use Types Packs/Day Years [...] on filedocumented in this encounter Care Teams Air Turning Machine Feeder Relationship Specialty Start Date End Date Maty Hoffmann NP PCP - General 12/27/16 10/17/22 documented as of this encounter
--- OUTSIDE RECORDS SUMMARY | 2024-08-30 02:43 | XMS_ITS | Encounter Summary ---
Author Organization [facility] Address [address] [place] [phone] Phone Care Team Providers Care Claims Support Specialist Name Role Phone Maty Hoffmann NP Primary Care Provider Magnolia hussein Encounter Details Date Type Department Care Team (Late st Contact Info) Description 03/30/2010 Documentation [facility] [address] [place] [address] Family Medicine, Physician [address] [place] [address] Social History Tobacco Use Types Packs/Day Years [...] on filedocumented in this encounter Care Teams Claims Support Specialist Relationship Specialty Start Date End Date Maty Hoffmann NP PCP - General 12/27/16 10/17/22 documented as of this encounter
--- OUTSIDE RECORDS SUMMARY | 2024-08-30 02:43 | XMS_ITS | Encounter Summary ---
Author Organization [facility] Address [address] [place] [phone] Phone Care Team Providers Care Assistant Secretary Name Role Phone Maty Hoffmann NP Primary Care Provider Magnolia hussein Encounter Details Date Type Department Care Team (Late st Contact Info) Description 07/23/2010 Documentation [facility] [address] [place] [address] Family Medicine, Physician [address] [place] [address] Social History Tobacco Use Types Packs/Day Years [...] on filedocumented in this encounter Care Teams Assistant Secretary Relationship Specialty Start Date End Date Maty Hoffmann NP PCP - General 12/27/16 10/17/22 documented as of this encounter
--- OUTSIDE RECORDS SUMMARY | 2024-08-30 02:43 | XMS_ITS | Clinical Summary ---
Author Organization [facility] Address [address] [place] [address] Phone Care Team Providers Care Linotype Worker Name Role Phone Unavailable Primary Care Provider Unavailabl e Immunizations Immunization Administration Dates Next Due DTaP 5 04/08/2001, 8,01/04/1997, 997,1996 H1N1 03/21/2009 HPV, Quadrivalent 01/10/2010,03/21/2009,01/19/20 09 Hep A, Adult 10/19/2015 Hep B, ped/adol 1996,1996,1996 Hib (PRP-T) 06/14/1997, 7,1996, 997 IPV 04/08/2001 Influenza Split 04/17/2011, 0,03/23/2002, 001 Influenza, injectable, trivalent 009,03/30/2008,04/29/2006, 005,03/13/2004,03/29/2003,03/23/2002,,05/03/1997,02/25/1997 MMR 04/08/2001,06/14/1997 Meningococcal Conj (Menactra) MCV4P 01/18/2009 OPV 01/04/1997,1996,1996 Tdap 01/18/2009 Family History Relation Name Status Comments Brother Alive Brother: Alive and well, ADD/ADHD Mother Alive Mother: Asthma Other Family history of Elevated cholesterol, Family history of Developmental dislocation of hip, Family history of Strabismus/amblyopia, Family history of Diabetes mellitus, Family history of Asthma, Family history of Obesity Sister 1 Alive Sister,Asthma,: Seizure disorder Sister 2 Alive Sister: Lazy ey e Social History Tobacco Use Types Packs/Day Years Used Date Smoking Tobacco: Never Assessed Comments Unknown Sex and Gender Information Value Date Recorded Sex Assigned at Not on file Legal Sex Female 5:07 PM EDT Gender Identity Not on file Sexual Orientation Not on file Last Filed Vital Signs Vital Sign Reading Time Taken Comments Blood Pressure 128/88 10/19/2015 12:00 AM EDT Pulse 125 12/15/2013 12:00 AM EDT Temperature 36.7 ??C (98 ??F) 10/19/2015 12: 00 AM EDT Respiratory Rate - - Oxygen Saturation 98% 01/26/2013 12: 00 AM EDT Inhaled Oxygen Concentration - - Weight 49.8 kg (109 lb 12.8 oz) 016 12:00 AM EDT Height 156.2 cm (5' 1.5 ) 10/19/2015 12 :00 AM EDT Body Mass Index 20.41 10/19/2015 12:00 AM EDT Plan of Treatment Health Maintenance Due Date Last Done Comments Varicella Vaccines (1 of 2 - 13+ 2-dose series) 2009 DTaP,Tdap,and Td Vaccines (7 - Td or Tdap) 01/18/2019 01/18/2009, 04/08/2001, 09/15/1997, Additional history exists Influenza Vaccines (#1) 2023 04/17/20, 01/10/2010, 02/02/2009, Additional history exists COVID-19 Vaccine (2023- season) 2024 Hepatitis B Vaccines Completed 1996, 1996, 1996 HIB Vaccines Completed 06/14/1997, 12/17, 1996, Additional history exists IPV Vaccines Completed 04/08/2001, 12/17, 1996, Additional history exists MMR Vaccines Completed 04/08/2001, 06/14/1997 Meningococcal Vaccine Aged Out 01/18/2009 No gloria verna eligible based on patient's age to complete this topic HPV Vaccines Completed 01/10/2010, 07/2008, 01/18/2009 Hepatitis A Vaccines Aged Out 10/19/2015 No long er eligible based on patient's age to complete this topic Men B Vaccine Aged Out No longer elig ible based on patient's age to complete this topic Pneumococcal Vaccine Aged Out No long er eligible based on patient's age to complete this topic Procedures * Due to [facility] law, this organization might not be sharing sensitive test results. Procedure Name Priority Date/Time Associated Diagnosis Comments CHLAMYDIA AND GONORRHEA, AMPLIFIED Routine 12/15/2013 1:32 PM EDT from Last 3 Months or Most Recently Relevant to Health Maintenance Results * Due to [place] [employer] law, this organization might not be sharing sensitive test results. * Chlamydia and Gonorrhoea, Amplified (12/15/2013 1:32 PM EDT) URINE CHLAMYDIA AMP PROBE NEGATIVE [facility] Comment: NO CHLAMYDIA TRACHOMATIS RNA DETECTED IN THIS PATIENT'S SAMPLE. (REFERENCE RANGE/NORMAL VALUE: NOT DETECTED) URINE GC AMP PROBE NEGATIVE [facility] Comment: NO NEISSERIA GONORRHOEAE RNA DETECTED IN THIS PATIENT'S SAMPLE. (REFERENCE RANGE/NORMAL VALUE: NOT DETECTED) NOTE: This test uses reefer truck driver-mediated amplification method to detect rRNA from C.Trachomatis and N.Gonorrhoeae. A negative result does not preclude infection. In the case of a negative urine result, testing of an endocervical(female) or urethral(male) specimen is recommended if there is high clinical suspicion of infection. The performance characteristics of this test have not been evaluated in children. The Aptima Combo2 assay is not intended for the evaluation of suspected sexual abuse or for other medico-legal indications. The ordering provider should assess if the patient had consensual sex without risk of sexual abuse. Consult the [facility] if needed. Contact phone number . Therapeutic failure or success cannot be determined with the Aptima Combo2 assay since nucleic acid may persist following appropriate antimicrobial therapy. The Centers for Disease Control and Prevention (CDC) recommends confirmatory retesting using culture or a different nucleic acid amplification test when positive results occur, if indicated. Testing performed or reported by [facility], a Service of [facility] [employer] [facility] [employer], [address] [place] [id number] Jeff Hampton, Computer Systems Designer 12/15/2013 1:32 PM EDT [facility] - 12/15/2013 1:32 PM EDT URINE CHLAMYDIA GC AMP PROBE us Maty Hoffmann NP LAB MICROBIOLOGY - GENERAL OR DERABLES Final Result [facility] [address] [place] [address], [place] from Last 3 Months or Most Recently Relevant to Health Maintenance
--- OUTSIDE RECORDS SUMMARY | 2024-08-30 02:43 | XMS_ITS | Encounter Summary ---
Author Organization [facility] Address [address] [place] [phone] Phone Care Team Providers Care Basic Sciences Dean Name Role Phone Maty Hoffmann NP Primary Care Provider Magnolia hussein Encounter Details Date Type Department Care Team (Late st Contact Info) Description 02/01/2016 Documentation EM Family Medicine [address] [place] [address] Family Medicine, Physician [address] [place] [address] Social History Tobacco Use Types Packs/Day Years [...] on filedocumented in this encounter Care Teams Basic Sciences Dean Relationship Specialty Start Date End Date Maty Hoffmann NP PCP - General 12/27/16 10/17/22 documented as of this encounter
--- OUTSIDE RECORDS SUMMARY | 2024-08-30 02:43 | XMS_ITS | Encounter Summary ---
Author Organization [facility] Address [address] [place] [address] Phone Care Team Providers Care Slicing Machine Operator/Tender Name Role Phone Maty Hoffmann NP Primary Care Provider Magnolia hussein Encounter Details Date Type Department Care Team (Late st Contact Info) Description 06/15/2014 Documentation EM Family Medicine [address] [place] [address] Family Medicine, Physician [address] [place] [address] Social History Tobacco Use Types Packs/Day Years [...] on filedocumented in this encounter Care Teams Slicing Machine Operator/Tender Relationship Specialty Start Date End Date Maty Hoffmann NP PCP - General 12/27/16 10/17/22 documented as of this encounter
--- OUTSIDE RECORDS SUMMARY | 2024-08-30 02:43 | XMS_ITS | Encounter Summary ---
Author Organization [facility] Address [address] [place] [address] Phone Care Team Providers Care Rn Womens Health Name Role Phone Maty Hoffmann NP Primary Care Provider Magnolia hussein Encounter Details Date Type Department Care Team (Late st Contact Info) Description 03/07/2016 Documentation EM Family Medicine [address] [place] [address] Family Medicine, Physician [address] [place] [address] Social History Tobacco Use Types Packs/Day Years [...] on filedocumented in this encounter Care Teams Rn Womens Health Relationship Specialty Start Date End Date Maty Hoffmann NP PCP - General 12/27/16 10/17/22 documented as of this encounter
--- NOTE | 2024-08-30 03:30 | ED.EXTPRO ---
HPI - Extremity Problem General Chief complaint: Extremity Problem Stated complaint: right foot pain Time Seen by Provider: 08/30/24 03:29 Source: patient Mode of arrival: ambulatory Limitations: no limitations History of Present Illness ED Provider: HPI Narrative: Patient stepped on a nail about an year ago since then having callus in the right foot patient is trying to shave with now is hurting no pus discharge no redness around it Related Data Home Medications ?Medication ?Instructions ?Recorded ?Confirmed polyethylene glycol 3350 17 gram 17 g PO DAILY PRN Constipation 07/23/24 07/23/24 oral powder packet Previous Rx's ?Medication ?Instructions ?Recorded prochlorperazine 25 mg rectal 25 mg FL Q12H PRN nausea and 02/16/24 suppository vomiting #12 ea Allergies Allergy/AdvReac Type Severity Reaction Status Date / Time No Known Allergies Allergy Verified 08/30/24 02:31 [No Known Allergies*] Review of Systems Review of Systems: Yes all other systems are reviewed and are negative PMFSH Past Medical History Medical History Chronic hepatitis B Cyclical vomiting Fallot tetralogy Cyclical vomiting Surgical History H/O tetralogy of Fallot repair Hx of section Social History Social History Household Members: Significant Other Housing: Apartment Do you presently have visiting nurse or other home services: No Alcohol intake: current Alcohol intake frequency: holidays/special occasions only Patient Tobacco Use Status: Never used Tobacco Second Hand Smoke Exposure: No Substance Use Type: Marijuana Advance Directives: No Advance Directives Information Provided: Yes service: No Physical Exam Vital Signs: Vital Signs: Last Vital Signs Temp 98.2 F 08/30/24 02:29 Pulse 82 08/30/24 02:29 Resp 16 08/30/24 02:29 BP 106/56 L 08/30/24 02:29 Pulse Ox 97 08/30/24 02:29 O2 Del Method Room Air 08/30/24 02:29 BMI result Body Mass Index 29.5 Extrem: Ankle/foot/toe images: 1. Small callus in the right foot at the base of 2nd toe no signs of infection Medical Decision Making Medical Decision Making [facility] Narrative: Patient has small callus in the right foot advised to use callus removal seal [id number] x-ray negative for any foreign body no signs of infection Independent Interpretation I performed an independent interpretation of an: Plain X-Ray Interpretation: No acute Discharge Plan Discharge Clinical Impression: Callus of foot Patient Disposition: Home, Self-Care Additional Instructions: Use Dr. Mar's callus removal seal at the callus area Local care as advised Prescriptions: No Action prochlorperazine 25 mg suppository 25 mg FL Q12H PRN (Reason: nausea and vomiting) Qty: 12 0RF polyethylene glycol 3350 17 gram powder in packet 17 g PO DAILY PRN (Reason: Constipation) Print Language: Citizen Of [place]
[2024-08-30 03:42] VITALS: BP 106/56; PULSE 82; RESP 16; TEMP 36.8; O2SAT 97
== END 2024-08-30 03:45 | disposition home or self-care (01) ==
PROVIDERS: Emergency Provider Internal Medicine
DX: L84 Corns and callosities (principal); M79.671 Pain in right foot
CPT/HCPCS: 73630; 99282; 99283

== ENCOUNTER → 2024-08-30 02:47 | Outpatient (BNV) | payer MEDICAID, SELFPAY | PROVIDERS: Emergency Provider Internal Medicine; Visit Provider Radiology Diagnostic Radiology | DX: M79.671 Pain in right foot (principal) | CPT/HCPCS: 73630 ==

== ENCOUNTER 2025-01-23 11:13 | Emergency (ER) | payer MEDICAID, SELFPAY ==
[2025-01-23 11:41] VITALS: BP 109/70; PULSE 71; RESP 16; TEMP 36.8; O2SAT 96; BMI 26.3
--- NOTE | 2025-01-23 11:52 | ED.GENADULT ---
HPI - General Adult General Chief complaint: Ear Problems Stated complaint: L Ear hurting Time Seen by Provider: 01/23/25 11:50 Source: patient Mode of arrival: ambulatory Limitations: no limitations History of Present Illness ED Provider: Lavelle Escalante HPI narrative: 29 yold female with pmh of cyclical vomitting presents to the ED for intermittent left ear pain for the past two years and has recoccurred the past 2 weeks with some nausea and vomitting. patinet state feeling pressure in ear when she changes position. patient denies any other complaints. Related Data Home Medications ?Medication ?Instructions ?Recorded ?Confirmed polyethylene glycol 3350 17 gram 17 g PO DAILY PRN Constipation 07/23/24 07/23/24 oral powder packet Previous Rx's ?Medication ?Instructions ?Recorded prochlorperazine 25 mg rectal 25 mg [place] Q12H PRN nausea and 02/16/24 suppository vomiting #12 ea amoxicillin 875 mg-potassium 1 tab PO Q12H 10 days #20 tabs 01/23/25 clavulanate 125 mg tablet carbamide peroxide 6.5 % ear drops 5 drp otic (ear) left Q12H 4 days 01/23/25 (Debrox) #15 mL naproxen 500 mg tablet 500 mg PO BID PRN pain #14 tabs 01/23/25 ondansetron 4 mg disintegrating 4 mg PO Q6H PRN nausea and 01/23/25 tablet vomiting #8 tabs Allergies Allergy/AdvReac Type Severity Reaction Status Date / Time No Known Allergies (No Known Allergy Verified 01/23/25 11:48 Allergies*) Review of Systems Review of Systems: left ear pain Yes all other systems are reviewed and are negative [facility] Past Medical History Medical History Chronic hepatitis B Cyclical vomiting Fallot tetralogy Cyclical vomiting Surgical History H/O tetralogy of Fallot repair Hx of section Social History Social History Household Members: Significant Other Housing: Apartment Do you presently have visiting nurse or other home services: No Alcohol intake: current Alcohol intake frequency: holidays/special occasions only Patient Tobacco Use Status: Never used Tobacco Second Hand Smoke Exposure: No Substance Use Type: Marijuana Advance Directives: No Advance Directives Information Provided: Yes service: No Physical Exam ED Vital Signs: Vital Signs - 24 hr 01/23/25 11:41 01/23/25 12:26 Temperature 98.2 F 98.2 F Pulse Rate 71 71 Respiratory Rate 16 16 Blood Pressure 109/70 109/70 Pulse Oximetry 96 96 Oxygen Delivery Method Room Air Room Air BMI result Body Mass Index 26.3 Const General: cooperative, healthy appearing, comfortable, no acute distress, well developed, alert, awake and Physically active Orientation/consciousness: patient oriented x3 [facility] Head: Yes normal to inspection, Yes No palpable skull fracture present, Yes normocephalic and Yes atraumatic Ears: hearing grossly normal bilaterally, external ears normal, TM's normal bilaterally, TM normal on the right, TM normal on the left, EAC's normal, mastoids normal, no periauricular adenopathy and Abnormal EAC present cerumen impaction on the left and excessive cerumen on the left Eyes General: appearance normal, both eyes and all related structures Neck Neck: Yes normal visual inspection, Yes full ROM, Yes no lymphadenopathy, Yes no meningeal signs, Yes trachea midline, Yes supple, No anterior neck swelling and No tender Chest Chest palpation & inspection: normal inspection of the chest and normal palpation of entire chest wall Resp Effort & Inspection: normal respiratory effort and able to speak in complete sentences Auscultation: clear to auscultation bilaterally Cardio Jugular venous distension: no JVD Heart sounds: S1 normal heart sound present and S2 normal heart sound present GI Inspection: Yes normal to inspection Palpation (GI): Soft to palpation, not firm, nontender, no guarding and not rigid General: Yes no CVA tenderness Back/Spine/Pelvis Back: no CVA tenderness and No back tenderness Skin General skin exam: no rashes or lesions noted, elasticity normal and turgor normal Neuro General: patient oriented x3, gait normal, tone normal, moves all extremities, Normal light touch and pain sensation, no meningeal signs, no focal motor deficits and CN's II-XI intact bilaterally Extrem General: Yes normal to inspection, Yes full ROM and Yes capillary refill normal Psych Appearance: grossly normal, well kempt and not disheveled NIH Stroke Scale Internal: Initial- Upon Arrival Level of Consciousness: Alert Level of Consciousness Questions: Answers both questions correctly Level of Consciousness Commands: Performs both tasks correctly Best Gaze: Normal Visual: No visual loss Facial Palsy: Normal Motor Arm (Right): No drift Motor Arm (Left): No drift Motor Leg (Right): No drift Motor Leg (Left): No drift Limb Ataxia: Absent Sensory: Normal Best Language: No aphasia Dysarthia: Normal Extinction and Inattention: No abnormality Score: 0 Medical Decision Making Medical Decision Making MDM Narrative: 29 yold female presents to the ED for 2 weeks of intermittent left ear pain that gets worse with change of position and than cuases her to fell nauseous. Patient states dealing with this for 2 years. Patient denies any recent trauma, fever, ear discharge, blood from ears, missed periord or recent plan travel. patient states last swim dive 2 months ago. Patinet deniess room spinning. Patient denies any change in vision, loss of vision, slurred speech, dizziness or paralysis. Patient states every doctors has told ear is fine, but she feels pressure in left ear and whoosing. Negative for signs of mastoiditis, stroke, temporal arteritis, prior dissection, osteomyelitis, sepsis, brain bleed, neck fracture, posterior cerebellar stroke, or any other life-threatening etiology. Patient informed to follow-up with ENT. No need for labs or EKG no need for any imaging. Not suspecting MA, , ectopic, or brain mass stroke. No need for head CT. Left Ear has more wax in right ear. We will discharged with Debrox antibiotics and follow up with the ENT. Patient educated on worrisome signs and informed to return to the ED immediately. Differential Diagnosis Differential Diagnoses: The differential diagnosis associated with the presentation includes (Barotrauma pressure, benign vertigo, otitis media/externa, middle ear effusion) Admission/Observation Consideration of admission/observation: Escalation of care including admission/observation considered Independent Historian Clinical information obtained from an independent historian. History obtained from or confirmed by: Other (patient) Prescription Management I considered prescription management with: Other (debrox) Discharge Plan Discharge Clinical Impression: Ear pain, Cerumen impaction Patient Disposition: Home, Self-Care Instructions: Earache (ED) Additional Instructions: You will need follow-up with ENT for re-evaluation. Return to the ED immediately for any severe ear pain, dizziness, sensation of room spinning, swelling redness of ear, fever, chills, headache, coughing up blood, rash, slurred speech, facial droop, paralysis of extremities, or any other concerning symptoms. Follow up with [facility], [facility]. [address] [facility] [address], [place] [address] [phone]. Prescriptions: New Debrox 6.5 % drops 5 drp otic (ear) left Q12H 4 Days Qty: 15 0RF amoxicillin-pot clavulanate 875-125 mg tablet 1 tab PO Q12H 10 Days Qty: 20 0RF naproxen 500 mg tablet 500 mg PO BID PRN (Reason: pain) Qty: 14 0RF ondansetron 4 mg tablet,disintegrating 4 mg PO Q6H PRN (Reason: nausea and vomiting) Qty: 8 0RF No Action prochlorperazine 25 mg suppository 25 mg [place] Q12H PRN (Reason: nausea and vomiting) Qty: 12 0RF polyethylene glycol 3350 17 gram powder in packet 17 g PO DAILY PRN (Reason: Constipation) Referrals: Seth Dooley [Physician, Ear, Nose, Throat] - 2 days Referral Note: Intermittent left ear pain pressure nausea the past 2 years. Middle ear effusion? , benign vertigo, Clinical Impression: Cerumen impaction; Ear pain Stand Alone Forms: Work/School Release Interventions: ED Discharge Assessment Last Done: 01/23/25 12:26 Discharge Date/Time: 01/23/25 12:27 Print Language: French
--- OUTSIDE RECORDS SUMMARY | 2025-01-23 11:59 | XMS_ITS | Encounter Summary ---
Author Organization [facility] Address [address] [place] [phone] Phone Care Team Providers Care Senior Customer Service Representative Name Role Phone Maty Hoffmann NP Primary Care Provider Magnolia hussein Encounter Details Date Type Department Care Team (Late st Contact Info) Description 09/18/2012 Documentation EM Family Medicine [address] [place] [address] Family Medicine, Physician [address] [place] [address] Social History Tobacco Use Types Packs/Day Years [...] on filedocumented in this encounter Care Teams Senior Customer Service Representative Relationship Specialty Start Date End Date Maty Hoffmann NP PCP - General 12/27/16 10/17/22 documented as of this encounter
--- OUTSIDE RECORDS SUMMARY | 2025-01-23 11:59 | XMS_ITS | Encounter Summary ---
Author Organization [facility] Address [address] [place] [address] Phone Care Team Providers Care Senior Qualitative Researcher Name Role Phone Maty Hoffmann NP Primary Care Provider Magnolia hussein Encounter Details Date Type Department Care Team (Late st Contact Info) Description 09/18/2012 Documentation EM Family Medicine [address] [place] [address] Family Medicine, Physician [address] [place] [address] Social History Tobacco Use Types Packs/Day Years [...] filedocumented in this encounter Care Teams Senior Qualitative Researcher Relationship Specialty Start Date End Date Maty Hoffmann NP PCP - General 12/27/16 10/17/22 documented as of this encounter
--- OUTSIDE RECORDS SUMMARY | 2025-01-23 12:00 | XMS_ITS | Encounter Summary ---
Author Organization [facility] Address [address] [place] [phone] Phone Care Team Providers Care Bank Boss Name Role Phone Maty Hoffmann NP Primary Care Provider Magnolia hussein Encounter Details Date Type Department Care Team (Late st Contact Info) Description 07/12/2015 Documentation EM Family Medicine [address] [place] [address] Family Medicine, Physician [address] [place] [address] Social History Tobacco Use Types Packs/Day Years [...] on filedocumented in this encounter Care Teams Bank Boss Relationship Specialty Start Date End Date Maty Hoffmann NP PCP - General 12/27/16 10/17/22 documented as of this encounter
--- OUTSIDE RECORDS SUMMARY | 2025-01-23 12:00 | XMS_ITS | Encounter Summary ---
Author Organization [facility] Address [address] [place] [address] Phone Care Team Providers Care Fisher Weir Name Role Phone Maty Hoffmann NP Primary Care Provider Magnolia hussein Encounter Details Date Type Department Care Team (Late st Contact Info) Description 03/31/2013 Documentation [facility] Family Medicine [address] [place] [address] Family Medicine, Physician [address] [place] [address] Social History Tobacco Use Types Packs/Day Years [...] on filedocumented in this encounter Care Teams Fisher Weir Relationship Specialty Start Date End Date Maty Hoffmann NP PCP - General 12/27/16 10/17/22 documented as of this encounter
--- OUTSIDE RECORDS SUMMARY | 2025-01-23 12:00 | XMS_ITS | Encounter Summary ---
Author Organization [facility] Address [address] [place] [address] Phone Care Team Providers Care Storage Wharfage Clerk Name Role Phone Maty Hoffmann NP Primary Care Provider Magnolia hussein Encounter Details Date Type Department Care Team (Late st Contact Info) Description 10/25/2012 Documentation EM Family Medicine [address] [place] [address] Family Medicine, Physician [address] [place] [address] Social History Tobacco Use Types Packs/Day Years [...] on filedocumented in this encounter Care Teams Storage Wharfage Clerk Relationship Specialty Start Date End Date Maty Hoffmann NP PCP - General 12/27/16 10/17/22 documented as of this encounter
--- OUTSIDE RECORDS SUMMARY | 2025-01-23 12:00 | XMS_ITS | Encounter Summary ---
Author Organization [facility] Address [address] [place] [address] Phone Care Team Providers Care Toolmaker Name Role Phone Maty Hoffmann NP Primary Care Provider Magnolia hussein Encounter Details Date Type Department Care Team (Late st Contact Info) Description 01/02/2017 Conversion Encounter [facility] - [address] [address] Social History Tobacco Use Types Packs/Day Years [...] on filedocumented in this encounter Care Teams Toolmaker Relationship Specialty Start Date End Date Maty Hoffmann NP PCP - General 12/27/16 10/17/22 documented as of this encounter
--- OUTSIDE RECORDS SUMMARY | 2025-01-23 12:00 | XMS_ITS | Clinical Summary ---
Author Organization [facility] Address [address] [place] [phone] Phone Care Team Providers Care Impregnator Helper Name Role Phone Unavailable Primary Care Provider [...] 125 12/15/2013 12:00 AM EDT Temperature 36.7 C (98 F) 10/19/2015 12:00 AM EDT Respiratory Rate - - Oxygen [...] 09/15/1997, Additional history exists Influenza Vaccines (#1) 2024 04/17/20, 01/10/2010, 02/02/2009, Additional history exists COVID-19 Vaccine ( season) 2025 Hepatitis B Vaccines Completed 1996, 1996, 1996 [...] complete this topic Procedures * Due to [facility] law, this organization might not be sharing sensitive test results. Procedure Name Priority Date/Time Associated Diagnosis Comments CHLAMYDIA AND GONORRHEA, AMPLIFIED Routine 12/15/2013 1:32 PM EDT from Last 3 Months or Most Recently Relevant to Health Maintenance Results * Due to [facility] law, this organization might not be sharing sensitive test results. * Chlamydia and Gonorrhoea, Amplified (12/15/2013 1:32 PM EDT) URINE CHLAMYDIA AMP PROBE NEGATIVE [facility] Comment: NO CHLAMYDIA TRACHOMATIS RNA DETECTED IN THIS PATIENT'S SAMPLE. (REFERENCE RANGE/NORMAL VALUE: NOT DETECTED) URINE GC AMP PROBE NEGATIVE [facility] Comment: NO NEISSERIA GONORRHOEAE RNA DETECTED IN THIS PATIENT'S SAMPLE. (REFERENCE RANGE/NORMAL VALUE: NOT DETECTED) NOTE: This test uses cocoa bean cleaner-mediated amplification method to detect rRNA from C.Trachomatis [...] without risk of sexual abuse. Consult the [facility] if needed. Contact phone number . Therapeutic failure or success cannot be determined with the Aptima Combo2 assay since nucleic acid may persist following appropriate antimicrobial therapy. The Centers for Disease Control and Prevention (CDC) recommends confirmatory retesting using culture or a different nucleic acid amplification test when positive results occur, if indicated. Testing performed or reported by [facility], a Service of [facility], [address] [place] [id number] Jeff Hampton, Lead Javascript Developer 12/15/2013 1:32 PM EDT [facility] - 12/15/2013 1:32 PM EDT URINE CHLAMYDIA GC AMP PROBE us Maty Hoffmann NP LAB MICROBIOLOGY - GENERAL OR DERABLES Final Result [facility] [address] [place] [address], [place] from Last 3 Months or Most Recently Relevant to Health Maintenance
--- OUTSIDE RECORDS SUMMARY | 2025-01-23 12:00 | XMS_ITS | Encounter Summary ---
Author Organization [facility] Address [address] [place] [address] Phone Care Team Providers Care Rn Clinician Name Role Phone Maty Hoffmann NP Primary Care Provider Magnolia hussein Encounter Details Date Type Department Care Team (Late st Contact Info) Description 04/13/2013 Documentation [facility] [place] Family Medicine [address] [place] [address] Family Medicine, Physician [address] [place] [address] Social History Tobacco Use Types Packs/Day Years [...] filedocumented in this encounter Care Teams Rn Clinician Relationship Specialty Start Date End Date Maty Hoffmann NP PCP - General 12/27/16 10/17/22 documented as of this encounter
--- OUTSIDE RECORDS SUMMARY | 2025-01-23 12:00 | XMS_ITS | Clinical Summary ---
Author Organization [employer] Address [address] [facility] [address] [place] [address] Care Team Providers Care Residential Mental Health Worker Name Role Phone Unavailable Primary Care [...] 01/17/2016 Acquired scoliosis 01/17/2016 Developmental delay 03/05/2011 Social History Tobacco Use Types Packs/Day Years [...] 66 06/17/2023 3:33 PM EST Temperature 37.2 C (98.9 F) 06/17/2023 3:33 PM EST Respiratory Rate 20 06/17/2023 3:33 PM EST [...] 1996 HIV Screening 1996 SDOH Screening 1996 Disability Screening 1996 Alcohol/Substance Use Screening 2008 Family Planning (PISQ) 2011 Hepatitis C Screening 2014 Hepatitis A Vaccines (2 of 2 - Risk 2-dose series) 04/19/2016 10/19/2015 Pneumococcal Vaccine: Pediatrics (0 to 5 Years) and At-Risk Patients (6 to 49) Years (2 of 2 - PCV) 05/23/2016 05/23/2015 Tobacco Screening 06/17/2024 06/17/2023 COVID-19 Vaccine (3 - season) 2025 11/21/2021, 05/15/2021 Influenza Vaccine (#1) 2025 , 04/12/2020, 04/12/2020, Additional history exists Pap Smear 06/25/2026 06/25/2021 DTaP/Tdap/Td Vaccines (13 [...] Completed 01/10/2010, 12/18, 03/21/2009, Additional history exists Meningococcal B Vaccine Aged Out No l onger eligible based on patient's age to complete this topic RSV under 20 months Aged Out No longe r eligible based on patient's age to complete this topic Rotavirus Vaccines Aged Out No longer eligible based on patient's age to complete this topic Procedures Procedure Name Priority Date/Time Associated Diagnosis Comments PAP/HPV Routine 06/25/2021 from Last 3 Months or Most Recently Relevant to Health Maintenance Results * Pap Smear (06/25/2021) Pap Negative for intraephithelial lesion or malignancy Negative for intraephithelial lesion or malignancy, Other HPV Undetected Undetected, Indeterminate, Quantitative, Not Detected Historical Provider HEALTH MAINTENANCE Final Result from Last 3 Months or Most Recently Relevant to Health Maintenance Insurance [facility] [employer] [facility]
--- OUTSIDE RECORDS SUMMARY | 2025-01-23 12:00 | XMS_ITS | Encounter Summary ---
Author Organization [facility] Address [address] [place] [phone] Phone Care Team Providers Care Human Services Instructor Name Role Phone Maty Hoffmann NP Primary Care Provider Magnolia hussein Encounter Details Date Type Department Care Team (Late st Contact Info) Description 01/26/2013 Documentation [facility] Family Medicine [address] [place] [address] Family Medicine, Physician [address] [place] [address] Social History Tobacco Use Types Packs/Day Years [...] on filedocumented in this encounter Care Teams Human Services Instructor Relationship Specialty Start Date End Date Maty Hoffmann NP PCP - General 12/27/16 10/17/22 documented as of this encounter
--- OUTSIDE RECORDS SUMMARY | 2025-01-23 12:00 | XMS_ITS | Encounter Summary ---
Author Organization [facility] Address [address] [place] [address] Phone Care Team Providers Care Wood Scaler Name Role Phone Maty Hoffmann NP Primary Care Provider Magnolia hussein Encounter Details Date Type Department Care Team (Late st Contact Info) Description 03/30/2010 Documentation [facility] Family Medicine [address] [place] [address] Family Medicine, Physician [address] [place] [address] Social History Tobacco Use Types Packs/Day Years [...] on filedocumented in this encounter Care Teams Wood Scaler Relationship Specialty Start Date End Date Maty Hoffmann NP PCP - General 12/27/16 10/17/22 documented as of this encounter
--- OUTSIDE RECORDS SUMMARY | 2025-01-23 12:00 | XMS_ITS | Encounter Summary ---
Author Organization [facility] Address [address] [place] [address] Phone Care Team Providers Care Set Up Person Name Role Phone Maty Hoffmann NP Primary Care Provider Magnolia hussein Encounter Details Date Type Department Care Team (Late st Contact Info) Description 04/01/2013 Documentation [facility] [place] Medicine [address] [place] [address] Family Medicine, Physician [address] [place] [address] Social History Tobacco Use Types Packs/Day Years [...] on filedocumented in this encounter Care Teams Set Up Person Relationship Specialty Start Date End Date Maty Hoffmann NP PCP - General 12/27/16 10/17/22 documented as of this encounter
--- OUTSIDE RECORDS SUMMARY | 2025-01-23 12:00 | XMS_ITS | Encounter Summary ---
Author Organization [facility] Address [address] [place] [address] Phone Care Team Providers Care Retirement Plan Specialist Name Role Phone Maty Hoffmann NP Primary Care Provider Magnolia hussein Encounter Details Date Type Department Care Team (Late st Contact Info) Description 07/23/2010 Documentation [facility] Family Medicine [address] [place] [address] Family Medicine, Physician [address] [place] [address] Social History Tobacco Use Types Packs/Day Years [...] on filedocumented in this encounter Care Teams Retirement Plan Specialist Relationship Specialty Start Date End Date Maty Hoffmann NP PCP - General 12/27/16 10/17/22 documented as of this encounter
--- OUTSIDE RECORDS SUMMARY | 2025-01-23 12:00 | XMS_ITS | Encounter Summary ---
Author Organization [facility] Address [address] [place] [address] Phone Care Team Providers Care Explosives Worker Name Role Phone Maty Hoffmann NP Primary Care Provider Magnolia hussein Encounter Details Date Type Department Care Team (Late st Contact Info) Description 02/01/2016 Documentation [facility] Family [facility] [address] [place] [address] Family Medicine, Physician [address] [place] [address] Social History Tobacco Use Types Packs/Day Years [...] on filedocumented in this encounter Care Teams Explosives Worker Relationship Specialty Start Date End Date Maty Hoffmann NP PCP - General 12/27/16 10/17/22 documented as of this encounter
--- OUTSIDE RECORDS SUMMARY | 2025-01-23 12:00 | XMS_ITS | Encounter Summary ---
Author Organization [facility] Address [address] [place] [address] Phone Care Team Providers Care Surgical Services Director Name Role Phone Maty Hoffmann NP Primary Care Provider Magnolia hussein Encounter Details Date Type Department Care Team (Late st Contact Info) Description 09/18/2012 Documentation [facility] [address] [place] [address] Family Medicine, Physician [address] [place] [address] Social History Tobacco Use Types Packs/Day Years [...] on filedocumented in this encounter Care Teams Surgical Services Director Relationship Specialty Start Date End Date Maty Hoffmann NP PCP - General 12/27/16 10/17/22 documented as of this encounter
--- OUTSIDE RECORDS SUMMARY | 2025-01-23 12:00 | XMS_ITS | Encounter Summary ---
Author Organization [facility] Address [address] [place] [address] Phone Care Team Providers Care Stores Clerk Name Role Phone Maty Hoffmann NP Primary Care Provider Magnolia hussein Encounter Details Date Type Department Care Team (Late st Contact Info) Description 04/05/2013 Documentation [facility] [place] Family Medicine [address] [place] [address] Family Medicine, Physician [address] [place] [address] Social History Tobacco Use Types Packs/Day Years [...] on filedocumented in this encounter Care Teams Stores Clerk Relationship Specialty Start Date End Date Maty Hoffmann NP PCP - General 12/27/16 10/17/22 documented as of this encounter
--- OUTSIDE RECORDS SUMMARY | 2025-01-23 12:00 | XMS_ITS | Encounter Summary ---
Author Organization [facility] Address [address] [place] [address] Phone Care Team Providers Care Call Worker Person Name Role Phone Maty Hoffmann NP Primary Care Provider Magnolia hussein Encounter Details Date Type Department Care Team (Late st Contact Info) Description 03/07/2016 Documentation [facility] [address] [place] [address] Family Medicine, Physician [address] [place] [address] Social History Tobacco Use Types Packs/Day Years [...] on filedocumented in this encounter Care Teams Call Worker Person Relationship Specialty Start Date End Date Maty Hoffmann NP PCP - General 12/27/16 10/17/22 documented as of this encounter
--- OUTSIDE RECORDS SUMMARY | 2025-01-23 12:00 | XMS_ITS | Encounter Summary ---
Author Organization [facility] Address [address] [place] [address] Phone Care Team Providers Care Head Of Geography Name Role Phone Maty Hoffmann NP Primary Care Provider Magnolia hussein Encounter Details Date Type Department Care Team (Late st Contact Info) Description 06/15/2014 Documentation [facility] Family [facility] [address] [place] [address] Family Medicine, Physician [address] [place] [address] Social History Tobacco Use Types Packs/Day Years [...] on filedocumented in this encounter Care Teams Head Of Geography Relationship Specialty Start Date End Date Maty Hoffmann NP PCP - General 12/27/16 10/17/22 documented as of this encounter
--- OUTSIDE RECORDS SUMMARY | 2025-01-23 12:00 | XMS_ITS | Encounter Summary ---
Author Organization [facility] Address [address] [place] [address] Phone Care Team Providers Care Electrical Timing Device Calibrator Name Role Phone Maty Hoffmann NP Primary Care Provider Magnolia hussein Encounter Details Date Type Department Care Team (Late st Contact Info) Description 10/25/2015 Documentation [facility] [address] [place] [address] Family Medicine, Physician [address] [place] [address] Social History Tobacco Use Types Packs/Day Years [...] on filedocumented in this encounter Care Teams Electrical Timing Device Calibrator Relationship Specialty Start Date End Date Maty Hoffmann NP PCP - General 12/27/16 10/17/22 documented as of this encounter
--- OUTSIDE RECORDS SUMMARY | 2025-01-23 12:00 | XMS_ITS | Encounter Summary ---
Author Organization [facility] Address [address] [place] [address] Phone Care Team Providers Care Rn Float Name Role Phone Maty Hoffmann NP Primary Care Provider Magnolia hussein Encounter Details Date Type Department Care Team (Late st Contact Info) Description 12/21/2013 Documentation [facility] Family [facility] [address] [place] [address] Family Medicine, Physician [address] [place] [address] Social History Tobacco Use Types Packs/Day Years [...] filedocumented in this encounter Care Teams Rn Float Relationship Specialty Start Date End Date Maty Hoffmann NP PCP - General 12/27/16 10/17/22 documented as of this encounter
--- OUTSIDE RECORDS SUMMARY | 2025-01-23 12:00 | XMS_ITS | Encounter Summary ---
Author Organization [facility] Address [address] [place] [address] Phone Care Team Providers Care Tablet Coater Name Role Phone Maty Hoffmann NP Primary Care Provider Magnolia hussein Encounter Details Date Type Department Care Team (Late st Contact Info) Description 11/27/2015 Documentation [facility] [address] [place] [address] Family Medicine, Physician [address] [place] [address] Social History Tobacco Use Types Packs/Day Years [...] on filedocumented in this encounter Care Teams Tablet Coater Relationship Specialty Start Date End Date Maty Hoffmann NP PCP - General 12/27/16 10/17/22 documented as of this encounter
--- OUTSIDE RECORDS SUMMARY | 2025-01-23 12:00 | XMS_ITS | Encounter Summary ---
Author Organization [facility] Address [address] [place] [address] Phone Care Team Providers Care Residential Energy Auditor Name Role Phone Maty Hoffmann NP Primary Care Provider Magnolia hussein Encounter Details Date Type Department Care Team (Late st Contact Info) Description 04/07/2013 Documentation [facility] [place] Family Medicine [address] [place] [address] Family Medicine, Physician [address] [place] [address] Social History Tobacco Use Types Packs/Day Years [...] on filedocumented in this encounter Care Teams Residential Energy Auditor Relationship Specialty Start Date End Date Maty Hoffmann NP PCP - General 12/27/16 10/17/22 documented as of this encounter
[2025-01-23 12:26] VITALS: BP 109/70; PULSE 71; RESP 16; TEMP 36.8; O2SAT 96
== END 2025-01-23 12:27 | disposition home or self-care (01) ==
PROVIDERS: Emergency Provider Emergency Medicine
DX: H92.02 Otalgia, left ear (principal); H61.22 Impacted cerumen, left ear
CPT/HCPCS: 99282; 99283

== ENCOUNTER 2025-04-04 22:15 | Emergency (ER) | payer MEDICAID, SELFPAY ==
[2025-04-04 22:42] VITALS: BP 108/53; PULSE 56; RESP 18; TEMP 36.7; O2SAT 98; BMI 24.6
[2025-04-04 22:54] LABS: MANUAL DIFF FLAG NO
[2025-04-04 22:55] LABS: Hematocrit 37.5 % (37.0-47.0); Hemoglobin 12.8 g/dl (12.0-16.0); Imm Gran Abs Auto 0.01 X10*3/uL (0.00-0.03); Imm Gran Pct Auto 0.2 % (0.0-0.4); Lymphocytes Absolute Auto 2.1 X10*3/uL (1.2-4.9); Mean Corpuscular HGB Conc 34.1 g/dl (31.0-35.0); Mean Corpuscular Hemoglobin 30.3 pg (27.0-33.0); Mean Corpuscular Volume 88.9 fL (80.0-98.0); NRBC Abs Auto 0.000 X10*3/uL (0.0-0.012); NRBC Pct Auto 0.0 /100WBC (0.0-0.2); Platelet Count 250 X10*3/uL (160-400); Red Blood Count 4.22 X10*6/uL (4.20-5.50); White Blood Count 5.8 X10*3/uL (4.8-10.8)
[2025-04-04 23:10] LABS: Alanine Aminotransferase 35 U/L (0-31); Albumin Level 4.6 g/dL (3.5-5.0); Alkaline Phosphatase 60 U/L (39-117); Anion Gap 14 (12-20); Aspartate Amino Transferase 26 U/L (5-31); Blood Urea Nitrogen 15 mg/dL (9-16); Calcium 9.3 mg/dL (8.4-10.2); Carbon Dioxide 26 mmol/L (22-29); Chloride 107 mmol/L (96-108); Creatinine Clr Calc Pharmacy 99.2; Estimated Glomerular Filt Rate > 60; Magnesium 1.9 mg/dL (1.6-2.6); Potassium 3.6 mmol/L (3.3-5.1); Sodium 143 mmol/L (135-145); Total Protein 7.3 g/dL (6.5-8.0)
--- NOTE | 2025-04-05 00:25 | ED_ITS ---
HPI - General Adult General Chief complaint: General Medical Stated complaint: Headache Time Seen by Provider: 04/05/25 00:25 History of Present Illness ED Provider: Anish ST narrative: The patient is a 30-year-old female who says that she has been having problems with intermittent headaches over the last week or so. She says that the headaches improve when she rests and lies down. She says the headaches tend to be provoked by noisy environments or stressful situations. She can not remember exactly what she was doing when these headaches began approximately a week ago. She says it was not a sudden abrupt severe headache. The patient says that she came to the emergency room tonight because of the headache but while waiting to be seen she rested and put a blanket over her head in her headache resolved. She has had no fever, sweats, chills. No visual complaints. She has had photophobia however. She has had some occasional nausea. She has had no vomiting. The patient says that she has been working nights for the last month. She wonders if the stress of working nights might have provoked or some how contributed to the headaches. 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 She says that the father of the children lives with her. Apparently the father works during the daytime and she works during the nighttime. She says that she has a lot of bills and has a financial stress. She says that she tried to get seen at the [facility] but recently learned that her insurance had lapsed. When she managed to get her insurance reinstated she was told that she had lost her status has a regular patient and would have to start as a new patient which has put her on a waiting list. She was told that if she changes her insurance plan through [employer] she might be able to be seen more quickly at the [facility]. Related Data Home Medications ?Medication ?Instructions ?Recorded ?Confirmed polyethylene glycol 3350 17 gram 17 g PO DAILY PRN Con stipation 07/23/24 07/23/24 oral powder packet Previous Rx's ?Medication ?Instructions ?Recorded prochlorperazine 25 mg rectal 25 mg SD Q12H PRN nausea and 02/16/24 suppository vomiting #12 ea amoxicillin 875 mg-potassium 1 tab PO Q12H 10 days #20 tabs 01/23/25 clavulanate 125 mg tablet carbamide peroxide 6.5 % ear drops 5 drp otic (ear) le ft Q12H 4 days 01/23/25 (Debrox) #15 mL naproxen 500 mg tablet 500 mg PO BID PRN pain #14 t abs 01/23/25 ondansetron 4 mg disintegrating 4 mg PO Q6H PRN nausea and 01/23/25 tablet vomiting #8 tabs acetaminophen 500 mg capsule 1,000 mg (2 x 500 mg) PO Q8H PRN 04/05/25 fever or pain #14 caps ibuprofen 400 mg tablet 400 mg PO Q6H PRN pain #14 t abs 04/05/25 Allergies Allergy/AdvReac Type Severity Reaction Status Date / Time No Known Allergies (No Known Allergy Verified 04/04/25 22:44 Allergies*) Review of Systems 2 Review of Systems: Yes all other systems are reviewed and are negative PMFSH Past Medical History Medical History Chronic hepatitis B Cyclical vomiting Fallot tetralogy Cyclical vomiting Surgical History H/O tetralogy of Fallot repair Hx of section Social History Social History Household Members: Significant Other Housing: Apartment Do you presently have visiting nurse or other home services: No Alcohol intake: current Alcohol intake frequency: holidays/special occasions only Patient Tobacco Use Status: Never used Tobacco Smoked in Last 30 Days: No Second Hand Smoke Exposure: No Use of substances other than those prescribed or required for medical reasons: No Substance Use Type: Marijuana Advance Directives: No Advance Directives Information Provided: Yes Do you have a plan to hurt others: No Plan service: No Physical Exam ED Vital Signs: Vital Signs - 24 hr 04/04/25 22:42 04/05/25 00:52 04/05/25 00:55 Temperature 98.0 F 98.4 F 98.4 F Pulse Rate 56 63 63 Respiratory Rate 18 16 16 Blood Pressure 108/53 L 95/48 L 95/48 L Pulse Oximetry 98 98 98 Oxygen Delivery Method Room Air Room Air Room Air BMI result Body Mass Index 24.6 Const Other: The patient is awake, alert, pleasant, cooperative. The patient is not appear in acute distress. Orientation/consciousness: patient oriented x3 HENMT Other: The face is symmetrical. Mucous membranes moist. Eyes General: appearance normal, both eyes and all related structures Alignment and Position: alignment normal Periorbital: periorbital findings normal Eyelids: Yes eyelids normal Conjunctivae: conjunctivae normal Pupils: Equal, round and reactive pupils present EOM: EOMs intact bilaterally Neck Neck: Yes full ROM and Yes no meningeal signs Resp Effort & Inspection: normal respiratory effort Auscultation: clear to auscultation bilaterally Cardio Rate: regular rate Rhythm: regular rhythm Heart sounds: S1 normal heart sound present and S2 normal heart sound present Skin Other: The skin is dry and unremarkable Neuro General: patient oriented x3, gait normal, tone normal, moves all extremities, no meningeal signs, no focal motor deficits and CN's II-XI intact bilaterally Cranial nerves: Yes Equal, round and reactive pupils present Extrem Other: There is no calf swelling or tenderness. No asymmetry. No peripheral edema. Medical Decision Making Medical Decision Making [facility] Narrative: The patient is a 30-year-old female who has been having problems with intermittent headaches during the last week. She does not seem to describe any thunderclap headaches. There has been no associated fever, sweats, chills. Her headaches seemed to be provoked by stressful situations and relieved with rest. She is somewhat photophobic. She describes being under a lot of stress including financial stress. She has been working nights recently and she thinks this might be stressful as well. The patient had had labs done at [facility] that showed a normal CBC with a normal white count and differential. A comprehensive metabolic panel is essentially normal. test is negative. I proposed treatment with a possible migraine cocktail but the patient has headache had already resolved. She will be prescribed ibuprofen and acetaminophen. She will be given a work note for tonight. She is given contact information for primary care practices to try to get a primary care doctor. My suspicion for a dangerous headache in this case is very low. She does not describe headaches which are profoundly severe, she does not describe a thunderclap headache, she has no associated infectious symptoms. She does seem to be under a lot of psychosocial stress. She seems comfortable with this plan. She should return if worse. Lab Data 04/04/25 22:50 04/04/25 22:50 Labs: Lab Results 04/04/25 Range/Units 22:50 WBC 5.8 (4.8-10.8) X10*3/uL RBC 4.22 (4.20-5.50) X10*6/uL Hgb 12.8 (12.0-16.0) g/dl Hct 37.5 (37.0-47.0) % MCV 88.9 (80.0-98.0) fL MCH 30.3 (27.0-33.0) pg MCHC 34.1 (31.0-35.0) g/dl RDW 11.6 (11.0-16.0) % Plt Count 250 (160-400) X10*3/uL MPV 10.1 (9.4-12.3) fL Immature Gran % (Auto) 0.2 (0.0-0.4) % Neut % (Auto) 53.1 (45-73) % Lymph % (Auto) 36.3 (20-40) % Winn % (Auto) 8.2 (2-11) % Eos % (Auto) 1.7 (0-4) % Baso % (Auto) 0.5 (0-2) % Lymph # (Auto) 2.1 (1.2-4.9) X10*3/uL Winn # (Auto) 0.5 (0.1-1.2) X10*3/uL Eos # (Auto) 0.1 (0.0-0.4) X10*3/uL Baso # (Auto) 0.0 (0.0-0.2) X10*3/uL Abs Immat Gran (auto) 0.01 (0.00-0.03) X10*3/uL Absolute Neuts (auto) 3.1 (2.0-8.3) x10*3/uL Absolute Nucleated RBC 0.000 (0.0-0.012) X10*3/uL Nucleated RBC % (auto) 0.0 (0.0-0.2) /100WBC Sodium 143 (135-145) mmol/L Potassium 3.6 (3.3-5.1) mmol/L Chloride 107 (96-108) mmol/L Carbon Dioxide 26 (22-29) mmol/L Anion Gap 14 (12-20) BUN 15 (9-16) mg/dL Creatinine 0.69 (0.5-1.4) mg/dL Estim Creat Clear Calc 99.2 Estimated GFR > 60 Random Glucose 64 (60-115) mg/dL Calcium 9.3 (8.4-10.2) mg/dL Magnesium 1.9 (1.6-2.6) mg/dL Total Bilirubin 0.2 (0.0-1.0) mg/dL AST 26 (5-31) U/L ALT 35 H (0-31) U/L Alkaline Phosphatase 60 (39-117) U/L Total Protein 7.3 (6.5-8.0) g/dL Albumin 4.6 (3.5-5.0) g/dL Beta HCG, Quant < 2 mIU/mL Discharge Plan Discharge Clinical Impression: Headache Patient Disposition: Home, Self-Care Additional Instructions: I think it is very likely that the headaches you has been experiencing recently are related to stress more than anything more dangerous. I have sent prescriptions for ibuprofen and acetaminophen to your pharmacy. I hope these medications might help. Please work on getting a new primary care doctor. Your paperwork includes contact information for a number of local primary care doctor offices. Please return to the emergency room if you feel significantly worse. Prescriptions: New ibuprofen 400 mg tablet 400 mg PO Q6H PRN (Reason: pain) Qty: 14 0RF acetaminophen 500 mg capsule 1,000 mg PO Q8H PRN (Reason: fever or pain) Qty: 14 0RF No Action prochlorperazine 25 mg suppository 25 mg SD Q12H PRN (Reason: nausea and vomiting) Qty: 12 0RF polyethylene glycol 3350 17 gram powder in packet 17 g PO DAILY PRN (Reason: Constipation) Debrox 6.5 % drops 5 drp otic (ear) left Q12H 4 Days Qty: 15 0RF amoxicillin-pot clavulanate 875-125 mg tablet 1 tab PO Q12H 10 Days Qty: 20 0RF naproxen 500 mg tablet 500 mg PO BID PRN (Reason: pain) Qty: 14 0RF ondansetron 4 mg tablet,disintegrating 4 mg PO Q6H PRN (Reason: nausea and vomiting) Qty: 8 0RF Referrals: [facility] [Provider Group] [facility] [Provider Group] [facility] [place], [place] [Provider Group, Internal Medicine] [facility] [place] Primary Care, [place] [Provider Group, Internal Medicine] [facility] [place] Primary Care, [facility] [Provider Group, Primary Care] Jeanie Salas MD [Physician, Internal Medicine] Stand Alone Forms: Work/School Release Interventions: ED Discharge Assessment Last Done: 04/05/25 00:55 Discharge Date/Time: 04/05/25 00:58 Print Language: Spanish
[2025-04-05 00:52] VITALS: BP 95/48; PULSE 63; RESP 16; TEMP 36.9; O2SAT 98
[2025-04-05 00:55] VITALS: BP 95/48; PULSE 63; RESP 16; TEMP 36.9; O2SAT 98
--- OUTSIDE RECORDS SUMMARY | 2025-04-05 07:50 | XMS_ITS | Encounter Summary ---
Author Organization [facility] Address [address] [place] [address] Phone Care Team Providers Care Brick Picker Name Role Phone Maty Hoffmann NP Primary Care Provider Magnolia hussein Encounter Details Date Type Department Care Team (Late st Contact Info) Description 01/26/2013 Documentation [facility] [place] [address] [place] [address] Family Medicine, Physician [address] [place] [address] Social History Tobacco Use Types Packs/Day Years [...] on filedocumented in this encounter Care Teams Brick Picker Relationship Specialty Start Date End Date Maty Hoffmann NP PCP - General 12/27/16 10/17/22 documented as of this encounter
--- OUTSIDE RECORDS SUMMARY | 2025-04-05 07:51 | XMS_ITS | Encounter Summary ---
Author Organization [facility] Address [address] [place] [address] Phone Care Team Providers Care Director Underwriter Sales Name Role Phone Maty Hoffmann NP Primary Care Provider Magnolia hussein Encounter Details Date Type Department Care Team (Late st Contact Info) Description 03/31/2013 Documentation [facility] [place] Family Medicine [address] [place] [address] Family Medicine, Physician [address] [place] [address] Social History Tobacco Use Types Packs/Day Years [...] on filedocumented in this encounter Care Teams Director Underwriter Sales Relationship Specialty Start Date End Date Maty Hoffmann NP PCP - General 12/27/16 10/17/22 documented as of this encounter
--- OUTSIDE RECORDS SUMMARY | 2025-04-05 07:51 | XMS_ITS | Encounter Summary ---
Author Organization [facility] Address [address] [place] [address] Phone Care Team Providers Care Board Writer Name Role Phone Maty Hoffmann NP Primary Care Provider Magnolia hussein Encounter Details Date Type Department Care Team (Late st Contact Info) Description 04/05/2013 Documentation [facility] [place] Family Medicine [address] [place] [address] Family Medicine, Physician [address] [place] [address] Social History Tobacco Use Types Packs/Day Years [...] on filedocumented in this encounter Care Teams Board Writer Relationship Specialty Start Date End Date Maty Hoffmann NP PCP - General 12/27/16 10/17/22 documented as of this encounter
--- OUTSIDE RECORDS SUMMARY | 2025-04-05 07:51 | XMS_ITS | Encounter Summary ---
Author Organization [facility] Address [address] [place] [address] Phone Care Team Providers Care Lead C Developer Name Role Phone Maty Hoffmann NP Primary Care Provider Magnolia hussein Encounter Details Date Type Department Care Team (Late st Contact Info) Description 04/01/2013 Documentation [facility] [place] Medicine [address] [place] [address] Family Medicine, Physician [address] [place] [address] Social History Tobacco Use Types Packs/Day Years [...] on filedocumented in this encounter Care Teams Lead C Developer Relationship Specialty Start Date End Date Maty Hoffmann NP PCP - General 12/27/16 10/17/22 documented as of this encounter
--- OUTSIDE RECORDS SUMMARY | 2025-04-05 07:52 | XMS_ITS | Encounter Summary ---
Author Organization [facility] Address [address] [place] [address] Phone Care Team Providers Care Carrier Blower Name Role Phone Maty Hoffmann NP Primary Care Provider Magnolia hussein Encounter Details Date Type Department Care Team (Late st Contact Info) Description 04/07/2013 Documentation [facility] [place] Family Medicine [address] [place] [address] Family Medicine, Physician [address] [place] [address] Social History Tobacco Use Types Packs/Day Years [...] on filedocumented in this encounter Care Teams Carrier Blower Relationship Specialty Start Date End Date Maty Hoffmann NP PCP - General 12/27/16 10/17/22 documented as of this encounter
--- OUTSIDE RECORDS SUMMARY | 2025-04-05 07:53 | XMS_ITS | Encounter Summary ---
Author Organization [facility] Address [address] [place] [address] Phone Care Team Providers Care Senior Benefits Manager Name Role Phone Maty Hoffmann NP Primary Care Provider Magnolia hussein Encounter Details Date Type Department Care Team (Late st Contact Info) Description 04/13/2013 Documentation [facility] Family Medicine [address] [place] [address] Family Medicine, Physician [address] [place] [address] Social History Tobacco Use Types Packs/Day Years [...] filedocumented in this encounter Care Teams Senior Benefits Manager Relationship Specialty Start Date End Date aMty Hoffmann NP PCP - General 12/27/16 10/17/22 documented as of this encounter
--- OUTSIDE RECORDS SUMMARY | 2025-04-05 07:53 | XMS_ITS | Encounter Summary ---
Author Organization [facility] Address [address] [place] [address] Phone Care Team Providers Care Application Support Name Role Phone Maty Hoffmann NP Primary Care Provider Magnolia hussein Encounter Details Date Type Department Care Team (Late st Contact Info) Description 11/27/2015 Documentation [facility] [address] [place] [address] Family Medicine, Physician [address] [place] [address] Social History Tobacco Use Types Packs/Day Years [...] on filedocumented in this encounter Care Teams Application Support Relationship Specialty Start Date End Date Maty Hoffmann NP PCP - General 12/27/16 10/17/22 documented as of this encounter
--- OUTSIDE RECORDS SUMMARY | 2025-04-05 07:53 | XMS_ITS | Encounter Summary ---
Author Organization [facility] Address [address] [place] [address] Phone Care Team Providers Care Associate Software Developer Name Role Phone Maty Hoffmann NP Primary Care Provider Magnolia hussein Encounter Details Date Type Department Care Team (Late st Contact Info) Description 02/01/2016 Documentation [facility] [address] [place] [address] Family Medicine, Physician [address] [place] [address] Social History Tobacco Use Types Packs/Day Years [...] on filedocumented in this encounter Care Teams Associate Software Developer Relationship Specialty Start Date End Date Maty Hoffmann NP PCP - General 12/27/16 10/17/22 documented as of this encounter
--- OUTSIDE RECORDS SUMMARY | 2025-04-05 07:54 | XMS_ITS | Encounter Summary ---
Author Organization [facility] Address [address] [place] [address] Phone Care Team Providers Care Metal Mixer Name Role Phone Maty Hoffmann NP Primary Care Provider Magnolia hussein Encounter Details Date Type Department Care Team (Late st Contact Info) Description 01/02/2017 Conversion Encounter [facility] - [address] [address] Social History Tobacco Use Types Packs/Day Years [...] on filedocumented in this encounter Care Teams Metal Mixer Relationship Specialty Start Date End Date Maty Hoffmann NP PCP - General 12/27/16 10/17/22 documented as of this encounter
--- OUTSIDE RECORDS SUMMARY | 2025-04-05 07:54 | XMS_ITS | Encounter Summary ---
Author Organization [facility] Address [address] [place] [address] Phone Care Team Providers Care Motor Vehicle Technician Name Role Phone Maty Hoffmann NP Primary Care Provider Magnolia hussein Encounter Details Date Type Department Care Team (Late st Contact Info) Description 03/07/2016 Documentation [facility] [address] [place] [address] Family Medicine, Physician [address] [place] [address] Social History Tobacco Use Types Packs/Day Years [...] on filedocumented in this encounter Care Teams Motor Vehicle Technician Relationship Specialty Start Date End Date Maty Hoffmann NP PCP - General 12/27/16 10/17/22 documented as of this encounter
--- OUTSIDE RECORDS SUMMARY | 2025-04-05 07:55 | XMS_ITS | Clinical Summary ---
Author Organization [facility] Address [address] [place] [address] Phone Care Team Providers Care Dispatcher Chief Coal Slurry Name Role Phone Unavailable Primary Care Provider [...] 01/10/2010, 02/02/2009, Additional history exists COVID-19 Vaccine (2024- season) 2025 Hepatitis B Vaccines Completed 1996, [...] complete this topic Procedures * Due to [facility] law, this organization might not be sharing sensitive test results. Procedure Name Priority Date/Time Associated Diagnosis Comments CHLAMYDIA AND GONORRHEA, AMPLIFIED Routine 12/15/2013 1:32 PM EDT from Last 3 Months or Most Recently Relevant to Health Maintenance Results * Due to [facility] law, this organization might not be sharing sensitive test results. * Chlamydia and Gonorrhoea, Amplified (12/15/2013 1:32 PM EDT) URINE CHLAMYDIA AMP PROBE NEGATIVE [facility] Comment: NO CHLAMYDIA TRACHOMATIS RNA DETECTED IN THIS PATIENT'S SAMPLE. (REFERENCE RANGE/NORMAL VALUE: NOT DETECTED) URINE GC AMP PROBE NEGATIVE [facility] Comment: NO NEISSERIA GONORRHOEAE RNA DETECTED IN THIS PATIENT'S SAMPLE. (REFERENCE RANGE/NORMAL VALUE: NOT DETECTED) NOTE: This test uses visualizer-mediated amplification method to detect rRNA from C.Trachomatis [...] without risk of sexual abuse. Consult the [facility] if needed. Contact phone number . Therapeutic failure or success cannot be determined with the Aptima Combo2 assay since nucleic acid may persist following appropriate antimicrobial therapy. The Centers for Disease Control and Prevention (CDC) recommends confirmatory retesting using culture or a different nucleic acid amplification test when positive results occur, if indicated. Testing performed or reported by [facility], a Service of [facility], [address] [place] [address] Jeff Hampton, Drill Bit Sharpener 12/15/2013 1:32 PM EDT [facility] - 12/15/2013 1:32 PM EDT URINE CHLAMYDIA GC AMP PROBE us Maty Hoffmann NP LAB MICROBIOLOGY - GENERAL OR DERABLES Final Result [facility] [address] [place] [address], [place] from Last 3 Months or Most Recently Relevant to Health Maintenance
--- OUTSIDE RECORDS SUMMARY | 2025-04-05 07:55 | XMS_ITS | Encounter Summary ---
Author Organization [facility] Address [address] [place] [address] Phone Care Team Providers Care Licensed Massage Practitioner Name Role Phone Maty Hoffmann NP Primary Care Provider Magnolia hussein Encounter Details Date Type Department Care Team (Late st Contact Info) Description 09/18/2012 Documentation [facility] Family Medicine [address] [place] [address] Family Medicine, Physician [address] [place] [address] Social History Tobacco Use Types Packs/Day Years [...] on filedocumented in this encounter Care Teams Licensed Massage Practitioner Relationship Specialty Start Date End Date Maty Hoffmann NP PCP - General 12/27/16 10/17/22 documented as of this encounter
--- OUTSIDE RECORDS SUMMARY | 2025-04-05 07:55 | XMS_ITS | Encounter Summary ---
Author Organization [facility] Address [address] [place] [address] Phone Care Team Providers Care Hat Lining Blocker Name Role Phone Maty Hoffmann NP Primary Care Provider Magnolia hussein Encounter Details Date Type Department Care Team (Late st Contact Info) Description 06/15/2014 Documentation [facility] [address] [place] [address] Family Medicine, Physician [address] [place] [address] Social History Tobacco Use Types Packs/Day Years [...] on filedocumented in this encounter Care Teams Hat Lining Blocker Relationship Specialty Start Date End Date Maty Hoffmann NP PCP - General 12/27/16 10/17/22 documented as of this encounter
--- OUTSIDE RECORDS SUMMARY | 2025-04-05 07:56 | XMS_ITS | Encounter Summary ---
Author Organization [facility] Address [address] [place] [address] Phone Care Team Providers Care Day Worker Name Role Phone Maty Hoffmann NP Primary Care Provider Magnolia hussein Encounter Details Date Type Department Care Team (Late st Contact Info) Description 09/18/2012 Documentation [facility] [address] [place] [address] Family Medicine, Physician [address] [place] [address] Social History Tobacco Use Types Packs/Day Years [...] on filedocumented in this encounter Care Teams Day Worker Relationship Specialty Start Date End Date Maty Hoffmann NP PCP - General 12/27/16 10/17/22 documented as of this encounter
--- OUTSIDE RECORDS SUMMARY | 2025-04-05 07:56 | XMS_ITS | Encounter Summary ---
Author Organization [facility] Address [address] [place] [address] Phone Care Team Providers Care Farm Equipment Mechanic Name Role Phone Maty Hoffmann NP Primary Care Provider Magnolia hussein Encounter Details Date Type Department Care Team (Late st Contact Info) Description 03/30/2010 Documentation [facility] [address] [place] [address] Family Medicine, Physician [address] [place] [address] Social History Tobacco Use Types Packs/Day Years [...] on filedocumented in this encounter Care Teams Farm Equipment Mechanic Relationship Specialty Start Date End Date Maty Hoffmann NP PCP - General 12/27/16 10/17/22 documented as of this encounter
--- OUTSIDE RECORDS SUMMARY | 2025-04-05 07:56 | XMS_ITS | Encounter Summary ---
Author Organization [facility] Address [address] [place] [id number] Phone Care Team Providers Care Home Therapy Teacher Name Role Phone Maty Hoffmann NP Primary Care Provider Magnolia hussein Encounter Details Date Type Department Care Team (Late st Contact Info) Description 12/21/2013 Documentation EM Family Medicine [address] [place] [address] Family Medicine, Physician [address] [place] [address] Social History Tobacco Use Types Packs/Day Years [...] on filedocumented in this encounter Care Teams Home Therapy Teacher Relationship Specialty Start Date End Date Maty Hoffmann NP PCP - General 12/27/16 10/17/22 documented as of this encounter
--- OUTSIDE RECORDS SUMMARY | 2025-04-05 07:56 | XMS_ITS | Encounter Summary ---
Author Organization [facility] Address [address] [place] [phone] Phone Care Team Providers Care Certified Home Health Aide Name Role Phone Maty Hoffmann NP Primary Care Provider Magnolia hussein Encounter Details Date Type Department Care Team (Late st Contact Info) Description 09/18/2012 Documentation EM Family Medicine [address] [place] [address] Family Medicine, Physician [address] [place] [address] Social History Tobacco Use Types Packs/Day Years [...] on filedocumented in this encounter Care Teams Certified Home Health Aide Relationship Specialty Start Date End Date Maty Hoffmann NP PCP - General 12/27/16 10/17/22 documented as of this encounter
--- OUTSIDE RECORDS SUMMARY | 2025-04-05 07:57 | XMS_ITS | Encounter Summary ---
Author Organization [facility] Address [address] [place] [id number] Phone Care Team Providers Care Sugar Presser Name Role Phone Maty Hoffmann NP Primary Care Provider Magnolia hussein Encounter Details Date Type Department Care Team (Late st Contact Info) Description 07/23/2010 Documentation EM Family Medicine [address] [place] [address] Family Medicine, Physician [address] [place] [address] Social History Tobacco Use Types Packs/Day Years [...] on filedocumented in this encounter Care Teams Sugar Presser Relationship Specialty Start Date End Date Maty Hoffmann NP PCP - General 12/27/16 10/17/22 documented as of this encounter
--- OUTSIDE RECORDS SUMMARY | 2025-04-05 07:57 | XMS_ITS | Encounter Summary ---
Author Organization [facility] Address [address] [place] [phone] Phone Care Team Providers Care Roll Hand Name Role Phone Maty Hoffmann NP Primary Care Provider Magnolia hussein Encounter Details Date Type Department Care Team (Late st Contact Info) Description 10/25/2012 Documentation EM Family Medicine [address] [place] [address] Family Medicine, Physician [address] [place] [address] Social History Tobacco Use Types Packs/Day Years [...] on filedocumented in this encounter Care Teams Roll Hand Relationship Specialty Start Date End Date Maty Hoffmann NP PCP - General 12/27/16 10/17/22 documented as of this encounter
--- OUTSIDE RECORDS SUMMARY | 2025-04-05 07:58 | XMS_ITS | Encounter Summary ---
Author Organization [facility] Address [address] [place] [phone] Phone Care Team Providers Care Cash Management Coordinator Name Role Phone Maty Hoffmann NP Primary Care Provider Magnolia hussein Encounter Details Date Type Department Care Team (Late st Contact Info) Description 07/12/2015 Documentation EM Family Medicine [address] [place] [address] Family Medicine, Physician [address] [place] [address] Social History Tobacco Use Types Packs/Day Years [...] on filedocumented in this encounter Care Teams Cash Management Coordinator Relationship Specialty Start Date End Date Maty Hoffmann NP PCP - General 12/27/16 10/17/22 documented as of this encounter
--- OUTSIDE RECORDS SUMMARY | 2025-04-05 07:58 | XMS_ITS | Encounter Summary ---
Author Organization [facility] Address [address] [place] [phone] Phone Care Team Providers Care Material Control Specialist Name Role Phone Maty Hoffmann NP Primary Care Provider Magnolia hussein Encounter Details Date Type Department Care Team (Late st Contact Info) Description 10/25/2015 Documentation EM Family Medicine [address] [place] [address] Family Medicine, Physician [address] [place] [address] Social History Tobacco Use Types Packs/Day Years [...] on filedocumented in this encounter Care Teams Material Control Specialist Relationship Specialty Start Date End Date Maty Hoffmann NP PCP - General 12/27/16 10/17/22 documented as of this encounter
== END 2025-04-05 00:58 | disposition home or self-care (01) ==
PROVIDERS: Emergency Provider Emergency Medicine
DX: R51.9 Headache, unspecified (principal); Z59.9 Problem related to housing and economic circumstances, unspecified
CPT/HCPCS: 36415; 80053; 83735; 84702; 85025; 99283; 99284